=== PATIENT | male | born 1975 | race Caucasian/White ===

== ENCOUNTER 2016-12-17 06:34 | Observation (INO) ==
--- NOTE | 2016-12-17 06:47 | Emergency Department Note ---
Disposition Clinical Impression: Hematuria, History of chronic urinary tract infection Disposition: Admitted As Inpatient Condition: Fair Time of Disposition: 08:03 Male Urogenital HPI - General Chief complaint: ED Urogenital-Male Stated complaint: suprapubic cath not draining Source: patient Mode of arrival: EMS Limitations: physical limitation Nursing Notes Reviewed: Yes Vital Signs Reviewed: Yes - History of Present Illness HPI Narrative: 41-year-old male arrives by EMS from [facility] for evaluation of suprapubic catheter complications. [facility], the patient has had no drainage from his suprapubic catheter since this morning. The patient states that early this morning, nurses [facility] the [facility] went to change his suprapubic catheter as they do once a month. He states that the old catheter was removed and a new one was placed. He states that it was immediately noticed to be very uncomfortable. He states that he has a sensation of suprapubic fullness and that her catheter is "in the wrong place". He complains of bleeding and leakage of urine from his suprapubic stoma. He denies any fever, chills, nausea , or vomiting. He states that he was recently placed on IV antibiotics for treatment of a urinary tract infection. Review of records from a [facility] in [facility] reveals that he was being treated with amikacin for a urinary tract infection. He does state "I am pretty sure I have a urinary tract infection again". 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 Severity: severe Severity scale (1-10): 10 Quality: dull Improves with: none Worsens with: none - Related Data Home Medications Medication Instructions Recorded Confirmed HYDROmorphone [Dilaudid] 2 mg PO Q4HR PRN 03/23/15 12/17/16 Promethazine [Phenergan] 25 mg PO Q6HR PRN 03/23/15 12/17/16 Ascorbic Acid [Vitamin C] 500 mg PO DAILY 05/23/15 12/17/16 Bisacodyl [Dulcolax] 5 mg PO DAILY 05/23/15 12/17/16 Lubiprostone [Amitiza] 24 mcg PO Q12HR 05/23/15 12/17/16 Sennosides [Senna] 8.6 mg PO BID 05/23/15 12/17/16 Ferrous Gluconate 240 mg PO BID 02/26/16 12/17/16 Lactobacillus Acidophilus 1 tab PO BID 02/26/16 12/17/16 [Acidophilus] Omeprazole [PriLOSEC] 20 mg PO DAILY 02/26/16 12/17/16 Ipratropium/Albuterol Neb [Duoneb] 3 ml IH Q6HR PRN 05/10/16 12/17/16 Acetaminophen [Tylenol] 650 mg PO Q6HR PRN 05/11/16 12/17/16 Baclofen 60 mg PO BID 05/11/16 12/17/16 GuaiFENesin ER [Mucinex] 600 mg PO Q12HR PRN 05/11/16 12/17/16 diazePAM [Valium] 5 mg PO Q6H PRN 05/11/16 12/17/16 Docusate [Colace] 100 mg PO BID 05/12/16 12/17/16 Tizanidine HCl [Zanaflex] 12 mg PO BID 05/12/16 12/17/16 Allergies Allergy/AdvReac Type Severity Reaction Status Date / Time cephalexin [From Keflex] Allergy Hives Verified 12/17/16 06:46 ciprofloxacin [From Cipro] Allergy Hives Verified 12/17/16 06:46 cranberry Allergy See Verified 12/17/16 06:46 Comments ketorolac Allergy Hives Verified 12/17/16 06:46 morphine Allergy Hives Verified 12/17/16 06:46 nitrofurantoin Allergy Hives Verified 12/17/16 06:46 [From Macrobid] Oxycodone Allergy Hives Verified 12/17/16 06:46 Penicillins Allergy Hives Verified 12/17/16 06:46 prochlorperazine Allergy Hives Verified 12/17/16 06:46 [From Compazine] Sulfa (Sulfonamide Allergy Hives Verified 12/17/16 06:46 Antibiotics) trimethoprim Allergy See Verified 12/17/16 06:46 Comments All systems ED: reviewed and negative except as stated. Constitutional: Denies: fever, chills, weakness, weight change Eyes: Denies: eye pain, eye discharge, vision change ENT ED: Denies: ear pain, throat pain, dental pain, hearing loss, epistaxis, congestion, dysphagia Cardiovascular: Denies: chest pain, palpitations, dyspnea on exertion, edema, syncope Respiratory: Denies: cough, dyspnea, wheezes, hemoptysis, stridor Gastrointestinal: Denies: abdominal pain, nausea, vomiting, diarrhea, constipation, hematemesis, melena, hematochezia Genitourinary: Reports: as per HPI, other (Suprapubic catheter complications). Denies: urgency, dysuria, frequency, hematuria Musculoskeletal: Denies: back pain, neck pain, arthralgia, myalgia Integumentary: Denies: rash, abrasion, lesions Neurological: Denies: headache, weakness, numbness, paresthesias, confusion, abnormal gait, vertigo Psychiatric: Denies: anxiety, depression, suicidal thoughts, homicidal thoughts , auditory hallucinations, visual hallucinations Endocrine: Denies: fatigue Hematological/Lymphatic: Denies: easy bleeding, easy bruising Allergic/Immunologic: Denies: facial swelling, urticaria Past Medical History - Past Medical History Attestation: Yes The following information was validated with the patient. Source: patient, nursing notes reviewed Medical history: Reports: GERD, kidney stones, other Surgical history: Reports: orthopedic, other, tracheostomy, other Psychiatric history: Reports: anxiety, depression, prior suicide attempt - Social History Smoking Status: Former smoker Smokeless Tobacco Status: Yes (chew) Alcohol use: Reports: none Drug use: Reports: IVDU Physical Exam - General Limitations: physical limitation General appearance: alert, in no apparent distress - Head Head exam: normal inspection - Eye Eye exam: Present: normal appearance. Absent: nystagmus - ENT ENT exam: mucous membranes moist - Neck Neck exam: Present: normal inspection, full ROM, trachea midline - Chest Chest inspection: Present: normal inspection, symmetric chest wall rise - Respiratory Respiratory exam: Present: normal lung sounds bilaterally. Absent: respiratory distress, wheezes, stridor, accessory muscle use, prolonged expiratory phase - Cardiovascular Cardiovascular exam: Present: regular rate, normal rhythm, normal heart sounds - Abdominal Exam Abdominal Exam: Present: soft, tenderness, normal bowel sounds, other (Small amount of bright red blood as well as leakage of urine noted from the patient's suprapubic catheter insertion site.) Abdominal Tenderness: Present: suprapubic, severe - Neurological Exam Neurological exam: Present: alert, oriented X3, normal gait - Psychiatric Psychiatric exam: Present: normal affect, normal mood - Skin Skin exam: Present: warm, intact, normal color, diaphoresis Course Course Narrative: Upon questioning, the patient states that an 18-Belgian Souza is used. We will attempt removal of the current suprapubic catheter and attempt placement with an 18-Belgian catheter. Upon review of records from a visit at [place] emergency department in October, an 18-Belgian coude was used. 0710: An attempt to deflate the balloon from the suprapubic catheter in place was unsuccessful. I have consult with Dr. Villatoro, the ED attending. Dr. Villatoro recommends consultation with urology on-call. At this time, I am awaiting a return call from the urologist. 0740: Dr. Lion at bedside. Dr. Lion was able to remove the previous indwelling suprapubic catheter. Patient tolerated this well. Dr. Lion placed a 22-Belgian 3-way Souza due to the presence of large amounts of clots. He recommends continuous bladder irrigation and admission to the hospitalist service. He also recommends serial H&H draws d/t the severity of clots and hematuria. I have discussed this plan with my ED attending Dr. Villatoro. Dr. Villatoro is in agreement. 0812: I spoke with Dr. Suárez, who accepts the patient to admission to the hospitalist service. 0910: I was informed by the patient's nurse at the vascular access team was unsuccessful in obtaining either a peripheral midline or a PICC line. I have spoke with placed a consult with interventional radiology at this time for the possibility of a tunneled PICC placement. 1036: I have notified Grace with interventional radiology that the coagulation cascade has returned. At this time, we are awaiting interventional radiology for placement of vascular access prior to transferring the patient to a medical floor. The patient remains alert and oriented without signs of distress. - Consultations Consultation #1: I spoke with Dr. Lion, urology incident response analyst. Dr. Lion states he will see the patient here in the emergency department. Time: 07:24 Vital Signs Temperature 98.1 F 12/17/16 06:41 Pulse Rate 116 12/17/16 06:41 Respiratory Rate 20 12/17/16 06:41 Blood Pressure 181/132 12/17/16 06:41 O2 Sat by Pulse Oximetry 98 12/17/16 06:41 Temperature 98.1 F 12/17/16 06:41 Pulse Rate 116 12/17/16 09:13 Respiratory Rate 18 12/17/16 09:13 Blood Pressure 112/78 12/17/16 09:13 O2 Sat by Pulse Oximetry 95 12/17/16 09:13 Oxygen Delivery Oxygen Delivery Room Air Urogenital-Male - MDM Narrative Medical decision making narrative: I examined this patient and my medical decision-making was reviewed with the MANUFACTURING APPLICATIONS ENGINEER/PA/Advanced Practice Nurse/Resident Physician. I agree with the documented findings, disposition and treatment plan as described except to the extent set forth below. Patient was seen and evaluated by the nurse practitioner Bill Martin, I agree with his evaluation and management plan, supervised the care of the patient's stay. Patient has suprapubic catheter that could not be deflated and it gets changed monthly. We are unable to do it here either. Spoke with urology, Dr. Lion who evaluated the patient ED he is and bring him into the hospital and reassess. Patient did have bleeding from his penis and urology expected the catheter had traveled into the urethra. Patient's in agreement with this plan. - Medical Records Medical records reviewed: Yes I reviewed the patient's medical records. - Lab Data Lab results reviewed: Yes I reviewed the patient's lab results. Lab results narrative: Laboratory Last Values WBC 7.6 K/mcL (4.3-11.1) 12/17/16 07:15 RBC 5.18 M/mcL (4.19-5.50) 12/17/16 07:15 Hgb 15.3 g/dL (12.9-16.9) 12/17/16 07:15 Hct 47.1 % (37.5-50.1) 12/17/16 07:15 MCV 90.9 fL (83.0-100.0) 12/17/16 07:15 MCH 29.5 pg (28.0-33.3) 12/17/16 07:15 MCHC 32.5 g/dL (31.6-35.5) 12/17/16 07:15 RDW 13.2 % (11.5-14.5) 12/17/16 07:15 Plt Count 259 K/mcL (140-400) 12/17/16 07:15 MPV 8.4 fL (9.4-12.4) L 12/17/16 07:15 Immature Gran % 0.3 % (0-4) 12/17/16 07:15 Seg Neutrophils % 51.7 % 12/17/16 07:15 Lymphocytes % 29.3 % 12/17/16 07:15 Monocytes % 11.3 % 12/17/16 07:15 Eosinophils % 6.6 % 12/17/16 07:15 Basophils % 0.8 % 12/17/16 07:15 Neutrophils # 3.9 K/mcL (1.6-8.9) 12/17/16 07:15 Lymphocytes # 2.2 K/mcL (0.6-4.6) 12/17/16 07:15 Monocytes # 0.9 K/mcL (0.0-1.3) 12/17/16 07:15 Eosinophils # 0.5 K/mcL (0.0-0.6) 12/17/16 07:15 Basophils # 0.1 K/mcL (0.0-0.2) 12/17/16 07:15 PT 11.7 Seconds (9.4-12.1) 12/17/16 09:39 INR 1.1 12/17/16 09:39 APTT 38.7 Seconds (26.0-36.0) H 12/17/16 09:39 Sodium 140 mEq/L (136-145) 12/17/16 07:15 Potassium 3.8 mEq/L (3.5-4.5) 12/17/16 07:15 Chloride 103 mEq/L (98-109) 12/17/16 07:15 Carbon Dioxide 24 mEq/L (19-29) 12/17/16 07:15 BUN 14 mg/dL (8-26) 12/17/16 07:15 Creatinine 0.74 mg/dL (0.72-1.25) 12/17/16 07:15 Est GFR ( Amer) > 60 (> 60) 12/17/16 07:15 Est GFR (Non-Af Amer) > 60 (> 60) 12/17/16 07:15 BUN/Creatinine Ratio 19 (6-26) 12/17/16 07:15 Glucose 83 mg/dL (70-99) 12/17/16 07:15 Calculated Osmolality 290 (280-300) 12/17/16 07:15 Calcium 9.8 mg/dL (8.6-10.8) 12/17/16 07:15 Result diagrams: 12/17/16 07:15 12/17/16 07:15 Lab Results 12/17/16 12/17/16 Range/Units 07:15 07:15 WBC 7.6 (4.3-11.1) K/mcL RBC 5.18 (4.19-5.50) M/mcL Hgb 15.3 (12.9-16.9) g/dL Hct 47.1 (37.5-50.1) % MCV 90.9 (83.0-100.0) fL MCH 29.5 (28.0-33.3) pg MCHC 32.5 (31.6-35.5) g/dL RDW 13.2 (11.5-14.5) % Plt Count 259 (140-400) K/mcL MPV 8.4 L (9.4-12.4) fL Immature Gran % 0.3 (0-4) % Seg Neutrophils % 51.7 % Lymphocytes % 29.3 % Monocytes % 11.3 % Eosinophils % 6.6 % Basophils % 0.8 % Neutrophils # 3.9 (1.6-8.9) K/mcL Lymphocytes # 2.2 (0.6-4.6) K/mcL Monocytes # 0.9 (0.0-1.3) K/mcL Eosinophils # 0.5 (0.0-0.6) K/mcL Basophils # 0.1 (0.0-0.2) K/mcL Sodium 140 (136-145) mEq/L Potassium 3.8 (3.5-4.5) mEq/L Chloride 103 (98-109) mEq/L Carbon Dioxide 24 (19-29) mEq/L BUN 14 (8-26) mg/dL Creatinine 0.74 (0.72-1.25) mg/dL Est GFR ( Amer) > 60 (> 60) Est GFR (Non-Af Amer) > 60 (> 60) BUN/Creatinine Ratio 19 (6-26) Glucose 83 (70-99) mg/dL Calculated Osmolality 290 (280-300) Calcium 9.8 (8.6-10.8) mg/dL
[2016-12-17 07:23] LABS: Basophils # 0.1 K/mcL (0.0-0.2); Basophils % 0.8 %; Eosinophils # 0.5 K/mcL (0.0-0.6); Eosinophils % 6.6 %; Hematocrit 47.1 % (37.5-50.1); Hemoglobin 15.3 g/dL (12.9-16.9); Immature Granulocytes % 0.3 % (0-4); Lymphocytes # 2.2 K/mcL (0.6-4.6); Lymphocytes % 29.3 %; Mean Corpuscular HGB Conc 32.5 g/dL (31.6-35.5); Mean Corpuscular Hemoglobin 29.5 pg (28.0-33.3); Mean Corpuscular Volume 90.9 fL (83.0-100.0); Mean Platelet Volume 8.4 fL (9.4-12.4); Monocytes # 0.9 K/mcL (0.0-1.3); Monocytes % 11.3 %; Neutrophils # 3.9 K/mcL (1.6-8.9); Platelet Count 259 K/mcL (140-400); Red Blood Count 5.18 M/mcL (4.19-5.50); Red Cell Distribution Width 13.2 % (11.5-14.5); Segmented Neutrophils % 51.7 %
[2016-12-17 07:37] LABS: BUN/Creatinine Ratio 19 (6-26); Blood Urea Nitrogen 14 mg/dL (8-26); Calcium 9.8 mg/dL (8.6-10.8); Carbon Dioxide 24 mEq/L (19-29); Chloride 103 mEq/L (98-109); Glucose 83 mg/dL (70-99); Osmolality,Calculated 290 (280-300); Potassium 3.8 mEq/L (3.5-4.5); Sodium 140 mEq/L (136-145); eGFR For African Americans > 60 (> 60); eGFR For Non-African Americans > 60 (> 60)
[2016-12-17] MEDS ORDERED: diazePAM 5 MG TABLET PO PRN (09:12)
[2016-12-17] MEDS ORDERED: Acetaminophen 325 MG TABLET PO PRN (09:12)
[2016-12-17] MEDS ORDERED: Ipratropium/Albuterol Neb 3 ML IH PRN (09:12)
[2016-12-17] MEDS ORDERED: Ondansetron 4 MG/2 ML VIAL IVP PRN (09:14)
[2016-12-17] MEDS ORDERED: Naloxone 0.4 MG/ML INJ IVP PRN (09:14)
[2016-12-17] MEDS ORDERED: *HR* HYDROmorphone (PF) 1 MG/ML SYRINGE IM ONE (09:15)
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
[2016-12-17 09:50] LABS: INR 1.1; Prothrombin Time 11.7 Seconds (9.4-12.1)
[2016-12-17 09:52] LABS: Activated Partial Thrombo Time 38.7 Seconds (26.0-36.0)
--- NOTE | 2016-12-17 11:01 | Urology - Consult Note ---
Date of Encounter: 12/17/16 Time of Encounter: 10:59 - Assessment and Plan (1) Souza catheter problem Current Visit: Yes Status: Acute Assessment and plan: I suspect that the initial suprapubic catheter was inflated within the prostatic urethra and kinked. Dislodged the catheter from the prosthetic urethra and cut the valve to release the balloon. Unfortunately he had significant blood clots and bleeding within the bladder likely from prostatic urethral bleeding. I change the catheter to a 22 Chadian three-way and was able to irrigate the clots however it did not irrigate clear enough for safe discharge. I feel he requires observation in the hospital with continuous bladder irrigation. Qualifiers: Encounter type: subsequent encounter Qualified Code(s): T83.9XXD - Unspecified complication of genitourinary prosthetic device, implant and graft, subsequent encounter (2) Gross hematuria Current Visit: Yes Status: Acute Assessment and plan: Start CBI. Urology CN:HPI Reason for consult Urology: Gross Hematuria History of present illness: Patient well-known to the urology service for chronic suprapubic catheter. Present to the emergency room this morning with blood from his suprapubic catheter and the nursing staff and providers in the emergency room were unable to deflate the suprapubic catheter. Past Med Surg Social Fam HX - Past Medical History Medical history: GERD, kidney stones, other Psychiatric history: anxiety, depression, prior suicide attempt - Past Surgical History Surgical History: orthopedic, other, tracheostomy, other - Social History Smoking Status: Former smoker Smokeless Tobacco Status: Yes (chew) Alcohol use: none Drug use: IVDU - Family History Mother Living Status: Still Living Hx Family Respiratory Disorders: Yes Hx Family Cancer: Yes Hx Family Endocrine Disorder: Yes Medications and Allergies HYDROmorphone [Dilaudid] 2 mg PO Q4HR PRN 03/23/15 [History] Promethazine [Phenergan] 25 mg PO Q6HR PRN 03/23/15 [History] Ascorbic Acid [Vitamin C] 500 mg PO DAILY 05/23/15 [History] Bisacodyl [Dulcolax] 5 mg PO DAILY 05/23/15 [History] Lubiprostone [Amitiza] 24 mcg PO Q12HR 05/23/15 [History] Sennosides [Senna] 8.6 mg PO BID 05/23/15 [History] Ferrous Gluconate 240 mg PO BID 02/26/16 [History] Lactobacillus Acidophilus [Acidophilus] 1 tab PO BID 02/26/16 [History] Omeprazole [PriLOSEC] 20 mg PO DAILY 02/26/16 [History] Ipratropium/Albuterol Neb [Duoneb] 3 ml IH Q6HR PRN 05/10/16 [History] Acetaminophen [Tylenol] 650 mg PO Q6HR PRN 05/11/16 [History] Baclofen 60 mg PO BID 05/11/16 [History] GuaiFENesin ER [Mucinex] 600 mg PO Q12HR PRN 05/11/16 [History] diazePAM [Valium] 5 mg PO Q6H PRN 05/11/16 [History] Docusate [Colace] 100 mg PO BID 05/12/16 [History] Tizanidine HCl [Zanaflex] 12 mg PO BID 05/12/16 [History] Allergies cephalexin [From Keflex] Allergy (Verified 12/17/16 06:46) Hives ciprofloxacin [From Cipro] Allergy (Verified 12/17/16 06:46) Hives cranberry Allergy (Verified 12/17/16 06:46) See Comments unknown ketorolac Allergy (Verified 12/17/16 06:46) Hives morphine Allergy (Verified 12/17/16 06:46) Hives nitrofurantoin [From Macrobid] Allergy (Verified 12/17/16 06:46) Hives Oxycodone Allergy (Verified 12/17/16 06:46) Hives Penicillins Allergy (Verified 12/17/16 06:46) Hives prochlorperazine [From Compazine] Allergy (Verified 12/17/16 06:46) Hives Sulfa (Sulfonamide Antibiotics) Allergy (Verified 12/17/16 06:46) Hives trimethoprim Allergy (Verified 12/17/16 06:46) See Comments unknown Review of Systems - Constitutional no chills, no fever(s) - EENT Nose, mouth and throat: no dizziness - Cardiovascular no chest pain - Respiratory no cough - Gastrointestinal abdominal pain - Genitourinary hematuria - Musculoskeletal back pain - Integumentary no erythema - Neurological no confusion - Psychiatric no anxiety - Hematologic/Lymphatic easy bleeding - Allergic/Immunologic no throat swelling Exam Initial Vital Signs Temp Pulse Resp BP Pulse Ox 98.1 F 116 20 181/132 98 12/17/16 06:41 12/17/16 06:41 12/17/16 06:41 12/17/16 06:41 12/17/16 06:41 - General physical appearance Present: no distress, chronically ill - Eyes Present: PERRL - ENT Present: normal nares - Neck Present: no masses - Respiratory Present: normal respiratory effort - Abdomen Abdomen: Present: soft, tender, suprapubic tenderness - Integumentary Present: no rash - Neurologic Absent: disoriented, confused - Additional Findings Bilateral lower extremity amputee 18 Chadian catheter present at the suprapubic site. Unable to deflate the balloon. Blood from around the catheter was seen. Minimal urine output in the tubing. Urology Results - Labs 12/17/16 07:15 12/17/16 07:15 Abnormal lab results MPV 8.4 fL (9.4-12.4) L 12/17/16 07:15 APTT 38.7 Seconds (26.0-36.0) H 12/17/16 09:39 All other labs normal. Procedures:Urology - Bladder Irrigation/Clot Evacuation Consent obtained: verbal consent Irrigation: saline Patient tolerated procedure: well Continuous Bladder Irrigation: Yes Complications: excessive bleeding Additional comments: With pressure I was able to dislodge the Souza catheter from the prostatic urethra. At that point I was able to deflate the balloon and remove the suprapubic catheter. I suspect that when the suprapubic catheter was inserted at the residential that the tip migrated into the prostatic urethra unknowingly. Unfortunately the balloon inflated within the prostatic urethra resulted in significant hematuria. I was able to irrigate clots out the bleeding was to significant for safe discharge. A 22 Chadian three-way catheter was placed it did irrigate easily and CBI was started. Consult Discharge Plan - Plan Referrals: Mauricio Melendrez MD [Primary Care Provider] -
[2016-12-17] MEDS: *HR* HYDROmorphone 2 MG TABLET PO PRN (12:25)
[2016-12-17] MEDS: 0.9 % Sodium Chloride 1,000 ML IVC SCH (16:10)
[2016-12-17] MEDS: Meropenem 1,000 MG in 0.9 % Sodium Chloride Mini Bag 100 ML IVPB SCH (16:11)
[2016-12-17 16:41] LABS: Mean Corpuscular HGB Conc 32.4 g/dL (31.6-35.5); Mean Corpuscular Hemoglobin 29.6 pg (28.0-33.3); Mean Corpuscular Volume 91.4 fL (83.0-100.0); Mean Platelet Volume 8.6 fL (9.4-12.4); Platelet Count 270 K/mcL (140-400); Red Blood Count 4.05 M/mcL (4.19-5.50); Red Cell Distribution Width 13.3 % (11.5-14.5)
[2016-12-17] MEDS: (Lubiprostone [Amitiza] 24 MCG) PO SCH (18:18)
[2016-12-17] MEDS: Baclofen 10 MG TABLET PO SCH (21:40)
[2016-12-17] MEDS: tiZANidine 4 MG TABLET PO SCH (21:40)
[2016-12-18] MEDS: Meropenem 1,000 MG in 0.9 % Sodium Chloride Mini Bag 100 ML IVPB SCH ×2 (01:07→07:30)
[2016-12-18] MEDS: 0.9 % Sodium Chloride 1,000 ML IVC SCH (03:28)
[2016-12-18 04:36] LABS: Basophils # 0.1 K/mcL (0.0-0.2); Basophils % 0.6 %; Eosinophils # 0.4 K/mcL (0.0-0.6); Eosinophils % 4.3 %; Hematocrit 35.2 % (37.5-50.1); Hemoglobin 11.3 g/dL (12.9-16.9); Immature Granulocytes % 0.3 % (0-4); Lymphocytes % 21.8 %; Mean Corpuscular HGB Conc 32.1 g/dL (31.6-35.5); Mean Corpuscular Hemoglobin 29.4 pg (28.0-33.3); Mean Corpuscular Volume 91.7 fL (83.0-100.0); Mean Platelet Volume 8.6 fL (9.4-12.4); Monocytes # 0.9 K/mcL (0.0-1.3); Neutrophils # 5.6 K/mcL (1.6-8.9); Platelet Count 237 K/mcL (140-400); Red Blood Count 3.84 M/mcL (4.19-5.50); Red Cell Distribution Width 13.5 % (11.5-14.5)
[2016-12-18 05:14] LABS: BUN/Creatinine Ratio 26 (6-26); Blood Urea Nitrogen 17 mg/dL (8-26); Calcium 8.6 mg/dL (8.6-10.8); Carbon Dioxide 27 mEq/L (19-29); Chloride 102 mEq/L (98-109); Glucose 80 mg/dL (70-99); Osmolality,Calculated 285 (280-300); Sodium 137 mEq/L (136-145); eGFR For African Americans > 60 (> 60); eGFR For Non-African Americans > 60 (> 60)
[2016-12-18] MEDS: *HR* HYDROmorphone 2 MG TABLET PO PRN (05:29)
[2016-12-18] MEDS: (Lubiprostone [Amitiza] 24 MCG) PO SCH (06:48)
--- NOTE | 2016-12-18 07:12 | Urology Progress Note ---
Date of Encounter: 12/18/16 Time of Encounter: 07:10 - Assessment and Plan (1) Souza catheter problem Current Visit: Yes Status: Acute Qualifiers: Encounter type: subsequent encounter Qualified Code(s): T83.9XXD - Unspecified complication of genitourinary prosthetic device, implant and graft, subsequent encounter (2) Gross hematuria Current Visit: Yes Status: Resolved Assessment and plan: OK to plug third port on cath and stop CBI. OK with discharge per urology standpoint. no followup with urology needed. continue SPT cath changes at his facility. Progress Note Subjective: no new complaints Objective Initial Vital Signs Temp Pulse Resp BP Pulse Ox 98.1 F 116 20 181/132 98 12/17/16 06:41 12/17/16 06:41 12/17/16 06:41 12/17/16 06:41 12/17/16 06:41 - Additional Exam very light hematuria off CBI - Labs 12/18/16 03:41 12/18/16 03:41 Diabetes panel 12/18/16 Range/Units 03:41 Sodium 137 (136-145) mEq/L Potassium 4.0 (3.5-4.5) mEq/L Chloride 102 (98-109) mEq/L Carbon Dioxide 27 (19-29) mEq/L BUN 17 (8-26) mg/dL Creatinine 0.65 L (0.72-1.25) mg/dL Glucose 80 (70-99) mg/dL Calcium 8.6 (8.6-10.8) mg/dL Calcium panel 12/18/16 Range/Units 03:41 Calcium 8.6 (8.6-10.8) mg/dL Pituitary panel 12/18/16 Range/Units 03:41 Sodium 137 (136-145) mEq/L Potassium 4.0 (3.5-4.5) mEq/L Chloride 102 (98-109) mEq/L Carbon Dioxide 27 (19-29) mEq/L BUN 17 (8-26) mg/dL Creatinine 0.65 L (0.72-1.25) mg/dL Glucose 80 (70-99) mg/dL Calcium 8.6 (8.6-10.8) mg/dL Adrenal panel 12/18/16 Range/Units 03:41 Sodium 137 (136-145) mEq/L Potassium 4.0 (3.5-4.5) mEq/L Chloride 102 (98-109) mEq/L Carbon Dioxide 27 (19-29) mEq/L BUN 17 (8-26) mg/dL Creatinine 0.65 L (0.72-1.25) mg/dL Glucose 80 (70-99) mg/dL Calcium 8.6 (8.6-10.8) mg/dL Consult Discharge Plan - Plan Referrals: Mauricio Melendrez MD [Primary Care Provider] -
[2016-12-18] MEDS: Baclofen 10 MG TABLET PO SCH (07:31)
[2016-12-18] MEDS: tiZANidine 4 MG TABLET PO SCH (07:32)
[2016-12-18 08:53] LABS: Bilirubin,Urine Negative (Negative); Blood,Urine Large (Negative); Clarity,Urine Turbid (Clear); Color,Urine Yellow (Yellow); Glucose,Urine (UA) Normal (Normal); Ketones,Urine Trace mg/dL (Negative); Leukocyte Esterase,Urine Large (Negative); Nitrite,Urine Positive (Negative); Protein,Urine 100 mg/dL (Neg-Trace); Urobilinogen,Urine Normal (Normal)
[2016-12-18 08:56] LABS: Bacteria,Urine None Seen per hpf (None-Few); Hyaline Casts,Urine None Seen per lpf (None-Few); RBC,Urine TNTC per hpf (0-3); Squamous Epithelial Cell,Urine Moderate per lpf (None-Few); WBC,Urine TNTC per hpf (0-3)
[2016-12-18 11:05] VITALS: BP 94/58
--- NOTE | 2016-12-18 14:09 | Discharge Summary ---
Date of Encounter: 12/18/16 Time of Encounter: 13:00 - Discharge Diagnosis (1) Hematuria Priority: Primary Status: Acute (2) History of chronic urinary tract infection Priority: Primary Status: Acute (3) Neurogenic bladder Priority: Primary Status: Acute - Discharge Medications Prescriptions: HYDROmorphone [Dilaudid] 2 mg PO Q4HR PRN #6 tablet PRN Reason: severe pain 8-10 diazePAM [Valium] 5 mg PO Q6H PRN #6 tablet PRN Reason: MUSCLE SPASMS AND ANXIETY Home Medications: Promethazine [Phenergan] 25 mg PO Q6HR PRN 03/23/15 [History] Ascorbic Acid [Vitamin C] 500 mg PO DAILY 05/23/15 [History] Bisacodyl [Dulcolax] 5 mg PO DAILY 05/23/15 [History] Lubiprostone [Amitiza] 24 mcg PO Q12HR 05/23/15 [History] Sennosides [Senna] 8.6 mg PO BID 05/23/15 [History] Ferrous Gluconate 240 mg PO BID 02/26/16 [History] Lactobacillus Acidophilus [Acidophilus] 1 tab PO BID 02/26/16 [History] Omeprazole [PriLOSEC] 20 mg PO DAILY 02/26/16 [History] Ipratropium/Albuterol Neb [Duoneb] 3 ml IH Q6HR PRN 05/10/16 [History] Acetaminophen [Tylenol] 650 mg PO Q6HR PRN 05/11/16 [History] Baclofen 60 mg PO BID 05/11/16 [History] GuaiFENesin ER [Mucinex] 600 mg PO Q12HR PRN 05/11/16 [History] Docusate [Colace] 100 mg PO BID 05/12/16 [History] Tizanidine HCl [Zanaflex] 12 mg PO BID 05/12/16 [History] HYDROmorphone [Dilaudid] 2 mg PO Q4HR PRN #6 tablet 12/18/16 [Rx] diazePAM [Valium] 5 mg PO Q6H PRN #6 tablet 12/18/16 [Rx] Allergies/Adverse Reactions: Allergies cephalexin [From Keflex] Allergy (Verified 12/17/16 06:46) Hives ciprofloxacin [From Cipro] Allergy (Verified 12/17/16 06:46) Hives cranberry Allergy (Verified 12/17/16 06:46) See Comments unknown ketorolac Allergy (Verified 12/17/16 06:46) Hives morphine Allergy (Verified 12/17/16 06:46) Hives nitrofurantoin [From Macrobid] Allergy (Verified 12/17/16 06:46) Hives Oxycodone Allergy (Verified 12/17/16 06:46) Hives Penicillins Allergy (Verified 12/17/16 06:46) Hives prochlorperazine [From Compazine] Allergy (Verified 12/17/16 06:46) Hives Sulfa (Sulfonamide Antibiotics) Allergy (Verified 12/17/16 06:46) Hives trimethoprim Allergy (Verified 12/17/16 06:46) See Comments unknown Procedures/tests Complete & Pending: Procedures Performed prior 72 hours Category Date Time Status IR cvc insrt tunnel wo prt/hang gliding instructor [IR] Routine IR 12/17/16 Completed IR cvc repo tunnel wo prt/hang gliding instructor [IR] Routine IR 12/18/16 Ordered IR us guide needle place [IR] Routine IR 12/17/16 Completed Date of admission: 12/17/16 09:14 Primary care physician: Mauricio Melendrez MD Consults: 12/17/16 11:37 Consult to Thoracic Surgeon [CONS] Routine Reason for SW Consult: superintendent terminal patient from [facility] Discharging clinician: Jere Cortez Anticipated date of discharge: 12/18/16 - Patient Status Disposition: Transfer SNF Condition: Fair Functional capacity at discharge: bed bound Overall status at discharge: patient is back to baseline - Discharge Instructions Follow Up With: Mauricio Melendrez MD [Primary Care Provider] - - Diet and Activity Activity: as per physical therapy Diet: advance to your usual diet Interval History: Mr. Eid is a 41 year old male with a past medical history of quadriplegia, bacteremia and recurrent UTIs with ESBL and MRSA, neurogenic bladder, was brought to the emergency room from the nursing facility as they try to change the Souza catheter is to do every month this morning unsuccessfully. Dr. Lion from the urology service had to come to the ER and placed a 22-Cuban three-way catheter as the patient developed hemorrhage and multiple clots were taken out. Continues bladder irrigation was recommended. Patient is complaining of severe lower abdominal pain, he thinks he is having another urinary tract infection. Because of the catheter obstruction in now the irrigation no UA has been able to be obtained. The patient's heart rate was 128 , blood pressure was 181/132, she is complaining of excruciating lower abdominal pain 10 out of 10 in intensity. Hospital course: Mr. Eid is a 41 year old male admitted for hematuria and to exchange the suprapubic tube. Urology consult was called and his suprapubic tube has been changed. He was placed on irrigation, and his urine is clear right now. Urology cleared to discharge patient. I saw and examined the patient. He is awake alert, oriented 3. Vitals are stable. No fever, WBC get down to normal. Quadriplegia and bedbound. Patient denies pain or discomfort. We will discharge patient back to long-term. Patient has chronic UTI, frequently need IV antibiotic in long-term. will keep the tunnelled IV line to NH. - Time Spent with Patient Total time spent providing and/or coordinating discharge services: 40min Greater than 30 minutes - Constitutional Vitals: Temp Pulse Resp BP Pulse Ox 98.4 F 85 14 94/58 95 12/18/16 11:04 12/18/16 11:04 12/18/16 11:04 12/18/16 11:04 12/18/16 11:04 General appearance: Present: A&O X 3 - Head Head exam: Present: atraumatic, normocephalic - Eye Eye exam: Present: PERRL, conjuntiva pink, sclera anicteric Pupils: Present: PERRL - Neck Neck exam general surgery: Present: supple, trachea midline. Absent: lymphadenopathy - Respiratory Respiratory exam: Present: CTAB. Absent: accessory muscle use, rales, rhonchi, wheezes - Cardiovascular Cardiovascular exam: Present: RRR, +S1, +S2. Absent: diastolic murmur, gallop, rubs, systolic murmur - GI/Abdominal GI/Abdominal exam: Present: normal bowel sounds, soft, no peritoneal signs. Absent: distended, tenderness - Extremities Exam Extremities exam: Present: warm. Absent: calf tenderness, cyanotic, pedal edema Additional comments: Quadriplegia - Neurological Exam Neurological exam: Present: CN II-XII intact, oriented X3, no focal deficits. Absent: pronater drift, facial droop, speech deficit - Skin Skin exam: Present: dry, intact
--- NOTE | 2016-12-18 14:40 | Physician Discharge Referral ---
ExtendedCare Referral Info Transfer To: [facility] Provider in Charge after Transfer: Other - Diagnosis (1) Hematuria Status: Acute (2) History of chronic urinary tract infection Status: Acute (3) Neurogenic bladder Status: Acute - Transfer Medications Prescriptions: HYDROmorphone [Dilaudid] 2 mg PO Q4HR PRN #6 tablet PRN Reason: severe pain 8-10 diazePAM [Valium] 5 mg PO Q6H PRN #6 tablet PRN Reason: MUSCLE SPASMS AND ANXIETY Home Medications: Promethazine [Phenergan] 25 mg PO Q6HR PRN 03/23/15 [History] Ascorbic Acid [Vitamin C] 500 mg PO DAILY 05/23/15 [History] Bisacodyl [Dulcolax] 5 mg PO DAILY 05/23/15 [History] Lubiprostone [Amitiza] 24 mcg PO Q12HR 05/23/15 [History] Sennosides [Senna] 8.6 mg PO BID 05/23/15 [History] Ferrous Gluconate 240 mg PO BID 02/26/16 [History] Lactobacillus Acidophilus [Acidophilus] 1 tab PO BID 02/26/16 [History] Omeprazole [PriLOSEC] 20 mg PO DAILY 02/26/16 [History] Ipratropium/Albuterol Neb [Duoneb] 3 ml IH Q6HR PRN 05/10/16 [History] Acetaminophen [Tylenol] 650 mg PO Q6HR PRN 05/11/16 [History] Baclofen 60 mg PO BID 05/11/16 [History] GuaiFENesin ER [Mucinex] 600 mg PO Q12HR PRN 05/11/16 [History] Docusate [Colace] 100 mg PO BID 05/12/16 [History] Tizanidine HCl [Zanaflex] 12 mg PO BID 05/12/16 [History] HYDROmorphone [Dilaudid] 2 mg PO Q4HR PRN #6 tablet 12/18/16 [Rx] diazePAM [Valium] 5 mg PO Q6H PRN #6 tablet 12/18/16 [Rx] Allergies/Adverse Reactions: Allergies cephalexin [From Keflex] Allergy (Verified 12/17/16 06:46) Hives ciprofloxacin [From Cipro] Allergy (Verified 12/17/16 06:46) Hives cranberry Allergy (Verified 12/17/16 06:46) See Comments unknown ketorolac Allergy (Verified 12/17/16 06:46) Hives morphine Allergy (Verified 12/17/16 06:46) Hives nitrofurantoin [From Macrobid] Allergy (Verified 12/17/16 06:46) Hives Oxycodone Allergy (Verified 12/17/16 06:46) Hives Penicillins Allergy (Verified 12/17/16 06:46) Hives prochlorperazine [From Compazine] Allergy (Verified 12/17/16 06:46) Hives Sulfa (Sulfonamide Antibiotics) Allergy (Verified 12/17/16 06:46) Hives trimethoprim Allergy (Verified 12/17/16 06:46) See Comments unknown - Respiratory Orders Smoking Cessation: Smoking cessation has been advised. For more information, call the [place] Tobacco Quit Line at 3-007-GYGZ-NOW. - Advance Directives Code Status: Full Code - Rehabiliation Orders Rehab Orders: Evaluation for Physical Therapy, Evaluation for Occupational Therapy - Diet Orders Regular CERTIFICATION: I certify that the transfer of the above named patient to an Extended Care Facility is necessary for the continuing treatment of the diagnosis listed. The above information is true and accurate reflection of patient's current condition. Confidential - Redisclosure prohibited without a patient's written consent.
== END 2016-12-18 15:50 ==
LOC: EMEROO 06:34 → 3ANU 06:34
PROVIDERS: ADMIT Internal Medicine; ATTEND Internal Medicine

== ENCOUNTER 2017-01-26 04:53 | Inpatient (IN) ==
--- NOTE | 2017-01-26 06:08 | Emergency Department Note ---
Disposition Clinical Impression: Chronic UTI (urinary tract infection) Urinary tract infection Qualifiers: Urinary tract infection type: catheter-associated UTI Indwelling urinary catheter type: indwelling urethral catheter Encounter type: subsequent encounter Qualified Code(s): T83.511D - Infection and inflammatory reaction due to indwelling urethral catheter, subsequent encounter; N39.0 - Urinary tract infection, site not specified Disposition: Admitted As Inpatient Condition: Fair General Adult HPI - General Chief complaint: ED Urogenital-Male Stated complaint: cath issues Source: patient, EMS Limitations: no limitations Nursing Notes Reviewed: Yes Vital Signs Reviewed: Yes - History of Present Illness HPI Narrative: This is a 41-year-old male with a history of complicated suprapubic catheter and multiple previous urological surgeries presenting now with concern for gross hematuria. Apparently he was taking a shower and his suprapubic catheter was traumatically removed. The staff at the nursing facility attempted to replace the catheter resulting in gross hematuria and hemorrhage. When this has happened in the past the catheter has been placed into the ureter inadvertently. The patient has no abdominal pain but does have evidence of gross blood in the Souza catheter bag. His vital signs are stable on exam. . Pain Scale: 0 - Related Data Home Medications Medication Instructions Recorded Confirmed Promethazine [Phenergan] 25 mg PO Q6HR PRN 03/23/15 01/26/17 Ascorbic Acid [Vitamin C] 500 mg PO DAILY 05/23/15 01/26/17 Bisacodyl [Dulcolax] 5 mg PO DAILY 05/23/15 01/26/17 Lubiprostone [Amitiza] 24 mcg PO Q12HR 05/23/15 01/26/17 Sennosides [Senna] 8.6 mg PO BID 05/23/15 01/26/17 Ferrous Gluconate 240 mg PO BID 02/26/16 01/26/17 Lactobacillus Acidophilus 1 tab PO BID 02/26/16 01/26/17 [Acidophilus] Ipratropium/Albuterol Neb [Duoneb] 3 ml IH Q6HR PRN 05/10/16 01/26/17 Acetaminophen [Tylenol] 650 mg PO Q6HR PRN 05/11/16 01/26/17 Baclofen 60 mg PO BID 05/11/16 01/26/17 GuaiFENesin ER [Mucinex] 600 mg PO Q12HR PRN 05/11/16 01/26/17 Docusate [Colace] 100 mg PO BID 05/12/16 01/26/17 Tizanidine HCl [Zanaflex] 12 mg PO BID 05/12/16 01/26/17 diazePAM [Valium] 1 mg PO Q6HR PRN 01/26/17 01/26/17 Previous Rx's Medication Instructions Recorded HYDROmorphone [Dilaudid] 2 mg PO Q4HR PRN #6 tablet 12/18/16 Allergies Allergy/AdvReac Type Severity Reaction Status Date / Time cephalexin [From Keflex] Allergy Hives Verified 12/17/16 06:46 ciprofloxacin [From Cipro] Allergy Hives Verified 12/17/16 06:46 cranberry Allergy See Verified 12/17/16 06:46 Comments ketorolac Allergy Hives Verified 12/17/16 06:46 morphine Allergy Hives Verified 12/17/16 06:46 nitrofurantoin Allergy Hives Verified 12/17/16 06:46 [From Macrobid] Oxycodone Allergy Hives Verified 12/17/16 06:46 Penicillins Allergy Hives Verified 12/17/16 06:46 prochlorperazine Allergy Hives Verified 12/17/16 06:46 [From Compazine] Sulfa (Sulfonamide Allergy Hives Verified 12/17/16 06:46 Antibiotics) trimethoprim Allergy See Verified 12/17/16 06:46 Comments All systems ED: reviewed and negative except as stated. Past Medical History - Past Medical History Medical history: Reports: GERD, kidney stones, renal disease, other Surgical history: Reports: orthopedic, other, tracheostomy, other Psychiatric history: Reports: anxiety, depression, prior suicide attempt - Social History Smoking Status: Former smoker Smokeless Tobacco Status: Yes (chew) Alcohol use: Reports: none Drug use: Reports: IV Drug Use Physical Exam There is evidence of gross hematuria on examination there is an indwelling catheter in place with gross clots and hematuria - General Limitations: no limitations General appearance: alert, in no apparent distress - Head Head exam: atraumatic - Eye Eye exam: Present: normal appearance - ENT ENT exam: normal exam - Neck Neck exam: Present: normal inspection - Chest Chest inspection: Present: normal inspection - Respiratory Respiratory exam: Present: normal lung sounds bilaterally - Cardiovascular Cardiovascular exam: Present: regular rate, normal rhythm - Abdominal Exam Abdominal exam: Present: soft, Non-Tender - Extremities Exam Extremities exam: Present: normal inspection - Expanded Lower Extremity Exam Knee exam: Present: normal inspection Gait: observed and normal - Back Exam Back exam: Present: normal inspection, full ROM - Neurological Exam Neurological exam: Present: alert, oriented X3, CN II-XII intact - Psychiatric Psychiatric exam: Present: normal affect, normal mood - Skin Skin exam: Present: warm, dry Course Vital Signs Temperature 101.3 F H 01/26/17 05:20 Pulse Rate 112 01/26/17 05:20 Respiratory Rate 18 01/26/17 05:20 Blood Pressure 101/76 01/26/17 05:20 O2 Sat by Pulse Oximetry 93 01/26/17 05:20 Temperature 98.2 F 02/02/17 11:30 Pulse Rate 79 02/02/17 11:30 Respiratory Rate 18 02/02/17 11:30 Blood Pressure 104/72 02/02/17 11:30 O2 Sat by Pulse Oximetry 93 02/02/17 03:51 Oxygen Delivery Oxygen Delivery Room Air Medical Decision Making - [facility] Narrative Medical decision making narrative: Male patient who needs confirmation of suprapubic catheter. Given the findings of hematuria I would proceed with a CT scan to rule out traumatic insertion versus other acute causes of bladder hemorrhage. Additionally I would obtain CBC, type and screen. If the catheter is placed correctly into the bladder I would irrigate until clearance of hematuria. Urology will be consulted following confirmation of catheter placement. If the catheter is incorrectly placed urology will be consulted for correct placement. The patient was also found to have fever and tachycardia. He was started on sepsis protocol. He does have a history of known urinary tract infection. I am concerned given the tachycardia concurrently with elevated fever that this could represent early sepsis. Cultures will be obtained. He does have a penicillin allergy. I would initiate therapy with vancomycin which he is Harpreet on and add meropenem for dual coverage. 30 mL per kilogram fluid bolus will be initiated. - Medical Records Medical records reviewed: Yes I reviewed the patient's medical records. - Lab Data Lab results reviewed: Yes I reviewed the patient's lab results. Result diagrams: 02/02/17 03:35 02/02/17 03:35 Lab Results 01/26/17 01/26/17 01/26/17 Range/Units 06:45 06:45 06:45 WBC 15.0 H (4.3-11.1) K/mcL RBC 3.82 L (4.19-5.50) M/mcL Hgb 11.4 L (12.9-16.9) g/dL Hct 34.9 L (37.5-50.1) % MCV 91.4 (83.0-100.0) fL MCH 29.8 (28.0-33.3) pg MCHC 32.7 (31.6-35.5) g/dL RDW 13.0 (11.5-14.5) % Plt Count 217 (140-400) K/mcL MPV 8.8 L (9.4-12.4) fL Immature Gran % 0.5 (0-4) % Seg Neutrophils % 73.8 % Lymphocytes % 10.8 % Monocytes % 10.4 % Eosinophils % 4.1 % Basophils % 0.4 % Neutrophils # 11.1 H (1.6-8.9) K/mcL Lymphocytes # 1.6 (0.6-4.6) K/mcL Monocytes # 1.6 H (0.0-1.3) K/mcL Eosinophils # 0.6 (0.0-0.6) K/mcL Basophils # 0.1 (0.0-0.2) K/mcL Sodium 134 L (136-145) mEq/L Potassium 4.0 (3.5-4.5) mEq/L Chloride 98 (98-109) mEq/L Carbon Dioxide 27 (19-29) mEq/L BUN 10 (8-26) mg/dL Creatinine 0.58 L (0.72-1.25) mg/dL Est GFR ( Amer) > 60 (> 60) Est GFR (Non-Af Amer) > 60 (> 60) BUN/Creatinine Ratio 17 (6-26) Glucose 84 (70-99) mg/dL Calculated Osmolality 276 L (280-300) Lactic Acid (0.5-2.2) mmol/L Calcium 9.0 (8.6-10.8) mg/dL Urine Color (Yellow) Urine Clarity (Clear) Urine pH (5.0-8.0) pH Units Ur Specific [place] (1.010-1.025) Urine Protein (Neg-Trace) mg/dL Urine Glucose (UA) (Normal) mg/dL Urine Ketones (Negative) mg/dL Urine Blood (Negative) Urine Nitrite (Negative) Urine Bilirubin (Negative) Urine Urobilinogen (Normal) mg/dL Ur Leukocyte Esterase (Negative) Urine Microscopic RBC (0-3) per hpf Urine Microscopic WBC (0-3) per hpf Ur Squamous Epith Cells (None-Few) per lpf Urine Bacteria (None-Few) per hpf Hyaline Casts (None-Few) per lpf Ur Culture Indicated? (NO) Hep Bs Antigen (Nonreactive) Hepatitis C Ab Screen (Nonreactive) HCV RNA (PCR) IUs/ml IU/mL HCV RNA PCR log IUs/ml log IU HCV RNA (PCR) Interp (Not Detected) HCV RNA (PCR) EER HIV Ag/Ab Combo Qual (Nonreactive) Blood Type O POSITIVE Antibody Screen NEGATIVE 01/26/17 01/26/17 01/26/17 Range/Units 07:08 07:58 07:58 WBC (4.3-11.1) K/mcL RBC (4.19-5.50) M/mcL Hgb (12.9-16.9) g/dL Hct (37.5-50.1) % MCV (83.0-100.0) fL MCH (28.0-33.3) pg MCHC (31.6-35.5) g/dL RDW (11.5-14.5) % Plt Count (140-400) K/mcL MPV (9.4-12.4) fL Immature Gran % (0-4) % Seg Neutrophils % % Lymphocytes % % Monocytes % % Eosinophils % % Basophils % % Neutrophils # (1.6-8.9) K/mcL Lymphocytes # (0.6-4.6) K/mcL Monocytes # (0.0-1.3) K/mcL Eosinophils # (0.0-0.6) K/mcL Basophils # (0.0-0.2) K/mcL Sodium (136-145) mEq/L Potassium (3.5-4.5) mEq/L Chloride (98-109) mEq/L Carbon Dioxide (19-29) mEq/L BUN (8-26) mg/dL Creatinine (0.72-1.25) mg/dL Est GFR ( Amer) (> 60) Est GFR (Non-Af Amer) (> 60) BUN/Creatinine Ratio (6-26) Glucose (70-99) mg/dL Calculated Osmolality (280-300) Lactic Acid 0.8 (0.5-2.2) mmol/L Calcium (8.6-10.8) mg/dL Urine Color (Yellow) Urine Clarity (Clear) Urine pH (5.0-8.0) pH Units Ur Specific [place] (1.010-1.025) Urine Protein (Neg-Trace) mg/dL Urine Glucose (UA) (Normal) mg/dL Urine Ketones (Negative) mg/dL Urine Blood (Negative) Urine Nitrite (Negative) Urine Bilirubin (Negative) Urine Urobilinogen (Normal) mg/dL Ur Leukocyte Esterase (Negative) Urine Microscopic RBC (0-3) per hpf Urine Microscopic WBC (0-3) per hpf Ur Squamous Epith Cells (None-Few) per lpf Urine Bacteria (None-Few) per hpf Hyaline Casts (None-Few) per lpf Ur Culture Indicated? (NO) Hep Bs Antigen Nonreactive (Nonreactive) Hepatitis C Ab Screen Reactive H (Nonreactive) HCV RNA (PCR) IUs/ml 2,800,000 IU/mL HCV RNA PCR log IUs/ml 6.4 log IU HCV RNA (PCR) Interp DETECTED A (Not Detected) HCV RNA (PCR) EER SEE NOTE HIV Ag/Ab Combo Qual Nonreactive (Nonreactive) Blood Type Antibody Screen 01/26/17 Range/Units 08:15 WBC (4.3-11.1) K/mcL RBC (4.19-5.50) M/mcL Hgb (12.9-16.9) g/dL Hct (37.5-50.1) % MCV (83.0-100.0) fL MCH (28.0-33.3) pg MCHC (31.6-35.5) g/dL RDW (11.5-14.5) % Plt Count (140-400) K/mcL MPV (9.4-12.4) fL Immature Gran % (0-4) % Seg Neutrophils % % Lymphocytes % % Monocytes % % Eosinophils % % Basophils % % Neutrophils # (1.6-8.9) K/mcL Lymphocytes # (0.6-4.6) K/mcL Monocytes # (0.0-1.3) K/mcL Eosinophils # (0.0-0.6) K/mcL Basophils # (0.0-0.2) K/mcL Sodium (136-145) mEq/L Potassium (3.5-4.5) mEq/L Chloride (98-109) mEq/L Carbon Dioxide (19-29) mEq/L BUN (8-26) mg/dL Creatinine (0.72-1.25) mg/dL Est GFR ( Amer) (> 60) Est GFR (Non-Af Amer) (> 60) BUN/Creatinine Ratio (6-26) Glucose (70-99) mg/dL Calculated Osmolality (280-300) Lactic Acid (0.5-2.2) mmol/L Calcium (8.6-10.8) mg/dL Urine Color Red A (Yellow) Urine Clarity Turbid A (Clear) Urine pH 6.0 (5.0-8.0) pH Units Ur Specific [place] 1.013 (1.010-1.025) Urine Protein >=300 H (Neg-Trace) mg/dL Urine Glucose (UA) Normal (Normal) mg/dL Urine Ketones 40 H (Negative) mg/dL Urine Blood Large H (Negative) Urine Nitrite Positive A (Negative) Urine Bilirubin Large H (Negative) Urine Urobilinogen 2.0 H (Normal) mg/dL Ur Leukocyte Esterase Large H (Negative) Urine Microscopic RBC TNTC H (0-3) per hpf Urine Microscopic WBC 15-30 H (0-3) per hpf Ur Squamous Epith Cells Few (None-Few) per lpf Urine Bacteria Few (None-Few) per hpf Hyaline Casts None Seen (None-Few) per lpf Ur Culture Indicated? YES A (NO) Hep Bs Antigen (Nonreactive) Hepatitis C Ab Screen (Nonreactive) HCV RNA (PCR) IUs/ml IU/mL HCV RNA PCR log IUs/ml log IU HCV RNA (PCR) Interp (Not Detected) HCV RNA (PCR) EER HIV Ag/Ab Combo Qual (Nonreactive) Blood Type Antibody Screen
[2017-01-26] MEDS ORDERED: 0.9 % Sodium Chloride 1,000 ML IVC ONE (06:12)
[2017-01-26] MEDS ORDERED: Vancomycin 1,000 MG in D5% in Water 250 ML IVPB ONE (06:13)
[2017-01-26 07:05] LABS: Basophils # 0.1 K/mcL (0.0-0.2); Basophils % 0.4 %; Eosinophils # 0.6 K/mcL (0.0-0.6); Eosinophils % 4.1 %; Hematocrit 34.9 % (37.5-50.1); Hemoglobin 11.4 g/dL (12.9-16.9); Immature Granulocytes % 0.5 % (0-4); Lymphocytes # 1.6 K/mcL (0.6-4.6); Lymphocytes % 10.8 %; Mean Corpuscular HGB Conc 32.7 g/dL (31.6-35.5); Mean Corpuscular Hemoglobin 29.8 pg (28.0-33.3); Mean Corpuscular Volume 91.4 fL (83.0-100.0); Mean Platelet Volume 8.8 fL (9.4-12.4); Monocytes # 1.6 K/mcL (0.0-1.3); Monocytes % 10.4 %; Neutrophils # 11.1 K/mcL (1.6-8.9); Platelet Count 217 K/mcL (140-400); Red Blood Count 3.82 M/mcL (4.19-5.50); Segmented Neutrophils % 73.8 %
[2017-01-26 07:07] LABS: BUN/Creatinine Ratio 17 (6-26); Blood Urea Nitrogen 10 mg/dL (8-26); Carbon Dioxide 27 mEq/L (19-29); Chloride 98 mEq/L (98-109); Glucose 84 mg/dL (70-99); Osmolality,Calculated 276 (280-300); Sodium 134 mEq/L (136-145); eGFR For African Americans > 60 (> 60); eGFR For Non-African Americans > 60 (> 60)
--- NOTE | 2017-01-26 07:36 | Emergency Department Note ---
Disposition Clinical Impression: Chronic UTI (urinary tract infection) Urinary tract infection Qualifiers: Urinary tract infection type: catheter-associated UTI Indwelling urinary catheter type: indwelling urethral catheter Encounter type: subsequent encounter Qualified Code(s): T83.511D - Infection and inflammatory reaction due to indwelling urethral catheter, subsequent encounter Constipation Qualifiers: Constipation type: unspecified constipation type Qualified Code(s): K59.00 - Constipation, unspecified Pneumonia Qualifiers: Pneumonia type: due to unspecified organism Laterality: right Lung location: middle lobe of lung Qualified Code(s): J18.1 - Lobar pneumonia, unspecified organism Disposition: Admitted As Inpatient Condition: Fair General Adult HPI - General Chief complaint: ED Urogenital-Male Stated complaint: cath issues Source: patient, EMS Limitations: no limitations Nursing Notes Reviewed: Yes Vital Signs Reviewed: Yes - History of Present Illness Pain Scale: 0 - Related Data Home Medications Medication Instructions Recorded Confirmed Promethazine [Phenergan] 25 mg PO Q6HR PRN 03/23/15 01/26/17 Ascorbic Acid [Vitamin C] 500 mg PO DAILY 05/23/15 01/26/17 Bisacodyl [Dulcolax] 5 mg PO DAILY 05/23/15 01/26/17 Lubiprostone [Amitiza] 24 mcg PO Q12HR 05/23/15 01/26/17 Sennosides [Senna] 8.6 mg PO BID 05/23/15 01/26/17 Ferrous Gluconate 240 mg PO BID 02/26/16 01/26/17 Lactobacillus Acidophilus 1 tab PO BID 02/26/16 01/26/17 [Acidophilus] Omeprazole [PriLOSEC] 20 mg PO DAILY 02/26/16 01/26/17 Ipratropium/Albuterol Neb [Duoneb] 3 ml IH Q6HR PRN 05/10/16 01/26/17 Acetaminophen [Tylenol] 650 mg PO Q6HR PRN 05/11/16 01/26/17 Baclofen 60 mg PO BID 05/11/16 01/26/17 GuaiFENesin ER [Mucinex] 600 mg PO Q12HR PRN 05/11/16 01/26/17 Docusate [Colace] 100 mg PO BID 05/12/16 01/26/17 Tizanidine HCl [Zanaflex] 12 mg PO BID 05/12/16 01/26/17 Previous Rx's Medication Instructions Recorded HYDROmorphone [Dilaudid] 2 mg PO Q4HR PRN #6 tablet 12/18/16 diazePAM [Valium] 5 mg PO Q6H PRN #6 tablet 12/18/16 Allergies Allergy/AdvReac Type Severity Reaction Status Date / Time cephalexin [From Keflex] Allergy Hives Verified 12/17/16 06:46 ciprofloxacin [From Cipro] Allergy Hives Verified 12/17/16 06:46 cranberry Allergy See Verified 12/17/16 06:46 Comments ketorolac Allergy Hives Verified 12/17/16 06:46 morphine Allergy Hives Verified 12/17/16 06:46 nitrofurantoin Allergy Hives Verified 12/17/16 06:46 [From Macrobid] Oxycodone Allergy Hives Verified 12/17/16 06:46 Penicillins Allergy Hives Verified 12/17/16 06:46 prochlorperazine Allergy Hives Verified 12/17/16 06:46 [From Compazine] Sulfa (Sulfonamide Allergy Hives Verified 12/17/16 06:46 Antibiotics) trimethoprim Allergy See Verified 12/17/16 06:46 Comments Past Medical History - Past Medical History Medical history: Reports: GERD, kidney stones, renal disease, other Surgical history: Reports: orthopedic, other, tracheostomy, other Psychiatric history: Reports: anxiety, depression, prior suicide attempt - Social History Smoking Status: Former smoker Smokeless Tobacco Status: Yes (chew) Alcohol use: Reports: none Drug use: Reports: IVDU Physical Exam - General Limitations: no limitations General appearance: alert, in no apparent distress Course Vital Signs Temperature 101.3 F H 01/26/17 05:20 Pulse Rate 112 01/26/17 05:20 Respiratory Rate 18 01/26/17 05:20 Blood Pressure 101/76 01/26/17 05:20 O2 Sat by Pulse Oximetry 93 01/26/17 05:20 Temperature 101.3 F H 01/26/17 05:20 Pulse Rate 131 01/26/17 06:52 Respiratory Rate 18 01/26/17 06:52 Blood Pressure 191/132 01/26/17 06:52 O2 Sat by Pulse Oximetry 95 01/26/17 06:52 Oxygen Delivery Oxygen Delivery Room Air Medical Decision Making - [facility]DM Narrative Medical decision making narrative: Patient was a sign out this morning from the evening ER physician, Dr. Franks. He saw evaluated him consult urology. Urology has replaced his catheter. Waiting on his lab work. He has been [facility] the [facility] and sweats. He has a known UTI that they believe is MRSA and he is receiving vancomycin now. Waiting for his lab work. I may give him some for pain. And then will determine whether he needs admitted or can go back to nursing facility. He is in agreement with this plan. Abdomen/Pelvis CT 01/26/17 05:36 IMPRESSION: The urinary bladder is collapsed and demonstrates wall thickening, with suprapubic catheter in place. Nonobstructing left renal calculi. There is mild left hydronephrosis and hydroureter without evidence of ureterolithiasis. Rectal wall thickening. Large colonic stool burden. D/ / Mega Cardona MD / Mega Cardona MD Interpreting Provider: Mega Cardona MD Chest X-Ray 01/26/17 06:16 IMPRESSION: Patchy consolidation or atelectasis in the medial left lung base. D/ / Van Andino MD / Van Andino MD Interpreting Provider: Van Andino MD 0736 hrs. Does look like he might have a small pneumonia in the left lung base. We will go ahead and treat that. Weight 100 hours: Patient does have a new pneumonia with an elevated white count. He is on meropenem and vancomycin for his urine. We will talk with the hospitalist about admission and then if we want to do any changes to the coverage of his antibiotics. Patient's in agreement with plan. He asked for something for pain. We will go ahead and give him a dose of pain medications here continue his current antibiotics and then bring him into the hospital. 0842 hrs.: Spoke with the hospitalist and she has accepted the patient. We will try to get in touch with infectious disease to see if they can consult on the patient while he is here. Patient's in agreement with plan. Impression is chronic UTI, febrile illness, new onset pneumonia, [facility] acquired. 0915 hours: Patient was discussed with infectious disease. Consult was placed in the same in the hospital. He recommended a urine Legionella and strep antigen. Which have added on and place the consult. - Lab Data Result diagrams: 01/26/17 06:45 01/26/17 06:45 Lab Results 01/26/17 01/26/17 01/26/17 Range/Units 06:45 06:45 06:45 WBC 15.0 H (4.3-11.1) K/mcL RBC 3.82 L (4.19-5.50) M/mcL Hgb 11.4 L (12.9-16.9) g/dL Hct 34.9 L (37.5-50.1) % MCV 91.4 (83.0-100.0) fL MCH 29.8 (28.0-33.3) pg MCHC 32.7 (31.6-35.5) g/dL RDW 13.0 (11.5-14.5) % Plt Count 217 (140-400) K/mcL MPV 8.8 L (9.4-12.4) fL Immature Gran % 0.5 (0-4) % Seg Neutrophils % 73.8 % Lymphocytes % 10.8 % Monocytes % 10.4 % Eosinophils % 4.1 % Basophils % 0.4 % Neutrophils # 11.1 H (1.6-8.9) K/mcL Lymphocytes # 1.6 (0.6-4.6) K/mcL Monocytes # 1.6 H (0.0-1.3) K/mcL Eosinophils # 0.6 (0.0-0.6) K/mcL Basophils # 0.1 (0.0-0.2) K/mcL Sodium 134 L (136-145) mEq/L Potassium 4.0 (3.5-4.5) mEq/L Chloride 98 (98-109) mEq/L Carbon Dioxide 27 (19-29) mEq/L BUN 10 (8-26) mg/dL Creatinine 0.58 L (0.72-1.25) mg/dL Est GFR ( Amer) > 60 (> 60) Est GFR (Non-Af Amer) > 60 (> 60) BUN/Creatinine Ratio 17 (6-26) Glucose 84 (70-99) mg/dL Calculated Osmolality 276 L (280-300) Lactic Acid (0.5-2.2) mmol/L Calcium 9.0 (8.6-10.8) mg/dL Urine Color (Yellow) Urine Clarity (Clear) Urine pH (5.0-8.0) pH Units Ur Specific [place] (1.010-1.025) Urine Protein (Neg-Trace) mg/dL Urine Glucose (UA) (Normal) mg/dL Urine Ketones (Negative) mg/dL Urine Blood (Negative) Urine Nitrite (Negative) Urine Bilirubin (Negative) Urine Urobilinogen (Normal) mg/dL Ur Leukocyte Esterase (Negative) Urine Microscopic RBC (0-3) per hpf Urine Microscopic WBC (0-3) per hpf Ur Squamous Epith Cells (None-Few) per lpf Urine Bacteria (None-Few) per hpf Hyaline Casts (None-Few) per lpf Ur Culture Indicated? (NO) Blood Type O POSITIVE Antibody Screen NEGATIVE 01/26/17 01/26/17 Range/Units 07:08 08:15 WBC (4.3-11.1) K/mcL RBC (4.19-5.50) M/mcL Hgb (12.9-16.9) g/dL Hct (37.5-50.1) % MCV (83.0-100.0) fL MCH (28.0-33.3) pg MCHC (31.6-35.5) g/dL RDW (11.5-14.5) % Plt Count (140-400) K/mcL MPV (9.4-12.4) fL Immature Gran % (0-4) % Seg Neutrophils % % Lymphocytes % % Monocytes % % Eosinophils % % Basophils % % Neutrophils # (1.6-8.9) K/mcL Lymphocytes # (0.6-4.6) K/mcL Monocytes # (0.0-1.3) K/mcL Eosinophils # (0.0-0.6) K/mcL Basophils # (0.0-0.2) K/mcL Sodium (136-145) mEq/L Potassium (3.5-4.5) mEq/L Chloride (98-109) mEq/L Carbon Dioxide (19-29) mEq/L BUN (8-26) mg/dL Creatinine (0.72-1.25) mg/dL Est GFR ( Amer) (> 60) Est GFR (Non-Af Amer) (> 60) BUN/Creatinine Ratio (6-26) Glucose (70-99) mg/dL Calculated Osmolality (280-300) Lactic Acid 0.8 (0.5-2.2) mmol/L Calcium (8.6-10.8) mg/dL Urine Color Red A (Yellow) Urine Clarity Turbid A (Clear) Urine pH 6.0 (5.0-8.0) pH Units Ur Specific [place] 1.013 (1.010-1.025) Urine Protein >=300 H (Neg-Trace) mg/dL Urine Glucose (UA) Normal (Normal) mg/dL Urine Ketones 40 H (Negative) mg/dL Urine Blood Large H (Negative) Urine Nitrite Positive A (Negative) Urine Bilirubin Large H (Negative) Urine Urobilinogen 2.0 H (Normal) mg/dL Ur Leukocyte Esterase Large H (Negative) Urine Microscopic RBC TNTC H (0-3) per hpf Urine Microscopic WBC 15-30 H (0-3) per hpf Ur Squamous Epith Cells Few (None-Few) per lpf Urine Bacteria Few (None-Few) per hpf Hyaline Casts None Seen (None-Few) per lpf Ur Culture Indicated? YES A (NO) Blood Type Antibody Screen
--- NOTE | 2017-01-26 07:52 | Urology - Consult Note ---
Date of Encounter: 01/26/17 Time of Encounter: 07:49 - Assessment and Plan (1) Bladder hemorrhage Current Visit: No Status: Acute Assessment and plan: manual irrigation of bladder as needed. no cbi at this time. will continue to follow. Urology CN:HALEY Consult date: 01/26/17 Reason for consult Urology: Gross Hematuria Requesting physician: Edmar Farnks History of present illness: Francisco is a 41-year-old male well-known to the urology service for chronic indwelling superpubic tube. Please see past consult notes for details regarding patient's history. Patient states that his catheter was traumatically pulled out today. It was then replaced. Patient states that he has had some clots in believes that his catheter is clogged and that he is having symptoms of his autonomic dysreflexia. Past Med Surg Social Fam HX - Past Medical History Medical history: GERD, kidney stones, renal disease, other Psychiatric history: anxiety, depression, prior suicide attempt - Past Surgical History Surgical History: orthopedic, other, tracheostomy, other - Social History Smoking Status: Former smoker Smokeless Tobacco Status: Yes (chew) Alcohol use: none Drug use: IVDU - Family History Mother Living Status: Still Living Hx Family Respiratory Disorders: Yes Hx Family Cancer: Yes Hx Family Endocrine Disorder: Yes Medications and Allergies Promethazine [Phenergan] 25 mg PO Q6HR PRN 03/23/15 [History] Ascorbic Acid [Vitamin C] 500 mg PO DAILY 05/23/15 [History] Bisacodyl [Dulcolax] 5 mg PO DAILY 05/23/15 [History] Lubiprostone [Amitiza] 24 mcg PO Q12HR 05/23/15 [History] Sennosides [Senna] 8.6 mg PO BID 05/23/15 [History] Ferrous Gluconate 240 mg PO BID 02/26/16 [History] Lactobacillus Acidophilus [Acidophilus] 1 tab PO BID 02/26/16 [History] Omeprazole [PriLOSEC] 20 mg PO DAILY 02/26/16 [History] Ipratropium/Albuterol Neb [Duoneb] 3 ml IH Q6HR PRN 05/10/16 [History] Acetaminophen [Tylenol] 650 mg PO Q6HR PRN 05/11/16 [History] Baclofen 60 mg PO BID 05/11/16 [History] GuaiFENesin ER [Mucinex] 600 mg PO Q12HR PRN 05/11/16 [History] Docusate [Colace] 100 mg PO BID 05/12/16 [History] Tizanidine HCl [Zanaflex] 12 mg PO BID 05/12/16 [History] HYDROmorphone [Dilaudid] 2 mg PO Q4HR PRN #6 tablet 12/18/16 [Rx] diazePAM [Valium] 5 mg PO Q6H PRN #6 tablet 12/18/16 [Rx] Allergies cephalexin [From Keflex] Allergy (Verified 12/17/16 06:46) Hives ciprofloxacin [From Cipro] Allergy (Verified 12/17/16 06:46) Hives cranberry Allergy (Verified 12/17/16 06:46) See Comments unknown ketorolac Allergy (Verified 12/17/16 06:46) Hives morphine Allergy (Verified 12/17/16 06:46) Hives nitrofurantoin [From Macrobid] Allergy (Verified 12/17/16 06:46) Hives Oxycodone Allergy (Verified 12/17/16 06:46) Hives Penicillins Allergy (Verified 12/17/16 06:46) Hives prochlorperazine [From Compazine] Allergy (Verified 12/17/16 06:46) Hives Sulfa (Sulfonamide Antibiotics) Allergy (Verified 12/17/16 06:46) Hives trimethoprim Allergy (Verified 12/17/16 06:46) See Comments unknown Review of Systems ROS unobtainable: due to mental status Exam Initial Vital Signs Temp Pulse Resp BP Pulse Ox 101.3 F H 112 18 101/76 93 01/26/17 05:20 01/26/17 05:20 01/26/17 05:20 01/26/17 05:20 01/26/17 05:20 - General physical appearance Present: well developed - Respiratory Present: normal respiratory effort - Abdomen Abdomen: Present: soft (spt in place. catheter was manually irrigated with 3 small clots returned. ) Urology Results - Labs 01/26/17 06:45 01/26/17 06:45 Abnormal lab results WBC 15.0 K/mcL (4.3-11.1) H 01/26/17 06:45 RBC 3.82 M/mcL (4.19-5.50) L 01/26/17 06:45 Hgb 11.4 g/dL (12.9-16.9) L 01/26/17 06:45 Hct 34.9 % (37.5-50.1) L 01/26/17 06:45 MPV 8.8 fL (9.4-12.4) L 01/26/17 06:45 Neutrophils # 11.1 K/mcL (1.6-8.9) H 01/26/17 06:45 Monocytes # 1.6 K/mcL (0.0-1.3) H 01/26/17 06:45 Sodium 134 mEq/L (136-145) L 01/26/17 06:45 Creatinine 0.58 mg/dL (0.72-1.25) L 01/26/17 06:45 Calculated Osmolality 276 (280-300) L 01/26/17 06:45 Diabetes panel 01/26/17 Range/Units 06:45 Sodium 134 L (136-145) mEq/L Potassium 4.0 (3.5-4.5) mEq/L Chloride 98 (98-109) mEq/L Carbon Dioxide 27 (19-29) mEq/L BUN 10 (8-26) mg/dL Creatinine 0.58 L (0.72-1.25) mg/dL Glucose 84 (70-99) mg/dL Calcium 9.0 (8.6-10.8) mg/dL Calcium panel 01/26/17 Range/Units 06:45 Calcium 9.0 (8.6-10.8) mg/dL Pituitary panel 01/26/17 Range/Units 06:45 Sodium 134 L (136-145) mEq/L Potassium 4.0 (3.5-4.5) mEq/L Chloride 98 (98-109) mEq/L Carbon Dioxide 27 (19-29) mEq/L BUN 10 (8-26) mg/dL Creatinine 0.58 L (0.72-1.25) mg/dL Glucose 84 (70-99) mg/dL Calcium 9.0 (8.6-10.8) mg/dL Adrenal panel 01/26/17 Range/Units 06:45 Sodium 134 L (136-145) mEq/L Potassium 4.0 (3.5-4.5) mEq/L Chloride 98 (98-109) mEq/L Carbon Dioxide 27 (19-29) mEq/L BUN 10 (8-26) mg/dL Creatinine 0.58 L (0.72-1.25) mg/dL Glucose 84 (70-99) mg/dL Calcium 9.0 (8.6-10.8) mg/dL All other labs normal. - Imaging CT scan - abdomen: image reviewed CT scan - pelvis: image reviewed Consult Discharge Plan - Plan Referrals: NO,PCP [Primary Care Provider] -
[2017-01-26] MEDS ORDERED: *HR* HYDROmorphone (PF) 1 MG/ML SYRINGE IVP ONE (07:58)
[2017-01-26 08:27] LABS: Bilirubin,Urine Large (Negative); Blood,Urine Large (Negative); Clarity,Urine Turbid (Clear); Color,Urine Red (Yellow); Glucose,Urine (UA) Normal (Normal); Ketones,Urine 40 mg/dL (Negative); Leukocyte Esterase,Urine Large (Negative); Nitrite,Urine Positive (Negative); Protein,Urine >=300 mg/dL (Neg-Trace); Specific Gravity,Urine 1.013 (1.010-1.025)
[2017-01-26 08:30] LABS: RBC,Urine TNTC per hpf (0-3); WBC,Urine 15-30 per hpf (0-3)
[2017-01-26 08:44] LABS: Hyaline Casts,Urine None Seen per lpf (None-Few)
[2017-01-26 08:46] LABS: Bacteria,Urine Few per hpf (None-Few); Squamous Epithelial Cell,Urine Few per lpf (None-Few)
[2017-01-26 09:44] LABS: HIV-1&2 Antibody & p24 Ag Nonreactive (Nonreactive)
[2017-01-26 09:51] LABS: Hepatitis C Virus Antibody Reactive (Nonreactive)
[2017-01-26 09:57] LABS: Hepatitis B Surface Antigen Nonreactive (Nonreactive)
[2017-01-26] MEDS ORDERED: Naloxone 0.4 MG/ML INJ IVP PRN (10:52)
[2017-01-26] MEDS ORDERED: Acetaminophen 325 MG TABLET PO PRN (10:54)
[2017-01-26] MEDS ORDERED: 0.9 % Sodium Chloride 1,000 ML IVC SCH (11:00)
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
[2017-01-26] MEDS ORDERED: Levofloxacin 750 MG/150 ML 750 MG/150 ML BAG IVPB SCH (15:00)
[2017-01-26] MEDS: 0.9 % Sodium Chloride 1,000 ML IVC SCH ×2 (15:11→23:31)
[2017-01-26] MEDS: Ipratropium/Albuterol Neb 3 ML IH SCH ×4 (15:37→23:18)
[2017-01-26] MEDS: Meropenem 1,000 MG in 0.9 % Sodium Chloride Mini Bag 100 ML IVPB SCH ×2 (17:34→23:17)
[2017-01-26] MEDS: Vancomycin 500 MG in D5% in Water (Mini-Bag+) 100 ML IVPB SCH (17:34)
[2017-01-26] MEDS: Lubiprostone [Amitiza] 24 MCG PO SCH (17:37)
--- NOTE | 2017-01-26 17:45 | Infectious Disease Consult ---
Date of Encounter: 01/26/17 Time of Encounter: 17:44 Assessment and Plan (1) Sepsis Status: Acute Assessment and plan: Likely secondary to UTI but pneumonia cannot be ruled out. Patient started on empiric vancomycin and meropenem based on previous culture results. Aggressive hydration Patient would not let us look at his back to check for decubitus ulcers, I spoke with the nursing staff I told him he needs to be turned every 2 hours and he needs to be evaluated. Wound care has been consulted to evaluate the wounds. Qualifiers: Sepsis type: sepsis due to unspecified organism Qualified Code(s): A41.9 - Sepsis, unspecified organism (2) Pneumonia Status: Acute Assessment and plan: Questionable pneumonia on that middle lobe Urine legionella and pneumococcal antigens were negative Patient really asymptomatic at this time We'll continue broad-spectrum antibiotics and repeat imaging. Qualifiers: Pneumonia type: due to unspecified organism Laterality: right Lung location: middle lobe of lung Qualified Code(s): J18.1 - Lobar pneumonia, unspecified organism (3) UTI (urinary tract infection) due to urinary indwelling Souza catheter Status: Resolved Assessment and plan: Previous organism including ESBL Culture at this time still pending UA shows pyuria positive nitrites and leukocyte esterase Started empiric vancomycin and meropenem Await cultures to finalize Will tailor antibiotics based on that Monitor labs and for drug toxicity Qualifiers: Indwelling urinary catheter type: cystostomy catheter Encounter type: subsequent encounter Qualified Code(s): T83.510D - Infection and inflammatory reaction due to cystostomy catheter, subsequent encounter; N39.0 - Urinary tract infection, site not specified (4) History of MRSA infection Status: Acute Assessment and plan: Patient is in isolation. Started empiric vancomycin and meropenem. Goal vancomycin trough 10-15. Pharmacy to help with the dosing. (5) Neurogenic bladder Status: Acute Infectious Disease HPI - Data of Consult Patient: new to practice Consult date: 01/26/17 Requesting Physician: Cristian Velásquez DO Primary Care Provider: PCP NO - Consult Narrative Reason for consult: sepsis History of present illness: Mr. Eid is a 41 year old male Patient is a 41-year-old gentleman well-known to our service admitted on 2016 for sepsis, we are consulted for antibiotic recommendation. Patient with history of quadriplegia that is bedridden, history of right nephrectomy with traumatic erroneously pulled out suprapubic catheter with hematuria that was replaced. Apparently patient had a UTI confirmed 2 days ago started on vancomycin. He came into the emergency department for evaluation. Patient also has had multiple infections in the back including osteomyelitis, recurrent kidney infection due to suprapubic catheter, history of central line associated bloodstream infection, chronic UTI presented to the emergency department with altered mental status, hematuria. Since admission, his MAXIMUM TEMPERATURE was 101.3, tachycardia with heart rate in the 130s, presenting the Juanita 15,000 with no bands, abnormal UA with positive nitrites, leukocyte esterase and pyuria. Patient had a CT abdomen and pelvis which revealed urinary bladder is collapsed and demonstrates wall thickening with suprapubic catheter in place, nonobstructive left renal calculi there is a mild left hydronephrosis with rectal wall thickening and large colonic stool burden. A chest x-ray was done and was read as patchy consolidation or atelectasis in the medial left lung base. Urine legionella and pneumococcal antigen were ordered and came back negative. Patient was started empirically on vancomycin and meropenem and we were asked to evaluate the patient and make further recommendations. CC: Cristian Velásquez, DO Past Med Surg Social Fam HX - Past Medical History Medical history: GERD, kidney stones, renal disease, other Psychiatric history: anxiety, depression, prior suicide attempt - Past Surgical History Surgical History: orthopedic, other, tracheostomy, other - Social History Smoking Status: Former smoker Smokeless Tobacco Status: Yes (chew) Alcohol use: none Drug use: IV Drug Use - Family History Mother Living Status: Still Living Hx Family Respiratory Disorders: Yes Hx Family Cancer: Yes Hx Family Endocrine Disorder: Yes Infectious Disease-CN:Meds Promethazine [Phenergan] 25 mg PO Q6HR PRN 03/23/15 [History] Ascorbic Acid [Vitamin C] 500 mg PO DAILY 05/23/15 [History] Bisacodyl [Dulcolax] 5 mg PO DAILY 05/23/15 [History] Lubiprostone [Amitiza] 24 mcg PO Q12HR 05/23/15 [History] Sennosides [Senna] 8.6 mg PO BID 05/23/15 [History] Ferrous Gluconate 240 mg PO BID 02/26/16 [History] Lactobacillus Acidophilus [Acidophilus] 1 tab PO BID 02/26/16 [History] Ipratropium/Albuterol Neb [Duoneb] 3 ml IH Q6HR PRN 05/10/16 [History] Acetaminophen [Tylenol] 650 mg PO Q6HR PRN 05/11/16 [History] Baclofen 60 mg PO BID 05/11/16 [History] GuaiFENesin ER [Mucinex] 600 mg PO Q12HR PRN 05/11/16 [History] Docusate [Colace] 100 mg PO BID 05/12/16 [History] Tizanidine HCl [Zanaflex] 12 mg PO BID 05/12/16 [History] HYDROmorphone [Dilaudid] 2 mg PO Q4HR PRN #6 tablet 12/18/16 [Rx] diazePAM [Valium] 1 mg PO Q6HR PRN 01/26/17 [History] Allergies cephalexin [From Keflex] Allergy (Verified 12/17/16 06:46) Hives ciprofloxacin [From Cipro] Allergy (Verified 12/17/16 06:46) Hives cranberry Allergy (Verified 12/17/16 06:46) See Comments unknown ketorolac Allergy (Verified 12/17/16 06:46) Hives morphine Allergy (Verified 12/17/16 06:46) Hives nitrofurantoin [From Macrobid] Allergy (Verified 12/17/16 06:46) Hives Oxycodone Allergy (Verified 12/17/16 06:46) Hives Penicillins Allergy (Verified 12/17/16 06:46) Hives prochlorperazine [From Compazine] Allergy (Verified 12/17/16 06:46) Hives Sulfa (Sulfonamide Antibiotics) Allergy (Verified 12/17/16 06:46) Hives trimethoprim Allergy (Verified 12/17/16 06:46) See Comments unknown Review of systems: 10 point review of systems done, negative other for what mentioned in history of present illness. Exam - Constitutional Vitals: Temp Pulse Resp BP Pulse Ox 97.9 F 81 14 116/79 94 01/26/17 16:56 01/26/17 16:56 01/26/17 16:56 01/26/17 16:56 01/26/17 16:56 General appearance: febrile, no acute distress - Head Head exam: Present: normal inspection, normocephalic - Eye Eye exam: Present: EOMI, PERRL - ENT ENT exam: Present: mucous membranes dry - Neck Neck exam: Present: full ROM - Respiratory Additional comments: Air sounds audible both lung fang. Some diffuse rhonchi at the bases. Chest expanding symmetrically. - Cardiovascular Cardiovascular exam: Present: RRR, +S1, +S2 - GI/Abdominal GI/Abdominal exam: Present: hyperactive bowel sounds, soft. Absent: tenderness Additional comments: Suprapubic catheter intact - Extremities Exam Additional comments: Bilateral above-knee amputation. Deferred examination of the decubitus area - Neurological Exam Neurological exam: Present: alert, oriented X3 - Skin Skin exam: Absent: rash Infectious Disease CN: Results - Labs CBC & Chem 7: 01/26/17 06:45 01/26/17 06:45 Consult Discharge Plan - Plan Referrals: NO,PCP [Primary Care Provider] -
[2017-01-26] MEDS: *HR* Heparin 5,000 UNIT/ML VIAL SQ SCH (17:54)
[2017-01-26] MEDS ORDERED: Meropenem 1,000 MG in 0.9 % Sodium Chloride Mini Bag 100 ML IVPB SCH (18:00)
[2017-01-26] MEDS ORDERED: FERROUS GLUCONATE 240 MG PO SCH (21:00)
[2017-01-26] MEDS ORDERED: TIZANIDINE HCL PO SCH (21:00)
[2017-01-26] MEDS ORDERED: Sennosides 8.6 MG TABLET PO SCH (21:00)
[2017-01-26] MEDS ORDERED: Lactobacillus 1 EACH CAP.SPRINK PO SCH (21:00)
[2017-01-26] MEDS: *HR* HYDROmorphone 2 MG TABLET PO PRN (21:05)
[2017-01-26] MEDS: diazePAM 5 MG TABLET PO PRN (21:09)
[2017-01-26] MEDS: Baclofen 10 MG TABLET PO SCH (23:16)
[2017-01-26] MEDS: tiZANidine 4 MG TABLET PO SCH (23:16)
[2017-01-26] MEDS: Sennosides 8.6 MG TABLET PO SCH (23:17)
[2017-01-26] MEDS: Lactobacillus 1 EACH CAP.SPRINK PO SCH (23:17)
[2017-01-27] MEDS: FERROUS GLUCONATE 240 MG PO SCH ×2 (00:47→11:25)
[2017-01-27] MEDS: Ipratropium/Albuterol Neb 3 ML IH SCH ×6 (04:12→23:35)
[2017-01-27 04:56] LABS: Basophils # 0.1 K/mcL (0.0-0.2); Basophils % 0.7 %; Eosinophils # 0.6 K/mcL (0.0-0.6); Eosinophils % 8.2 %; Hematocrit 31.7 % (37.5-50.1); Hemoglobin 10.1 g/dL (12.9-16.9); Immature Granulocytes % 0.1 % (0-4); Lymphocytes % 24.5 %; Mean Corpuscular HGB Conc 31.9 g/dL (31.6-35.5); Mean Corpuscular Hemoglobin 29.8 pg (28.0-33.3); Mean Corpuscular Volume 93.5 fL (83.0-100.0); Mean Platelet Volume 8.9 fL (9.4-12.4); Monocytes # 0.7 K/mcL (0.0-1.3); Monocytes % 10.8 %; Neutrophils # 3.7 K/mcL (1.6-8.9); Platelet Count 211 K/mcL (140-400); Red Blood Count 3.39 M/mcL (4.19-5.50); Red Cell Distribution Width 13.2 % (11.5-14.5); Segmented Neutrophils % 55.7 %
[2017-01-27 04:59] LABS: Lymphocytes # 1.6 K/mcL (0.6-4.6)
[2017-01-27 05:09] LABS: BUN/Creatinine Ratio 24 (6-26); Blood Urea Nitrogen 14 mg/dL (8-26); Carbon Dioxide 30 mEq/L (19-29); Chloride 107 mEq/L (98-109); Glucose 87 mg/dL (70-99); Potassium 4.5 mEq/L (3.5-4.5); Sodium 140 mEq/L (136-145); eGFR For African Americans > 60 (> 60); eGFR For Non-African Americans > 60 (> 60)
[2017-01-27 05:10] LABS: Calcium 8.8 mg/dL (8.6-10.8); Osmolality,Calculated 290 (280-300)
[2017-01-27] MEDS: Vancomycin 500 MG in D5% in Water (Mini-Bag+) 100 ML IVPB SCH ×2 (06:27→19:47)
[2017-01-27] MEDS: Lubiprostone [Amitiza] 24 MCG PO SCH ×2 (06:32→17:26)
[2017-01-27] MEDS: *HR* Heparin 5,000 UNIT/ML VIAL SQ SCH ×2 (06:32→17:24)
[2017-01-27] MEDS: Meropenem 1,000 MG in 0.9 % Sodium Chloride Mini Bag 100 ML IVPB SCH ×2 (07:52→17:25)
[2017-01-27] MEDS: Baclofen 10 MG TABLET PO SCH ×2 (08:02→11:31)
[2017-01-27] MEDS ORDERED: Ascorbic Acid 500 MG TABLET PO SCH (09:00)
[2017-01-27] MEDS ORDERED: Vancomycin (wt based) 1,000 MG VIAL IVPB SCH (09:00)
--- NOTE | 2017-01-27 09:15 | Internal Med Progress Note ---
<New Newsome - Last Filed: 01/27/17 13:27> Date of Encounter: 01/27/17 Time of Encounter: 08:10 - Assessment and plan (1) Pneumonia Current Visit: Yes Status: Acute Assessment and plan: Questionable pneumonia. Repeat chest x-ray. Obtain sputum culture. Qualifiers: Pneumonia type: due to unspecified organism Laterality: left Lung location: upper lobe of lung Qualified Code(s): J18.1 - Lobar pneumonia, unspecified organism (2) Sepsis Current Visit: Yes Status: Acute Assessment and plan: Continue antibiotics; vancomycin and meropenem. Continue hydration. Qualifiers: Sepsis type: sepsis due to unspecified organism Qualified Code(s): A41.9 - Sepsis, unspecified organism (3) Urinary tract infection Current Visit: Yes Status: Acute Assessment and plan: Continue antibiotics. Qualifiers: Urinary tract infection type: catheter-associated UTI Indwelling urinary catheter type: indwelling urethral catheter Encounter type: subsequent encounter Qualified Code(s): T83.511D - Infection and inflammatory reaction due to indwelling urethral catheter, subsequent encounter; N39.0 - Urinary tract infection, site not specified (4) Bladder hemorrhage Current Visit: No Status: Acute (5) Decubitus ulcer Current Visit: No Status: Acute Assessment and plan: Patient needs to be turned every 2 hours. Patient refuses to have ulcers checked by nurse. Qualifiers: Pressure ulcer location: unspecified location Pressure ulcer stage: unspecified pressure ulcer stage Qualified Code(s): L89.90 - Pressure ulcer of unspecified site, unspecified stage (6) Chronic pain Current Visit: No Status: Chronic Assessment and plan: Patient states that he feels pain throughout his entire body. Requests pain medication. Qualifiers: Chronic pain type: other chronic pain Qualified Code(s): G89.29 - Other chronic pain - Subjective Interval history: Patient was seen and examined at bedside this morning. Patient states that he is experiencing pain throughout his entire body, and that the pain is resulting in a headache. Patient states that he does feel pain new to area where the catheter is inserted. He denies any feeling of fever, chills, nausea, vomiting. Catheter bag was empty at time of examination. - Constitutional Vitals: Temp Pulse Resp BP Pulse Ox 98.1 F 67 16 180/77 97 01/27/17 07:29 01/27/17 07:29 01/27/17 07:29 01/27/17 07:29 01/27/17 07:29 General appearance: Present: cachectic, cooperative, A&O X 3, answers questions appropriately - Respiratory Respiratory exam: Present: CTAB. Absent: accessory muscle use, rales, rhonchi, wheezes - Cardiovascular Cardiovascular exam: Present: RRR, +S1, +S2. Absent: diastolic murmur, gallop, rubs, systolic murmur Internal Medicine: Result - Labs CBC & Chem 7: 01/27/17 04:30 01/27/17 04:30 Labs: Short CBC 01/27/17 Range/Units 04:30 WBC 6.7 D (4.3-11.1) K/mcL Hgb 10.1 L (12.9-16.9) g/dL Hct 31.7 L (37.5-50.1) % Plt Count 211 (140-400) K/mcL Neutrophils # 3.7 (1.6-8.9) K/mcL BMP 01/27/17 04:30 Sodium 140 Potassium 4.5 Chloride 107 Carbon Dioxide 30 H BUN 14 Creatinine 0.58 L Glucose 87 Calcium 8.8 Consult Discharge Plan - Plan Referrals: NO,PCP [Primary Care Provider] - <Cristian Velásquez - Last Filed: 01/27/17 14:41> Date of Encounter: 01/27/17 - Assessment and plan (1) Sepsis Current Visit: Yes Status: Acute Qualifiers: Sepsis type: sepsis due to unspecified organism Qualified Code(s): A41.9 - Sepsis, unspecified organism (2) Pneumonia Current Visit: Yes Status: Acute Qualifiers: Pneumonia type: due to unspecified organism Laterality: left Lung location: upper lobe of lung Qualified Code(s): J18.1 - Lobar pneumonia, unspecified organism (3) Urinary tract infection Current Visit: Yes Status: Acute Qualifiers: Urinary tract infection type: catheter-associated UTI Indwelling urinary catheter type: indwelling urethral catheter Encounter type: subsequent encounter Qualified Code(s): T83.511D - Infection and inflammatory reaction due to indwelling urethral catheter, subsequent encounter; N39.0 - Urinary tract infection, site not specified (4) Chronic pain Current Visit: No Status: Chronic Qualifiers: Chronic pain type: other chronic pain Qualified Code(s): G89.29 - Other chronic pain (5) Encephalopathy acute Current Visit: No Status: Resolved (6) Constipation Current Visit: Yes Status: Acute Qualifiers: Constipation type: slow transit constipation Qualified Code(s): K59.01 - Slow transit constipation (7) Neurogenic bladder Current Visit: No Status: Acute (8) GERD (gastroesophageal reflux disease) Current Visit: No Status: Chronic Qualifiers: Esophagitis presence: esophagitis presence not specified Qualified Code(s) : K21.9 - Gastro-esophageal reflux disease without esophagitis - Constitutional Vitals: Temp Pulse Resp BP Pulse Ox 98.1 F 67 16 180/77 97 01/27/17 07:29 01/27/17 07:29 01/27/17 07:29 01/27/17 07:29 01/27/17 07:29 Internal Medicine: Result - Labs CBC & Chem 7: 01/27/17 04:30 01/27/17 04:30 Labs: Short CBC 01/27/17 Range/Units 04:30 WBC 6.7 D (4.3-11.1) K/mcL Hgb 10.1 L (12.9-16.9) g/dL Hct 31.7 L (37.5-50.1) % Plt Count 211 (140-400) K/mcL Neutrophils # 3.7 (1.6-8.9) K/mcL BMP 01/27/17 04:30 Sodium 140 Potassium 4.5 Chloride 107 Carbon Dioxide 30 H BUN 14 Creatinine 0.58 L Glucose 87 Calcium 8.8 - Attending Attestation I examined this patient and my medical decision-making was reviewed with the Resident Physician on 01/26/17. I agree with the documented findings, disposition and treatment plan as described except to the extent set forth below. Mr. Eid is currently admitted for sepsis related to probable UTI and pneumonia. He is moderate to high risk due to potential for worsening respiratory and infectious status. Mr. Eid is complaining of pain. He denies fever or other symptoms. Does not speak much or offer much history. Exam Alert. Comfortable Heart reg No wheeze I/P 1. Sepsis 2. Probable UTI versus PNa Further diagnoses and plan as above.
[2017-01-27] MEDS: Lactobacillus 1 EACH CAP.SPRINK PO SCH (11:30)
[2017-01-27] MEDS: *HR* HYDROmorphone 2 MG TABLET PO PRN (11:30)
[2017-01-27] MEDS: Sennosides 8.6 MG TABLET PO SCH (11:30)
[2017-01-27] MEDS: tiZANidine 4 MG TABLET PO SCH (11:30)
[2017-01-27] MEDS: Ascorbic Acid 500 MG TABLET PO SCH (11:30)
[2017-01-27] MEDS: diazePAM 5 MG TABLET PO PRN (11:43)
[2017-01-27] MEDS: 0.9 % Sodium Chloride 1,000 ML IVC SCH (17:25)
[2017-01-28] MEDS: Baclofen 10 MG TABLET PO SCH ×3 (00:44→23:06)
[2017-01-28] MEDS: Meropenem 1,000 MG in 0.9 % Sodium Chloride Mini Bag 100 ML IVPB SCH ×2 (00:45→07:50)
[2017-01-28] MEDS: Lactobacillus 1 EACH CAP.SPRINK PO SCH ×3 (00:45→23:05)
[2017-01-28] MEDS: Sennosides 8.6 MG TABLET PO SCH ×3 (00:45→23:05)
[2017-01-28] MEDS: tiZANidine 4 MG TABLET PO SCH ×3 (00:45→23:05)
[2017-01-28] MEDS: *HR* HYDROmorphone 2 MG TABLET PO PRN ×2 (00:59→12:22)
[2017-01-28] MEDS: diazePAM 5 MG TABLET PO PRN ×2 (00:59→12:23)
[2017-01-28] MEDS: FERROUS GLUCONATE 240 MG PO SCH (01:06)
[2017-01-28] MEDS: Ipratropium/Albuterol Neb 3 ML IH SCH ×6 (04:14→23:29)
[2017-01-28 05:07] LABS: Basophils # 0.1 K/mcL (0.0-0.2); Basophils % 0.8 %; Eosinophils # 0.7 K/mcL (0.0-0.6); Eosinophils % 10.3 %; Hematocrit 32.6 % (37.5-50.1); Hemoglobin 10.4 g/dL (12.9-16.9); Immature Granulocytes % 0.3 % (0-4); Lymphocytes # 2.2 K/mcL (0.6-4.6); Lymphocytes % 33.5 %; Mean Corpuscular HGB Conc 31.9 g/dL (31.6-35.5); Mean Corpuscular Hemoglobin 29.5 pg (28.0-33.3); Mean Corpuscular Volume 92.6 fL (83.0-100.0); Mean Platelet Volume 8.7 fL (9.4-12.4); Monocytes # 0.7 K/mcL (0.0-1.3); Monocytes % 10.6 %; Neutrophils # 2.9 K/mcL (1.6-8.9); Platelet Count 222 K/mcL (140-400); Red Blood Count 3.52 M/mcL (4.19-5.50); Red Cell Distribution Width 12.8 % (11.5-14.5); Segmented Neutrophils % 44.5 %
[2017-01-28 05:13] LABS: BUN/Creatinine Ratio 19 (6-26); Blood Urea Nitrogen 14 mg/dL (8-26); Calcium 8.8 mg/dL (8.6-10.8); Carbon Dioxide 32 mEq/L (19-29); Chloride 106 mEq/L (98-109); Glucose 84 mg/dL (70-99); Osmolality,Calculated 292 (280-300); Potassium 4.2 mEq/L (3.5-4.5); Sodium 141 mEq/L (136-145); eGFR For African Americans > 60 (> 60); eGFR For Non-African Americans > 60 (> 60)
[2017-01-28] MEDS: Lubiprostone [Amitiza] 24 MCG PO SCH (06:01)
[2017-01-28] MEDS: *HR* Heparin 5,000 UNIT/ML VIAL SQ SCH ×2 (06:01→17:34)
[2017-01-28] MEDS: Vancomycin 750 MG in D5% in Water 250 ML IVPB SCH ×2 (06:41→18:37)
[2017-01-28] MEDS: 0.9 % Sodium Chloride 1,000 ML IVC SCH (10:54)
[2017-01-28] MEDS: Ascorbic Acid 500 MG TABLET PO SCH (12:23)
--- NOTE | 2017-01-28 13:10 | Infectious Disease Progress No ---
Date of Encounter: 01/28/17 Time of Encounter: 13:08 - Assessment and Plan (1) Sepsis Current Visit: Yes Status: Acute The patient had three SIRS criteria on admission. Likely secondary to UTI vs. PNA vs. other. CT of the abdomen and pelvis shows bilateral ischial decubitus ulcers that tunnel to the bone, but osseous changes are similar in appearance to those notes on previous imaging from September 2015. The patient refuses to let nursing/provider staff assess his sacrum/coccyx for decubitus ulcers. Could be potential source of the patient's sepsis as well. Improved. The patient has been afebrile x 24 hours. Tachycardia has improved. WBC has normalized. Blood cultures drawn 01/26/17 are NGTD x 2 sets (peripheral stick). No blood cultures were drawn from the tunneled PICC line. Patient started on IV Meropenem and Vancomycin based on previous culture results. Additionally, the patient has allergies to several antibiotics that make antibiotic therapy challenging. Check ESR and CRP. Continue Vancomycin IV. Pharmacy to dose. Goal trough approximately 15. Discontinue Meropenem. Start Rocephin 2 grams IV daily. Duration of treatment depends on the clinical picture. Monitor renal function and for drug toxicity and dose-adjust antibiotics. Qualifiers: Sepsis type: sepsis due to unspecified organism Qualified Code(s): A41.9 - Sepsis, unspecified organism (2) Urinary tract infection Current Visit: Yes Status: Acute Causative organism unclear. Urinalysis indicative of pyuria, but urine culture is negative. Continue antibiotics as above, Qualifiers: Urinary tract infection type: catheter-associated UTI Indwelling urinary catheter type: indwelling urethral catheter Encounter type: subsequent encounter Qualified Code(s): T83.511D - Infection and inflammatory reaction due to indwelling urethral catheter, subsequent encounter; N39.0 - Urinary tract infection, site not specified (3) Pneumonia Current Visit: Yes Status: Acute CXR completed 01/26/17 showed patchy consolidation or atelectasis in the medial left lung base. Clinically, the patient does not have any symptoms. S. pneumo and Legionella UAT negative. Repeat CXR in the AM. Continue antibiotics as above for now. Qualifiers: Pneumonia type: due to unspecified organism Laterality: left Lung location: upper lobe of lung Qualified Code(s): J18.1 - Lobar pneumonia, unspecified organism (4) Neurogenic bladder Current Visit: No Status: Acute Secondary to quadriplegia. Has suprapubic catheter that was recently replaced after traumatic removal of previous. (5) History of MRSA infection Current Visit: Yes Status: Acute (6) Decubitus ulcer of ischium Current Visit: Yes Status: Acute CT of the abdomen and pelvis shows bilateral ischial decubitus ulcers with extension to the bone and osseous demineralization, essentially unchanged from previous imaging 09/2015. Patient refuses to let members of the care team turn him or evaluate his backside for ulcers. Check ESR and CRP. If elevated, we may need to consider further imaging to evaluate for OM. Continue antibiotics as above. Consult wound care for wound care recommendations. Qualifiers: Pressure ulcer stage: unspecified pressure ulcer stage Laterality: unspecified laterality Qualified Code(s): L89.309 - Pressure ulcer of unspecified buttock, unspecified stage - Subjective Interval history: Patient seen and examined. No acute events noted overnight. Patient states that overall he feels better than when he was initially admitted. Denies fevers or chills. Denies chest pain, shortness of breath, or cough. Denies nausea, vomiting, or diarrhea. States he doesn't want to discuss his "bowel situation" when I asked about constipation. States the bleeding around his suprapubic catheter has stopped, but he declines assessment of it by me today. Complains of chronic pain in his neck and back. Denies oral thrush or new skin lesions. States his appetite is good. Infect Dis PN-Objective Data - Labs CBC & Chem 7: 01/28/17 04:57 01/29/17 04:51 Labs: Laboratory Results - last 24 hr 01/27/17 01/28/17 01/28/17 18:00 04:57 04:57 WBC 6.4 RBC 3.52 L Hgb 10.4 L Hct 32.6 L MCV 92.6 MCH 29.5 MCHC 31.9 RDW 12.8 Plt Count 222 MPV 8.7 L Immature Gran % 0.3 Seg Neutrophils % 44.5 Lymphocytes % 33.5 Monocytes % 10.6 Eosinophils % 10.3 Basophils % 0.8 Neutrophils # 2.9 Lymphocytes # 2.2 Monocytes # 0.7 Eosinophils # 0.7 H Basophils # 0.1 Sodium 141 Potassium 4.2 Chloride 106 Carbon Dioxide 32 H BUN 14 Creatinine 0.72 Est GFR ( Amer) > 60 Est GFR (Non-Af Amer) > 60 BUN/Creatinine Ratio 19 Glucose 84 Calculated Osmolality 292 Calcium 8.8 Vancomycin Trough 8.7 L Cultures: Cultures 01/26/17 06:40 Blood Culture - Preliminary Peripheral Venipuncture No growth. 01/26/17 06:45 Blood Culture - Preliminary Peripheral Venipuncture No growth. 01/26/17 08:15 Urine Culture - Final Urine,Clean Catch No growth. 01/26/17 08:15 Legionella Antigen - Final Urine,Catheterized Streptococcus pneumoniae Antigen (M - Final Exam - Constitutional Vitals: Temp Pulse Resp BP Pulse Ox 98.9 F 100 16 90/49 94 01/28/17 11:43 01/28/17 11:43 01/28/17 11:43 01/28/17 11:43 01/28/17 11:43 General appearance: cooperative, no acute distress, thin - Head Head exam: Present: atraumatic, normal inspection, normocephalic - Eye Eye exam: Present: EOMI, normal appearance, PERRL Pupils: Present: normal accommodation - ENT ENT exam: Present: mucous membranes moist - Neck Neck exam: Present: normal inspection - Respiratory Respiratory exam: Present: CTAB. Absent: rales, respiratory distress, rhonchi, wheezes - Cardiovascular Cardiovascular exam: Present: +S1, +S2, tachycardia - GI/Abdominal GI/Abdominal exam: Present: normal bowel sounds, soft. Absent: distended, tenderness Additional comments: Suprapubic catheter noted to be draining clear yellow urine. Patient declines to allow me to assess the insertion site. - Extremities Exam Extremities exam: Absent: joint swelling Additional comments: Bilateral AKA stumps noted without erythema or open wounds. - Back Exam Additional comments: Patient refuses to allow me assess his back. - Neurological Exam Neurological exam: Present: alert, oriented X3. Absent: no focal deficits ( Paralysis noted to the bilateral upper and bilateral lower extremities.) - Psychiatric Psychiatric exam: Present: normal affect, normal mood - Skin Skin exam: Present: dry, intact, normal color, warm - Additional findings Additional findings: Tunneled PICC line noted to the left upper chest with transparent dressing C/D/ I. Consult Discharge Plan - Plan Referrals: Mauricio Melendrez MD [Partnered Physician] - (From [facility]) - Attending Attestation I examined this patient and my medical decision-making was reviewed with the [employer]/PA/Advanced Practice Nurse/Resident Physician. I agree with the documented findings, disposition and treatment plan as described except to the extent set forth below. I spoke with the patient at length regarding appropriate wound care an being turnedevery 2 hours. Nursing staff tell Patient is aware of the complicat I also recommended an air mattres and notified the resident and thehospitalist team
--- NOTE | 2017-01-28 14:20 | Internal Med Progress Note ---
<New [place]ome - Last Filed: 01/28/17 14:16> Date of Encounter: 01/28/17 Time of Encounter: 09:55 - Assessment and plan (1) Pneumonia Current Visit: Yes Status: Acute Assessment and plan: Continue antibiotics. Patient currently on vancomycin and Rocephin. Qualifiers: Pneumonia type: due to unspecified organism Laterality: left Lung location: upper lobe of lung Qualified Code(s): J18.1 - Lobar pneumonia, unspecified organism (2) Sepsis Current Visit: Yes Status: Acute Assessment and plan: Continue antibiotics. Monitor vitals and continue hydration. Qualifiers: Sepsis type: sepsis due to unspecified organism Qualified Code(s): A41.9 - Sepsis, unspecified organism (3) Urinary tract infection Current Visit: Yes Status: Acute Assessment and plan: Continue antibiotics. Qualifiers: Urinary tract infection type: catheter-associated UTI Indwelling urinary catheter type: indwelling urethral catheter Encounter type: subsequent encounter Qualified Code(s): T83.511D - Infection and inflammatory reaction due to indwelling urethral catheter, subsequent encounter; N39.0 - Urinary tract infection, site not specified (4) Bladder hemorrhage Current Visit: No Status: Resolved Assessment and plan: No hemorrhage noted. No blood appears to be present in catheter bag. (5) Decubitus ulcer Current Visit: No Status: Acute Assessment and plan: Patient needs to be turned every 2 hours. Patient refuses to have ulcers checked by nurse. Qualifiers: Pressure ulcer location: unspecified location Pressure ulcer stage: unspecified pressure ulcer stage Qualified Code(s): L89.90 - Pressure ulcer of unspecified site, unspecified stage (6) Chronic pain Current Visit: No Status: Chronic Assessment and plan: Continue current medication. Qualifiers: Chronic pain type: other chronic pain Qualified Code(s): G89.29 - Other chronic pain - Subjective Interval history: Patient was seen and examined at bedside this morning. Patient states that the pain that he was experiencing yesterday has subsided. His only complaint today is that he feels tired. He denies nausea vomiting, or pain around his catheter site. Catheter bag was inspected at bedside, and no blood appeared to be present. - Constitutional Vitals: Temp Pulse Resp BP Pulse Ox 98.9 F 100 16 90/49 94 01/28/17 11:43 01/28/17 11:43 01/28/17 11:43 01/28/17 11:43 01/28/17 11:43 General appearance: Present: cachectic, cooperative, A&O X 3, answers questions appropriately. Absent: mild distress - Respiratory Respiratory exam: Present: CTAB. Absent: accessory muscle use, rales, rhonchi, wheezes - Cardiovascular Cardiovascular exam: Present: RRR, +S1, +S2. Absent: diastolic murmur, gallop, rubs, systolic murmur Internal Medicine: Result - Labs CBC & Chem 7: 01/28/17 04:57 01/28/17 04:57 Labs: Short CBC 01/28/17 Range/Units 04:57 WBC 6.4 (4.3-11.1) K/mcL Hgb 10.4 L (12.9-16.9) g/dL Hct 32.6 L (37.5-50.1) % Plt Count 222 (140-400) K/mcL Neutrophils # 2.9 (1.6-8.9) K/mcL BMP 01/28/17 04:57 Sodium 141 Potassium 4.2 Chloride 106 Carbon Dioxide 32 H BUN 14 Creatinine 0.72 Glucose 84 Calcium 8.8 Consult Discharge Plan - Plan Referrals: Mauricio Melendrez MD [Partnered Physician] - (From [facility]) NO,PCP [Primary Care Provider] - <Cristian Velásquez - Last Filed: 01/28/17 18:25> Date of Encounter: 01/28/17 - Assessment and plan (1) Sepsis Current Visit: Yes Status: Acute Qualifiers: Sepsis type: sepsis due to unspecified organism Qualified Code(s): A41.9 - Sepsis, unspecified organism (2) Pneumonia Current Visit: Yes Status: Acute Qualifiers: Pneumonia type: due to unspecified organism Laterality: left Lung location: upper lobe of lung Qualified Code(s): J18.1 - Lobar pneumonia, unspecified organism (3) Urinary tract infection Current Visit: Yes Status: Acute Qualifiers: Urinary tract infection type: catheter-associated UTI Indwelling urinary catheter type: indwelling urethral catheter Encounter type: subsequent encounter Qualified Code(s): T83.511D - Infection and inflammatory reaction due to indwelling urethral catheter, subsequent encounter; N39.0 - Urinary tract infection, site not specified (4) Chronic pain Current Visit: No Status: Chronic Qualifiers: Chronic pain type: other chronic pain Qualified Code(s): G89.29 - Other chronic pain (5) Encephalopathy acute Current Visit: No Status: Resolved (6) Constipation Current Visit: Yes Status: Acute Qualifiers: Constipation type: slow transit constipation Qualified Code(s): K59.01 - Slow transit constipation (7) Neurogenic bladder Current Visit: No Status: Acute (8) GERD (gastroesophageal reflux disease) Current Visit: No Status: Chronic Qualifiers: Esophagitis presence: esophagitis presence not specified Qualified Code(s) : K21.9 - Gastro-esophageal reflux disease without esophagitis - Constitutional Vitals: Temp Pulse Resp BP Pulse Ox 98.4 F 87 18 87/49 93 01/28/17 15:12 01/28/17 15:12 01/28/17 15:12 01/28/17 15:12 01/28/17 15:12 Internal Medicine: Result - Labs CBC & Chem 7: 01/28/17 04:57 01/28/17 04:57 Labs: Short CBC 01/28/17 Range/Units 04:57 WBC 6.4 (4.3-11.1) K/mcL Hgb 10.4 L (12.9-16.9) g/dL Hct 32.6 L (37.5-50.1) % Plt Count 222 (140-400) K/mcL Neutrophils # 2.9 (1.6-8.9) K/mcL BMP 01/28/17 04:57 Sodium 141 Potassium 4.2 Chloride 106 Carbon Dioxide 32 H BUN 14 Creatinine 0.72 Glucose 84 Calcium 8.8 - Attending Attestation I examined this patient and my medical decision-making was reviewed with the Resident Physician on 01/28/17. I agree with the documented findings, disposition and treatment plan as described except to the extent set forth below. Mr. Eid is currently admitted for sepsis - most likely related to decubiti/ ? osteomyelitis. He is moderate to high risk due to potential for worsening infectious status. Mr. Eid is doing better. Pain is somewhat better controlled. No fever overnight. No GI symptoms. No cough Exam Alert. Comfortable Heart reg No wheeze I/P 1. Sepsis 2. Probable osteo Further diagnoses and plan as above
[2017-01-29] MEDS: diazePAM 5 MG TABLET PO PRN (00:55)
[2017-01-29] MEDS: *HR* HYDROmorphone 2 MG TABLET PO PRN (00:55)
[2017-01-29] MEDS: 0.9 % Sodium Chloride 1,000 ML IVC SCH ×2 (01:04→15:20)
[2017-01-29] MEDS: Ipratropium/Albuterol Neb 3 ML IH SCH ×6 (03:46→22:50)
[2017-01-29 05:23] LABS: BUN/Creatinine Ratio 30 (6-26); Blood Urea Nitrogen 18 mg/dL (8-26); Calcium 8.8 mg/dL (8.6-10.8); Carbon Dioxide 29 mEq/L (19-29); Chloride 107 mEq/L (98-109); Glucose 119 mg/dL (70-99); Osmolality,Calculated 295 (280-300); Sodium 141 mEq/L (136-145); eGFR For African Americans > 60 (> 60); eGFR For Non-African Americans > 60 (> 60)
[2017-01-29] MEDS: Vancomycin 750 MG in D5% in Water 250 ML IVPB SCH ×2 (05:38→17:19)
[2017-01-29] MEDS: *HR* Heparin 5,000 UNIT/ML VIAL SQ SCH ×2 (05:39→17:37)
[2017-01-29] MEDS: tiZANidine 4 MG TABLET PO SCH (11:39)
[2017-01-29] MEDS: Lactobacillus 1 EACH CAP.SPRINK PO SCH (11:40)
[2017-01-29] MEDS: Baclofen 10 MG TABLET PO SCH (11:40)
[2017-01-29] MEDS: Sennosides 8.6 MG TABLET PO SCH (11:40)
[2017-01-29] MEDS: Ascorbic Acid 500 MG TABLET PO SCH (11:40)
[2017-01-29 13:29] LABS: HCV Quant Interpretation DETECTED (Not Detected)
--- NOTE | 2017-01-29 13:51 | Infectious Disease Progress No ---
Date of Encounter: 01/29/17 Time of Encounter: 13:49 - Assessment and Plan (1) Sepsis Current Visit: Yes Status: Resolved The patient had three SIRS criteria on admission. Likely secondary to UTI vs. PNA vs. other. CT of the abdomen and pelvis shows bilateral ischial decubitus ulcers that tunnel to the bone, but osseous changes are similar in appearance to those notes on previous imaging from September 2015. The patient refuses to let nursing/provider staff assess his sacrum/coccyx for decubitus ulcers. Could be potential source of the patient's sepsis as well. Improved. The patient has been afebrile x 24 hours. Tachycardia has improved. WBC has normalized. Blood cultures drawn 01/26/17 are NGTD x 2 sets (peripheral stick). No blood cultures were drawn from the tunneled PICC line. Patient started on IV Meropenem and Vancomycin based on previous culture results. Additionally, the patient has allergies to several antibiotics that make antibiotic therapy challenging. ESR and CRP are elevated. Continue Vancomycin IV. Pharmacy to dose. Goal trough approximately 15. Continue Rocephin 2 grams IV daily. This is day #4 of IV antibiotics. Duration of treatment depends on the clinical picture. Monitor renal function and for drug toxicity and dose-adjust antibiotics. Qualifiers: Qualified Code(s): A41.9 - Sepsis, unspecified organism (2) Urinary tract infection Current Visit: Yes Status: Acute Causative organism unclear. Urinalysis indicative of pyuria, but urine culture is negative. Continue antibiotics as above, Qualifiers: Qualified Code(s): T83.511D - Infection and inflammatory reaction due to indwelling urethral catheter, subsequent encounter; N39.0 - Urinary tract infection, site not specified (3) Pneumonia Current Visit: Yes Status: Ruled-out CXR completed 01/26/17 showed patchy consolidation or atelectasis in the medial left lung base. Clinically, the patient does not have any symptoms. S. pneumo and Legionella UAT negative. Repeat CXR this AM negative. Qualifiers: Qualified Code(s): J18.1 - Lobar pneumonia, unspecified organism (4) Neurogenic bladder Current Visit: No Status: Chronic Secondary to quadriplegia. Has suprapubic catheter that was recently replaced after traumatic removal of previous. (5) History of MRSA infection Current Visit: Yes Status: Acute (6) Decubitus ulcer of ischium Current Visit: Yes Status: Acute CT of the abdomen and pelvis shows bilateral ischial decubitus ulcers with extension to the bone and osseous demineralization, essentially unchanged from previous imaging 09/2015. Patient refuses to let members of the care team turn him or evaluate his backside for ulcers. ESR and CRP are elevated. Continue antibiotics as above. Wound care team consulted and following. Qualifiers: Qualified Code(s): L89.309 - Pressure ulcer of unspecified buttock, unspecified stage - Subjective Interval history: Patient seen and examined. No acute events noted overnight. Patient sleeping upon my entrance into the room. Awakens easily, but does not fully participate in the exam because he states he is tired. States that overall he feels better than when he was initially admitted. Denies fevers or chills. Denies chest pain , shortness of breath, or cough. Denies nausea, vomiting, or diarrhea. Per nursing documentation, the patient had a large BM last night. States the bleeding around his suprapubic catheter has stopped, but he again declines assessment of it by me today. Complains of chronic pain in his neck and back. Denies oral thrush or new skin lesions. States his appetite is good. Infect Dis PN-Objective Data - Labs CBC & Chem 7: 01/28/17 04:57 01/30/17 05:06 Labs: Laboratory Results - last 24 hr 01/28/17 01/28/17 01/29/17 15:40 15:40 04:51 ESR 83 H Sodium 141 Potassium 4.0 Chloride 107 Carbon Dioxide 29 BUN 18 Creatinine 0.60 L Est GFR ( Amer) > 60 Est GFR (Non-Af Amer) > 60 BUN/Creatinine Ratio 30 H Glucose 119 H Calculated Osmolality 295 Calcium 8.8 C-Reactive Protein 34 H - Impressions Impressions Chest X-Ray 01/29/17 08:00 IMPRESSION: 1. No acute cardiopulmonary abnormality. 2. Left hemidiaphragm elevation and left lower lobe segmental atelectasis. 3. Stable mild cardiomegaly. D/ / Miguel Lee MD / Miguel Lee MD Interpreting Provider: Miguel Lee MD Exam - Constitutional Vitals: Temp Pulse Resp BP Pulse Ox 97.5 F L 82 14 93/57 92 01/29/17 11:20 01/29/17 11:20 01/29/17 11:20 01/29/17 11:20 01/29/17 11:20 General appearance: cooperative, no acute distress, thin - Head Head exam: Present: atraumatic, normal inspection, normocephalic - Eye Eye exam: Present: EOMI, normal appearance, PERRL Pupils: Present: normal accommodation - ENT ENT exam: Present: mucous membranes moist - Neck Neck exam: Present: normal inspection - Respiratory Respiratory exam: Present: CTAB. Absent: rales, respiratory distress, rhonchi, wheezes - Cardiovascular Cardiovascular exam: Present: RRR, +S1, +S2 - GI/Abdominal GI/Abdominal exam: Present: normal bowel sounds, soft. Absent: distended, tenderness Additional comments: Suprapubic catheter noted to be draining clear yellow urine. - Extremities Exam Additional comments: Bilateral lower extremity amputations noted. No joint swelling or tenderness noted to the BUE. - Back Exam Additional comments: Patient refuses to turn. States he had to turn earlier to get cleaned up and does not want to turn again. - Neurological Exam Neurological exam: Present: alert, oriented X3. Absent: no focal deficits ( Paralysis noted to the BUE.), speech deficit - Psychiatric Psychiatric exam: Present: normal affect, normal mood - Skin Skin exam: Present: dry, intact, normal color, warm - Additional findings Additional findings: Tunneled PICC line noted to the left upper chest with transparent dressing C/D/ I. Consult Discharge Plan - Plan Referrals: Mauricio Melendrez MD [Partnered Physician] - (From [facility]) - Attending Attestation I examined this patient and my medical decision-making was reviewed with the PIN WORKER/PA/Advanced Practice Nurse/Resident Physician. I agree with the documented findings, disposition and treatment plan as described except to the extent set forth below.
--- NOTE | 2017-01-29 15:01 | Internal Med Progress Note ---
<[place] - Last Filed: 01/29/17 14:57> Date of Encounter: 01/29/17 Time of Encounter: 09:50 - Assessment and plan (1) Sepsis Current Visit: Yes Status: Acute Assessment and plan: Patient had 3 SIRS criteria on admission. His sepsis was possibly secondary to his UTI. Initially, it was thought that the source of his sepsis was pneumonia. CT scan of abdomen and pelvis shows bilateral ischial decubitus ulcers. Patient refuses to let nursing staff assess his wounds, and also refuses them turning him every 2 hours. Patient is currently afebrile. White blood cell count has returned to normal. Continue vancomycin IV. Continue Rocephin 2 g IV daily. Monitor vitals and continue hydration. Qualifiers: Sepsis type: sepsis due to unspecified organism Qualified Code(s): A41.9 - Sepsis, unspecified organism (2) Urinary tract infection Current Visit: Yes Status: Acute Assessment and plan: Catheter associated UTI. Continue antibiotics. Positive organism unclear. Qualifiers: Urinary tract infection type: catheter-associated UTI Indwelling urinary catheter type: indwelling urethral catheter Encounter type: subsequent encounter Qualified Code(s): T83.511D - Infection and inflammatory reaction due to indwelling urethral catheter, subsequent encounter; N39.0 - Urinary tract infection, site not specified (3) Decubitus ulcer Current Visit: No Status: Acute Assessment and plan: Patient needs to be turned every 2 hours. Patient refuses to have ulcers checked by nurse. He has been placed on IV antibiotics. Qualifiers: Pressure ulcer location: unspecified location Pressure ulcer stage: unspecified pressure ulcer stage Qualified Code(s): L89.90 - Pressure ulcer of unspecified site, unspecified stage (4) Chronic pain Current Visit: No Status: Chronic Assessment and plan: Continue current medication. Qualifiers: Chronic pain type: other chronic pain Qualified Code(s): G89.29 - Other chronic pain - Subjective Interval history: Patient was seen and examined at bedside this morning. Patient states that he is feeling well for the most part, but does state that he does have some pain in his arms and his legs. Patient does not feel as drowsy as he did yesterday. Catheter back was examined at bedside, and no blood was seen. He denies fever , nausea, vomiting, and shortness of breath. - Constitutional Vitals: Temp Pulse Resp BP Pulse Ox 97.5 F L 82 14 93/57 92 01/29/17 11:20 01/29/17 11:20 01/29/17 11:20 01/29/17 11:20 01/29/17 11:20 General appearance: Present: cachectic, cooperative, A&O X 3, answers questions appropriately. Absent: mild distress - Respiratory Respiratory exam: Present: CTAB. Absent: accessory muscle use, rales, rhonchi, wheezes - Cardiovascular Cardiovascular exam: Present: RRR, +S1, +S2. Absent: diastolic murmur, gallop, rubs, systolic murmur Internal Medicine: Result - Labs CBC & Chem 7: 01/28/17 04:57 01/29/17 04:51 Labs: BMP 01/29/17 04:51 Sodium 141 Potassium 4.0 Chloride 107 Carbon Dioxide 29 BUN 18 Creatinine 0.60 L Glucose 119 H Calcium 8.8 - Impressions Impressions Chest X-Ray 01/29/17 08:00 IMPRESSION: 1. No acute cardiopulmonary abnormality. 2. Left hemidiaphragm elevation and left lower lobe segmental atelectasis. 3. Stable mild cardiomegaly. D/ / Miguel Lee MD / Miguel Lee MD Interpreting Provider: Miguel Lee MD Consult Discharge Plan - Plan Referrals: Mauricio Melendrez MD [Partnered Physician] - (From [facility]) <Cristian Velásquez - Last Filed: 01/29/17 17:53> Date of Encounter: 01/29/17 - Assessment and plan (1) Sepsis Current Visit: Yes Status: Resolved Qualifiers: Sepsis type: sepsis due to unspecified organism Qualified Code(s): A41.9 - Sepsis, unspecified organism (2) Pneumonia Current Visit: Yes Status: Ruled-out Qualifiers: Pneumonia type: due to unspecified organism Laterality: left Lung location: upper lobe of lung Qualified Code(s): J18.1 - Lobar pneumonia, unspecified organism (3) Urinary tract infection Current Visit: Yes Status: Acute Qualifiers: Urinary tract infection type: catheter-associated UTI Indwelling urinary catheter type: indwelling urethral catheter Encounter type: subsequent encounter Qualified Code(s): T83.511D - Infection and inflammatory reaction due to indwelling urethral catheter, subsequent encounter; N39.0 - Urinary tract infection, site not specified (4) Chronic pain Current Visit: No Status: Chronic Qualifiers: Chronic pain type: other chronic pain Qualified Code(s): G89.29 - Other chronic pain (5) Encephalopathy acute Current Visit: No Status: Resolved (6) Constipation Current Visit: Yes Status: Acute Qualifiers: Constipation type: slow transit constipation Qualified Code(s): K59.01 - Slow transit constipation (7) Neurogenic bladder Current Visit: No Status: Chronic (8) GERD (gastroesophageal reflux disease) Current Visit: No Status: Chronic Qualifiers: Esophagitis presence: esophagitis presence not specified Qualified Code(s) : K21.9 - Gastro-esophageal reflux disease without esophagitis - Constitutional Vitals: Temp Pulse Resp BP Pulse Ox 96.3 F L 80 17 99/64 91 01/29/17 16:31 01/29/17 16:31 01/29/17 16:31 01/29/17 16:31 01/29/17 16:31 Internal Medicine: Result - Labs CBC & Chem 7: 01/28/17 04:57 01/29/17 04:51 Labs: BMP 01/29/17 04:51 Sodium 141 Potassium 4.0 Chloride 107 Carbon Dioxide 29 BUN 18 Creatinine 0.60 L Glucose 119 H Calcium 8.8 - Impressions Impressions Chest X-Ray 01/29/17 08:00 IMPRESSION: 1. No acute cardiopulmonary abnormality. 2. Left hemidiaphragm elevation and left lower lobe segmental atelectasis. 3. Stable mild cardiomegaly. D/ / Miguel Lee MD / Miguel Lee MD Interpreting Provider: Miguel Lee MD - Attending Attestation I examined this patient and my medical decision-making was reviewed with the Resident Physician on 01/29/17. I agree with the documented findings, disposition and treatment plan as described except to the extent set forth below. Mr. Eid is currently admitted for sepsis and presumed infection of UTI versus osteo. He remains moderate to high risk due to potential for worsening infectious status. Mr Eid is comfortable at this time. No fever or chills. Pain is controlled currently. No other issues. Exam Alert. Comfortable Heart reg No wheeze I/P 1. Sepsis - resolved 2. ? UTI vs other Further diagnoses and plan as above.
[2017-01-30] MEDS: tiZANidine 4 MG TABLET PO SCH ×2 (00:36→11:36)
[2017-01-30] MEDS: *HR* HYDROmorphone 2 MG TABLET PO PRN (00:36)
[2017-01-30] MEDS: diazePAM 5 MG TABLET PO PRN (00:37)
[2017-01-30] MEDS: Sennosides 8.6 MG TABLET PO SCH ×2 (00:37→11:36)
[2017-01-30] MEDS: Baclofen 10 MG TABLET PO SCH ×2 (00:37→11:37)
[2017-01-30] MEDS: Lactobacillus 1 EACH CAP.SPRINK PO SCH ×2 (00:37→11:34)
[2017-01-30] MEDS: Ipratropium/Albuterol Neb 3 ML IH SCH ×5 (04:38→19:44)
[2017-01-30 05:34] LABS: BUN/Creatinine Ratio 35 (6-26); Blood Urea Nitrogen 19 mg/dL (8-26); Calcium 9.1 mg/dL (8.6-10.8); Carbon Dioxide 29 mEq/L (19-29); Chloride 104 mEq/L (98-109); Glucose 72 mg/dL (70-99); Osmolality,Calculated 289 (280-300); Potassium 4.5 mEq/L (3.5-4.5); Sodium 139 mEq/L (136-145); eGFR For African Americans > 60 (> 60); eGFR For Non-African Americans > 60 (> 60)
[2017-01-30] MEDS: 0.9 % Sodium Chloride 1,000 ML IVC SCH (06:43)
[2017-01-30] MEDS: *HR* Heparin 5,000 UNIT/ML VIAL SQ SCH ×2 (06:45→17:38)
--- NOTE | 2017-01-30 10:16 | Internal Med Progress Note ---
<[place] - Last Filed: 01/30/17 10:22> Date of Encounter: 01/30/17 Time of Encounter: 09:00 - Assessment and plan (1) Sepsis Current Visit: Yes Status: Resolved Assessment and plan: Patient had 3 SIRS criteria on admission. His sepsis was possibly secondary to his UTI. Initially, it was thought that the source of his sepsis was pneumonia. CT scan of abdomen and pelvis shows bilateral ischial decubitus ulcers. Patient refuses to let nursing staff assess his wounds, and also refuses them turning him every 2 hours. Patient is currently afebrile. White blood cell count has returned to normal. Continue vancomycin IV. Infectious disease has been consulted. Monitor vitals and continue hydration. Qualifiers: Sepsis type: sepsis due to unspecified organism Qualified Code(s): A41.9 - Sepsis, unspecified organism (2) Urinary tract infection Current Visit: Yes Status: Acute Assessment and plan: Catheter associated UTI. Continue antibiotics. Qualifiers: Urinary tract infection type: catheter-associated UTI Indwelling urinary catheter type: indwelling urethral catheter Encounter type: subsequent encounter Qualified Code(s): T83.511D - Infection and inflammatory reaction due to indwelling urethral catheter, subsequent encounter; N39.0 - Urinary tract infection, site not specified (3) Decubitus ulcer Current Visit: No Status: Acute Assessment and plan: Patient needs to be turned every 2 hours. Patient refuses to have ulcers checked by nurse. He has been placed on IV antibiotics. Qualifiers: Pressure ulcer location: unspecified location Pressure ulcer stage: unspecified pressure ulcer stage Qualified Code(s): L89.90 - Pressure ulcer of unspecified site, unspecified stage (4) Chronic pain Current Visit: No Status: Chronic Assessment and plan: Continue current medication. Qualifiers: Chronic pain type: other chronic pain Qualified Code(s): G89.29 - Other chronic pain - Subjective Interval history: Patient was seen and examined at bedside this morning. Patient states that he is feeling well today, but does have some pain in his arms and his legs. He states the pain is manageable. Catheter back was examined at bedside, and no blood was seen. He denies fever, nausea, vomiting, and shortness of breath. - Constitutional Vitals: Temp Pulse Resp BP Pulse Ox 98.5 F 82 17 103/68 97 01/30/17 07:43 01/30/17 07:43 01/30/17 07:43 01/30/17 07:43 01/30/17 07:43 General appearance: Present: cachectic, cooperative, A&O X 3, answers questions appropriately. Absent: mild distress - Respiratory Respiratory exam: Present: CTAB. Absent: accessory muscle use, rales, rhonchi, wheezes - Cardiovascular Cardiovascular exam: Present: RRR, +S1, +S2. Absent: diastolic murmur, gallop, rubs, systolic murmur Internal Medicine: Result - Labs CBC & Chem 7: 01/28/17 04:57 01/30/17 05:06 Labs: BMP 01/30/17 05:06 Sodium 139 Potassium 4.5 Chloride 104 Carbon Dioxide 29 BUN 19 Creatinine 0.55 L Glucose 72 Calcium 9.1 Consult Discharge Plan - Plan Referrals: Mauricio Melendrez MD [Partnered Physician] - (From [facility]) <Cristian Velásquez - Last Filed: 01/30/17 16:53> Date of Encounter: 01/30/17 - Assessment and plan (1) Sepsis Current Visit: Yes Status: Resolved Qualifiers: Sepsis type: sepsis due to unspecified organism Qualified Code(s): A41.9 - Sepsis, unspecified organism (2) Urinary tract infection Current Visit: Yes Status: Acute Qualifiers: Urinary tract infection type: catheter-associated UTI Indwelling urinary catheter type: indwelling urethral catheter Encounter type: subsequent encounter Qualified Code(s): T83.511D - Infection and inflammatory reaction due to indwelling urethral catheter, subsequent encounter; N39.0 - Urinary tract infection, site not specified (3) Chronic pain Current Visit: No Status: Chronic Qualifiers: Chronic pain type: other chronic pain Qualified Code(s): G89.29 - Other chronic pain (4) Constipation Current Visit: Yes Status: Acute Qualifiers: Constipation type: slow transit constipation Qualified Code(s): K59.01 - Slow transit constipation (5) Neurogenic bladder Current Visit: No Status: Chronic (6) GERD (gastroesophageal reflux disease) Current Visit: No Status: Chronic Qualifiers: Esophagitis presence: esophagitis presence not specified Qualified Code(s) : K21.9 - Gastro-esophageal reflux disease without esophagitis (7) Pressure sore of left ischium, 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 (8) Pressure ulcer of ischium, 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 Qualifiers: Laterality: unspecified laterality Qualified Code(s): L89.303 - Pressure ulcer of unspecified buttock, stage 3 (9) Right ischial pressure sore, 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 - Constitutional Vitals: Temp Pulse Resp BP Pulse Ox 97.6 F 60 16 102/69 97 01/30/17 12:36 01/30/17 12:36 01/30/17 12:36 01/30/17 12:36 01/30/17 12:36 Internal Medicine: Result - Labs CBC & Chem 7: 01/28/17 04:57 01/30/17 05:06 Labs: BMP 01/30/17 05:06 Sodium 139 Potassium 4.5 Chloride 104 Carbon Dioxide 29 BUN 19 Creatinine 0.55 L Glucose 72 Calcium 9.1 - Attending Attestation I examined this patient and my medical decision-making was reviewed with the Resident Physician on 01/30/17. I agree with the documented findings, disposition and treatment plan as described except to the extent set forth below. Mr. Eid is currently admitted for sepsis due to possible UTI or sacral osteo. He remains moderate to high risk due to potential for worsening infectious status. Mr. Eid is essentially unchanged. No new issues overnight. No fever or chills. On IV abx. Exam Alert. Comfortable Heart reg No wheeze I/P 1. Sepsis 2. Quadriplegia Further diagnoses and plan as above.
--- NOTE | 2017-01-30 11:01 | Infectious Disease Progress No ---
Date of Encounter: 01/30/17 Time of Encounter: 10:59 - Assessment and Plan (1) Sepsis Current Visit: Yes Status: Resolved The patient had three SIRS criteria on admission. Likely secondary to UTI vs. other. CT of the abdomen and pelvis shows bilateral ischial decubitus ulcers that tunnel to the bone, but osseous changes are similar in appearance to those notes on previous imaging from September 2015. The patient refuses to let nursing/provider staff assess his sacrum/coccyx for decubitus ulcers. Could be potential source of the patient's sepsis as well. Improved. The patient has been afebrile. Tachycardia has resolved. WBC has normalized. Blood cultures drawn 01/26/17 are NGTD x 2 sets (peripheral stick). No blood cultures were drawn from the tunneled PICC line. Patient started on IV Meropenem and Vancomycin based on previous culture results. Additionally, the patient has allergies to several antibiotics that make antibiotic therapy challenging. ESR and CRP are elevated. Continue Vancomycin IV. Pharmacy to dose. Goal trough approximately 15. Continue Rocephin 2 grams IV daily. This is day #5 of IV antibiotics. Duration of treatment depends on the clinical picture. Monitor renal function and for drug toxicity and dose-adjust antibiotics. Qualifiers: Qualified Code(s): A41.9 - Sepsis, unspecified organism (2) Urinary tract infection Current Visit: Yes Status: Acute Causative organism unclear. Urinalysis indicative of pyuria, but urine culture is negative. Continue antibiotics as above. Qualifiers: Qualified Code(s): T83.511D - Infection and inflammatory reaction due to indwelling urethral catheter, subsequent encounter; N39.0 - Urinary tract infection, site not specified (3) Pneumonia Current Visit: Yes Status: Ruled-out CXR completed 01/26/17 showed patchy consolidation or atelectasis in the medial left lung base. Clinically, the patient does not have any symptoms. S. pneumo and Legionella UAT negative. Repeat CXR negative. Qualifiers: Qualified Code(s): J18.1 - Lobar pneumonia, unspecified organism (4) Neurogenic bladder Current Visit: No Status: Chronic Secondary to quadriplegia. Has suprapubic catheter that was recently replaced after traumatic removal of previous. (5) History of MRSA infection Current Visit: Yes Status: Acute (6) Decubitus ulcer of ischium Current Visit: Yes Status: Acute CT of the abdomen and pelvis shows bilateral ischial decubitus ulcers with extension to the bone and osseous demineralization, essentially unchanged from previous imaging 09/2015. Patient refuses to let members of the care team turn him or evaluate his backside for ulcers. ESR and CRP are elevated. Continue antibiotics as above. Wound care team consulted and following. Qualifiers: Qualified Code(s): L89.309 - Pressure ulcer of unspecified buttock, unspecified stage - Subjective Interval history: Patient seen and examined. No acute events noted overnight. Patient sleeping upon my entrance into the room. Awakens easily, but again does not fully participate in the exam because he states he is tired. States that overall he feels better than when he was initially admitted. Denies fevers or chills. Denies chest pain, shortness of breath, or cough. Denies nausea, vomiting, or diarrhea. Per nursing documentation, the patient had a BM last night. Complains of chronic pain in his neck and back. Denies oral thrush or new skin lesions. States his appetite is good. Infect Dis PN-Objective Data - Labs CBC & Chem 7: 01/28/17 04:57 01/30/17 05:06 Labs: Laboratory Results - last 24 hr 01/30/17 01/30/17 05:06 05:06 Sodium 139 Potassium 4.5 Chloride 104 Carbon Dioxide 29 BUN 19 Creatinine 0.55 L Est GFR ( Amer) > 60 Est GFR (Non-Af Amer) > 60 BUN/Creatinine Ratio 35 H Glucose 72 Calculated Osmolality 289 Calcium 9.1 Vancomycin Trough 24.9 H* Exam - Constitutional Vitals: Temp Pulse Resp BP Pulse Ox 98.5 F 82 17 103/68 97 01/30/17 07:43 01/30/17 07:43 01/30/17 07:43 01/30/17 07:43 01/30/17 07:43 General appearance: cooperative, no acute distress, thin - Head Head exam: Present: atraumatic, normal inspection, normocephalic - Eye Eye exam: Present: EOMI, normal appearance, PERRL Pupils: Present: normal accommodation - ENT ENT exam: Present: mucous membranes moist - Neck Neck exam: Present: normal inspection - Respiratory Respiratory exam: Present: CTAB. Absent: rales, respiratory distress, rhonchi, wheezes - Cardiovascular Cardiovascular exam: Present: RRR, +S1, +S2 - GI/Abdominal GI/Abdominal exam: Present: normal bowel sounds, soft. Absent: distended, tenderness Additional comments: Suprapubic catheter noted to be draining clear yellow urine. 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 - Back Exam Additional comments: Patient declines exam. - Neurological Exam Neurological exam: Present: alert, oriented X3. Absent: no focal deficits ( Paralysis noted to the BUE and lower portion of the torso.) - Psychiatric Psychiatric exam: Present: normal affect, normal mood - Skin Skin exam: Present: dry, intact, normal color, warm - Additional findings Additional findings: Tunneled PICC line noted to the left upper chest with transparent dressing C/D/ I. Consult Discharge Plan - Plan Referrals: Mauricio Melendrez MD [Partnered Physician] - (From [facility]) - Attending Attestation I examined this patient and my medical decision-making was reviewed with the LOOPING INSPECTOR/PA/Advanced Practice Nurse/Resident Physician. I agree with the documented findings, disposition and treatment plan as described except to the extent set forth below.
[2017-01-30] MEDS: Ascorbic Acid 500 MG TABLET PO SCH (11:37)
[2017-01-30] MEDS ORDERED: Vancomycin 500 MG in D5% in Water (Mini-Bag+) 100 ML IVPB SCH (13:00)
[2017-01-30] MEDS: Vancomycin 500 MG in D5% in Water (Mini-Bag+) 100 ML IVPB SCH (16:06)
[2017-01-31] MEDS: Ipratropium/Albuterol Neb 3 ML IH SCH ×7 (00:13→23:48)
[2017-01-31] MEDS: Sennosides 8.6 MG TABLET PO SCH ×2 (00:47→12:51)
[2017-01-31] MEDS: Lactobacillus 1 EACH CAP.SPRINK PO SCH ×2 (00:48→12:50)
[2017-01-31] MEDS: diazePAM 5 MG TABLET PO PRN (00:49)
[2017-01-31] MEDS: *HR* HYDROmorphone 2 MG TABLET PO PRN (00:49)
[2017-01-31] MEDS: tiZANidine 4 MG TABLET PO SCH ×2 (00:49→12:50)
[2017-01-31] MEDS: Baclofen 10 MG TABLET PO SCH ×2 (01:06→12:52)
[2017-01-31] MEDS: Vancomycin 500 MG in D5% in Water (Mini-Bag+) 100 ML IVPB SCH ×2 (03:33→15:17)
[2017-01-31] MEDS: *HR* Heparin 5,000 UNIT/ML VIAL SQ SCH ×2 (06:07→19:34)
[2017-01-31 06:45] LABS: Basophils # 0.1 K/mcL (0.0-0.2); Basophils % 0.8 %; Eosinophils # 0.8 K/mcL (0.0-0.6); Eosinophils % 11.2 %; Hematocrit 33.1 % (37.5-50.1); Hemoglobin 10.8 g/dL (12.9-16.9); Immature Granulocytes % 0.4 % (0-4); Lymphocytes % 40.9 %; Mean Corpuscular HGB Conc 32.6 g/dL (31.6-35.5); Mean Corpuscular Hemoglobin 30.1 pg (28.0-33.3); Mean Corpuscular Volume 92.2 fL (83.0-100.0); Mean Platelet Volume 8.6 fL (9.4-12.4); Monocytes # 0.5 K/mcL (0.0-1.3); Monocytes % 6.7 %; Neutrophils # 2.9 K/mcL (1.6-8.9); Platelet Count 213 K/mcL (140-400); Red Blood Count 3.59 M/mcL (4.19-5.50); Red Cell Distribution Width 12.5 % (11.5-14.5)
[2017-01-31 06:58] LABS: BUN/Creatinine Ratio 27 (6-26); Blood Urea Nitrogen 16 mg/dL (8-26); Calcium 8.8 mg/dL (8.6-10.8); Carbon Dioxide 28 mEq/L (19-29); Chloride 102 mEq/L (98-109); Glucose 123 mg/dL (70-99); Osmolality,Calculated 287 (280-300); Sodium 137 mEq/L (136-145); eGFR For African Americans > 60 (> 60); eGFR For Non-African Americans > 60 (> 60)
[2017-01-31 06:59] LABS: Potassium 3.4 mEq/L (3.5-4.5)
[2017-01-31] MEDS: 0.9 % Sodium Chloride 1,000 ML IVC SCH ×3 (06:59→13:08)
--- NOTE | 2017-01-31 09:46 | Internal Med Progress Note ---
<[place] - Last Filed: 01/31/17 09:47> Date of Encounter: 01/31/17 Time of Encounter: 08:50 - Assessment and plan (1) Sepsis Current Visit: Yes Status: Resolved Assessment and plan: Patient had 3 SIRS criteria on admission. His sepsis was possibly secondary to his UTI. Initially, it was thought that the source of his sepsis was pneumonia. CT scan of abdomen and pelvis shows bilateral ischial decubitus ulcers. Patient refuses to let nursing staff assess his wounds, and also refuses them turning him every 2 hours. Patient is currently afebrile. White blood cell count has returned to normal. Continue vancomycin IV. Infectious disease has been consulted. Monitor vitals and continue hydration. Qualifiers: Sepsis type: sepsis due to unspecified organism Qualified Code(s): A41.9 - Sepsis, unspecified organism (2) Urinary tract infection Current Visit: Yes Status: Acute Assessment and plan: Catheter associated UTI. Continue antibiotics. Qualifiers: Urinary tract infection type: catheter-associated UTI Indwelling urinary catheter type: indwelling urethral catheter Encounter type: subsequent encounter Qualified Code(s): T83.511D - Infection and inflammatory reaction due to indwelling urethral catheter, subsequent encounter; N39.0 - Urinary tract infection, site not specified (3) Decubitus ulcer Current Visit: No Status: Acute Assessment and plan: Patient needs to be turned every 2 hours. Patient refuses to have ulcers checked by nurse. He has been placed on IV antibiotics. Qualifiers: Pressure ulcer location: unspecified location Pressure ulcer stage: unspecified pressure ulcer stage Qualified Code(s): L89.90 - Pressure ulcer of unspecified site, unspecified stage (4) Chronic pain Current Visit: No Status: Chronic Assessment and plan: Continue current medication. Qualifiers: Chronic pain type: other chronic pain Qualified Code(s): G89.29 - Other chronic pain - Subjective Interval history: Patient was seen and examined at bedside this morning. Patient states that he feels somewhat tired. He is feeling well today, but does have some pain in his arms and his legs. He states the pain is manageable. Catheter back was examined at bedside, and no blood was seen. He denies fever, nausea, vomiting, and shortness of breath. - Constitutional Vitals: Temp Pulse Resp BP Pulse Ox 98.0 F 76 16 90/53 93 01/31/17 07:11 01/31/17 07:11 01/31/17 07:11 01/31/17 07:11 01/31/17 07:11 General appearance: Present: cachectic, cooperative, A&O X 3, answers questions appropriately. Absent: mild distress - Respiratory Respiratory exam: Present: CTAB. Absent: accessory muscle use, rales, rhonchi, wheezes - Cardiovascular Cardiovascular exam: Present: RRR, +S1, +S2. Absent: diastolic murmur, gallop, rubs, systolic murmur Internal Medicine: Result - Labs CBC & Chem 7: 01/31/17 06:34 01/31/17 06:34 Labs: Short CBC 01/31/17 Range/Units 06:34 WBC 7.3 (4.3-11.1) K/mcL Hgb 10.8 L (12.9-16.9) g/dL Hct 33.1 L (37.5-50.1) % Plt Count 213 (140-400) K/mcL Neutrophils # 2.9 (1.6-8.9) K/mcL BMP 01/31/17 06:34 Sodium 137 Potassium 3.4 L D Chloride 102 Carbon Dioxide 28 BUN 16 Creatinine 0.59 L Glucose 123 H Calcium 8.8 Consult Discharge Plan - Plan Referrals: Mauricio Melendrez MD [Partnered Physician] - (From [facility]) <Cristian Velásquez - Last Filed: 01/31/17 14:56> Date of Encounter: 01/31/17 - Assessment and plan (1) Urinary tract infection Current Visit: Yes Status: Acute Qualifiers: Urinary tract infection type: catheter-associated UTI Indwelling urinary catheter type: indwelling urethral catheter Encounter type: subsequent encounter Qualified Code(s): T83.511D - Infection and inflammatory reaction due to indwelling urethral catheter, subsequent encounter; N39.0 - Urinary tract infection, site not specified (2) Osteomyelitis Current Visit: Yes Status: Suspected Qualifiers: Osteomyelitis type: other chronic Osteomyelitis location: multiple sites Qualified Code(s): M86.69 - Other chronic osteomyelitis, multiple sites (3) Chronic pain Current Visit: No Status: Chronic Qualifiers: Chronic pain type: other chronic pain Qualified Code(s): G89.29 - Other chronic pain (4) Constipation Current Visit: Yes Status: Resolved Qualifiers: Constipation type: slow transit constipation Qualified Code(s): K59.01 - Slow transit constipation (5) Neurogenic bladder Current Visit: No Status: Chronic (6) GERD (gastroesophageal reflux disease) Current Visit: No Status: Chronic Qualifiers: Esophagitis presence: esophagitis presence not specified Qualified Code(s) : K21.9 - Gastro-esophageal reflux disease without esophagitis (7) Pressure sore of left ischium, 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 (8) Pressure ulcer of ischium, 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 Qualifiers: Laterality: unspecified laterality Qualified Code(s): L89.303 - Pressure ulcer of unspecified buttock, stage 3 (9) Right ischial pressure sore, 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 - Constitutional Vitals: Temp Pulse Resp BP Pulse Ox 97.9 F 88 17 98/67 97 01/31/17 11:24 01/31/17 11:24 01/31/17 11:24 01/31/17 11:24 01/31/17 11:24 Internal Medicine: Result - Labs CBC & Chem 7: 01/31/17 06:34 01/31/17 06:34 Labs: Short CBC 01/31/17 Range/Units 06:34 WBC 7.3 (4.3-11.1) K/mcL Hgb 10.8 L (12.9-16.9) g/dL Hct 33.1 L (37.5-50.1) % Plt Count 213 (140-400) K/mcL Neutrophils # 2.9 (1.6-8.9) K/mcL BMP 01/31/17 06:34 Sodium 137 Potassium 3.4 L D Chloride 102 Carbon Dioxide 28 BUN 16 Creatinine 0.59 L Glucose 123 H Calcium 8.8 - Attending Attestation I examined this patient and my medical decision-making was reviewed with the Resident Physician on 01/31/17. I agree with the documented findings, disposition and treatment plan as described except to the extent set forth below. Mr. Eid is currently admitted for presumed CAUTI (present on admit) and most likely osteomyelitis. He is very noncompliant. He remains moderate to high risk due to potential for worsening infectious status. Mr. Eid has no complaints. No CP or SOB. Tolerating IV abx. Pain Ok at this time. Exam Alert. Comfortable Mucus membranes moist Heart reg No wheeze Abd soft I/P 1. Sepsis due to presumed osteomyelitis - currently on IV abx. Need final plan from ID regarding abx regimen. 2. Quadriplegia Further diagnosis and plan as above.
[2017-01-31] MEDS: Ascorbic Acid 500 MG TABLET PO SCH (12:51)
[2017-02-01] MEDS: tiZANidine 4 MG TABLET PO SCH ×2 (00:54→12:05)
[2017-02-01] MEDS: Lactobacillus 1 EACH CAP.SPRINK PO SCH ×2 (00:54→12:05)
[2017-02-01] MEDS: *HR* HYDROmorphone 2 MG TABLET PO PRN (00:54)
[2017-02-01] MEDS: Baclofen 10 MG TABLET PO SCH ×2 (00:54→12:05)
[2017-02-01] MEDS: Sennosides 8.6 MG TABLET PO SCH ×2 (00:54→12:05)
[2017-02-01] MEDS: diazePAM 5 MG TABLET PO PRN (00:55)
[2017-02-01] MEDS: Ipratropium/Albuterol Neb 3 ML IH SCH ×6 (03:19→23:30)
[2017-02-01] MEDS: Vancomycin 500 MG in D5% in Water (Mini-Bag+) 100 ML IVPB SCH ×2 (04:59→16:08)
[2017-02-01] MEDS: 0.9 % Sodium Chloride 1,000 ML IVC SCH ×2 (05:01→19:36)
[2017-02-01] MEDS: *HR* Heparin 5,000 UNIT/ML VIAL SQ SCH ×2 (05:03→16:08)
--- NOTE | 2017-02-01 11:02 | Internal Med Progress Note ---
<[place] - Last Filed: 02/01/17 12:01> Date of Encounter: 02/01/17 Time of Encounter: 09:45 - Assessment and plan (1) Decubitus ulcer Current Visit: No Status: Acute Qualifiers: Pressure ulcer location: unspecified location Pressure ulcer stage: unspecified pressure ulcer stage Qualified Code(s): L89.90 - Pressure ulcer of unspecified site, unspecified stage (2) Sepsis Current Visit: Yes Status: Resolved Assessment and plan: Patient had 3 SIRS criteria on admission. His sepsis was possibly secondary to his UTI. Initially, it was thought that the source of his sepsis was pneumonia. -CT scan of abdomen and pelvis shows bilateral ischial decubitus ulcers. Patient refuses to let nursing staff assess his wounds, and also refuses them turning -him every 2 hours. -Patient is currently afebrile. -White blood cell count has returned to normal. -Continue vancomycin IV. -Infectious disease has been consulted. -Blood cell count this morning was 7.3. -Monitor vitals and continue hydration. Qualifiers: Sepsis type: sepsis due to unspecified organism Qualified Code(s): A41.9 - Sepsis, unspecified organism (3) Urinary tract infection Current Visit: Yes Status: Acute Assessment and plan: Catheter associated UTI. Continue antibiotics. Qualifiers: Urinary tract infection type: catheter-associated UTI Indwelling urinary catheter type: indwelling urethral catheter Encounter type: subsequent encounter Qualified Code(s): T83.511D - Infection and inflammatory reaction due to indwelling urethral catheter, subsequent encounter; N39.0 - Urinary tract infection, site not specified (4) Chronic pain Current Visit: No Status: Chronic Assessment and plan: Continue current medication. Qualifiers: Chronic pain type: other chronic pain Qualified Code(s): G89.29 - Other chronic pain - Subjective Interval history: Patient was seen and examined at bedside this morning. He states that he is feeling well, and that he does not feel any pain in his arms or legs. He denies having any fatigue. Her back was examined, and no blood seen. He denies fever, nausea, vomiting, shortness of breath, chest pain. - Constitutional Vitals: Temp Pulse Resp BP Pulse Ox 97.9 F 81 16 102/68 91 02/01/17 09:08 02/01/17 09:08 02/01/17 09:08 02/01/17 09:08 02/01/17 09:08 General appearance: Present: cachectic, cooperative, A&O X 3, answers questions appropriately. Absent: mild distress - ENT ENT exam: Present: mucous membranes moist - Respiratory Respiratory exam: Present: CTAB. Absent: accessory muscle use, rales, rhonchi, wheezes - Cardiovascular Cardiovascular exam: Present: RRR, +S1, +S2. Absent: diastolic murmur, gallop, rubs, systolic murmur - GI/Abdominal GI/Abdominal exam: Present: normal bowel sounds, soft, no peritoneal signs. Absent: distended, tenderness Internal Medicine: Result - Labs CBC & Chem 7: 01/31/17 06:34 01/31/17 06:34 Consult Discharge Plan - Plan Referrals: Mauricio Melendrez MD [Partnered Physician] - (From [facility]) <Cristian Velásquez - Last Filed: 02/01/17 14:08> Date of Encounter: 02/01/17 - Assessment and plan (1) Urinary tract infection Current Visit: Yes Status: Acute Qualifiers: Urinary tract infection type: catheter-associated UTI Indwelling urinary catheter type: indwelling urethral catheter Encounter type: subsequent encounter Qualified Code(s): T83.511D - Infection and inflammatory reaction due to indwelling urethral catheter, subsequent encounter; N39.0 - Urinary tract infection, site not specified (2) Osteomyelitis Current Visit: Yes Status: Suspected Qualifiers: Osteomyelitis type: other chronic Osteomyelitis location: multiple sites Qualified Code(s): M86.69 - Other chronic osteomyelitis, multiple sites (3) Chronic pain Current Visit: No Status: Chronic Qualifiers: Chronic pain type: other chronic pain Qualified Code(s): G89.29 - Other chronic pain (4) Constipation Current Visit: Yes Status: Resolved Qualifiers: Constipation type: slow transit constipation Qualified Code(s): K59.01 - Slow transit constipation (5) Neurogenic bladder Current Visit: No Status: Chronic (6) GERD (gastroesophageal reflux disease) Current Visit: No Status: Chronic Qualifiers: Esophagitis presence: esophagitis presence not specified Qualified Code(s) : K21.9 - Gastro-esophageal reflux disease without esophagitis (7) Pressure sore of left ischium, 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 I agree with the documented findings, disposition and treatment plan as described except to the extent set forth below. Mr. Eid is currently admitted for sepsis related to presumed osteomyelitis versus CAUTI (present on admit). He remains moderate to high risk due to potential for worsening infectious status. Mr. Eid feels OK. He had a lot of back spasm last night. Says at the ECF they do a lot of debridement and wound care for him. Has been on IV abx. Feels better overall at this time. Exam Alert. Comfortable Mucus membranes dry Heart reg No wheeze Abd soft I/P 1. Sepsis - resolved 2. Possible CAUTI (present on admit) 3. Chronic osteo Hopefully can return to ECF tomorrow. Further diagnoses and plan as above.
[2017-02-01] MEDS: Ascorbic Acid 500 MG TABLET PO SCH (12:05)
[2017-02-02] MEDS: Sennosides 8.6 MG TABLET PO SCH (00:40)
[2017-02-02] MEDS: Lactobacillus 1 EACH CAP.SPRINK PO SCH ×2 (00:40→12:42)
[2017-02-02] MEDS: tiZANidine 4 MG TABLET PO SCH ×2 (00:40→12:42)
[2017-02-02] MEDS: Baclofen 10 MG TABLET PO SCH ×2 (00:40→12:43)
[2017-02-02] MEDS: diazePAM 5 MG TABLET PO PRN (00:41)
[2017-02-02] MEDS: *HR* HYDROmorphone 2 MG TABLET PO PRN (00:41)
[2017-02-02] MEDS: Vancomycin 500 MG in D5% in Water (Mini-Bag+) 100 ML IVPB SCH (03:27)
[2017-02-02] MEDS: Ipratropium/Albuterol Neb 3 ML IH SCH ×3 (03:59→11:12)
[2017-02-02] MEDS: *HR* Heparin 5,000 UNIT/ML VIAL SQ SCH (04:27)
[2017-02-02 04:36] LABS: Basophils # 0.1 K/mcL (0.0-0.2); Basophils % 1.2 %; Eosinophils # 0.8 K/mcL (0.0-0.6); Eosinophils % 10.9 %; Hematocrit 32.6 % (37.5-50.1); Hemoglobin 10.5 g/dL (12.9-16.9); Immature Granulocytes % 0.4 % (0-4); Lymphocytes # 2.5 K/mcL (0.6-4.6); Lymphocytes % 36.6 %; Mean Corpuscular HGB Conc 32.2 g/dL (31.6-35.5); Mean Corpuscular Volume 93.1 fL (83.0-100.0); Mean Platelet Volume 8.9 fL (9.4-12.4); Monocytes # 0.8 K/mcL (0.0-1.3); Monocytes % 12.1 %; Neutrophils # 2.7 K/mcL (1.6-8.9); Platelet Count 243 K/mcL (140-400); Red Cell Distribution Width 12.7 % (11.5-14.5); Segmented Neutrophils % 38.8 %
[2017-02-02 04:42] LABS: BUN/Creatinine Ratio 35 (6-26); Blood Urea Nitrogen 22 mg/dL (8-26); Calcium 9.1 mg/dL (8.6-10.8); Carbon Dioxide 28 mEq/L (19-29); Chloride 107 mEq/L (98-109); Glucose 75 mg/dL (70-99); Osmolality,Calculated 292 (280-300); Sodium 140 mEq/L (136-145); eGFR For African Americans > 60 (> 60); eGFR For Non-African Americans > 60 (> 60)
[2017-02-02 04:45] LABS: Potassium 4.5 mEq/L (3.5-4.5)
--- NOTE | 2017-02-02 09:02 | Internal Med Progress Note ---
<[place] - Last Filed: 02/02/17 09:04> Date of Encounter: 02/02/17 Time of Encounter: 08:50 - Assessment and plan (1) Decubitus ulcer Current Visit: No Status: Acute Assessment and plan: Patient needs to be turned every 2 hours. -Patient refuses to have ulcers checked by nurse. -He has been placed on IV antibiotics. Qualifiers: Pressure ulcer location: unspecified location Pressure ulcer stage: unspecified pressure ulcer stage Qualified Code(s): L89.90 - Pressure ulcer of unspecified site, unspecified stage (2) Sepsis Current Visit: Yes Status: Resolved Assessment and plan: Patient had 3 SIRS criteria on admission. His sepsis was possibly secondary to his UTI. Initially, it was thought that the source of his sepsis was pneumonia. -CT scan of abdomen and pelvis shows bilateral ischial decubitus ulcers. Patient refuses to let nursing staff assess his wounds, and also refuses them turning him every 2 hours. -Patient is currently afebrile. -White blood cell count has returned to normal. Was 6.9 this morning. -Continue vancomycin IV. -Infectious disease has been consulted. -Monitor vitals and continue hydration. Qualifiers: Sepsis type: sepsis due to unspecified organism Qualified Code(s): A41.9 - Sepsis, unspecified organism (3) Urinary tract infection Current Visit: Yes Status: Acute Assessment and plan: Catheter associated UTI. Continue antibiotics. Qualifiers: Urinary tract infection type: catheter-associated UTI Indwelling urinary catheter type: indwelling urethral catheter Encounter type: subsequent encounter Qualified Code(s): T83.511D - Infection and inflammatory reaction due to indwelling urethral catheter, subsequent encounter; N39.0 - Urinary tract infection, site not specified (4) Chronic pain Current Visit: No Status: Chronic Assessment and plan: Continue current medication. Qualifiers: Chronic pain type: other chronic pain Qualified Code(s): G89.29 - Other chronic pain - Subjective Interval history: Patient was seen and examined at bedside this morning. He states that he is feeling well, and that he does not feel any pain in his arms or legs. He denies having any fatigue. Patient's catheter bag was examined at bedside, and no blood was seen. He denies fever, nausea, vomiting, shortness of breath, chest pain. - Constitutional Vitals: Temp Pulse Resp BP Pulse Ox 98.5 F 84 16 93/62 93 02/02/17 03:51 02/02/17 03:51 02/02/17 03:51 02/02/17 03:51 02/02/17 03:51 General appearance: Present: cachectic, cooperative, A&O X 3, answers questions appropriately. Absent: mild distress - ENT ENT exam: Present: mucous membranes dry - Respiratory Respiratory exam: Present: CTAB. Absent: accessory muscle use, rales, rhonchi, wheezes - Cardiovascular Cardiovascular exam: Present: RRR, +S1, +S2. Absent: diastolic murmur, gallop, rubs, systolic murmur - Psychiatric Psychiatric exam: Present: normal mood Internal Medicine: Result - Labs CBC & Chem 7: 02/02/17 03:35 02/02/17 03:35 Labs: Short CBC 02/02/17 Range/Units 03:35 WBC 6.9 (4.3-11.1) K/mcL Hgb 10.5 L (12.9-16.9) g/dL Hct 32.6 L (37.5-50.1) % Plt Count 243 (140-400) K/mcL Neutrophils # 2.7 (1.6-8.9) K/mcL BMP 02/02/17 03:35 Sodium 140 Potassium 4.5 D Chloride 107 Carbon Dioxide 28 BUN 22 Creatinine 0.63 L Glucose 75 Calcium 9.1 Consult Discharge Plan - Plan Instructions: Urinary Tract Infection in Men (DC) Referrals: Mauricio Melendrez MD [Partnered Physician] - (From [facility]) <Cristian Velásquez - Last Filed: 02/02/17 15:36> Date of Encounter: 02/02/17 - Assessment and plan (1) Urinary tract infection Current Visit: Yes Status: Acute Qualifiers: Urinary tract infection type: catheter-associated UTI Indwelling urinary catheter type: indwelling urethral catheter Encounter type: subsequent encounter Qualified Code(s): T83.511D - Infection and inflammatory reaction due to indwelling urethral catheter, subsequent encounter; N39.0 - Urinary tract infection, site not specified (2) Osteomyelitis Current Visit: Yes Status: Suspected Qualifiers: Osteomyelitis type: other chronic Osteomyelitis location: multiple sites Qualified Code(s): M86.69 - Other chronic osteomyelitis, multiple sites (3) Chronic pain Current Visit: No Status: Chronic Qualifiers: Chronic pain type: other chronic pain Qualified Code(s): G89.29 - Other chronic pain (4) Constipation Current Visit: Yes Status: Resolved Qualifiers: Constipation type: slow transit constipation Qualified Code(s): K59.01 - Slow transit constipation (5) Neurogenic bladder Current Visit: No Status: Chronic (6) GERD (gastroesophageal reflux disease) Current Visit: No Status: Chronic Qualifiers: Esophagitis presence: esophagitis presence not specified Qualified Code(s) : K21.9 - Gastro-esophageal reflux disease without esophagitis (7) Pressure sore of left ischium, 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, 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 - Constitutional Vitals: Temp Pulse Resp BP Pulse Ox 98.2 F 79 18 104/72 93 02/02/17 11:30 02/02/17 11:30 02/02/17 11:30 02/02/17 11:30 02/02/17 03:51 Internal Medicine: Result - Labs CBC & Chem 7: 02/02/17 03:35 02/02/17 03:35 Labs: Short CBC 02/02/17 Range/Units 03:35 WBC 6.9 (4.3-11.1) K/mcL Hgb 10.5 L (12.9-16.9) g/dL Hct 32.6 L (37.5-50.1) % Plt Count 243 (140-400) K/mcL Neutrophils # 2.7 (1.6-8.9) K/mcL BMP 02/02/17 03:35 Sodium 140 Potassium 4.5 D Chloride 107 Carbon Dioxide 28 BUN 22 Creatinine 0.63 L Glucose 75 Calcium 9.1 - Attending Attestation Please see discharge summary of this same date.
--- NOTE | 2017-02-02 10:59 | Discharge Summary ---
<New Newsome - Last Filed: 02/02/17 10:52> Date of Encounter: 02/02/17 Time of Encounter: 08:50 - Discharge Diagnosis (1) Decubitus ulcer Priority: Primary Status: Acute Comments: Patient needs to be turned every 2 hours. -He has been placed on IV antibiotics. Qualifiers: Pressure ulcer location: unspecified location Pressure ulcer stage: unspecified pressure ulcer stage Qualified Code(s): L89.90 - Pressure ulcer of unspecified site, unspecified stage (2) Sepsis Priority: Secondary Status: Resolved Comments: Patient had 3 SIRS criteria on admission. His sepsis was possibly secondary to his UTI. Initially, it was thought that the source of his sepsis was pneumonia. -CT scan of abdomen and pelvis shows bilateral ischial decubitus ulcers. Patient refuses to let nursing staff assess his wounds, and also refuses them turning him every 2 hours. -Patient is currently afebrile. -White blood cell count has returned to normal. -Infectious disease has been consulted. -Monitor vitals and continue hydration. Qualifiers: Sepsis type: sepsis due to unspecified organism Qualified Code(s): A41.9 - Sepsis, unspecified organism (3) Urinary tract infection Priority: Secondary Status: Acute Comments: Catheter-associated UTI. Chronic. Qualifiers: Urinary tract infection type: catheter-associated UTI Indwelling urinary catheter type: indwelling urethral catheter Encounter type: subsequent encounter Qualified Code(s): T83.511D - Infection and inflammatory reaction due to indwelling urethral catheter, subsequent encounter; N39.0 - Urinary tract infection, site not specified (4) Chronic pain Priority: Secondary Status: Chronic Qualifiers: Chronic pain type: other chronic pain Qualified Code(s): G89.29 - Other chronic pain - Discharge Medications Home Medications: Promethazine [Phenergan] 25 mg PO Q6HR PRN 03/23/15 [History] Ascorbic Acid [Vitamin C] 500 mg PO DAILY 05/23/15 [History] Bisacodyl [Dulcolax] 5 mg PO DAILY 05/23/15 [History] Lubiprostone [Amitiza] 24 mcg PO Q12HR 05/23/15 [History] Sennosides [Senna] 8.6 mg PO BID 05/23/15 [History] Ferrous Gluconate 240 mg PO BID 02/26/16 [History] Lactobacillus Acidophilus [Acidophilus] 1 tab PO BID 02/26/16 [History] Ipratropium/Albuterol Neb [Duoneb] 3 ml IH Q6HR PRN 05/10/16 [History] Acetaminophen [Tylenol] 650 mg PO Q6HR PRN 05/11/16 [History] Baclofen 60 mg PO BID 05/11/16 [History] GuaiFENesin ER [Mucinex] 600 mg PO Q12HR PRN 05/11/16 [History] Docusate [Colace] 100 mg PO BID 05/12/16 [History] Tizanidine HCl [Zanaflex] 12 mg PO BID 05/12/16 [History] HYDROmorphone [Dilaudid] 2 mg PO Q4HR PRN #6 tablet 12/18/16 [Rx] diazePAM [Valium] 1 mg PO Q6HR PRN 01/26/17 [History] Allergies/Adverse Reactions: Allergies cephalexin [From Keflex] Allergy (Verified 12/17/16 06:46) Hives ciprofloxacin [From Cipro] Allergy (Verified 12/17/16 06:46) Hives cranberry Allergy (Verified 12/17/16 06:46) See Comments unknown ketorolac Allergy (Verified 12/17/16 06:46) Hives morphine Allergy (Verified 12/17/16 06:46) Hives nitrofurantoin [From Macrobid] Allergy (Verified 12/17/16 06:46) Hives Oxycodone Allergy (Verified 12/17/16 06:46) Hives Penicillins Allergy (Verified 12/17/16 06:46) Hives prochlorperazine [From Compazine] Allergy (Verified 12/17/16 06:46) Hives Sulfa (Sulfonamide Antibiotics) Allergy (Verified 12/17/16 06:46) Hives trimethoprim Allergy (Verified 12/17/16 06:46) See Comments unknown Date of admission: 01/26/17 11:14 Primary care physician: PCP NO Consults: 01/26/17 13:50 Consult to Wound Care [CONS] Routine Reason for Consult: needs wound orders. Call Completed: No 01/26/17 18:02 consult to line driver [Consult to Nutrition] [CONS] Routine Comment: Consulting Provider: NUTRITION Reason for Dietary Consult: PO Supplementation Discharging clinician: [place] Anticipated date of discharge: 02/02/17 - Patient Status Disposition: Transfer Intermediate Care Fac Condition: Fair Overall status at discharge: patient is progressing back to baseline - Discharge Instructions Instructions: Urinary Tract Infection in Men (DC) Follow Up With: Mauricio Melendrez MD [Partnered Physician] - (From [facility]) - Diet and Activity Activity: other Diet: advance to your usual diet Hospital course: Mr. Eid is a 41 year old male who presents to the emergency department complaining of gross hematuria. Patient was taking a shower at his facility, and his suprapubic catheter was traumatically removed. The nursing staff attempted to replace the catheter, but this resulted in gross hematuria and hemorrhage. Upon admission to the hospital, patient had signs and symptoms of sepsis. His temperature was 101.3 degrees Fahrenheit, his pulse was 112, his blood pressure was 101/76. WBC count was 15. This sepsis was possibly secondary to his UTI, which has been a chronic problem for him. Chest x-ray revealed consolidation in the right middle lobe, which was considered to be another potential source for sepsis. CT scan of abdomen and pelvis showed bilateral this issue decubitus ulcers. During stay in the hospital patient refused to let the nursing staff assess his wounds, and also refused to let them turn him every 2 hours. Infectious disease was consulted and patient was started on vancomycin and meropenem. Patient's condition in the hospital was stable. Patient initially complained of fatigue and pain in his arms, but these resolved in the days following his admission. Meropenem was switched to Rocephin. Cased was discussed with infectious disease, who did not recommend further treatment with antibiotics. PICC line was removed. Will discuss plan with patient. Patient will be returned to care facility where he came from. - Time Spent with Patient Total time spent providing and/or coordinating discharge services: Greater than 30 minutes - Constitutional Vitals: Temp Pulse Resp BP Pulse Ox 98.5 F 84 16 93/62 93 02/02/17 03:51 02/02/17 03:51 02/02/17 03:51 02/02/17 03:51 02/02/17 03:51 General appearance: Present: cachectic, cooperative, A&O X 3, answers questions appropriately. Absent: mild distress - ENT ENT exam: Present: mucous membranes dry - Respiratory Respiratory exam: Present: CTAB. Absent: accessory muscle use, rales, rhonchi, wheezes - Cardiovascular Cardiovascular exam: Present: RRR, +S1, +S2. Absent: diastolic murmur, gallop, rubs, systolic murmur <Cristian Velásquez - Last Filed: 02/02/17 15:34> Date of Encounter: 02/02/17 - Discharge Diagnosis (1) Urinary tract infection Priority: Primary Status: Acute Qualifiers: Urinary tract infection type: catheter-associated UTI Indwelling urinary catheter type: indwelling urethral catheter Encounter type: subsequent encounter Qualified Code(s): T83.511D - Infection and inflammatory reaction due to indwelling urethral catheter, subsequent encounter; N39.0 - Urinary tract infection, site not specified (2) Osteomyelitis Priority: Secondary Status: Suspected Qualifiers: Osteomyelitis type: other chronic Osteomyelitis location: multiple sites Qualified Code(s): M86.69 - Other chronic osteomyelitis, multiple sites (3) Chronic pain Status: Chronic Qualifiers: Chronic pain type: other chronic pain Qualified Code(s): G89.29 - Other chronic pain (4) Constipation Priority: Secondary Status: Resolved Qualifiers: Constipation type: slow transit constipation Qualified Code(s): K59.01 - Slow transit constipation (5) Neurogenic bladder Priority: Secondary Status: Chronic (6) GERD (gastroesophageal reflux disease) Priority: Secondary Status: Chronic Qualifiers: Esophagitis presence: esophagitis presence not specified Qualified Code(s) : K21.9 - Gastro-esophageal reflux disease without esophagitis (7) Pressure sore of left ischium, stage 4 Priority: Secondary Status: Chronic (8) Right ischial pressure sore, stage 3 Priority: Secondary Status: Chronic Date of admission: 01/26/17 11:14 Primary care physician: PCP NO Consults: 01/26/17 13:50 Consult to Wound Care [CONS] Routine Reason for Consult: needs wound orders. Call Completed: No 01/26/17 18:02 consult to line driver [Consult to Nutrition] [CONS] Routine Comment: Consulting Provider: NUTRITION Reason for Dietary Consult: PO Supplementation 02/02/17 12:22 Consult to Interventional Radiology [CONS] Routine Consulting Provider: Radiology Interventional Cols Reason for Consult: Remove tunnelled PICC. Thank you Call Completed: Yes Hospital course: Mr. Eid is a 41 year old male - Time Spent with Patient Total time spent providing and/or coordinating discharge services: 39min - Constitutional Vitals: Temp Pulse Resp BP Pulse Ox 98.2 F 79 18 104/72 93 02/02/17 11:30 02/02/17 11:30 02/02/17 11:30 02/02/17 11:30 02/02/17 03:51 - Head Head exam: Present: normocephalic - Eye Eye exam: Present: conjuntiva pink - Attending Attestation I examined this patient and my medical decision-making was reviewed with the Resident Physician on 02/02/17. I agree with the documented findings, disposition and treatment plan as described except to the extent set forth below. Mr. Eid is doing OK. He has completed a week of IV abx. No new issues. No fever or chills. Exam Alert. Comfortable Lungs clear Heart reg Abd soft Plan D/C to SNF today on no abx at this time. Resume wound care at facility.
[2017-02-02 11:31] VITALS: BP 104/72
--- NOTE | 2017-02-02 11:46 | Infectious Disease Progress No ---
Date of Encounter: 02/02/17 Time of Encounter: 11:44 - Assessment and Plan (1) Sepsis Current Visit: Yes Status: Resolved The patient had three SIRS criteria on admission. Likely secondary to UTI vs. other. CT of the abdomen and pelvis shows bilateral ischial decubitus ulcers that tunnel to the bone, but osseous changes are similar in appearance to those notes on previous imaging from September 2015. Improved. The patient has been afebrile. Tachycardia has resolved. WBC has normalized. Blood cultures drawn 01/26/17 are negative x 2 sets (peripheral stick). No blood cultures were drawn from the tunneled PICC line. Patient was started on IV Meropenem and Vancomycin based on previous culture results. Additionally, the patient has allergies to several antibiotics that make antibiotic therapy challenging. ESR and CRP are elevated, but this is likely secondary to the patient's chronic decubitus ulcers. This is day #8 of IV antibiotics. The source of the patient's sepsis remains unclear, but high index of suspicion that the patient's urine was the source. Would recommend discontinuing IV antibiotics at this point. He has received adequate treatment for CAUTI. Discussed with Dr. Velásquez with the primary team. Qualifiers: Sepsis type: sepsis due to unspecified organism Qualified Code(s): A41.9 - Sepsis, unspecified organism (2) Urinary tract infection Current Visit: Yes Status: Acute Causative organism unclear. Urinalysis indicative of pyuria, but urine culture is negative. He has received 8 days of IV antibiotics. Qualifiers: Urinary tract infection type: catheter-associated UTI Indwelling urinary catheter type: indwelling urethral catheter Encounter type: subsequent encounter Qualified Code(s): T83.511D - Infection and inflammatory reaction due to indwelling urethral catheter, subsequent encounter; N39.0 - Urinary tract infection, site not specified (3) Pneumonia Current Visit: Yes Status: Ruled-out CXR completed 01/26/17 showed patchy consolidation or atelectasis in the medial left lung base. Clinically, the patient does not have any symptoms. S. pneumo and Legionella UAT negative. Repeat CXR negative. Qualifiers: Pneumonia type: due to unspecified organism Laterality: left Lung location: upper lobe of lung Qualified Code(s): J18.1 - Lobar pneumonia, unspecified organism (4) Neurogenic bladder Current Visit: No Status: Chronic Secondary to quadriplegia. Has suprapubic catheter that was recently replaced after traumatic removal of previous. (5) History of MRSA infection Current Visit: Yes Status: Acute (6) Decubitus ulcer of ischium Current Visit: Yes Status: Acute CT of the abdomen and pelvis shows bilateral ischial decubitus ulcers with extension to the bone and osseous demineralization, essentially unchanged from previous imaging 09/2015. Patient refuses to let members of the care team turn him or evaluate his backside for ulcers. ESR and CRP are elevated. Continue antibiotics as above. Wound care team consulted and following. Qualifiers: Pressure ulcer stage: unspecified pressure ulcer stage Laterality: unspecified laterality Qualified Code(s): L89.309 - Pressure ulcer of unspecified buttock, unspecified stage - Subjective Interval history: Patient seen and examined. Weekend notes reviewed. No acute events noted overnight. Patient states that overall he feels well and wants to go back to the [facility] today. Denies fevers or chills. Denies chest pain, shortness of breath, or cough. Denies nausea, vomiting, or diarrhea. He reports a BM last night. Complains of chronic pain in his neck and back. Denies oral thrush or new skin lesions. States his appetite is good. States he does not think his wounds are infected as he has been receiving weekly wound care at the [facility] and they are getting smaller. He also states he was on IV Vancomycin for 4 days prior to admission, which could explain why he had a negative urine culture on arrival. Infect Dis PN-Objective Data - Labs CBC & Chem 7: 02/02/17 03:35 02/02/17 03:35 Labs: Laboratory Results - last 24 hr 02/02/17 02/02/17 03:35 03:35 WBC 6.9 RBC 3.50 L Hgb 10.5 L Hct 32.6 L MCV 93.1 MCH 30.0 MCHC 32.2 RDW 12.7 Plt Count 243 MPV 8.9 L Immature Gran % 0.4 Seg Neutrophils % 38.8 Lymphocytes % 36.6 Monocytes % 12.1 Eosinophils % 10.9 Basophils % 1.2 Neutrophils # 2.7 Lymphocytes # 2.5 Monocytes # 0.8 Eosinophils # 0.8 H Basophils # 0.1 Sodium 140 Potassium 4.5 D Chloride 107 Carbon Dioxide 28 BUN 22 Creatinine 0.63 L Est GFR ( Amer) > 60 Est GFR (Non-Af Amer) > 60 BUN/Creatinine Ratio 35 H Glucose 75 Calculated Osmolality 292 Calcium 9.1 Exam - Constitutional Vitals: Temp Pulse Resp BP Pulse Ox 98.2 F 79 18 104/72 93 02/02/17 11:30 02/02/17 11:30 02/02/17 11:30 02/02/17 11:30 02/02/17 03:51 General appearance: cooperative, no acute distress, thin - Head Head exam: Present: atraumatic, normal inspection, normocephalic - Eye Eye exam: Present: EOMI, normal appearance, PERRL Pupils: Present: normal accommodation - ENT ENT exam: Present: mucous membranes moist - Neck Neck exam: Present: normal inspection - Respiratory Respiratory exam: Present: CTAB. Absent: rales, respiratory distress, rhonchi, wheezes - Cardiovascular Cardiovascular exam: Present: RRR, +S1, +S2 - GI/Abdominal GI/Abdominal exam: Present: normal bowel sounds, soft. Absent: distended, tenderness Additional comments: Suprapubic catheter noted to be draining clear yellow urine. - Extremities Exam Extremities exam: Absent: joint swelling, tenderness Additional comments: BLE AKA stumps without redness, swelling, or open wounds. - Neurological Exam Neurological exam: Present: alert, oriented X3. Absent: no focal deficits ( Paralysis noted BUE.) - Psychiatric Psychiatric exam: Present: normal affect, normal mood - Skin Skin exam: Present: dry, intact, normal color, warm - Additional findings Additional findings: Tunneled PICC line noted to the left upper chest with transparent dressing C/D/ I. No erythema, tenderness, or drainage noted. Consult Discharge Plan - Plan Instructions: Urinary Tract Infection in Men (DC) Referrals: Mauricio Melendrez MD [Partnered Physician] - (From [facility]) - Attending Attestation I examined this patient and my medical decision-making was reviewed with the BOX TRUCK WASHER/PA/Advanced Practice Nurse/Resident Physician. I agree with the documented findings, disposition and treatment plan as described except to the extent set forth below.
[2017-02-02] MEDS: 0.9 % Sodium Chloride 1,000 ML IVC SCH (12:34)
[2017-02-02] MEDS: Ascorbic Acid 500 MG TABLET PO SCH (12:42)
--- NOTE | 2017-02-02 12:52 | Physician Discharge Referral ---
<[place] - Last Filed: 02/02/17 12:50> ExtendedCare Referral Info Transfer To: [facility] Provider in Charge after Transfer: PCP Institutional Level of Care: Intermediate - Diagnosis (1) Decubitus ulcer Priority: Primary Status: Acute (2) Sepsis Priority: Secondary Status: Resolved (3) Urinary tract infection Priority: Secondary Status: Acute (4) Chronic pain Priority: Secondary Status: Chronic - Transfer Medications Home Medications: Promethazine [Phenergan] 25 mg PO Q6HR PRN 03/23/15 [History] Ascorbic Acid [Vitamin C] 500 mg PO DAILY 05/23/15 [History] Bisacodyl [Dulcolax] 5 mg PO DAILY 05/23/15 [History] Lubiprostone [Amitiza] 24 mcg PO Q12HR 05/23/15 [History] Sennosides [Senna] 8.6 mg PO BID 05/23/15 [History] Ferrous Gluconate 240 mg PO BID 02/26/16 [History] Lactobacillus Acidophilus [Acidophilus] 1 tab PO BID 02/26/16 [History] Ipratropium/Albuterol Neb [Duoneb] 3 ml IH Q6HR PRN 05/10/16 [History] Acetaminophen [Tylenol] 650 mg PO Q6HR PRN 05/11/16 [History] Baclofen 60 mg PO BID 05/11/16 [History] GuaiFENesin ER [Mucinex] 600 mg PO Q12HR PRN 05/11/16 [History] Docusate [Colace] 100 mg PO BID 05/12/16 [History] Tizanidine HCl [Zanaflex] 12 mg PO BID 05/12/16 [History] HYDROmorphone [Dilaudid] 2 mg PO Q4HR PRN #6 tablet 12/18/16 [Rx] diazePAM [Valium] 1 mg PO Q6HR PRN 01/26/17 [History] Allergies/Adverse Reactions: Allergies cephalexin [From Keflex] Allergy (Verified 12/17/16 06:46) Hives ciprofloxacin [From Cipro] Allergy (Verified 12/17/16 06:46) Hives cranberry Allergy (Verified 12/17/16 06:46) See Comments unknown ketorolac Allergy (Verified 12/17/16 06:46) Hives morphine Allergy (Verified 12/17/16 06:46) Hives nitrofurantoin [From Macrobid] Allergy (Verified 12/17/16 06:46) Hives Oxycodone Allergy (Verified 12/17/16 06:46) Hives Penicillins Allergy (Verified 12/17/16 06:46) Hives prochlorperazine [From Compazine] Allergy (Verified 12/17/16 06:46) Hives Sulfa (Sulfonamide Antibiotics) Allergy (Verified 12/17/16 06:46) Hives trimethoprim Allergy (Verified 12/17/16 06:46) See Comments unknown - Respiratory Orders Smoking Cessation: Smoking cessation has been advised. For more information, call the [employer] Quit Line at 5-229-ZIGQ-NOW. - Treatments Skin tear care topically daily PRN per policy - Diet Orders Regular CERTIFICATION: I certify that the transfer of the above named patient to an Extended Care Facility is necessary for the continuing treatment of the diagnosis listed. The above information is true and accurate reflection of patient's current condition. Confidential - Redisclosure prohibited without a patient's written consent. <Cristian Velásquez - Last Filed: 02/02/17 15:19> - Diagnosis (1) Urinary tract infection Status: Acute (2) Osteomyelitis Priority: Secondary Status: Suspected (3) Chronic pain Status: Chronic (4) Constipation Priority: Secondary Status: Resolved (5) Neurogenic bladder Priority: Secondary Status: Chronic (6) GERD (gastroesophageal reflux disease) Priority: Secondary Status: Chronic (7) Pressure sore of left ischium, stage 4 Priority: Secondary Status: Chronic (8) Right ischial pressure sore, stage 3 Priority: Secondary Status: Chronic Expected Duration of Placement: terminal superintendent Prognosis: Fair Aware of Diagnosis: Patient Aware of Prognosis: Patient - Respiratory Orders Smoking Cessation: Smoking cessation has been advised. For more information, call the [employer] Quit Line at 6-108-FTFS-NOW. - Ancillary Orders May use pressure relief devices daily prn, May consult with Dentist, Logistics Associate, Pie Filler PRN - Advance Directives Code Status: Full Code - Mobility Orders Bedrest CERTIFICATION: I certify that the transfer of the above named patient to an Extended Care Facility is necessary for the continuing treatment of the diagnosis listed. The above information is true and accurate reflection of patient's current condition. Confidential - Redisclosure prohibited without a patient's written consent.
[2017-02-02] MEDS ORDERED: Aminoglycoside Consult 1 EACH MC ONE (15:46)
== END 2017-02-02 15:47 | DRG 466 ==
LOC: EMEROO 04:53 → 2ANU 04:53
PROVIDERS: ADMIT Internal Medicine; ATTEND Internal Medicine

== ENCOUNTER 2017-09-21 19:26 | Inpatient (IN) ==
[2017-09-21] MEDS ORDERED: 0.9 % Sodium Chloride 1,000 ML IVC ONE (19:48)
[2017-09-21 20:28] LABS: Basophils # 0.1 K/mcL (0.0-0.2); Basophils % 0.3 %; Eosinophils % 0.1 %; Hematocrit 38.3 % (37.5-50.1); Hemoglobin 12.3 g/dL (12.9-16.9); Immature Granulocytes % 0.4 % (0-4); Lymphocytes # 2.1 K/mcL (0.6-4.6); Lymphocytes % 11.1 %; Mean Corpuscular HGB Conc 32.1 g/dL (31.6-35.5); Mean Corpuscular Hemoglobin 27.9 pg (28.0-33.3); Mean Corpuscular Volume 86.8 fL (83.0-100.0); Monocytes # 2.5 K/mcL (0.0-1.3); Monocytes % 13.3 %; Neutrophils # 13.9 K/mcL (1.6-8.9); Platelet Count 190 K/mcL (140-400); Red Blood Count 4.41 M/mcL (4.19-5.50); Red Cell Distribution Width 15.3 % (11.5-14.5); Segmented Neutrophils % 74.8 %
[2017-09-21 20:34] LABS: INR 1.2; Prothrombin Time 13.2 Seconds (9.4-12.1)
[2017-09-21 20:48] LABS: BUN/Creatinine Ratio 30 (6-26); Blood Urea Nitrogen 29 mg/dL (6-20); Carbon Dioxide 28 mEq/L (23-29); Chloride 95 mEq/L (98-107); Glucose 85 mg/dL (70-105); Osmolality,Calculated 279 (280-300); Potassium 3.9 mEq/L (3.5-5.1); Sodium 132 mEq/L (136-145); eGFR For African Americans > 60 (> 60); eGFR For Non-African Americans > 60 (> 60)
--- NOTE | 2017-09-21 22:22 | Emergency Department Note ---
Disposition Clinical Impression: GI bleed Qualifiers: GI bleed type/associated pathology: unspecified gastrointestinal hemorrhage type Qualified Code(s): K92.2 - Gastrointestinal hemorrhage, unspecified Disposition: Admitted As Inpatient Condition: Good Time of Disposition: 22:31 General Adult HPI - General Chief complaint: ED General Medical Stated complaint: DISLODGED GTUBE Time Seen by Provider: 09/21/17 19:30 Source: patient, EMS Mode of arrival: EMS Limitations: physical limitation Nursing Notes Reviewed: Yes Vital Signs Reviewed: Yes - History of Present Illness HPI Narrative: 42-year-old male with multiple medical conditions including quadriplegia and suprapubic catheter presenting to the emergency department via EMS for rectal bleeding. Patient states today he had a very large bowel movement and directly after the bowel movement he had nabeel gross blood per rectum. Patient's suprapubic catheter also came out during the bowel movement. Patient states he does not remember ever having rectal bleeding before. He denies any chest pain , shortness or dizziness. Denies knowing of any other blood per rectum recently. Pain Scale: 4 - Related Data Home Medications Medication Instructions Recorded Confirmed Promethazine [Phenergan] 25 mg PO 0000 03/23/15 09/21/17 Ascorbic Acid [Vitamin C] 500 mg PO DAILY 05/23/15 09/21/17 Bisacodyl [Dulcolax] 5 mg PO DAILY 05/23/15 09/21/17 Lubiprostone [Amitiza] 24 mcg PO Q12HR 05/23/15 09/21/17 Sennosides [Senna] 17.2 mg PO BID 05/23/15 09/21/17 Acetaminophen [Tylenol] 650 mg PO Q6HR PRN 05/11/16 09/21/17 Baclofen 60 mg PO BID 05/11/16 09/21/17 GuaiFENesin ER [Mucinex] 600 mg PO DAILY 05/11/16 09/21/17 Docusate [Colace] 100 mg PO BID 05/12/16 09/21/17 Tizanidine HCl [Zanaflex] 12 mg PO BID 05/12/16 09/21/17 Mirtazapine 7.5 mg PO DAILY 07/04/17 09/21/17 0.9 % Sodium Chloride [Normal 10 ml IV DAILY 09/21/17 09/21/17 Saline Flush] Ferrous Gluconate 324 mg PO BID 09/21/17 09/21/17 HYDROmorphone [Dilaudid] 2 mg PO 0000 09/21/17 09/21/17 HYDROmorphone [Dilaudid] 2 mg PO Q4H PRN 09/21/17 09/21/17 Omeprazole [PriLOSEC] 20 mg PO DAILY 09/21/17 09/21/17 Promethazine [Phenergan] 25 mg PO Q6H PRN 09/21/17 09/21/17 Vitamin B Complex/Minerals [Sm 1 each PO DAILY 09/21/17 09/21/17 Stress Formula+Zinc Tablet] diazePAM [Valium] 5 mg PO 0000 09/21/17 09/21/17 Allergies Allergy/AdvReac Type Severity Reaction Status Date / Time Amoxicillin [From Amoxil] Allergy See Verified 09/21/17 22:01 Comments cephalexin [From Keflex] Allergy Hives Verified 07/04/17 06:12 ciprofloxacin [From Cipro] Allergy Hives Verified 07/04/17 06:12 cranberry Allergy See Verified 07/04/17 06:12 Comments ketorolac Allergy Hives Verified 07/04/17 06:12 morphine Allergy Hives Verified 07/04/17 06:12 nitrofurantoin Allergy Hives Verified 07/04/17 06:12 [From Macrobid] Oxycodone Allergy Hives Verified 07/04/17 06:12 Penicillins Allergy Hives Verified 07/04/17 06:12 prochlorperazine Allergy Hives Verified 07/04/17 06:12 [From Compazine] Sulfa (Sulfonamide Allergy Hives Verified 07/04/17 06:12 Antibiotics) trimethoprim Allergy See Verified 07/04/17 06:12 Comments All systems ED: reviewed and negative except as stated. Gastrointestinal: Reports: hematochezia Past Medical History - Past Medical History Attestation: Yes The following information was validated with the patient. Medical history: Reports: cardiomyopathy, coronary artery disease, GERD, hyperlipidemia, hypertension, kidney stones, myocardial infarction, peripheral artery disease, renal disease, other Surgical history: Reports: orthopedic, other, tracheostomy, other Psychiatric history: Reports: anxiety, depression, prior suicide attempt - Social History Smoking Status: Former smoker Smokeless Tobacco Status: Yes (chew) Alcohol use: Reports: occasionally Drug use: Reports: IV Drug Use Physical Exam - General Limitations: physical limitation General appearance: alert, in no apparent distress - Head Head exam: atraumatic, normocephalic, normal inspection - Chest Chest inspection: Present: symmetric chest wall rise. Absent: rash - Respiratory Respiratory exam: Present: normal lung sounds bilaterally. Absent: respiratory distress, wheezes - Cardiovascular Cardiovascular exam: Present: normal rhythm, tachycardia, normal heart sounds - Abdominal Exam Abdominal exam: Present: soft, Non-Tender. Absent: distention, guarding, rebound - Rectal Exam Rectal exam: Present: other (Nabeel blood per rectum) - Extremities Exam Extremities exam: Present: other (Bilateral [id number] amputations) - Neurological Exam Neurological exam: Present: alert, oriented X3 - Psychiatric Psychiatric exam: Present: normal affect, normal mood - Skin Skin exam: Present: warm, dry Course Course Narrative: 42-year-old male with multiple past medical conditions presenting to the emergency Department chief complaint of rectal bleeding. Patient has nabeel blood per rectum on exam. Suprapubic catheter also displaced. We will perform GI bleed workup including CBC, BMP, type and screen along with EKG. We will plan to admit the patient at this time once laboratory analysis has been completed. We will also provide him with a liter of fluids. We did multiple times at half a suprapubic catheter with no success. I spoke with urology on- call doctor Cindy who states he will see the patient in the morning to replace the suprapubic catheter. Laboratory analysis resulted. Patient hemoglobin stable at this time. We will admit the patient at this time for GI bleed. I spoke with the accepting hospitalist Dr. Leung who agrees to accept the patient at this time. He would like me to consult the endoscopy physician on-call. I spoke with Dr. Orourke endoscopy physician on-call at this time. She is aware of the patient at this time. Patient is alert and oriented 3 in the room. He is mildly tachycardic with heart rate in the low 100s but otherwise has been stable throughout his stay. We will plan to admit him at this time. He agrees with this plan. Vital Signs Temperature 98 F 09/21/17 19:31 Pulse Rate 102 09/21/17 19:31 Respiratory Rate 22 09/21/17 19:31 Blood Pressure 97/52 09/21/17 19:31 O2 Sat by Pulse Oximetry 93 09/21/17 19:31 Temperature 98 F 09/21/17 19:31 Pulse Rate 84 09/21/17 22:10 Respiratory Rate 16 09/21/17 22:38 Blood Pressure 114/58 09/21/17 22:38 O2 Sat by Pulse Oximetry 96 09/21/17 22:10 Oxygen Delivery Oxygen Delivery Room Air Medical Decision Making - Lab Data Result diagrams: 09/21/17 20:11 09/21/17 20:11 Lab Results 09/21/17 09/21/17 09/21/17 Range/Units 20:11 20:11 20:11 WBC 18.5 H (4.3-11.1) K/mcL RBC 4.41 (4.19-5.50) M/mcL Hgb 12.3 L (12.9-16.9) g/dL Hct 38.3 (37.5-50.1) % MCV 86.8 (83.0-100.0) fL MCH 27.9 L (28.0-33.3) pg MCHC 32.1 (31.6-35.5) g/dL RDW 15.3 H (11.5-14.5) % Plt Count 190 (140-400) K/mcL MPV 9.0 L (9.4-12.4) fL Immature Gran % 0.4 (0-4) % Seg Neutrophils % 74.8 % Lymphocytes % 11.1 % Monocytes % 13.3 % Eosinophils % 0.1 % Basophils % 0.3 % Neutrophils # 13.9 H (1.6-8.9) K/mcL Lymphocytes # 2.1 (0.6-4.6) K/mcL Monocytes # 2.5 H (0.0-1.3) K/mcL Eosinophils # 0.0 (0.0-0.6) K/mcL Basophils # 0.1 (0.0-0.2) K/mcL PT 13.2 H (9.4-12.1) Seconds INR 1.2 Sodium 132 L (136-145) mEq/L Potassium 3.9 (3.5-5.1) mEq/L Chloride 95 L (98-107) mEq/L Carbon Dioxide 28 (23-29) mEq/L BUN 29 H (6-20) mg/dL Creatinine 0.96 (0.70-1.30) mg/dL Est GFR ( Amer) > 60 (> 60) Est GFR (Non-Af Amer) > 60 (> 60) BUN/Creatinine Ratio 30 H (6-26) Glucose 85 (70-105) mg/dL Calculated Osmolality 279 L (280-300) Lactic Acid (0.5-2.2) mmol/L Calcium 9.0 (8.6-10.3) mg/dL Blood Type Antibody Screen 09/21/17 09/21/17 Range/Units 20:11 20:11 WBC (4.3-11.1) K/mcL RBC (4.19-5.50) M/mcL Hgb (12.9-16.9) g/dL Hct (37.5-50.1) % MCV (83.0-100.0) fL MCH (28.0-33.3) pg MCHC (31.6-35.5) g/dL RDW (11.5-14.5) % Plt Count (140-400) K/mcL MPV (9.4-12.4) fL Immature Gran % (0-4) % Seg Neutrophils % % Lymphocytes % % Monocytes % % Eosinophils % % Basophils % % Neutrophils # (1.6-8.9) K/mcL Lymphocytes # (0.6-4.6) K/mcL Monocytes # (0.0-1.3) K/mcL Eosinophils # (0.0-0.6) K/mcL Basophils # (0.0-0.2) K/mcL PT (9.4-12.1) Seconds INR Sodium (136-145) mEq/L Potassium (3.5-5.1) mEq/L Chloride (98-107) mEq/L Carbon Dioxide (23-29) mEq/L BUN (6-20) mg/dL Creatinine (0.70-1.30) mg/dL Est GFR ( Amer) (> 60) Est GFR (Non-Af Amer) (> 60) BUN/Creatinine Ratio (6-26) Glucose (70-105) mg/dL Calculated Osmolality (280-300) Lactic Acid 0.6 (0.5-2.2) mmol/L Calcium (8.6-10.3) mg/dL Blood Type O POSITIVE Antibody Screen NEGATIVE Attestation Statement - Attestation Attestation: I examined this patient and my medical decision-making was reviewed with the Resident Physician. I agree with the documented findings, disposition and treatment plan as described except to the extent set forth below. Patient well known to our department. Chief complaint of suprapubic catheter being dislodged. Unable to replace it in the ED. Dr. Pozo spoke with the attending urologist will see the patient tomorrow. Also a large amount of bright red blood per rectum. Hemodynamically stable, hemoglobin normal.
--- NOTE | 2017-09-22 04:13 | Internal Med History&Physical ---
Date of Encounter: 09/22/17 Time of Encounter: 04:12 Assessment and Plan (1) GI bleed Current visit: Yes Status: Acute His hgb is in stable range. Repeat CBC Not on Anti-Ptl agents or anticoagulation GI consulted NPO Hemodynamically stable Qualifiers: GI bleed type/associated pathology: unspecified gastrointestinal hemorrhage type Qualified Code(s): K92.2 - Gastrointestinal hemorrhage, unspecified (2) Acute blood loss anemia Current visit: Yes Status: Acute Serial labs but no need for transfusion at this time (3) Neurogenic bladder Current visit: No Status: Chronic Suprapubic catheter was dislodged. Urology consulted UA sent (4) Quadriplegia Current visit: Yes Status: Acute (5) Quadriplegia Current visit: Yes Status: Acute (6) Quadriplegia Current visit: Yes Status: Acute Frequent possition changes to prevent pressure sores PT/OT if adm for more than a day Antispasmotic medications Internal Medicine - H&P: HPI Chief complaint: BRBPR History of present illness: 42-year-old man with quadriplegia and a suprapubic catheter who presented in the ED c/o rectal bleeding. He had a very large bowel movement followed by BRBPR blood per rectum. His suprapubic catheter also became dislodged during the bowel movement. He denies any prior rectal bleeding. His Hgb was 11.6 and is 12.3 today. He's not on anticoagulation or anti-Ptl agents. He denies any other significant symptoms including chest pain, shortness or dizziness. Both GI and Urology were called by the ER attending. Past Med Surg Social Fam HX - Past Medical History Medical history: cardiomyopathy, coronary artery disease, GERD, hyperlipidemia, hypertension, kidney stones, myocardial infarction, peripheral artery disease, renal disease, other Psychiatric history: anxiety, depression, prior suicide attempt - Past Surgical History Surgical History: orthopedic, other, tracheostomy, other - Social History Smoking Status: Former smoker Smokeless Tobacco Status: Yes (chew) Alcohol use: occasionally Drug use: marijuana - Family History Mother Living Status: Still Living Hx Family Respiratory Disorders: Yes Hx Family Cancer: Yes Hx Family Endocrine Disorder: Yes Internal Medicine - H&P: Meds Promethazine [Phenergan] 25 mg PO 0000 03/23/15 [History] Ascorbic Acid [Vitamin C] 500 mg PO DAILY 05/23/15 [History] Bisacodyl [Dulcolax] 5 mg PO DAILY 05/23/15 [History] Lubiprostone [Amitiza] 24 mcg PO Q12HR 05/23/15 [History] Sennosides [Senna] 17.2 mg PO BID 05/23/15 [History] Acetaminophen [Tylenol] 650 mg PO Q6HR PRN 05/11/16 [History] Baclofen 60 mg PO BID 05/11/16 [History] GuaiFENesin ER [Mucinex] 600 mg PO DAILY 05/11/16 [History] Docusate [Colace] 100 mg PO BID 05/12/16 [History] Tizanidine HCl [Zanaflex] 12 mg PO BID 05/12/16 [History] Mirtazapine 7.5 mg PO DAILY 07/04/17 [History] 0.9 % Sodium Chloride [Normal Saline Flush] 10 ml IV DAILY 09/21/17 [History] Ferrous Gluconate 324 mg PO BID 09/21/17 [History] HYDROmorphone [Dilaudid] 2 mg PO 0000 09/21/17 [History] HYDROmorphone [Dilaudid] 2 mg PO Q4H PRN 09/21/17 [History] Omeprazole [PriLOSEC] 20 mg PO DAILY 09/21/17 [History] Promethazine [Phenergan] 25 mg PO Q6H PRN 09/21/17 [History] Vitamin B Complex/Minerals [Sm Stress Formula+Zinc Tablet] 1 each PO DAILY 09/21 [History] diazePAM [Valium] 5 mg PO 0000 09/21/17 [History] 3 Allergy/AdvReac Type Severity Reaction Status Date / Time Amoxicillin [From Amoxil] Allergy See Verified 09/21/17 22:01 Comments cephalexin [From Keflex] Allergy Hives Verified 07/04/17 06:12 ciprofloxacin [From Cipro] Allergy Hives Verified 07/04/17 06:12 cranberry Allergy See Verified 07/04/17 06:12 Comments ketorolac Allergy Hives Verified 07/04/17 06:12 morphine Allergy Hives Verified 07/04/17 06:12 nitrofurantoin Allergy Hives Verified 07/04/17 06:12 [From Macrobid] Oxycodone Allergy Hives Verified 07/04/17 06:12 Penicillins Allergy Hives Verified 07/04/17 06:12 prochlorperazine Allergy Hives Verified 07/04/17 06:12 [From Compazine] Sulfa (Sulfonamide Allergy Hives Verified 07/04/17 06:12 Antibiotics) trimethoprim Allergy See Verified 07/04/17 06:12 Comments ROS unobtainable: other All Systems PM: Pt sedated and unwilling to cooperate. - Constitutional Vitals: Temp Pulse Resp BP Pulse Ox 99.1 F 99 16 117/78 92 09/21/17 23:58 09/21/17 23:58 09/21/17 23:58 09/21/17 23:58 09/21/17 23:58 General appearance: Present: disheveled, no acute distress, underweight. Absent : answers questions appropriately - Neck Neck exam general surgery: Present: normal inspection. Absent: tenderness, nuchal rigidity - Respiratory Respiratory exam: Present: CTAB. Absent: rales, respiratory distress, rhonchi, stridor, wheezes - Cardiovascular Cardiovascular exam: Present: RRR, +S1, +S2 - Neurological Exam Neurological exam: Present: CN II-XII intact. Absent: facial droop Internal Med - H&P Results - Labs CBC & Chem 7: 09/21/17 20:11 09/21/17 20:11
[2017-09-22] MEDS ORDERED: *HR* HYDROmorphone 2 MG TABLET PO PRN (04:36)
[2017-09-22 06:09] LABS: Basophils # 0.1 K/mcL (0.0-0.2); Basophils % 0.4 %; Eosinophils # 0.1 K/mcL (0.0-0.6); Eosinophils % 0.4 %; Hemoglobin 11.9 g/dL (12.9-16.9); Immature Granulocytes % 0.2 % (0-4); Lymphocytes # 2.2 K/mcL (0.6-4.6); Lymphocytes % 13.1 %; Mean Corpuscular HGB Conc 32.2 g/dL (31.6-35.5); Mean Corpuscular Hemoglobin 28.1 pg (28.0-33.3); Mean Corpuscular Volume 87.3 fL (83.0-100.0); Mean Platelet Volume 8.9 fL (9.4-12.4); Monocytes # 2.4 K/mcL (0.0-1.3); Monocytes % 14.3 %; Neutrophils # 12.2 K/mcL (1.6-8.9); Platelet Count 194 K/mcL (140-400); Red Blood Count 4.24 M/mcL (4.19-5.50); Red Cell Distribution Width 15.6 % (11.5-14.5); Segmented Neutrophils % 71.6 %
[2017-09-22 06:12] LABS: INR 1.3; Prothrombin Time 13.9 Seconds (9.4-12.1)
[2017-09-22 06:15] LABS: Activated Partial Thrombo Time 33.8 Seconds (26.0-36.0)
[2017-09-22] MEDS: LUBIPROSTONE 24 MCG PO SCH ×2 (06:17→17:22)
[2017-09-22 06:22] LABS: BUN/Creatinine Ratio 33 (6-26); Blood Urea Nitrogen 22 mg/dL (6-20); Calcium 8.8 mg/dL (8.6-10.3); Carbon Dioxide 28 mEq/L (23-29); Chloride 103 mEq/L (98-107); Glucose 83 mg/dL (70-105); Osmolality,Calculated 288 (280-300); Sodium 138 mEq/L (136-145); eGFR For African Americans > 60 (> 60); eGFR For Non-African Americans > 60 (> 60)
[2017-09-22] MEDS: 0.9 % Sodium Chloride 1,000 ML IVC SCH ×3 (06:30→12:25)
--- NOTE | 2017-09-22 07:15 | Urology Procedure Note ---
Date of Encounter: 09/22/17 Time of Encounter: 07:14 Procedures:Urology - Catheter Insertion (Urinary) Prophylactic antibiotics given: Yes Bladder Scan/Ultrasound used before catheterization: No Estimated amount of urin (mLs): 10 Type of catheter inserted: 2 way Catheter [place] Size: 22 Topical anesthesia used: No Additional comments: Patient was preped and draped. multiple attempts of reinsertion of spt were attempted. I then placed a 22fr spt into the patients bladder. Patient voiced that it felt normal. 15cc placed into balloon. f/u in 1 month for spt change
[2017-09-22] MEDS: Sennosides 8.6 MG TABLET PO SCH ×2 (09:55→20:15)
[2017-09-22] MEDS: Acetaminophen 325 MG TABLET PO PRN (10:04)
[2017-09-22] MEDS: Ascorbic Acid 500 MG TABLET PO SCH (10:10)
[2017-09-22] MEDS: Multivit/Ca/Min/Fe/FA 1 TAB TABLET PO SCH (10:10)
[2017-09-22] MEDS ORDERED: AZTREONAM IVPB SCH (11:00)
[2017-09-22] MEDS ORDERED: WATER IVPB SCH ×2 (11:00→14:00)
[2017-09-22] MEDS ORDERED: D5 IVPB SCH ×2 (11:00→14:00)
[2017-09-22] MEDS: Mirtazapine 15 MG TABLET PO SCH (11:06)
[2017-09-22] MEDS ORDERED: 0.9 % Sodium Chloride 1,000 ML IVC ONE ×2 (11:37)
--- NOTE | 2017-09-22 11:46 | Event Note ---
Date of Encounter: 09/22/17 Time of Encounter: 11:26 42 y/o male with quadriplegia, neurogenic bladder with suprapubic catheter who presented to [facility] on 09/22/2017 after an episode of rectal bleeding. He was admitted for further workup and treatment. Seen and examined at bedside. He appears acutely ill; febrile, elevated WBC and with riggors. He is refusing CXR, says he does not feel like catheter is draining correctly. Approximately 150 mL dark urine in Souza bag. Bladder scan shows 50mL retained urine. 1. Sepsis: with fever, tachycardia, hypotension and elevated WBC. Lactic acid normal. Suspect source of infection as urine and possibly respiratory. Superpubic catheter stains per urology on 09/22. Received 1 L IV fluids and started Vanco, aztreonam (has multiple allergies). BP remains low after liter bolus. Give another liter IV fluids. Monitor vital signs closely; may need transfer to ICU for pressor support if BP does not improve. Peripheral and CVC blood cultures pending. He is refusing CXR 2. UTI: possible. Has neurogenic bladder with suprapubic catheter. Long history of UTIs. UA not done on admission. STAT UA ordered
[2017-09-22] MEDS: Aztreonam 1,000 MG in Water for inj. (sterile) 20 ML 10 ML IVP SCH ×2 (11:49→23:25)
[2017-09-22] MEDS ORDERED: Baclofen 10 MG TABLET PO SCH (12:00)
[2017-09-22] MEDS ORDERED: tiZANidine 4 MG TABLET PO SCH (12:00)
--- NOTE | 2017-09-22 12:07 | Gastroenterology Consult Note ---
<Jenniffer Conley M - Last Filed: 09/22/17 12:03> Date of Encounter: 09/22/17 Time of Encounter: 09:30 - Assessment and plan (1) Rectal bleeding Current Visit: Yes Status: Acute Assessment and plan: Pt reports one episode of rectal bleeding. He was advised he needs colonoscopy and he is refusing at this time. Would advise monitoring H&H, vital signs and bleeding. If persistant will need colonoscopy. - Time Spent With Patient Total time spent is greater than 50% in coordination of care (as documented) at patient's floor/unit and/or counseling patient: GI History of Present Illness - Data of Consult Patient: new to practice Consult date: 09/22/17 Requesting Physician: Yoselin Coulter MD - Consult Narrative Reason for consult: rectal bleeding History of present illness: Mr Eid is a 42-year-old man with a pmHX of cardiomyopathy, coronary artery disease, GERD, hyperlipidemia, hypertension, kidney stones, myocardial infarction, peripheral artery disease, renal disease, anxiety, depression, prior suicide attempt. He is a quadriplegic and has a suprapubic catheter. He presented to the ED with complaints of rectal bleeding. He states he had a very large bowel movement followed by BRBPR blood per rectum. His suprapubic catheter also became dislodged during the bowel movement. He denies any diarrhea and states he had one episode of bleeding. He denies any prior rectal bleeding. He denies any abdominal pain, nausea, vomiting, dysphagia or GERD. He denies any blood thinners, asa, NSAIDS. His Hgb was 11.6 and is 12.3 today. He denies chest pain, shortness or dizziness. Colonoscopy: denies EGD: denies NSAIDS/ASA: denies Anticoagulants: denies Past Med Surg Social Fam HX - Past Medical History Medical history: cardiomyopathy, coronary artery disease, GERD, hyperlipidemia, hypertension, kidney stones, myocardial infarction, peripheral artery disease, renal disease, other Psychiatric history: anxiety, depression, prior suicide attempt - Past Surgical History Surgical History: orthopedic, other, tracheostomy, other - Social History Smoking Status: Former smoker Smokeless Tobacco Status: Yes (chew) Alcohol use: occasionally Drug use: marijuana - Family History Mother Living Status: Still Living Hx Family Respiratory Disorders: Yes Hx Family Cancer: Yes Hx Family Endocrine Disorder: Yes Review of Systems: GI: as per [facility] GENERAL: reports low grade fever at home EYES: denies yellow discoloration ENT: denies pain with swallowing or difficulty swallowing CARDIO: denies chest pain, palpitations RESP: Shortness of breath with exertion : denies change in color of urine NEURO: see HPI HEME: Denies any bruising MS: denies joint pain, joint swelling or back pain. DERM: denies rash or itching PSYCH: history of anxiety and depression - Constitutional Vitals: Temp Pulse Resp BP Pulse Ox 99.6 F 103 16 70/46 93 09/22/17 11:27 09/22/17 11:27 09/22/17 11:27 09/22/17 11:27 09/22/17 11:27 Exam: CONSTITUTIONAL:~alert, no acute distress.~HEAD:~normocephalic.~EYES:~no jaundice.~NECK:~no obvious swelling, tracheostomy scar well healed.~HEART:~ regular rate and rhythm, no murmurs.~LUNGS:~bilateral poor air entry.~ABDOMEN:~ non distended, soft, non tender, no masses palpable, no organomegaly, scars well healed, suprapubic catheter with clear yellow urine noted in tubing.~ RECTAL EXAM:~Deferred.~EXTREMITIES:~bilateral above the knee amputations.~SKIN:~ no stigmata of chronic liver disease.~NEUROLOGIC:~no obvious focal defect.~~~~ Results - Labs CBC & Chem 7: 09/22/17 05:47 09/22/17 05:47 Labs: Last Result Calcium 8.8 mg/dL (8.6-10.3) 09/22/17 05:47 Entire Visit Hgb 11.9 g/dL (12.9-16.9) L 09/22/17 05:47 Hct 37.0 % (37.5-50.1) L 09/22/17 05:47 PT 13.9 Seconds (9.4-12.1) H 09/22/17 05:47 - ABG ABG results: PT/INR, D-dimer PT 13.9 Seconds (9.4-12.1) H 09/22/17 05:47 Consult Discharge Plan - Plan Referrals: Mauricio Melendrez MD [Primary Care Provider] - Prescriptions: Fluconazole 400 MG/200 ML [Diflucan Premix 400 MG/200 ML] 400 mg IVPB DAILY 13 Days #13 bag <Prince Barney - Last Filed: 10/04/17 14:19> Date of Encounter: 09/22/17 - Time Spent With Patient Total time spent is greater than 50% in coordination of care (as documented) at patient's floor/unit and/or counseling patient: GI History of Present Illness - Data of Consult Requesting Physician: Merrick Peng MD - Consult Narrative History of present illness: Mr. Eid is a 42 year old male - Constitutional Vitals: Temp Pulse Resp BP Pulse Ox 98.4 F 86 16 140/105 100 10/04/17 11:24 10/04/17 11:24 10/04/17 12:26 10/04/17 12:26 10/04/17 12:26 Results - Labs CBC & Chem 7: 10/02/17 12:20 10/02/17 12:20 Labs: Last Result Calcium 9.1 mg/dL (8.6-10.3) 10/02/17 12:20 Entire Visit Hgb 11.1 g/dL (12.9-16.9) L 10/02/17 12:20 Hct 34.7 % (37.5-50.1) L 10/02/17 12:20 PT 11.3 Seconds (9.4-12.1) 09/24/17 09:00 E. coli (PCR) Not Detected (Not Detect) 09/28/17 10:40 - ABG ABG results: ABG ABG pH 7.43 pH Units (7.32-7.45) 10/02/17 15:01 ABG pCO2 36 mmHg (35-45) 10/02/17 15:01 ABG pO2 84 mmHg (85-104) L 10/02/17 15:01 ABG O2 Saturation 97 % (95-98) 10/02/17 15:01 PT/INR, D-dimer PT 11.3 Seconds (9.4-12.1) 09/24/17 09:00 - Attending Attestation Mr. Eid is a pleasant 42-year-old male was admitted with 1 episode of rectal bleeding he so far refused any colonoscopy so unless he changes his mind we will have to hold off doing anything. Please let us know if he changes his mind his hemoglobin is 11.9 at this time. Thank you very much for this consultation I have personally performed a face to face evaluation on this patient. I have reviewed and agree with the care plan. History and Exam by me shows:
[2017-09-22 12:36] LABS: Bilirubin,Urine Negative (Negative); Blood,Urine Moderate (Negative); Clarity,Urine Turbid (Clear); Color,Urine Yellow (Yellow); Glucose,Urine (UA) Normal (Normal); Ketones,Urine Negative (Negative); Leukocyte Esterase,Urine Large (Negative); Nitrite,Urine Positive (Negative); PH,Urine 6.5 pH Units (5.0-8.0); Protein,Urine 30 mg/dL (Neg-Trace); Specific Gravity,Urine 1.008 (1.010-1.025); Urobilinogen,Urine Normal (Normal)
[2017-09-22] MEDS ORDERED: Naloxone 0.4 MG/ML INJ ONE (12:37)
[2017-09-22] MEDS ORDERED: Naloxone 0.4 MG/ML INJ IVP ONE (12:37)
[2017-09-22 12:39] LABS: Bacteria,Urine Moderate per hpf (None-Few); Hyaline Casts,Urine Few per lpf (None-Few); Squamous Epithelial Cell,Urine Moderate per lpf (None-Few); WBC,Urine TNTC per hpf (0-3)
--- NOTE | 2017-09-22 13:47 | Pulmonology Consult Note ---
<José Miguel Cruz - Last Filed: 09/22/17 13:31> Date of Encounter: 09/22/17 Time of Encounter: 13:00 Assessment and Plan (1) Sepsis Current Visit: No Status: Resolved From suspected urinary source. Also possible pulmonary (pneumonia) or cutaneous source (decub pressur ulcer). SIRS (+); (tachycardia, tachypneic, leukocytosos 18.5 max) Hypotensive. Fluid responsive. Plan: Empiric antibiotics; de-escilate pending cultures Vancomycin day 2 Aztreonam day 2 Amikacin day 1 Qualifiers: Sepsis type: sepsis due to unspecified organism Qualified Code(s): A41.9 - Sepsis, unspecified organism (2) GI bleed Current Visit: Yes Status: Acute Acute. Reported hematochezia x1. No hx anticoagulant or antiplatelet as home medications. Plan -Monitor Hgb -NPO -Consult GI Qualifiers: GI bleed type/associated pathology: unspecified gastrointestinal hemorrhage type Qualified Code(s): K92.2 - Gastrointestinal hemorrhage, unspecified (3) Urinary tract infection Current Visit: No Status: Acute Qualifiers: Urinary tract infection type: catheter-associated UTI Indwelling urinary catheter type: indwelling urethral catheter Encounter type: subsequent encounter Qualified Code(s): T83.511D - Infection and inflammatory reaction due to indwelling urethral catheter, subsequent encounter; N39.0 - Urinary tract infection, site not specified (4) Acute blood loss anemia Current Visit: Yes Status: Acute Secondary to GI bleed. Anemic; no indication for transfusion at this time. Plan -Serial labs -Transfuse if needed. 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 Eid, a 42yo male, presented to the ED 1d ago for bright red blood per rectum and dislodgement of suprapubic catheter. He was subsequently admitted to the medical floor. Urology replaced his suprapubic catheter. Overnight, he became unstable warranting telemetry. There were no telemetry beds available and patient was transitioned to the ED hold area, on tele, where I met him. Hospital day 1 Patient will be transferred to the ICU. Primary team is the hospitalist. Pulmonology consulted. Patient appears ill, febrile, riggors. He smells of urine. Though he initially and repeatedly refused any imaging, I was able to speak with him after which he was agreeable to CT scan. He is septic from suspected urinary source. Suspect urologic source. Patient was hypotensive; fluid responsive. He is already on vancomycin and aztreonam. Will add amikacin for broader coverage; this is based upon prior urine culture sensitivities and his multiple antibiotic allergies. His hemoglobin has fallen slightly overnight however remains above 11. Will continue to monitor. Patient reportedly has not had any hematochezia during his stay. Past Med Surg Social Fam HX - Past Medical History Medical history: cardiomyopathy, coronary artery disease, GERD, hyperlipidemia, hypertension, kidney stones, myocardial infarction, peripheral artery disease, renal disease, other Psychiatric history: anxiety, depression, prior suicide attempt - Past Surgical History Surgical History: orthopedic, other, tracheostomy, other - Social History Smoking Status: Former smoker Smokeless Tobacco Status: Yes (chew) Alcohol use: occasionally Drug use: marijuana - Family History Mother Living Status: Still Living Hx Family Respiratory Disorders: Yes Hx Family Cancer: Yes Hx Family Endocrine Disorder: Yes Medications and Allergies Promethazine [Phenergan] 25 mg PO 0000 03/23/15 [History] Ascorbic Acid [Vitamin C] 500 mg PO DAILY 05/23/15 [History] Bisacodyl [Dulcolax] 5 mg PO DAILY 05/23/15 [History] Lubiprostone [Amitiza] 24 mcg PO Q12HR 05/23/15 [History] Sennosides [Senna] 17.2 mg PO BID 05/23/15 [History] Acetaminophen [Tylenol] 650 mg PO Q6HR PRN 05/11/16 [History] Baclofen 60 mg PO BID 05/11/16 [History] GuaiFENesin ER [Mucinex] 600 mg PO DAILY 05/11/16 [History] Docusate [Colace] 100 mg PO BID 05/12/16 [History] Tizanidine HCl [Zanaflex] 12 mg PO BID 05/12/16 [History] Mirtazapine 7.5 mg PO DAILY 07/04/17 [History] 0.9 % Sodium Chloride [Normal Saline Flush] 10 ml IV DAILY 09/21/17 [History] Ferrous Gluconate 324 mg PO BID 09/21/17 [History] HYDROmorphone [Dilaudid] 2 mg PO 0000 09/21/17 [History] HYDROmorphone [Dilaudid] 2 mg PO Q4H PRN 09/21/17 [History] Omeprazole [PriLOSEC] 20 mg PO DAILY 09/21/17 [History] Promethazine [Phenergan] 25 mg PO Q6H PRN 09/21/17 [History] Vitamin B Complex/Minerals [Sm Stress Formula+Zinc Tablet] 1 each PO DAILY 09/21 [History] diazePAM [Valium] 5 mg PO 0000 09/21/17 [History] 3 Allergy/AdvReac Type Severity Reaction Status Date / Time Amoxicillin [From Amoxil] Allergy See Verified 09/21/17 22:01 Comments cephalexin [From Keflex] Allergy Hives Verified 07/04/17 06:12 ciprofloxacin [From Cipro] Allergy Hives Verified 07/04/17 06:12 cranberry Allergy See Verified 07/04/17 06:12 Comments ketorolac Allergy Hives Verified 07/04/17 06:12 morphine Allergy Hives Verified 07/04/17 06:12 nitrofurantoin Allergy Hives Verified 07/04/17 06:12 [From Macrobid] Oxycodone Allergy Hives Verified 07/04/17 06:12 Penicillins Allergy Hives Verified 07/04/17 06:12 prochlorperazine Allergy Hives Verified 07/04/17 06:12 [From Compazine] Sulfa (Sulfonamide Allergy Hives Verified 07/04/17 06:12 Antibiotics) trimethoprim Allergy See Verified 07/04/17 06:12 Comments All Systems: The remainder of the systems were reviewed and are negative - Constitutional Constitutional: chills, fatigue, fever(s), no weakness - EENT Nose, mouth and throat: no dizziness - Cardiovascular Cardiovascular: dyspnea, no chest pain, no palpitations - Respiratory Respiratory: cough, no hemoptysis - Gastrointestinal Gastrointestinal: hematochezia, no abdominal pain, no loose stools, no melena, no vomiting - Hematologic/Lymphatic Hematologic/Lymphatic: no easy bleeding, no easy bruising Physical Examination Vital Signs: Vital Signs, Last 4 Hours Temp Pulse Resp BP Pulse Ox 09/22/17 13:04 75 12 89/55 94 09/22/17 12:32 77 16 64/42 93 09/22/17 12:07 93 09/22/17 11:27 99.6 F 103 16 70/46 93 General appearance: agitated Eyes: nonicteric ENT: oropharynx moist Neck: supple Effort: other (poor respiratory effort) Auscultation: right: rales, bilateral: diminished breath sounds Cardiovascular: regular rate and rhythm Gastrointestinal: normoactive bowel sounds, soft, non-tender, non-distended Extremities: no cyanosis, no edema, no clubbing, other (Bilateral high above the knee amputation.) normal mental status, pupils equal and round mood appropriate Results - Laboratory Findings CBC and BMP: 09/22/17 05:47 09/22/17 05:47 PT/INR, D-dimer PT 13.9 Seconds (9.4-12.1) H 09/22/17 05:47 Abnormal lab findings: Abnormal lab results WBC 17.0 K/mcL (4.3-11.1) H 09/22/17 05:47 Hgb 11.9 g/dL (12.9-16.9) L 09/22/17 05:47 Hct 37.0 % (37.5-50.1) L 09/22/17 05:47 RDW 15.6 % (11.5-14.5) H 09/22/17 05:47 MPV 8.9 fL (9.4-12.4) L 09/22/17 05:47 Neutrophils # 12.2 K/mcL (1.6-8.9) H 09/22/17 05:47 Monocytes # 2.4 K/mcL (0.0-1.3) H 09/22/17 05:47 PT 13.9 Seconds (9.4-12.1) H 09/22/17 05:47 BUN 22 mg/dL (6-20) H 09/22/17 05:47 Creatinine 0.67 mg/dL (0.70-1.30) L 09/22/17 05:47 BUN/Creatinine Ratio 33 (6-26) H 09/22/17 05:47 Urine Clarity Turbid (Clear) A 09/22/17 12:21 Ur Specific [place] 1.008 (1.010-1.025) L 09/22/17 12:21 Urine Protein 30 mg/dL (Neg-Trace) H 09/22/17 12:21 Urine Blood Moderate (Negative) H 09/22/17 12:21 Urine Nitrite Positive (Negative) A 09/22/17 12:21 Ur Leukocyte Esterase Large (Negative) H 09/22/17 12:21 Urine Microscopic RBC 5-15 per hpf (0-3) H 09/22/17 12:21 Urine Microscopic WBC TNTC per hpf (0-3) H 09/22/17 12:21 Ur Squamous Epith Cells Moderate per lpf (None-Few) H 09/22/17 12:21 Urine Bacteria Moderate per hpf (None-Few) H 09/22/17 12:21 Ur Culture Indicated? YES (NO) A 09/22/17 12:21 - Clinical Findings Intake & Output: Intake & Output 09/21/17 09/22/17 09/22/17 23:59 07:59 15:59 Intake Total 1000 / 1000 1000 / 1000 100 / 100 Output Total 0 / 0 125 / 125 Balance 1000 / 1000 1000 / 1000 -25 / -25 Weight 52.16 kg Consult Discharge Plan - Plan Referrals: Mauricio Melendrez MD [Primary Care Provider] - <Jana Pryor - Last Filed: 09/22/17 17:40> Date of Encounter: 09/22/17 All Systems: The remainder of the systems were reviewed and are negative Physical Examination Vital Signs: Vital Signs, Last 4 Hours Pulse Resp BP Pulse Ox 09/22/17 16:52 91 16 135/90 90 09/22/17 15:50 74 12 87/60 95 09/22/17 15:00 71 12 61/48 94 09/22/17 14:00 71 12 68/56 94 Results - Laboratory Findings CBC and BMP: 09/22/17 05:47 09/22/17 05:47 PT/INR, D-dimer PT 13.9 Seconds (9.4-12.1) H 09/22/17 05:47 Abnormal lab findings: Abnormal lab results WBC 17.0 K/mcL (4.3-11.1) H 09/22/17 05:47 Hgb 11.9 g/dL (12.9-16.9) L 09/22/17 05:47 Hct 37.0 % (37.5-50.1) L 09/22/17 05:47 RDW 15.6 % (11.5-14.5) H 09/22/17 05:47 MPV 8.9 fL (9.4-12.4) L 09/22/17 05:47 Neutrophils # 12.2 K/mcL (1.6-8.9) H 09/22/17 05:47 Monocytes # 2.4 K/mcL (0.0-1.3) H 09/22/17 05:47 PT 13.9 Seconds (9.4-12.1) H 09/22/17 05:47 BUN 22 mg/dL (6-20) H 09/22/17 05:47 Creatinine 0.67 mg/dL (0.70-1.30) L 09/22/17 05:47 BUN/Creatinine Ratio 33 (6-26) H 09/22/17 05:47 Urine Clarity Turbid (Clear) A 09/22/17 12:21 Ur Specific [place] 1.008 (1.010-1.025) L 09/22/17 12:21 Urine Protein 30 mg/dL (Neg-Trace) H 09/22/17 12:21 Urine Blood Moderate (Negative) H 09/22/17 12:21 Urine Nitrite Positive (Negative) A 09/22/17 12:21 Ur Leukocyte Esterase Large (Negative) H 09/22/17 12:21 Urine Microscopic RBC 5-15 per hpf (0-3) H 09/22/17 12:21 Urine Microscopic WBC TNTC per hpf (0-3) H 09/22/17 12:21 Ur Squamous Epith Cells Moderate per lpf (None-Few) H 09/22/17 12:21 Urine Bacteria Moderate per hpf (None-Few) H 09/22/17 12:21 Ur Culture Indicated? YES (NO) A 09/22/17 12:21 - Clinical Findings Intake & Output: Intake & Output 09/22/17 09/22/17 09/22/17 07:59 15:59 23:59 Intake Total 1000 / 1000 100 / 100 9 / 9 Output Total 250 / 250 Balance 1000 / 1000 -150 / -150 - Attending Attestation I examined this patient and my medical decision-making was reviewed with the Resident Physician. I agree with the documented findings, disposition and treatment plan as described except to the extent set forth below. Patient seen and examined. Labs, radiology, chart personally reviewed. I was called by the nurse practitioner to evaluate patient in the emergency room because of his hypotension and mental status change. Agree with resident's history and physical, assessment, plan with following comments: LOOP TACKER: Patient follows commands, patient however is lethargic and is refusing any testing until eventually agreed to have the images. Pulmonary: Acceptable oxygenation and ventilation, however there is a risk of worsening deterioration especially with his pathology. Cardiovascular: He has autonomic dysregulation due to his underlying injury and with hypotension patient resuscitated with more fluid and pressors GI: Nutrition per dietary and GI prophylaxis per routine Heme: DVT prophylaxis per routine to monitor H&H ID: Continue antibiotics and plan to de-escalation. Patient has multiple sores of this could be infection and CTs hopefully will help and he has sepsis picture even though his lactic acid is not elevated and fluid resuscitation with crystalloid he had totally turned added the third liter to follow up on lactic level if needed. Patient to be reassessed in about 6 hours. Renal; urine out put and renal funtion reviewed Endorcine: blood glucose is monitored Lines: all lines checked and no evidence of infections Skin: skin care to prevent pressure ulcers per nursing routine care. She has multiple decubitus area please refer to the nursing note regarding staging, patient was admitted with those ulcers. I spent 40 min of Critical Care time with this patient. It involved decision making of high complexity to assess, manipulate, and support vital organ system failure and/or to prevent further life threatening deterioration of the patient' s condition. The time involved in the performance of separately reportable procedures was not counted toward critical care time.
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
[2017-09-22] MEDS ORDERED: AMIKACIN IVPB SCH (14:00)
[2017-09-22] MEDS: Norepinephrine 4 MG in D5% in Water 250 ML IVC SCH (15:09)
[2017-09-22] MEDS ORDERED: Piperacillin/Tazobactam 3.375 GM in 0.9 % Sodium Chloride Mini Bag 100 ML IVPB SCH (16:00)
[2017-09-23] MEDS ORDERED: diazePAM 5 MG TABLET PO SCH
[2017-09-23] MEDS ORDERED: *HR* HYDROmorphone 2 MG TABLET PO SCH
[2017-09-23] MEDS: tiZANidine 4 MG TABLET PO SCH ×2 (00:30→10:06)
[2017-09-23] MEDS: Baclofen 10 MG TABLET PO PRN (00:30)
[2017-09-23] MEDS: Acetaminophen 325 MG TABLET PO PRN (00:34)
[2017-09-23 00:44] LABS: Adenovirus Not Detected (Not Detect); Bordetella Pertussis Not Detected (Not Detect); Chlamydophila pneumoniae Not Detected (Not Detect); Coronavirus 229E Not Detected (Not Detect); Coronavirus HKU1 Not Detected (Not Detect); Coronavirus NL63 Not Detected (Not Detect); Coronavirus OC43 Not Detected (Not Detect); Human Metapneumovirus Not Detected (Not Detect); Human Rhinovirus/Enterovirus Not Detected (Not Detect); Influenza A Subtype 2009 H1 Not Detected (Not Detect); Influenza A Untypeable Not Detected (Not Detect); Influenza B Not Detected (Not Detect); Mycoplasma pneumoniae Not Detected (Not Detect); Parainfluenza Virus 1 Not Detected (Not Detect); Parainfluenza Virus 2 Not Detected (Not Detect); Parainfluenza Virus 3 Not Detected (Not Detect); Parainfluenza Virus 4 Not Detected (Not Detect); Respiratory Syncytial Virus Not Detected (Not Detect)
[2017-09-23 04:31] LABS: Hematocrit 30.1 % (37.5-50.1); Mean Corpuscular HGB Conc 30.9 g/dL (31.6-35.5); Mean Corpuscular Volume 90.7 fL (83.0-100.0); Mean Platelet Volume 9.1 fL (9.4-12.4); Platelet Count 156 K/mcL (140-400); Red Blood Count 3.32 M/mcL (4.19-5.50); Red Cell Distribution Width 15.7 % (11.5-14.5)
[2017-09-23 04:32] LABS: Hemoglobin 9.3 g/dL (12.9-16.9)
[2017-09-23 04:36] LABS: BUN/Creatinine Ratio 27 (6-26); Blood Urea Nitrogen 12 mg/dL (6-20); Calcium 7.1 mg/dL (8.6-10.3); Carbon Dioxide 23 mEq/L (23-29); Chloride 113 mEq/L (98-107); Glucose 79 mg/dL (70-105); Osmolality,Calculated 287 (280-300); Sodium 139 mEq/L (136-145); eGFR For African Americans > 60 (> 60); eGFR For Non-African Americans > 60 (> 60)
[2017-09-23] MEDS: LUBIPROSTONE 24 MCG PO SCH ×2 (05:09→18:42)
[2017-09-23] MEDS: 0.9 % Sodium Chloride 1,000 ML IVC SCH ×2 (05:33→20:46)
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
[2017-09-23] MEDS: Mirtazapine 15 MG TABLET PO SCH (10:03)
[2017-09-23] MEDS: Sennosides 8.6 MG TABLET PO SCH ×3 (10:04→20:46)
[2017-09-23] MEDS: Multivit/Ca/Min/Fe/FA 1 TAB TABLET PO SCH (10:04)
[2017-09-23] MEDS: Ascorbic Acid 500 MG TABLET PO SCH (10:05)
--- NOTE | 2017-09-23 10:09 | Event Note ---
Date of Encounter: 09/22/17 Time of Encounter: 16:00 This is a late entry for the patient. In the afternoon of September 22 I was asked to reevaluate the patient secondary to spontaneous removal of suprapubic tube. I arrived to the patient where the suprapubic tube was absent from the patient's suprapubic tube tract. I then prepped and draped the patient normal sterile fashion. Placed a 22-Turkish suprapubic tube with 25 mL placed in the balloon. Patient tolerated well with clear urine returned.
--- NOTE | 2017-09-23 10:11 | Urology Progress Note ---
Date of Encounter: 09/23/17 Time of Encounter: 10:09 - Assessment and Plan (1) Left ureteral stone Current Visit: Yes Status: Acute Assessment and plan: I spoke with the patient about his limited options regarding his left ureteral stone. 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 His only option would be in the left nephrostomy tube placed by interventional radiology. He states that he will take about this and talk it over with his family and let us know. I spoke with the patient that my biggest concern regarding his left ureteral stone is that he has a solitary kidney and if this stone becomes completely obstructive then he would end up on dialysis. This may be temporary or permanent. I will follow up with the patient tomorrow. If the patient decides to have a nephrostomy tube placed please just consult interventional radiology. Progress Note Narrative: Patient seen and evaluated in the ICU today. Patient feeling much improved. CT scan done last evening revealed that the patient has a left proximal ureteral stone. Minimal hydronephrosis proximal to this. Patient denies any flank pain or any different pain compared to his normal. He does have a solitary left kidney. Objective Initial Vital Signs Temp Pulse Resp BP Pulse Ox 98 F 102 22 97/52 93 09/21/17 19:31 09/21/17 19:31 09/21/17 19:31 09/21/17 19:31 09/21/17 19:31 - General physical appearance Present: well developed - Abdomen Present: soft (Suprapubic tube in good position at this time) - Labs 09/23/17 04:04 09/23/17 04:04 Diabetes panel 09/23/17 Range/Units 04:04 Sodium 139 (136-145) mEq/L Potassium 4.0 (3.5-5.1) mEq/L Chloride 113 H (98-107) mEq/L Carbon Dioxide 23 (23-29) mEq/L BUN 12 (6-20) mg/dL Creatinine 0.44 L (0.70-1.30) mg/dL Glucose 79 (70-105) mg/dL Calcium 7.1 L (8.6-10.3) mg/dL Calcium panel 09/23/17 Range/Units 04:04 Calcium 7.1 L (8.6-10.3) mg/dL Pituitary panel 09/23/17 Range/Units 04:04 Sodium 139 (136-145) mEq/L Potassium 4.0 (3.5-5.1) mEq/L Chloride 113 H (98-107) mEq/L Carbon Dioxide 23 (23-29) mEq/L BUN 12 (6-20) mg/dL Creatinine 0.44 L (0.70-1.30) mg/dL Glucose 79 (70-105) mg/dL Calcium 7.1 L (8.6-10.3) mg/dL Adrenal panel 09/23/17 Range/Units 04:04 Sodium 139 (136-145) mEq/L Potassium 4.0 (3.5-5.1) mEq/L Chloride 113 H (98-107) mEq/L Carbon Dioxide 23 (23-29) mEq/L BUN 12 (6-20) mg/dL Creatinine 0.44 L (0.70-1.30) mg/dL Glucose 79 (70-105) mg/dL Calcium 7.1 L (8.6-10.3) mg/dL Consult Discharge Plan - Plan Referrals: Mauricio Melendrez MD [Primary Care Provider] -
--- NOTE | 2017-09-23 13:37 | Infectious Disease Progress No ---
Date of Encounter: 09/23/17 Time of Encounter: 13:35 - Assessment and Plan (1) UTI (urinary tract infection) due to urinary indwelling Souza catheter Current Visit: No Status: Acute Causative organism unclear. Urinalysis positive for nitrites, moderate bacteria, and TNTC WBC; also a moderate amount of epithelial cells. The patient has a history of recurrent UTI/asymptomatic bacteriuria. His quadriplegia limits his ability to know if he has urinary symptoms. Previous urine cultures grew P. mirabilis ESBL and MRSA. Urology consulted. Status post SPT replacement. Continue Vancomycin IV. Pharmacy to dose. Goal trough ~15. Continue Aztreonam 2 grams IV Q8H. Await cultures. Duration of treatment depends on the clinical picture. Monitor renal function and for drug toxicity and dose-adjust antibiotics. Qualifiers: Indwelling urinary catheter type: cystostomy catheter Encounter type: subsequent encounter Qualified Code(s): T83.510D - Infection and inflammatory reaction due to cystostomy catheter, subsequent encounter; N39.0 - Urinary tract infection, site not specified (2) Hydronephrosis Current Visit: Yes Status: Acute CT abdomen and pelvis shows mild left hydronephrosis. Likely secondary to 55mm stone. Urology consulted and following. Appreciate recommendations. Awaiting the patient's decision on what he wants to do. Qualifiers: Hydronephrosis type: with ureteral calculous obstruction Qualified Code(s) : N13.2 - Hydronephrosis with renal and ureteral calculous obstruction (3) Urolithiasis Current Visit: No Status: Acute Qualifiers: Urinary calculus location: kidney Qualified Code(s): N20.0 - Calculus of kidney (4) Pancolitis Current Visit: Yes Status: Acute CT abdomen and pelvis showed nonspecific pancolitis. GI consulted. Recommended colonoscopy for the patient's GI bleed, but he refused. Please re-contact GI and make them aware of CT results. Continue antibiotics as above. Continue Flagyl 500mg PO TID. Await further recommendations from GI team. (5) Altered mental status Current Visit: No Status: Acute The patient is awakens only to loud verbal and painful stimuli. Medication-related vs. other. Appears resolved today. No meningeal signs. The patient is oriented x 3. Qualifiers: Altered mental status type: transient alteration of awareness Qualified Code(s): R40.4 - Transient alteration of awareness (6) GI bleed Current Visit: Yes Status: Acute Etiology unclear. Hemoglobin stable. GI consulted. Patient refuses colonoscopy. Management per the primary and GI teams. Qualifiers: GI bleed type/associated pathology: unspecified gastrointestinal hemorrhage type Qualified Code(s): K92.2 - Gastrointestinal hemorrhage, unspecified (7) Quadriplegia Current Visit: Yes Status: Chronic (8) Chronic pain Current Visit: No Status: Chronic Qualifiers: Chronic pain type: other chronic pain Qualified Code(s): G89.29 - Other chronic pain (9) Neurogenic bladder Current Visit: No Status: Chronic Chronic SPT. (10) Decubitus ulcer of right ischium, stage 2 Current Visit: Yes Status: Acute Stage II. No drainage, warmth, erythema, or fluctuance. Clinically does not appear infected. Recommend aggressive offloading and wound care. Patient non-compliant with turning per nursing. (11) Decubitus ulcer of left ischium, stage 2 Current Visit: Yes Status: Acute Stage II. No drainage, warmth, erythema, or fluctuance. Clinically does not appear infected. Recommend aggressive offloading and wound care. Patient non-compliant with turning per nursing. - Subjective Interval history: Patient seen and examined. No acute events noted overnight. Patient resting quietly in bed. Denies fevers, chills, or rigors. Complains of right eye burning. Denies chest pain, shortness of breath, or cough. Denies nausea, vomiting or diarrhea and states he wishes they would feed him real food. Denies abdominal pain or other complaints at this time. Refused CT chest yesterday. Infect Dis PN-Objective Data - Labs CBC & Chem 7: 09/23/17 04:04 09/23/17 04:04 Labs: Laboratory Results - last 24 hr 09/22/17 09/22/17 09/23/17 19:26 23:37 04:04 WBC 10.5 RBC 3.32 L Hgb 9.3 L D Hct 30.1 L MCV 90.7 MCH 28.0 MCHC 30.9 L RDW 15.7 H Plt Count 156 MPV 9.1 L Sodium Potassium Chloride Carbon Dioxide BUN Creatinine Est GFR ( Amer) Est GFR (Non-Af Amer) BUN/Creatinine Ratio Glucose POC Glucose 147 H Calculated Osmolality Calcium Chlamy pneumoniae PCR Not Detected Adenovirus (PCR) Not Detected B. pertussis DNA (PCR) Not Detected B.parapertussis DNA PCR Not Detected Coronavirus OC43 (PCR) Not Detected Coronavirus HKU1 (PCR) Not Detected Coronavirus 229E (PCR) Not Detected Coronavirus NL63 (PCR) Not Detected Human Metapneumovir PCR Not Detected Influenza A (H1) PCR Not Detected Influ A (H1N1/09) PCR Not Detected Influenza A (H3) PCR Not Detected Influenza A Untype (PCR) Not Detected Influenza Type B (PCR) Not Detected M.pneumoniae DNA (PCR) Not Detected Parainfluenza 1 (PCR) Not Detected Parainfluenza 2 (PCR) Not Detected Parainfluenza 3 (PCR) Not Detected Parainfluenza 4 (PCR) Not Detected RSV (PCR) Not Detected Entero/Rhino (PCR) Not Detected 09/23/17 04:04 WBC RBC Hgb Hct MCV MCH MCHC RDW Plt Count MPV Sodium 139 Potassium 4.0 Chloride 113 H Carbon Dioxide 23 BUN 12 Creatinine 0.44 L Est GFR ( Amer) > 60 Est GFR (Non-Af Amer) > 60 BUN/Creatinine Ratio 27 H Glucose 79 POC Glucose Calculated Osmolality 287 Calcium 7.1 L Chlamy pneumoniae PCR Adenovirus (PCR) B. pertussis DNA (PCR) B.parapertussis DNA PCR Coronavirus OC43 (PCR) Coronavirus HKU1 (PCR) Coronavirus 229E (PCR) Coronavirus NL63 (PCR) Human Metapneumovir PCR Influenza A (H1) PCR Influ A (H1N1/09) PCR Influenza A (H3) PCR Influenza A Untype (PCR) Influenza Type B (PCR) M.pneumoniae DNA (PCR) Parainfluenza 1 (PCR) Parainfluenza 2 (PCR) Parainfluenza 3 (PCR) Parainfluenza 4 (PCR) RSV (PCR) Entero/Rhino (PCR) Cultures: Serology 09/22/17 09/22/17 Range/Units 23:37 12:21 Urine Color Yellow (Yellow) Urine Clarity Turbid A (Clear) Urine pH 6.5 (5.0-8.0) pH Units Ur Specific [place] 1.008 L (1.010-1.025) Urine Protein 30 H (Neg-Trace) mg/dL Urine Glucose (UA) Normal (Normal) mg/dL Urine Ketones Negative (Negative) mg/dL Urine Blood Moderate H (Negative) Urine Nitrite Positive A (Negative) Urine Bilirubin Negative (Negative) Urine Urobilinogen Normal (Normal) mg/dL Ur Leukocyte Esterase Large H (Negative) Urine Microscopic RBC 5-15 H (0-3) per hpf Urine Microscopic WBC TNTC H (0-3) per hpf Ur Squamous Epith Cells Moderate H (None-Few) per lpf Urine Bacteria Moderate H (None-Few) per hpf Hyaline Casts Few (None-Few) per lpf Ur Culture Indicated? YES A (NO) Chlamy pneumoniae PCR Not Detected (Not Detect) Adenovirus (PCR) Not Detected (Not Detect) B. pertussis DNA (PCR) Not Detected (Not Detect) B.parapertussis DNA PCR Not Detected (Not Detect) Coronavirus OC43 (PCR) Not Detected (Not Detect) Coronavirus HKU1 (PCR) Not Detected (Not Detect) Coronavirus 229E (PCR) Not Detected (Not Detect) Coronavirus NL63 (PCR) Not Detected (Not Detect) Human Metapneumovir PCR Not Detected (Not Detect) Influenza A (H1) PCR Not Detected (Not Detect) Influ A (H1N1/09) PCR Not Detected (Not Detect) Influenza A (H3) PCR Not Detected (Not Detect) Influenza A Untype (PCR) Not Detected (Not Detect) Influenza Type B (PCR) Not Detected (Not Detect) M.pneumoniae DNA (PCR) Not Detected (Not Detect) Parainfluenza 1 (PCR) Not Detected (Not Detect) Parainfluenza 2 (PCR) Not Detected (Not Detect) Parainfluenza 3 (PCR) Not Detected (Not Detect) Parainfluenza 4 (PCR) Not Detected (Not Detect) RSV (PCR) Not Detected (Not Detect) Entero/Rhino (PCR) Not Detected (Not Detect) - Impressions Impressions Abdomen/Pelvis CT 09/22/17 17:00 IMPRESSION: Mild left hydronephrosis due to a 5 mm ureterolith in the mid proximal ureter. Postop changes as above. Multiple other nonobstructing nephroliths on the left. Surgically absent right kidney. Gallstones. Nonspecific pancolitis. Other incidental findings as above. D/ / Hai Oconnell MD / Hai Oconnell MD Interpreting Provider: Hai Oconnell MD Exam - Constitutional Vitals: Temp Pulse Resp BP Pulse Ox 98.2 F 71 22 87/58 95 09/23/17 08:00 09/23/17 11:00 09/23/17 11:00 09/23/17 11:00 09/23/17 11:00 General appearance: average body habitus, cooperative, no acute distress - Head Head exam: Present: atraumatic, normal inspection, normocephalic - Eye Eye exam: Present: EOMI, normal appearance, PERRL Pupils: Present: normal accommodation - ENT ENT exam: Present: mucous membranes moist - Neck Neck exam: Present: normal inspection - Respiratory Respiratory exam: Present: CTAB. Absent: rales, respiratory distress, rhonchi, wheezes - Cardiovascular Cardiovascular exam: Present: RRR, +S1, +S2 - GI/Abdominal GI/Abdominal exam: Present: normal bowel sounds, soft. Absent: distended, tenderness Additional comments: SPT draining clear yellow urine. - Extremities Exam Extremities exam: Absent: normal inspection Additional comments: BUE muscle atrophy with clubbing of the fingers. BLE AKA stumps noted. - Neurological Exam Neurological exam: Present: alert, oriented X3. Absent: no focal deficits ( Paralsysis noted to the BUE and BLE.) - Psychiatric Psychiatric exam: Present: normal affect, normal mood - Skin Skin exam: Present: dry, intact, normal color, warm Consult Discharge Plan - Plan Referrals: Mauricio Melendrez MD [Primary Care Provider] - - Attending Attestation I examined this patient and my medical decision-making was reviewed with the Resident Physician. I agree with the documented findings, disposition and treatment plan as described except to the extent set forth below.
[2017-09-23] MEDS: Aztreonam 2,000 MG in Water for inj. (sterile) 20 ML 20 ML IVP SCH (15:09)
[2017-09-23] MEDS: metroNIDAZOLE 500 MG TABLET PO SCH (15:11)
[2017-09-23 19:31] LABS: blaKPC Carbapenem-Resist Gene Not Detected (Not Detect)
[2017-09-23 19:32] LABS: Acinetobacter baumannii by PCR Not Detected (Not Detect); Candida albicans by PCR Not Detected (Not Detect); Candida glabrata by PCR Not Detected (Not Detect); Candida krusei by PCR Not Detected (Not Detect); Candida parapsilosis by PCR Not Detected (Not Detect); Candida tropicalis by PCR Not Detected (Not Detect); Enterococcus by PCR Not Detected (Not Detect); Escherichia coli by PCR Not Detected (Not Detect); Klebsiella oxytoca by PCR Not Detected (Not Detect); Klebsiella pneumoniae by PCR Not Detected (Not Detect); Pseudomonas aeruginosa by PCR Not Detected (Not Detect); Serratia marcescens by PCR Not Detected (Not Detect); Staphylococcus aureus by PCR Not Detected (Not Detect); Streptococcus agalactiae(B)PCR Not Detected (Not Detect); Streptococcus by PCR Not Detected (Not Detect); Streptococcus pneumoniae PCR Not Detected (Not Detect); Streptococcus pyogenes (A) PCR Not Detected (Not Detect); mecA Methicillin-Resist Gene ***DETECTED*** (Not Detect); vanA/B Vancomycin-Resist Genes Not Detected (Not Detect)
[2017-09-23] MEDS: Norepinephrine 4 MG in D5% in Water 250 ML IVC SCH (19:37)
[2017-09-24] MEDS: metroNIDAZOLE 500 MG TABLET PO SCH ×2 (00:13→12:14)
[2017-09-24] MEDS: Aztreonam 2,000 MG in Water for inj. (sterile) 20 ML 20 ML IVP SCH ×3 (00:13→14:22)
[2017-09-24] MEDS: tiZANidine 4 MG TABLET PO SCH ×2 (00:13→12:14)
[2017-09-24] MEDS: Baclofen 10 MG TABLET PO PRN ×2 (00:21→12:13)
[2017-09-24] MEDS: diazePAM 5 MG TABLET PO PRN (01:34)
[2017-09-24] MEDS: *HR* HYDROmorphone 2 MG TABLET PO PRN (01:34)
[2017-09-24] MEDS: LUBIPROSTONE 24 MCG PO SCH (06:17)
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
[2017-09-24 09:18] LABS: Basophils # 0.1 K/mcL (0.0-0.2); Basophils % 0.6 %; Eosinophils # 0.6 K/mcL (0.0-0.6); Eosinophils % 5.9 %; Hematocrit 34.7 % (37.5-50.1); Immature Granulocytes % 0.3 % (0-4); Lymphocytes # 2.7 K/mcL (0.6-4.6); Mean Corpuscular HGB Conc 31.4 g/dL (31.6-35.5); Mean Corpuscular Hemoglobin 27.9 pg (28.0-33.3); Monocytes # 0.9 K/mcL (0.0-1.3); Monocytes % 8.4 %; Neutrophils # 6.1 K/mcL (1.6-8.9); Platelet Count 197 K/mcL (140-400); Red Cell Distribution Width 15.9 % (11.5-14.5); Segmented Neutrophils % 58.8 %
[2017-09-24 09:28] LABS: INR 1.1; Prothrombin Time 11.3 Seconds (9.4-12.1)
[2017-09-24 09:31] LABS: BUN/Creatinine Ratio 24 (6-26); Blood Urea Nitrogen 11 mg/dL (6-20); Calcium 8.2 mg/dL (8.6-10.3); Carbon Dioxide 23 mEq/L (23-29); Chloride 108 mEq/L (98-107); Glucose 69 mg/dL (70-105); Osmolality,Calculated 280 (280-300); Potassium 4.2 mEq/L (3.5-5.1); Sodium 136 mEq/L (136-145); eGFR For African Americans > 60 (> 60); eGFR For Non-African Americans > 60 (> 60)
--- NOTE | 2017-09-24 09:42 | Urology Progress Note ---
Date of Encounter: 09/24/17 Time of Encounter: 09:41 - Assessment and Plan (1) Left ureteral stone Current Visit: Yes Status: Acute Assessment and plan: At this point the patient's stone is nonobstructive and unlikely be contributing to his sepsis picture. I discussed the case with interventional radiology and at this point we are going to hold off having a nephrostomy tube placed. We will continue to closely follow along with the patient. Progress Note Narrative: Patient seen this am. good uop. serum creatinine stable. no new pain. Objective Initial Vital Signs Temp Pulse Resp BP Pulse Ox 98 F 102 22 97/52 93 09/21/17 19:31 09/21/17 19:31 09/21/17 19:31 09/21/17 19:31 09/21/17 19:31 - General physical appearance Present: well developed - Abdomen Present: soft - Genitourinary Present: other (good clear urine in catheter) - Labs 09/23/17 04:04 09/24/17 09:00 Diabetes panel 09/24/17 Range/Units 09:00 Sodium 136 (136-145) mEq/L Potassium 4.2 (3.5-5.1) mEq/L Chloride 108 H (98-107) mEq/L Carbon Dioxide 23 (23-29) mEq/L BUN 11 (6-20) mg/dL Creatinine 0.45 L (0.70-1.30) mg/dL Glucose 69 L (70-105) mg/dL Calcium 8.2 L (8.6-10.3) mg/dL Calcium panel 09/24/17 Range/Units 09:00 Calcium 8.2 L (8.6-10.3) mg/dL Pituitary panel 09/24/17 Range/Units 09:00 Sodium 136 (136-145) mEq/L Potassium 4.2 (3.5-5.1) mEq/L Chloride 108 H (98-107) mEq/L Carbon Dioxide 23 (23-29) mEq/L BUN 11 (6-20) mg/dL Creatinine 0.45 L (0.70-1.30) mg/dL Glucose 69 L (70-105) mg/dL Calcium 8.2 L (8.6-10.3) mg/dL Adrenal panel 09/24/17 Range/Units 09:00 Sodium 136 (136-145) mEq/L Potassium 4.2 (3.5-5.1) mEq/L Chloride 108 H (98-107) mEq/L Carbon Dioxide 23 (23-29) mEq/L BUN 11 (6-20) mg/dL Creatinine 0.45 L (0.70-1.30) mg/dL Glucose 69 L (70-105) mg/dL Calcium 8.2 L (8.6-10.3) mg/dL Consult Discharge Plan - Plan Referrals: Mauricio Melendrez MD [Primary Care Provider] -
[2017-09-24 11:28] LABS: Acinetobacter baumannii by PCR Not Detected (Not Detect); Candida albicans by PCR Not Detected (Not Detect); Candida glabrata by PCR Not Detected (Not Detect); Candida krusei by PCR Not Detected (Not Detect); Candida parapsilosis by PCR Not Detected (Not Detect); Candida tropicalis by PCR Not Detected (Not Detect); Enterococcus by PCR Not Detected (Not Detect); Escherichia coli by PCR Not Detected (Not Detect); Klebsiella oxytoca by PCR Not Detected (Not Detect); Klebsiella pneumoniae by PCR Not Detected (Not Detect); Pseudomonas aeruginosa by PCR Not Detected (Not Detect); Serratia marcescens by PCR Not Detected (Not Detect); Staphylococcus aureus by PCR Not Detected (Not Detect); Streptococcus agalactiae(B)PCR Not Detected (Not Detect); Streptococcus by PCR Not Detected (Not Detect); Streptococcus pneumoniae PCR Not Detected (Not Detect); Streptococcus pyogenes (A) PCR Not Detected (Not Detect)
[2017-09-24] MEDS ORDERED: Ringers Solution, Lactated 1,000 ML ONE (12:01)
[2017-09-24] MEDS: Multivit/Ca/Min/Fe/FA 1 TAB TABLET PO SCH (12:13)
[2017-09-24] MEDS: Ascorbic Acid 500 MG TABLET PO SCH (12:14)
[2017-09-24] MEDS: Mirtazapine 15 MG TABLET PO SCH (12:14)
[2017-09-24] MEDS: Ringers Solution, Lactated 1,000 ML IVC SCH (12:15)
[2017-09-24] MEDS: Sennosides 8.6 MG TABLET PO SCH ×2 (12:16→19:09)
--- NOTE | 2017-09-24 13:01 | Consult Note ---
Date of Encounter: 09/24/17 Time of Encounter: 11:35 Assessment & Recommendation (1) Depression Current visit: Yes Status: Acute Assessment & Recommendation: Patient reports a history of depression and emotional issues as a child but denies issues with this recently. Sister confirms this. Qualifiers: Depression Type: unspecified Qualified Code(s): F32.9 - Major depressive disorder, single episode, unspecified (2) Encounter for evaluation of ability to make decisions regarding care Current visit: Yes Status: Acute Assessment & Recommendation: At this time patient is able to make his own medical decisions and has capacity to understand and evaluate choices regarding medical decisions. History of Present Illness Patient: new to practice Requesting Physician: Yoselin Coulter MD Reason for consult: Capacity assessment History of present illness: Mr. Eid is a 42 year old male with multiple medical issues including quadriplegia and who presented to the hospital with a GI bleed. Psychiatry was consult is because apparently he has been refusing medical treatment. It is unclear what treatment he may have refused. Patient reports he may refuse a chest x-ray and that he did have a discussion with the urologist about whether or not he needed a procedure done because of a kidney stone. Patient is able to explain his reason for coming to the hospital and seems to have a good grasp of his treatment and the reason for various medical interventions. Patient is seen with his sister, who is apparently not his biological sister but someone he grew up with. Patient states that he is not depressed. He denies suicidal or homicidal ideations. He denies history of psychosis or aga. He takes Remeron at bedtime but this is unclear if it is related to depression or sleep. Because there is no specific question regarding a specific procedure or medical treatment that patient is refusing we did not go into depth about whether or not he has the capacity to refuse this particular procedure or not. Sister feels that he is at his baseline and she does not think he has any problems making his own medical decisions. CC: Yoselin Coulter MD Past Med Surg Social Fam HX - Past Medical History Medical history: cardiomyopathy, coronary artery disease, GERD, hyperlipidemia, hypertension, kidney stones, myocardial infarction, peripheral artery disease, renal disease, other (Neurogenic bladder secondary to quadriplegia, chronic SPT) - Past Psychiatric History Psychiatric history: Reports: depression, previous psychiatric hospitalization. Denies: prior suicide attempt Past psychiatric history details: Patient was hospitalized as a child. Family psychiatric history: No Family History of Suicide: None - Past Surgical History Surgical History: orthopedic, other, tracheostomy, other (Chronic SPT) - Social History Smoking Status: Former smoker Smokeless Tobacco Status: Yes (chew) Alcohol use: occasionally Drug use: marijuana - Family History Mother Living Status: Still Living Hx Family Respiratory Disorders: Yes Hx Family Cancer: Yes Hx Family Endocrine Disorder: Yes Medications & Allergies Promethazine [Phenergan] 25 mg PO 0000 03/23/15 [History] Ascorbic Acid [Vitamin C] 500 mg PO DAILY 05/23/15 [History] Bisacodyl [Dulcolax] 5 mg PO DAILY 05/23/15 [History] Lubiprostone [Amitiza] 24 mcg PO Q12HR 05/23/15 [History] Sennosides [Senna] 17.2 mg PO BID 05/23/15 [History] Acetaminophen [Tylenol] 650 mg PO Q6HR PRN 05/11/16 [History] Baclofen 60 mg PO BID 05/11/16 [History] GuaiFENesin ER [Mucinex] 600 mg PO DAILY 05/11/16 [History] Docusate [Colace] 100 mg PO BID 05/12/16 [History] Tizanidine HCl [Zanaflex] 12 mg PO BID 05/12/16 [History] Mirtazapine 7.5 mg PO DAILY 07/04/17 [History] 0.9 % Sodium Chloride [Normal Saline Flush] 10 ml IV DAILY 09/21/17 [History] Ferrous Gluconate 324 mg PO BID 09/21/17 [History] HYDROmorphone [Dilaudid] 2 mg PO 0000 09/21/17 [History] HYDROmorphone [Dilaudid] 2 mg PO Q4H PRN 09/21/17 [History] Omeprazole [PriLOSEC] 20 mg PO DAILY 09/21/17 [History] Promethazine [Phenergan] 25 mg PO Q6H PRN 09/21/17 [History] Vitamin B Complex/Minerals [Sm Stress Formula+Zinc Tablet] 1 each PO DAILY 09/21 [History] diazePAM [Valium] 5 mg PO 0000 09/21/17 [History] 3 Allergy/AdvReac Type Severity Reaction Status Date / Time Amoxicillin [From Amoxil] Allergy See Verified 09/21/17 22:01 Comments cephalexin [From Keflex] Allergy Hives Verified 07/04/17 06:12 ciprofloxacin [From Cipro] Allergy Hives Verified 07/04/17 06:12 cranberry Allergy See Verified 07/04/17 06:12 Comments ketorolac Allergy Hives Verified 07/04/17 06:12 morphine Allergy Hives Verified 07/04/17 06:12 nitrofurantoin Allergy Hives Verified 07/04/17 06:12 [From Macrobid] Oxycodone Allergy Hives Verified 07/04/17 06:12 Penicillins Allergy Hives Verified 07/04/17 06:12 prochlorperazine Allergy Hives Verified 07/04/17 06:12 [From Compazine] Sulfa (Sulfonamide Allergy Hives Verified 07/04/17 06:12 Antibiotics) trimethoprim Allergy See Verified 07/04/17 06:12 Comments Review of Systems ROS limited: due to patient condition (Patient declines to complete) Gastrointestinal: Reports: hematochezia Psychiatric: Denies: depression, anxiety, abnormal sleep pattern, suicidal ideation, change in appetite, auditory hallucinations, visual hallucinations, anhedonia, difficulty concentrating, hopelessness, irritability, mood swings Mental Status Exam Level of alertness: Alert Patient appearance: Unkempt Additional observations: Patient is quadriplegic. Behavior: calm, cooperative Psychomotor activity: Normal Eye contact: Maintains Eye Contact Mood description: Euthymic/stable Affect description: congruent with mood, full range, euthymic Speech pattern: Normal rate, Normal rhythm, Normal tone Speech volume: Normal Thought process: Intact, Logical, Linear, Goal Oriented Thought content: Yes Intact Perceptual disturbances: No Reacting to internal stimuli, No Auditory hallucinations, No Visual hallucinations Attention span: Capable of Focused Attention Memory description: Grossly Intact Patient reliability: Reliable Historian Intelligence estimate: Average Judgment: Fair Insight: Partial Results - Vital Signs Vital signs: Temp Pulse Resp BP Pulse Ox 98.6 F 78 20 150/109 98 09/24/17 07:30 09/24/17 11:00 09/24/17 11:00 09/24/17 11:00 09/24/17 11:00 - Labs Labs: Laboratory Last Values WBC 10.5 K/mcL (4.3-11.1) 09/23/17 04:04 RBC 3.32 M/mcL (4.19-5.50) L 09/23/17 04:04 Hgb 9.3 g/dL (12.9-16.9) L D 09/23/17 04:04 Hct 30.1 % (37.5-50.1) L 09/23/17 04:04 MCV 90.7 fL (83.0-100.0) 09/23/17 04:04 MCH 28.0 pg (28.0-33.3) 09/23/17 04:04 MCHC 30.9 g/dL (31.6-35.5) L 09/23/17 04:04 RDW 15.7 % (11.5-14.5) H 09/23/17 04:04 Plt Count 156 K/mcL (140-400) 09/23/17 04:04 MPV 9.1 fL (9.4-12.4) L 09/23/17 04:04 Immature Gran % 0.2 % (0-4) 09/22/17 05:47 Seg Neutrophils % 71.6 % 09/22/17 05:47 Lymphocytes % 13.1 % 09/22/17 05:47 Monocytes % 14.3 % 09/22/17 05:47 Eosinophils % 0.4 % 09/22/17 05:47 Basophils % 0.4 % 09/22/17 05:47 Neutrophils # 12.2 K/mcL (1.6-8.9) H 09/22/17 05:47 Lymphocytes # 2.2 K/mcL (0.6-4.6) 09/22/17 05:47 Monocytes # 2.4 K/mcL (0.0-1.3) H 09/22/17 05:47 Eosinophils # 0.1 K/mcL (0.0-0.6) 09/22/17 05:47 Basophils # 0.1 K/mcL (0.0-0.2) 09/22/17 05:47 PT 11.3 Seconds (9.4-12.1) 09/24/17 09:00 INR 1.1 09/24/17 09:00 APTT 33.8 Seconds (26.0-36.0) 09/22/17 05:47 Sodium 136 mEq/L (136-145) 09/24/17 09:00 Potassium 4.2 mEq/L (3.5-5.1) 09/24/17 09:00 Chloride 108 mEq/L (98-107) H 09/24/17 09:00 Carbon Dioxide 23 mEq/L (23-29) 09/24/17 09:00 BUN 11 mg/dL (6-20) 09/24/17 09:00 Creatinine 0.45 mg/dL (0.70-1.30) L 09/24/17 09:00 Est GFR ( Amer) > 60 (> 60) 09/24/17 09:00 Est GFR (Non-Af Amer) > 60 (> 60) 09/24/17 09:00 BUN/Creatinine Ratio 24 (6-26) 09/24/17 09:00 Glucose 69 mg/dL (70-105) L 09/24/17 09:00 POC Glucose 147 (58-89) H 09/22/17 19:26 Calculated Osmolality 280 (280-300) 09/24/17 09:00 Lactic Acid 0.6 mmol/L (0.5-2.2) 09/21/17 20:11 Calcium 8.2 mg/dL (8.6-10.3) L 09/24/17 09:00 Urine Color Yellow (Yellow) 09/22/17 12:21 Urine Clarity Turbid (Clear) A 09/22/17 12:21 Urine pH 6.5 pH Units (5.0-8.0) 09/22/17 12:21 Ur Specific [place] 1.008 (1.010-1.025) L 09/22/17 12:21 Urine Protein 30 mg/dL (Neg-Trace) H 09/22/17 12:21 Urine Glucose (UA) Normal mg/dL (Normal) 09/22/17 12:21 Urine Ketones Negative mg/dL (Negative) 09/22/17 12:21 Urine Blood Moderate (Negative) H 09/22/17 12:21 Urine Nitrite Positive (Negative) A 09/22/17 12:21 Urine Bilirubin Negative (Negative) 09/22/17 12:21 Urine Urobilinogen Normal mg/dL (Normal) 09/22/17 12:21 Ur Leukocyte Esterase Large (Negative) H 09/22/17 12:21 Urine Microscopic RBC 5-15 per hpf (0-3) H 09/22/17 12:21 Urine Microscopic WBC TNTC per hpf (0-3) H 09/22/17 12:21 Ur Squamous Epith Cells Moderate per lpf (None-Few) H 09/22/17 12:21 Urine Bacteria Moderate per hpf (None-Few) H 09/22/17 12:21 Hyaline Casts Few per lpf (None-Few) 09/22/17 12:21 Ur Culture Indicated? YES (NO) A 09/22/17 12:21 Vancomycin Trough 14.9 mcg/mL (10-20) 09/24/17 00:25 A. baumannii (PCR) Not Detected (Not Detect) 09/22/17 23:40 Chlamy pneumoniae PCR Not Detected (Not Detect) 09/22/17 23:37 Adenovirus (PCR) Not Detected (Not Detect) 09/22/17 23:37 B. pertussis DNA (PCR) Not Detected (Not Detect) 09/22/17 23:37 B.parapertussis DNA PCR Not Detected (Not Detect) 09/22/17 23:37 Jacquie albicans (PCR) Not Detected (Not Detect) 09/22/17 23:40 C. glabrata (PCR) Not Detected (Not Detect) 09/22/17 23:40 C. krusei (PCR) Not Detected (Not Detect) 09/22/17 23:40 C. parapsilosis (PCR) Not Detected (Not Detect) 09/22/17 23:40 C. tropicalis (PCR) Not Detected (Not Detect) 09/22/17 23:40 Coronavirus OC43 (PCR) Not Detected (Not Detect) 09/22/17 23:37 Coronavirus HKU1 (PCR) Not Detected (Not Detect) 09/22/17 23:37 Coronavirus 229E (PCR) Not Detected (Not Detect) 09/22/17 23:37 Coronavirus NL63 (PCR) Not Detected (Not Detect) 09/22/17 23:37 Enterobacteriac sp PCR Not Detected (Not Detect) 09/22/17 23:40 E. cloacae complex PCR Not Detected (Not Detect) 09/22/17 23:40 Enterococcus sp PCR Not Detected (Not Detect) 09/22/17 23:40 E. coli (PCR) Not Detected (Not Detect) 09/22/17 23:40 H. influenzae (PCR) Not Detected (Not Detect) 09/22/17 23:40 Human Metapneumovir PCR Not Detected (Not Detect) 09/22/17 23:37 Influenza A (H1) PCR Not Detected (Not Detect) 09/22/17 23:37 Influ A (H1N1/09) PCR Not Detected (Not Detect) 09/22/17 23:37 Influenza A (H3) PCR Not Detected (Not Detect) 09/22/17 23:37 Influenza A Untype (PCR) Not Detected (Not Detect) 09/22/17 23:37 Influenza Type B (PCR) Not Detected (Not Detect) 09/22/17 23:37 Klebsiella oxytoca PCR Not Detected (Not Detect) 09/22/17 23:40 Klebsiella pneumoniae Not Detected (Not Detect) 09/22/17 23:40 List. monocytogenes PCR Not Detected (Not Detect) 09/22/17 23:40 M.pneumoniae DNA (PCR) Not Detected (Not Detect) 09/22/17 23:37 N. meningitidis (PCR) Not Detected (Not Detect) 09/22/17 23:40 Parainfluenza 1 (PCR) Not Detected (Not Detect) 09/22/17 23:37 Parainfluenza 2 (PCR) Not Detected (Not Detect) 09/22/17 23:37 Parainfluenza 3 (PCR) Not Detected (Not Detect) 09/22/17 23:37 Parainfluenza 4 (PCR) Not Detected (Not Detect) 09/22/17 23:37 Proteus species (PCR) Not Detected (Not Detect) 09/22/17 23:40 RSV (PCR) Not Detected (Not Detect) 09/22/17 23:37 Entero/Rhino (PCR) Not Detected (Not Detect) 09/22/17 23:37 Serratia marcescens PCR Not Detected (Not Detect) 09/22/17 23:40 Staphylococcus sp PCR Not Detected (Not Detect) 09/22/17 23:40 Staph aureus (PCR) Not Detected (Not Detect) 09/22/17 23:40 mecA-Methicil Res Gene N/A (Not Detect) 09/22/17 23:40 Streptococcus sp PCR Not Detected (Not Detect) 09/22/17 23:40 Group A Strep DNA Not Detected (Not Detect) 09/22/17 23:40 Group B Strep (PCR) Not Detected (Not Detect) 09/22/17 23:40 Strep pneumoniae (PCR) Not Detected (Not Detect) 09/22/17 23:40 P. aeruginosa (PCR) Not Detected (Not Detect) 09/22/17 23:40 Tan/B-Vanco Res Genes N/A (Not Detect) 09/22/17 23:40 KPC (blaKPC) Detect PCR N/A (Not Detect) 09/22/17 23:40 Blood Type O POSITIVE 09/21/17 20:11 Antibody Screen NEGATIVE 09/21/17 20:11 Consult Discharge Plan - Plan Referrals: Mauricio Melendrez MD [Primary Care Provider] - Capacity - Capacity Patient able to understand information to make decisions: Able Patient ability to demonstrate rational thinking: Able Patient able to appreciate consequences of decisions: Able Patient able to demonstrate reliability in decision-making: Reliable Capacity Determination: Patient demonstrates capacity
[2017-09-24 13:26] LABS: Hemoglobin 10.9 g/dL (12.9-16.9)
--- NOTE | 2017-09-24 13:52 | Infectious Disease Progress No ---
Date of Encounter: 09/24/17 Time of Encounter: 13:50 - Assessment and Plan (1) Sepsis Current Visit: No Status: Resolved The patient had two SIRS criteria. He developed hypotension yesterday and required a short course of vaospressors, but is currently off. Review of the patient's previous hospital stays reveals that the patient has borderline low blood pressure normally. Source unclear: urine vs. other. Blood cultures drawn 09/22/17 x 2 sets peripherally are NGTD. Blood cultures drawn 09/22/17 x 2 sets from the central line are positive 1/2 sets for Staph species with mecA gene --> likely CoNS. RIP negative. Lactic acid normal. Patient refused chest x-ray and CT chest. CT abdomen and pelvis showed mild left hydronephrosis with a 5mm stone to the mid proximal ureter and nonspecific pancolitis. Has a central line, but clinically does not appear infected. Has decubitus ulcers, but look good and clinically do no appear infected. Qualifiers: Sepsis type: sepsis due to unspecified organism Qualified Code(s): A41.9 - Sepsis, unspecified organism (2) Candidemia Current Visit: Yes Status: Acute Causative organism unclear. Blood culture from the the CVC is positive 1/2 sets for Yeast species, but the PCR did not pick anything up. True infection vs. contaminant. Recommend removal of the patient's CVC. The patient has refused this to nursing staff, but is at high risk for seeding of the line. Repeat blood cultures x 2 sets from the CVC and peripherally now. Start fluconazole 800mg IV x 1 dose now, then 400mg IV daily. Duration of treatment depends on the clinical picture, but likely 14 days from the first set of negative blood cultures. Opthalmology to evaluate. (3) Bacteremia Current Visit: Yes Status: Acute True bacteremia vs. contaminant. Peripheral blood cultures drawn 09/22/17 are NGTD x 2 sets. CVC blood cultures drawn 09/22/17 are positive 1/2 sets for mecA Staph species per PCR, but not MRSA. Given the clinical picture, not sure that this is a true infection, however the patient now has yeast in the blood as well, which could also be a contaminant. Recommend the line be removed. Repeat blood cultures x 2 sets from the central line and peripherally now. Continue Vancomycin IV. Pharmacy to dose. Goal trough~15. Monitor renal function and for drug toxicity and dose-adjust antibiotics. Duration of treatment depends on the clinical picture. If the patient agrees to have the line removed, can discontinue the Vancomycin after it is removed. (4) UTI (urinary tract infection) due to urinary indwelling Souza catheter Current Visit: No Status: Acute Causative organism E. coli ESBL. Asymptomatic bacteriuria vs. true UTI. Not sure that this is the source of the patient's sepsis since it is Aztreonam resistant and clinically he is improved. Urinalysis positive for nitrites, moderate bacteria, and TNTC WBC; also a moderate amount of epithelial cells. The patient has a history of recurrent UTI/asymptomatic bacteriuria. His quadriplegia limits his ability to know if he has urinary symptoms. Urology consulted. Status post SPT replacement. Discontinue Aztreonam. Start Ertapenem 1 gram IV daily. Duration of treatment depends on the clinical picture. Monitor renal function and dose-adjust antibiotics. Qualifiers: Indwelling urinary catheter type: cystostomy catheter Encounter type: subsequent encounter Qualified Code(s): T83.510D - Infection and inflammatory reaction due to cystostomy catheter, subsequent encounter; N39.0 - Urinary tract infection, site not specified (5) Hydronephrosis Current Visit: Yes Status: Acute CT abdomen and pelvis shows mild left hydronephrosis. Likely secondary to 55mm stone. Urology consulted and following. Since the patient is making adequate urine, PNT placement on hold. Qualifiers: Hydronephrosis type: with ureteral calculous obstruction Qualified Code(s) : N13.2 - Hydronephrosis with renal and ureteral calculous obstruction (6) Urolithiasis Current Visit: No Status: Acute Qualifiers: Urinary calculus location: kidney Qualified Code(s): N20.0 - Calculus of kidney (7) Pancolitis Current Visit: Yes Status: Acute CT abdomen and pelvis showed nonspecific pancolitis. GI consulted. Recommended colonoscopy for the patient's GI bleed, but he refused. Please re-contact GI and make them aware of CT results. Discontinue Aztreonam and Flagyl. Start Ertapenem as above. Await further recommendations from GI team. (8) Altered mental status Current Visit: No Status: Acute Medication-related vs. other. Appears resolved today. No meningeal signs. The patient is oriented x 3. Qualifiers: Altered mental status type: transient alteration of awareness Qualified Code(s): R40.4 - Transient alteration of awareness (9) GI bleed Current Visit: Yes Status: Acute Etiology unclear. Hemoglobin stable. GI consulted. Patient refuses colonoscopy. Management per the primary and GI teams. Qualifiers: GI bleed type/associated pathology: unspecified gastrointestinal hemorrhage type Qualified Code(s): K92.2 - Gastrointestinal hemorrhage, unspecified (10) Quadriplegia Current Visit: Yes Status: Chronic (11) Chronic pain Current Visit: No Status: Chronic Qualifiers: Chronic pain type: other chronic pain Qualified Code(s): G89.29 - Other chronic pain (12) Neurogenic bladder Current Visit: No Status: Chronic Chronic SPT. (13) Decubitus ulcer of right ischium, stage 2 Current Visit: Yes Status: Acute Stage II. No drainage, warmth, erythema, or fluctuance. Clinically does not appear infected. Recommend aggressive offloading and wound care. Patient non-compliant with turning per nursing. Consult wound care team. (14) Decubitus ulcer of left ischium, stage 2 Current Visit: Yes Status: Acute Stage II. No drainage, warmth, erythema, or fluctuance. Clinically does not appear infected. Recommend aggressive offloading and wound care. Patient non-compliant with turning per nursing. Consult wound care team. - Subjective Interval history: Patient seen and examined. No acute events noted overnight. Patient resting quietly in bed. Denies fevers, chills, or rigors. Denies chest pain, shortness of breath. Reports a sparse cough productive of clear phlegm. Denies nausea, vomiting or diarrhea. States his appetite was very good. Denies abdominal pain or other complaints at this time. Requesting wound care evaluation for his decubitus ulcers. Infect Dis PN-Objective Data - Labs CBC & Chem 7: 09/24/17 09:00 09/24/17 09:00 Labs: Laboratory Results - last 24 hr 09/22/17 09/22/17 09/24/17 15:28 23:40 00:25 WBC RBC Hgb Hct MCV MCH MCHC RDW Plt Count MPV Immature Gran % Seg Neutrophils % Lymphocytes % Monocytes % Eosinophils % Basophils % Neutrophils # Lymphocytes # Monocytes # Eosinophils # Basophils # PT INR Sodium Potassium Chloride Carbon Dioxide BUN Creatinine Est GFR ( Amer) Est GFR (Non-Af Amer) BUN/Creatinine Ratio Glucose Calculated Osmolality Calcium Vancomycin Trough 14.9 A. baumannii (PCR) Not Detected Not Detected Jacquie albicans (PCR) Not Detected Not Detected C. glabrata (PCR) Not Detected Not Detected C. krusei (PCR) Not Detected Not Detected C. parapsilosis (PCR) Not Detected Not Detected C. tropicalis (PCR) Not Detected Not Detected Enterobacteriac sp PCR Not Detected Not Detected E. cloacae complex PCR Not Detected Not Detected Enterococcus sp PCR Not Detected Not Detected E. coli (PCR) Not Detected Not Detected H. influenzae (PCR) Not Detected Not Detected Klebsiella oxytoca PCR Not Detected Not Detected Klebsiella pneumoniae Not Detected Not Detected List. monocytogenes PCR Not Detected Not Detected N. meningitidis (PCR) Not Detected Not Detected Proteus species (PCR) Not Detected Not Detected Serratia marcescens PCR Not Detected Not Detected Staphylococcus sp PCR DETECTED A Not Detected Staph aureus (PCR) Not Detected Not Detected mecA-Methicil Res Gene DETECTED A N/A Streptococcus sp PCR Not Detected Not Detected Group A Strep DNA Not Detected Not Detected Group B Strep (PCR) Not Detected Not Detected Strep pneumoniae (PCR) Not Detected Not Detected P. aeruginosa (PCR) Not Detected Not Detected Tan/B-Vanco Res Genes Not Detected N/A KPC (blaKPC) Detect PCR Not Detected N/A 09/24/17 09/24/17 09/24/17 09:00 09:00 09:00 WBC 10.3 RBC 3.90 L Hgb 10.9 L D Hct 34.7 L MCV 89.0 MCH 27.9 L MCHC 31.4 L RDW 15.9 H Plt Count 197 MPV 9.0 L Immature Gran % 0.3 Seg Neutrophils % 58.8 Lymphocytes % 26.0 Monocytes % 8.4 Eosinophils % 5.9 Basophils % 0.6 Neutrophils # 6.1 Lymphocytes # 2.7 Monocytes # 0.9 Eosinophils # 0.6 Basophils # 0.1 PT 11.3 INR 1.1 Sodium 136 Potassium 4.2 Chloride 108 H Carbon Dioxide 23 BUN 11 Creatinine 0.45 L Est GFR ( Amer) > 60 Est GFR (Non-Af Amer) > 60 BUN/Creatinine Ratio 24 Glucose 69 L Calculated Osmolality 280 Calcium 8.2 L Vancomycin Trough A. baumannii (PCR) Jacquie albicans (PCR) C. glabrata (PCR) C. krusei (PCR) C. parapsilosis (PCR) C. tropicalis (PCR) Enterobacteriac sp PCR E. cloacae complex PCR Enterococcus sp PCR E. coli (PCR) H. influenzae (PCR) Klebsiella oxytoca PCR Klebsiella pneumoniae List. monocytogenes PCR N. meningitidis (PCR) Proteus species (PCR) Serratia marcescens PCR Staphylococcus sp PCR Staph aureus (PCR) mecA-Methicil Res Gene Streptococcus sp PCR Group A Strep DNA Group B Strep (PCR) Strep pneumoniae (PCR) P. aeruginosa (PCR) Tan/B-Vanco Res Genes KPC (blaKPC) Detect PCR Cultures: Cultures 09/22/17 23:40 Blood Culture - Preliminary Central Venous Catheter Yeast Species 09/22/17 12:21 Urine Culture - Final Urine,Clean Catch Escherichia coli ESBL 09/22/17 10:26 Blood Culture - Preliminary Peripheral Venipuncture No growth. 09/22/17 10:26 Blood Culture - Preliminary Peripheral Venipuncture No growth. 09/22/17 15:28 Blood Culture - Preliminary Central Venous Catheter Gram Positive Cocci Serology 09/22/17 09/22/17 09/22/17 Range/Units 23:40 23:37 15:28 Urine Color (Yellow) Urine Clarity (Clear) Urine pH (5.0-8.0) pH Units Ur Specific Randolph (1.010-1.025) Urine Protein (Neg-Trace) mg/dL Urine Glucose (UA) (Normal) mg/dL Urine Ketones (Negative) mg/dL Urine Blood (Negative) Urine Nitrite (Negative) Urine Bilirubin (Negative) Urine Urobilinogen (Normal) mg/dL Ur Leukocyte Esterase (Negative) Urine Microscopic RBC (0-3) per hpf Urine Microscopic WBC (0-3) per hpf Ur Squamous Epith Cells (None-Few) per lpf Urine Bacteria (None-Few) per hpf Hyaline Casts (None-Few) per lpf Ur Culture Indicated? (NO) A. baumannii (PCR) Not Detected Not Detected (Not Detect) Chlamy pneumoniae PCR Not Detected (Not Detect) Adenovirus (PCR) Not Detected (Not Detect) B. pertussis DNA (PCR) Not Detected (Not Detect) B.parapertussis DNA PCR Not Detected (Not Detect) Jacquie albicans (PCR) Not Detected Not Detected (Not Detect) C. glabrata (PCR) Not Detected Not Detected (Not Detect) C. krusei (PCR) Not Detected Not Detected (Not Detect) C. parapsilosis (PCR) Not Detected Not Detected (Not Detect) C. tropicalis (PCR) Not Detected Not Detected (Not Detect) Coronavirus OC43 (PCR) Not Detected (Not Detect) Coronavirus HKU1 (PCR) Not Detected (Not Detect) Coronavirus 229E (PCR) Not Detected (Not Detect) Coronavirus NL63 (PCR) Not Detected (Not Detect) Enterobacteriac sp PCR Not Detected Not Detected (Not Detect) E. cloacae complex PCR Not Detected Not Detected (Not Detect) Enterococcus sp PCR Not Detected Not Detected (Not Detect) E. coli (PCR) Not Detected Not Detected (Not Detect) H. influenzae (PCR) Not Detected Not Detected (Not Detect) Human Metapneumovir PCR Not Detected (Not Detect) Influenza A (H1) PCR Not Detected (Not Detect) Influ A (H1N1/09) PCR Not Detected (Not Detect) Influenza A (H3) PCR Not Detected (Not Detect) Influenza A Untype (PCR) Not Detected (Not Detect) Influenza Type B (PCR) Not Detected (Not Detect) Klebsiella oxytoca PCR Not Detected Not Detected (Not Detect) Klebsiella pneumoniae Not Detected Not Detected (Not Detect) List. monocytogenes PCR Not Detected Not Detected (Not Detect) M.pneumoniae DNA (PCR) Not Detected (Not Detect) N. meningitidis (PCR) Not Detected Not Detected (Not Detect) Parainfluenza 1 (PCR) Not Detected (Not Detect) Parainfluenza 2 (PCR) Not Detected (Not Detect) Parainfluenza 3 (PCR) Not Detected (Not Detect) Parainfluenza 4 (PCR) Not Detected (Not Detect) Proteus species (PCR) Not Detected Not Detected (Not Detect) RSV (PCR) Not Detected (Not Detect) Entero/Rhino (PCR) Not Detected (Not Detect) Serratia marcescens PCR Not Detected Not Detected (Not Detect) Staphylococcus sp PCR Not Detected DETECTED A (Not Detect) Staph aureus (PCR) Not Detected Not Detected (Not Detect) mecA-Methicil Res Gene N/A DETECTED A (Not Detect) Streptococcus sp PCR Not Detected Not Detected (Not Detect) Group A Strep DNA Not Detected Not Detected (Not Detect) Group B Strep (PCR) Not Detected Not Detected (Not Detect) Strep pneumoniae (PCR) Not Detected Not Detected (Not Detect) P. aeruginosa (PCR) Not Detected Not Detected (Not Detect) Tan/B-Vanco Res Genes N/A Not Detected (Not Detect) KPC (blaKPC) Detect PCR N/A Not Detected (Not Detect) 09/22/17 Range/Units 12:21 Urine Color Yellow (Yellow) Urine Clarity Turbid A (Clear) Urine pH 6.5 (5.0-8.0) pH Units Ur Specific Randolph 1.008 L (1.010-1.025) Urine Protein 30 H (Neg-Trace) mg/dL Urine Glucose (UA) Normal (Normal) mg/dL Urine Ketones Negative (Negative) mg/dL Urine Blood Moderate H (Negative) Urine Nitrite Positive A (Negative) Urine Bilirubin Negative (Negative) Urine Urobilinogen Normal (Normal) mg/dL Ur Leukocyte Esterase Large H (Negative) Urine Microscopic RBC 5-15 H (0-3) per hpf Urine Microscopic WBC TNTC H (0-3) per hpf Ur Squamous Epith Cells Moderate H (None-Few) per lpf Urine Bacteria Moderate H (None-Few) per hpf Hyaline Casts Few (None-Few) per lpf Ur Culture Indicated? YES A (NO) A. baumannii (PCR) (Not Detect) Chlamy pneumoniae PCR (Not Detect) Adenovirus (PCR) (Not Detect) B. pertussis DNA (PCR) (Not Detect) B.parapertussis DNA PCR (Not Detect) Jacquie albicans (PCR) (Not Detect) C. glabrata (PCR) (Not Detect) C. krusei (PCR) (Not Detect) C. parapsilosis (PCR) (Not Detect) C. tropicalis (PCR) (Not Detect) Coronavirus OC43 (PCR) (Not Detect) Coronavirus HKU1 (PCR) (Not Detect) Coronavirus 229E (PCR) (Not Detect) Coronavirus NL63 (PCR) (Not Detect) Enterobacteriac sp PCR (Not Detect) E. cloacae complex PCR (Not Detect) Enterococcus sp PCR (Not Detect) E. coli (PCR) (Not Detect) H. influenzae (PCR) (Not Detect) Human Metapneumovir PCR (Not Detect) Influenza A (H1) PCR (Not Detect) Influ A (H1N1/09) PCR (Not Detect) Influenza A (H3) PCR (Not Detect) Influenza A Untype (PCR) (Not Detect) Influenza Type B (PCR) (Not Detect) Klebsiella oxytoca PCR (Not Detect) Klebsiella pneumoniae (Not Detect) List. monocytogenes PCR (Not Detect) M.pneumoniae DNA (PCR) (Not Detect) N. meningitidis (PCR) (Not Detect) Parainfluenza 1 (PCR) (Not Detect) Parainfluenza 2 (PCR) (Not Detect) Parainfluenza 3 (PCR) (Not Detect) Parainfluenza 4 (PCR) (Not Detect) Proteus species (PCR) (Not Detect) RSV (PCR) (Not Detect) Entero/Rhino (PCR) (Not Detect) Serratia marcescens PCR (Not Detect) Staphylococcus sp PCR (Not Detect) Staph aureus (PCR) (Not Detect) mecA-Methicil Res Gene (Not Detect) Streptococcus sp PCR (Not Detect) Group A Strep DNA (Not Detect) Group B Strep (PCR) (Not Detect) Strep pneumoniae (PCR) (Not Detect) P. aeruginosa (PCR) (Not Detect) Tan/B-Vanco Res Genes (Not Detect) KPC (blaKPC) Detect PCR (Not Detect) Exam - Constitutional Vitals: Temp Pulse Resp BP Pulse Ox 98.6 F 96 20 92/63 98 09/24/17 07:30 09/24/17 13:00 09/24/17 13:00 09/24/17 13:00 09/24/17 13:00 General appearance: average body habitus, cooperative, no acute distress - Head Head exam: Present: atraumatic, normal inspection, normocephalic - Eye Eye exam: Present: EOMI, normal appearance, PERRL Pupils: Present: normal accommodation - ENT ENT exam: Present: mucous membranes moist - Neck Neck exam: Present: normal inspection - Respiratory Respiratory exam: Present: CTAB. Absent: rales, respiratory distress, rhonchi, wheezes - Cardiovascular Cardiovascular exam: Present: RRR, +S1, +S2 - GI/Abdominal GI/Abdominal exam: Present: normal bowel sounds, soft. Absent: distended, tenderness Additional comments: SPT draining clear yellow urine. - Extremities Exam Extremities exam: Absent: joint swelling, pedal edema, tenderness Additional comments: Bilateral AKA stumps noted without erythema, warmth, or open lesions. BUE paralysis noted. - Neurological Exam Neurological exam: Present: alert, oriented X3. Absent: no focal deficits ( Paralysis noted to the BUE and BLE.) - Psychiatric Psychiatric exam: Present: normal affect, normal mood - Skin Skin exam: Present: dry, intact, normal color, warm Consult Discharge Plan - Plan Referrals: Mauricio Melendrez MD [Primary Care Provider] - - Attending Attestation I examined this patient and my medical decision-making was reviewed with the Resident Physician. I agree with the documented findings, disposition and treatment plan as described except to the extent set forth below.
[2017-09-24] MEDS ORDERED: Silver Sulfadiazine 50 GM TUBE TP SCH (15:30)
[2017-09-24] MEDS ORDERED: Ertapenem 1,000 MG in 0.9 % Sodium Chloride Mini Bag 100 ML IVPB SCH (16:00)
[2017-09-24] MEDS: Fluconazole 400 MG/200 ML 400 MG/200 ML BAG IVPB SCH ×2 (16:15→19:09)
[2017-09-24] MEDS: *HR* Heparin 5,000 UNIT/ML VIAL SQ SCH (18:13)
[2017-09-24] MEDS: Norepinephrine 4 MG in D5% in Water 250 ML IVC SCH (19:09)
[2017-09-25] MEDS: diazePAM 5 MG TABLET PO PRN (00:04)
[2017-09-25] MEDS: tiZANidine 4 MG TABLET PO SCH ×2 (00:04→12:32)
[2017-09-25] MEDS: *HR* HYDROmorphone 2 MG TABLET PO PRN (00:04)
[2017-09-25] MEDS: Baclofen 10 MG TABLET PO PRN ×2 (00:04→12:38)
[2017-09-25] MEDS: *HR* Heparin 5,000 UNIT/ML VIAL SQ SCH ×2 (05:06→16:55)
[2017-09-25] MEDS: Ringers Solution, Lactated 1,000 ML IVC SCH ×3 (05:08→20:59)
[2017-09-25 05:12] LABS: Basophils % 0.6 %; Eosinophils # 0.5 K/mcL (0.0-0.6); Eosinophils % 7.2 %; Hematocrit 29.9 % (37.5-50.1); Hemoglobin 9.5 g/dL (12.9-16.9); Immature Granulocytes % 0.1 % (0-4); Lymphocytes # 2.3 K/mcL (0.6-4.6); Lymphocytes % 34.7 %; Mean Corpuscular HGB Conc 31.8 g/dL (31.6-35.5); Mean Corpuscular Volume 88.2 fL (83.0-100.0); Mean Platelet Volume 9.1 fL (9.4-12.4); Monocytes # 0.6 K/mcL (0.0-1.3); Monocytes % 8.5 %; Neutrophils # 3.3 K/mcL (1.6-8.9); Platelet Count 191 K/mcL (140-400); Red Blood Count 3.39 M/mcL (4.19-5.50); Red Cell Distribution Width 15.9 % (11.5-14.5); Segmented Neutrophils % 48.9 %
[2017-09-25 05:36] LABS: BUN/Creatinine Ratio 16 (6-26); Blood Urea Nitrogen 6 mg/dL (6-20); Calcium 8.1 mg/dL (8.6-10.3); Carbon Dioxide 26 mEq/L (23-29); Chloride 108 mEq/L (98-107); Glucose 83 mg/dL (70-105); Osmolality,Calculated 285 (280-300); Potassium 3.7 mEq/L (3.5-5.1); Sodium 139 mEq/L (136-145); eGFR For African Americans > 60 (> 60); eGFR For Non-African Americans > 60 (> 60)
--- NOTE | 2017-09-25 08:23 | Urology Progress Note ---
Date of Encounter: 09/25/17 Time of Encounter: 08:22 - Assessment and Plan (1) Left ureteral stone Current Visit: Yes Status: Acute Assessment and plan: At this time the patient still continues to put out good urine as well as having stable serum creatinine. We will continue to follow along at this time. Progress Note Narrative: Francisco is a 42-year-old male. Patient did well overnight. No change in symptoms at this time. Patient still with good urine output overnight. Serum creatinine stable. Objective Initial Vital Signs Temp Pulse Resp BP Pulse Ox 98 F 102 22 97/52 93 09/21/17 19:31 09/21/17 19:31 09/21/17 19:31 09/21/17 19:31 09/21/17 19:31 - General physical appearance Present: well developed, well nourished - Respiratory Present: normal expansion, normal respiratory effort - Abdomen Present: soft - Genitourinary Present: other (clear urine. ) - Labs 09/25/17 05:00 09/25/17 05:00 Diabetes panel 09/25/17 Range/Units 05:00 Sodium 139 (136-145) mEq/L Potassium 3.7 (3.5-5.1) mEq/L Chloride 108 H (98-107) mEq/L Carbon Dioxide 26 (23-29) mEq/L BUN 6 (6-20) mg/dL Creatinine 0.37 L (0.70-1.30) mg/dL Glucose 83 (70-105) mg/dL Calcium 8.1 L (8.6-10.3) mg/dL Calcium panel 09/25/17 Range/Units 05:00 Calcium 8.1 L (8.6-10.3) mg/dL Pituitary panel 09/25/17 Range/Units 05:00 Sodium 139 (136-145) mEq/L Potassium 3.7 (3.5-5.1) mEq/L Chloride 108 H (98-107) mEq/L Carbon Dioxide 26 (23-29) mEq/L BUN 6 (6-20) mg/dL Creatinine 0.37 L (0.70-1.30) mg/dL Glucose 83 (70-105) mg/dL Calcium 8.1 L (8.6-10.3) mg/dL Adrenal panel 09/25/17 Range/Units 05:00 Sodium 139 (136-145) mEq/L Potassium 3.7 (3.5-5.1) mEq/L Chloride 108 H (98-107) mEq/L Carbon Dioxide 26 (23-29) mEq/L BUN 6 (6-20) mg/dL Creatinine 0.37 L (0.70-1.30) mg/dL Glucose 83 (70-105) mg/dL Calcium 8.1 L (8.6-10.3) mg/dL - VTE Reasons for not Prescribing Prophylaxis: Refused by parent Consult Discharge Plan - Plan Referrals: Mauricio Melendrez MD [Primary Care Provider] -
[2017-09-25] MEDS ORDERED: Fluconazole 400 MG/200 ML 400 MG/200 ML BAG IVPB SCH ×2 (09:00)
[2017-09-25] MEDS: Ertapenem 1,000 MG in 0.9 % Sodium Chloride Mini Bag 100 ML IVPB SCH (09:06)
--- NOTE | 2017-09-25 09:33 | Electrocardiograph Report ---
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
[2017-09-25] MEDS: Sennosides 8.6 MG TABLET PO SCH (12:03)
[2017-09-25] MEDS: Ascorbic Acid 500 MG TABLET PO SCH (12:31)
[2017-09-25] MEDS: Mirtazapine 15 MG TABLET PO SCH (12:32)
[2017-09-25] MEDS: Multivit/Ca/Min/Fe/FA 1 TAB TABLET PO SCH (12:32)
[2017-09-26] MEDS: Sennosides 8.6 MG TABLET PO SCH ×2 (01:00→13:08)
[2017-09-26] MEDS: tiZANidine 4 MG TABLET PO SCH ×2 (01:00→13:08)
[2017-09-26] MEDS: Baclofen 10 MG TABLET PO PRN (01:01)
[2017-09-26] MEDS: diazePAM 5 MG TABLET PO PRN (01:01)
[2017-09-26] MEDS: *HR* HYDROmorphone 2 MG TABLET PO PRN (01:11)
[2017-09-26 07:27] LABS: BUN/Creatinine Ratio 11 (6-26); Blood Urea Nitrogen 5 mg/dL (6-20); Calcium 8.8 mg/dL (8.6-10.3); Carbon Dioxide 24 mEq/L (23-29); Chloride 104 mEq/L (98-107); Glucose 72 mg/dL (70-105); Osmolality,Calculated 274 (280-300); Potassium 4.6 mEq/L (3.5-5.1); Sodium 134 mEq/L (136-145); eGFR For African Americans > 60 (> 60); eGFR For Non-African Americans > 60 (> 60)
[2017-09-26] MEDS: *HR* Heparin 5,000 UNIT/ML VIAL SQ SCH ×2 (07:46→18:00)
[2017-09-26 08:44] LABS: Hematocrit 31.8 % (37.5-50.1); Immature Platelets 2.4 % (1.1-6.1); Mean Corpuscular HGB Conc 31.8 g/dL (31.6-35.5); Mean Corpuscular Hemoglobin 28.1 pg (28.0-33.3); Mean Corpuscular Volume 88.6 fL (83.0-100.0); Mean Platelet Volume 9.2 fL (9.4-12.4); Red Blood Count 3.59 M/mcL (4.19-5.50); Red Cell Distribution Width 15.8 % (11.5-14.5)
[2017-09-26 08:45] LABS: Hemoglobin 10.1 g/dL (12.9-16.9)
[2017-09-26] MEDS ORDERED: Fluconazole 400 MG/200 ML 400 MG/200 ML BAG IVPB SCH (09:00)
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
[2017-09-26] MEDS: Silver Sulfadiazine 50 GM TUBE TP SCH ×2 (10:08→18:38)
[2017-09-26] MEDS: Ertapenem 1,000 MG in 0.9 % Sodium Chloride Mini Bag 100 ML IVPB SCH (10:21)
[2017-09-26] MEDS: Fluconazole 400 MG/200 ML 400 MG/200 ML BAG IVPB SCH (10:22)
[2017-09-26] MEDS: Mirtazapine 15 MG TABLET PO SCH (13:08)
[2017-09-26] MEDS: Ascorbic Acid 500 MG TABLET PO SCH (13:08)
[2017-09-26] MEDS: Multivit/Ca/Min/Fe/FA 1 TAB TABLET PO SCH (13:09)
[2017-09-27] MEDS: tiZANidine 4 MG TABLET PO SCH ×2 (01:41→12:03)
[2017-09-27] MEDS: Sennosides 8.6 MG TABLET PO SCH ×2 (01:41→12:02)
[2017-09-27] MEDS: Baclofen 10 MG TABLET PO PRN (02:41)
[2017-09-27] MEDS: diazePAM 5 MG TABLET PO PRN ×2 (03:22→12:03)
[2017-09-27] MEDS: *HR* HYDROmorphone 2 MG TABLET PO PRN ×2 (03:22→10:08)
[2017-09-27] MEDS: *HR* Heparin 5,000 UNIT/ML VIAL SQ SCH ×2 (09:19→17:58)
[2017-09-27] MEDS: Ertapenem 1,000 MG in 0.9 % Sodium Chloride Mini Bag 100 ML IVPB SCH (10:07)
[2017-09-27] MEDS: Fluconazole 400 MG/200 ML 400 MG/200 ML BAG IVPB SCH (10:08)
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
[2017-09-27] MEDS: Multivit/Ca/Min/Fe/FA 1 TAB TABLET PO SCH (12:02)
[2017-09-27] MEDS: Ascorbic Acid 500 MG TABLET PO SCH (12:02)
[2017-09-27] MEDS: Mirtazapine 15 MG TABLET PO SCH (12:02)
[2017-09-27] MEDS ORDERED: Vancomycin 500 MG in 0.9 % Sodium Chloride 250 ML IVPB SCH (13:00)
[2017-09-27] MEDS: Vancomycin 500 MG in 0.9 % Sodium Chloride 250 ML IVPB SCH (13:31)
[2017-09-28] MEDS: Baclofen 10 MG TABLET PO PRN (00:49)
[2017-09-28] MEDS: diazePAM 5 MG TABLET PO PRN (00:49)
[2017-09-28] MEDS: tiZANidine 4 MG TABLET PO SCH ×3 (00:49→22:09)
[2017-09-28] MEDS: Sennosides 8.6 MG TABLET PO SCH ×4 (00:49→22:09)
[2017-09-28] MEDS: *HR* HYDROmorphone 2 MG TABLET PO PRN (02:25)
[2017-09-28] MEDS: Vancomycin 500 MG in 0.9 % Sodium Chloride 250 ML IVPB SCH (03:05)
[2017-09-28] MEDS ORDERED: Aminoglycoside Consult 1 EACH MC ONE (08:14)
--- NOTE | 2017-09-28 11:10 | Infectious Disease Progress No ---
Date of Encounter: 09/28/17 Time of Encounter: 11:08 - Assessment and Plan (1) Candidemia Current Visit: Yes Status: Acute Causative organism unclear. Blood culture from the the CVC is positive 1/2 sets for C. parapsilosis, but the PCR did not pick anything up. Repeat culture 1/1 set drawn 09/24/17 from the CVC is positive for C. parapsilosis. Blood culture drawn peripherally 1/1 set on 09/24/17 is NGTD. Additional sets of cultures were cancelled by the lab staff so only 1 set from the line and from the peripheral stick were drawn. Will ask micro to run a PCR on the most recent positive culture specimen. Given that the patient has had two sets of cultures come back positive from the CVC, this is likely a true infection. Recommend removal of the patient's CVC. The patient has refused this to nursing staff, but is at high risk for seeding of the line. I discussed this with him again this morning. He is agreeable to have line removed, but refuses peripheral access and is agreeable to CVC removal only if he can have another one put in. I advised him that the best thing would be to removed the CVC, wait until we get repeat cultures that are negative, and then put a new central line back in, but he refuses this approach. Repeat blood cultures x 2 sets from the CVC and peripherally now. Discussed with nursing staff. Continue fluconazole 400mg IV daily. Duration of treatment depends on the clinical picture, but likely 14 days from the first set of negative blood cultures. Opthalmology to evaluate. Monitor renal and liver function studies and dose-adjust antibiotics. (2) Bacteremia Current Visit: Yes Status: Acute True bacteremia vs. contaminant. Peripheral blood cultures drawn 09/22/17 are negative x 2 sets. CVC blood cultures drawn 09/22/17 are positive 1/2 sets for S. epi. Repeat cultures negative for S. epi. Given the clinical picture, not sure that this is a true infection. Likely a contaminant. Recommend the line be removed as stated above. Discontinue Vancomycin. (3) UTI (urinary tract infection) due to urinary indwelling Souza catheter Current Visit: No Status: Acute Causative organism E. coli ESBL. Asymptomatic bacteriuria vs. true UTI. Not sure that this is the source of the patient's sepsis since it is Aztreonam resistant and clinically he is improved. Urinalysis positive for nitrites, moderate bacteria, and TNTC WBC; also a moderate amount of epithelial cells. The patient has a history of recurrent UTI/asymptomatic bacteriuria. His quadriplegia limits his ability to know if he has urinary symptoms. Urology consulted. Status post SPT replacement. The SPT is leaking. Recommend urology to re-evaluate. Continue Ertapenem 1 gram IV daily (day 5). Duration of treatment depends on the clinical picture. Monitor renal function and dose-adjust antibiotics. Qualifiers: Indwelling urinary catheter type: cystostomy catheter Encounter type: subsequent encounter Qualified Code(s): T83.510D - Infection and inflammatory reaction due to cystostomy catheter, subsequent encounter; N39.0 - Urinary tract infection, site not specified (4) Hydronephrosis Current Visit: Yes Status: Acute CT abdomen and pelvis shows mild left hydronephrosis. Likely secondary to 55mm stone. Urology consulted and following. Since the patient is making adequate urine, PNT placement on hold. Qualifiers: Hydronephrosis type: with ureteral calculous obstruction Qualified Code(s) : N13.2 - Hydronephrosis with renal and ureteral calculous obstruction (5) Urolithiasis Current Visit: No Status: Acute Qualifiers: Urinary calculus location: kidney Qualified Code(s): N20.0 - Calculus of kidney (6) Pancolitis Current Visit: Yes Status: Acute CT abdomen and pelvis showed nonspecific pancolitis. GI consulted. Recommended colonoscopy for the patient's GI bleed, but he refused. Please re-contact GI and make them aware of CT results. Continue Ertapenem as above (day 5). Await further recommendations from GI team. (7) GI bleed Current Visit: Yes Status: Acute Etiology unclear. Hemoglobin stable. GI consulted. Patient refuses colonoscopy. Management per the primary and GI teams. Qualifiers: GI bleed type/associated pathology: unspecified gastrointestinal hemorrhage type Qualified Code(s): K92.2 - Gastrointestinal hemorrhage, unspecified (8) Quadriplegia Current Visit: Yes Status: Chronic (9) Chronic pain Current Visit: No Status: Chronic Qualifiers: Chronic pain type: other chronic pain Qualified Code(s): G89.29 - Other chronic pain (10) Neurogenic bladder Current Visit: No Status: Chronic Chronic SPT. (11) Decubitus ulcer of right ischium, stage 2 Current Visit: Yes Status: Acute Stage II. No drainage, warmth, erythema, or fluctuance. Refuses exam today. Recommend aggressive offloading and wound care. Patient non-compliant with turning per nursing. Consult wound care team. (12) Decubitus ulcer of left ischium, stage 2 Current Visit: Yes Status: Acute Stage II. No drainage, warmth, erythema, or fluctuance. Refuses exam today. Recommend aggressive offloading and wound care. Patient non-compliant with turning per nursing. Consult wound care team. - Subjective Interval history: Patient seen and examined. Weekend notes reviewed. No acute events noted overnight. Patient resting quietly in bed playing on electronic device. Denies fevers, chills, or rigors. Denies chest pain, shortness of breath or cough. Denies nausea, vomiting or diarrhea. States his appetite is very good. Denies abdominal pain or other complaints at this time. States his SPT has been leaking. I discussed the need to remove his central line and he is agreeable if they can put another one in, but he refuses to have a PICC line put in and states they always go bad and do not last. Infect Dis PN-Objective Data - Labs CBC & Chem 7: 09/29/17 06:32 09/29/17 06:32 Labs: Laboratory Results - last 24 hr 09/27/17 11:24 Vancomycin Trough 21.7 H* Cultures: Cultures 09/25/17 00:18 Blood Culture - Final Central Venous Catheter Jacquie parapsilosis 09/24/17 16:51 Blood Culture - Preliminary Peripheral Venipuncture No growth. Exam - Constitutional Vitals: Temp Pulse Resp BP Pulse Ox 97.8 F 84 14 98/57 95 09/28/17 06:30 09/28/17 06:30 09/28/17 06:30 09/28/17 06:30 09/28/17 06:30 General appearance: average body habitus, cooperative, no acute distress - Head Head exam: Present: atraumatic, normal inspection, normocephalic - Eye Eye exam: Present: EOMI, normal appearance, PERRL Pupils: Present: normal accommodation - ENT ENT exam: Present: mucous membranes moist - Neck Neck exam: Present: normal inspection - Respiratory Respiratory exam: Present: CTAB. Absent: rales, respiratory distress, rhonchi, wheezes - Cardiovascular Cardiovascular exam: Present: RRR, +S1, +S2 - GI/Abdominal GI/Abdominal exam: Present: normal bowel sounds, soft. Absent: distended, tenderness Additional comments: SPT draining clear yellow urine. Towel overlying the patient's SPT soaked with urine and urine noted to be leaking out from around the SPT. - Extremities Exam Extremities exam: Absent: joint swelling, pedal edema, tenderness Additional comments: Bilateral AKA stumps noted without redness, warmth, erythema, or open sores. Bilateral upper extremities with muscle atrophy and bilateral hand contractures. - Back Exam Additional comments: Patient refuses to turn. - Neurological Exam Neurological exam: Present: alert, oriented X3. Absent: no focal deficits ( Paralysis noted to the BUE and BLE.) - Psychiatric Psychiatric exam: Present: normal affect, normal mood - Skin Skin exam: Present: dry, intact, normal color, warm - VTE Reasons for not Prescribing Prophylaxis: Refused by parent Consult Discharge Plan - Plan Referrals: Mauricio Melendrez MD [Primary Care Provider] - - Attending Attestation I examined this patient and my medical decision-making was reviewed with the Resident Physician. I agree with the documented findings, disposition and treatment plan as described except to the extent set forth below.
[2017-09-28] MEDS: Fluconazole 400 MG/200 ML 400 MG/200 ML BAG IVPB SCH (11:22)
[2017-09-28] MEDS: Ertapenem 1,000 MG in 0.9 % Sodium Chloride Mini Bag 100 ML IVPB SCH ×2 (11:23→23:55)
[2017-09-28] MEDS: Multivit/Ca/Min/Fe/FA 1 TAB TABLET PO SCH (11:24)
[2017-09-28] MEDS: Mirtazapine 15 MG TABLET PO SCH (11:24)
[2017-09-28] MEDS: Ascorbic Acid 500 MG TABLET PO SCH (11:25)
[2017-09-28] MEDS: Silver Sulfadiazine 50 GM TUBE TP SCH ×3 (11:26→23:54)
[2017-09-28] MEDS: *HR* Heparin 5,000 UNIT/ML VIAL SQ SCH ×2 (11:26→19:52)
[2017-09-28 11:29] LABS: Basophils # 0.1 K/mcL (0.0-0.2); Basophils % 0.6 %; Eosinophils # 0.5 K/mcL (0.0-0.6); Eosinophils % 3.7 %; Hemoglobin 11.2 g/dL (12.9-16.9); Immature Granulocytes % 0.5 % (0-4); Lymphocytes # 2.6 K/mcL (0.6-4.6); Lymphocytes % 19.4 %; Mean Corpuscular HGB Conc 31.1 g/dL (31.6-35.5); Mean Corpuscular Hemoglobin 27.7 pg (28.0-33.3); Mean Corpuscular Volume 89.1 fL (83.0-100.0); Mean Platelet Volume 8.8 fL (9.4-12.4); Monocytes # 1.2 K/mcL (0.0-1.3); Monocytes % 9.3 %; Neutrophils # 8.8 K/mcL (1.6-8.9); Nucleated Red Blood Cells 0.2 /100 WBC (0); Platelet Count 314 K/mcL (140-400); Red Blood Count 4.04 M/mcL (4.19-5.50); Red Cell Distribution Width 15.9 % (11.5-14.5); Segmented Neutrophils % 66.5 %
[2017-09-28 11:44] LABS: BUN/Creatinine Ratio 16 (6-26); Blood Urea Nitrogen 9 mg/dL (6-20); Calcium 8.9 mg/dL (8.6-10.3); Carbon Dioxide 31 mEq/L (23-29); Chloride 99 mEq/L (98-107); Glucose 94 mg/dL (70-105); Osmolality,Calculated 280 (280-300); Potassium 3.7 mEq/L (3.5-5.1); Sodium 136 mEq/L (136-145); eGFR For African Americans > 60 (> 60); eGFR For Non-African Americans > 60 (> 60)
[2017-09-28] MEDS ORDERED: Vancomycin 500 MG in 0.9 % Sodium Chloride Mini Bag 100 ML IVPB SCH (13:00)
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
[2017-09-29] MEDS: diazePAM 5 MG TABLET PO PRN (00:12)
[2017-09-29] MEDS: *HR* Heparin 5,000 UNIT/ML VIAL SQ SCH ×2 (04:27→19:15)
[2017-09-29 05:13] LABS: Acinetobacter baumannii by PCR Not Detected (Not Detect); Candida albicans by PCR Not Detected (Not Detect); Candida glabrata by PCR Not Detected (Not Detect); Candida krusei by PCR Not Detected (Not Detect); Candida parapsilosis by PCR Not Detected (Not Detect); Candida tropicalis by PCR Not Detected (Not Detect); Enterococcus by PCR Not Detected (Not Detect); Escherichia coli by PCR Not Detected (Not Detect); Klebsiella oxytoca by PCR Not Detected (Not Detect); Klebsiella pneumoniae by PCR Not Detected (Not Detect); Pseudomonas aeruginosa by PCR Not Detected (Not Detect); Serratia marcescens by PCR Not Detected (Not Detect); Staphylococcus aureus by PCR Not Detected (Not Detect); Streptococcus agalactiae(B)PCR Not Detected (Not Detect); Streptococcus by PCR Not Detected (Not Detect); Streptococcus pneumoniae PCR Not Detected (Not Detect); Streptococcus pyogenes (A) PCR Not Detected (Not Detect)
--- NOTE | 2017-09-29 06:40 | Urology Progress Note ---
Date of Encounter: 09/28/17 Time of Encounter: 16:30 - Assessment and Plan (1) Neurogenic bladder Current Visit: No Status: Chronic Assessment and plan: 42 year old man with an SP tube. 1. If available, an ostomy appliance applied around the SP tube and SP tube site on the skin may collect urine leaking around the tube. The SP tube would need to be placed in the ostomy appliance. It would be preferable to have a urostomy appliance with a drainage tube/bag attached to track his output. Progress Note Narrative: Doing well. RN has noted urine leaking around SP tube. Objective Initial Vital Signs Temp Pulse Resp BP Pulse Ox 98 F 102 22 97/52 93 09/21/17 19:31 09/21/17 19:31 09/21/17 19:31 09/21/17 19:31 09/21/17 19:31 - General physical appearance Present: no distress - Abdomen Present: soft (SP tube in place. Bladder is very close to skin and balloon is visible. Urine in Souza tubing is clear with some urine leaking around the SP tube.) - Labs 09/28/17 10:40 09/28/17 10:40 Diabetes panel 09/28/17 Range/Units 10:40 Sodium 136 (136-145) mEq/L Potassium 3.7 (3.5-5.1) mEq/L Chloride 99 (98-107) mEq/L Carbon Dioxide 31 H (23-29) mEq/L BUN 9 (6-20) mg/dL Creatinine 0.58 L (0.70-1.30) mg/dL Glucose 94 (70-105) mg/dL Calcium 8.9 (8.6-10.3) mg/dL Calcium panel 09/28/17 Range/Units 10:40 Calcium 8.9 (8.6-10.3) mg/dL Pituitary panel 09/28/17 Range/Units 10:40 Sodium 136 (136-145) mEq/L Potassium 3.7 (3.5-5.1) mEq/L Chloride 99 (98-107) mEq/L Carbon Dioxide 31 H (23-29) mEq/L BUN 9 (6-20) mg/dL Creatinine 0.58 L (0.70-1.30) mg/dL Glucose 94 (70-105) mg/dL Calcium 8.9 (8.6-10.3) mg/dL Adrenal panel 09/28/17 Range/Units 10:40 Sodium 136 (136-145) mEq/L Potassium 3.7 (3.5-5.1) mEq/L Chloride 99 (98-107) mEq/L Carbon Dioxide 31 H (23-29) mEq/L BUN 9 (6-20) mg/dL Creatinine 0.58 L (0.70-1.30) mg/dL Glucose 94 (70-105) mg/dL Calcium 8.9 (8.6-10.3) mg/dL - VTE Reasons for not Prescribing Prophylaxis: Refused by parent Consult Discharge Plan - Plan Referrals: Mauricio Melendrez MD [Primary Care Provider] -
[2017-09-29 06:55] LABS: Basophils # 0.1 K/mcL (0.0-0.2); Basophils % 0.9 %; Eosinophils # 0.5 K/mcL (0.0-0.6); Eosinophils % 4.6 %; Hematocrit 36.4 % (37.5-50.1); Hemoglobin 11.2 g/dL (12.9-16.9); Immature Granulocytes % 0.5 % (0-4); Lymphocytes # 2.3 K/mcL (0.6-4.6); Lymphocytes % 22.8 %; Mean Corpuscular HGB Conc 30.8 g/dL (31.6-35.5); Mean Corpuscular Hemoglobin 27.4 pg (28.0-33.3); Mean Platelet Volume 8.4 fL (9.4-12.4); Monocytes % 10.1 %; Neutrophils # 6.2 K/mcL (1.6-8.9); Nucleated Red Blood Cells 0.2 /100 WBC (0); Platelet Count 311 K/mcL (140-400); Red Blood Count 4.09 M/mcL (4.19-5.50); Red Cell Distribution Width 15.8 % (11.5-14.5); Segmented Neutrophils % 61.1 %
[2017-09-29 07:16] LABS: BUN/Creatinine Ratio 17 (6-26); Blood Urea Nitrogen 9 mg/dL (6-20); Calcium 8.5 mg/dL (8.6-10.3); Carbon Dioxide 26 mEq/L (23-29); Chloride 99 mEq/L (98-107); Glucose 69 mg/dL (70-105); Magnesium 1.9 mg/dL (1.6-2.6); Osmolality,Calculated 277 (280-300); Potassium 3.7 mEq/L (3.5-5.1); Sodium 135 mEq/L (136-145); eGFR For African Americans > 60 (> 60); eGFR For Non-African Americans > 60 (> 60)
[2017-09-29] MEDS ORDERED: Heparin 1,000 UNITS/500 mL 500 ML ONE (11:03)
--- NOTE | 2017-09-29 11:49 | Infectious Disease Progress No ---
Date of Encounter: 09/29/17 Time of Encounter: 11:43 - Assessment and Plan (1) Sepsis Current Visit: No Status: Resolved The patient had two SIRS criteria. He developed hypotension and required a short course of vaospressors. He had a low-grade fever yesterday morning. Source likely candidemia. Blood cultures drawn 09/22/17 x 2 sets peripherally are negative. Blood cultures drawn 09/22/17 x 2 sets from the central line are positive 1/2 sets for Staph epi and 1/2 for C. parapsilosis. Repeat peripheral blood culture drawn 09/24/17 is NGTD 1/1 sets. Repeat CVC blood cultures drawn 09/24/17 are positive 1/1 set for C. parapsilosis. Additional peripheral and CVC cultures drawn 09/28/17 are pending x 2 sets. RIP negative. Lactic acid normal. Qualifiers: Sepsis type: sepsis due to unspecified organism Qualified Code(s): A41.9 - Sepsis, unspecified organism (2) Candidemia Current Visit: Yes Status: Acute Causative organism unclear. Blood culture from the the CVC is positive 1/2 sets for C. parapsilosis, but the PCR did not pick anything up. Repeat culture 1/1 set drawn 09/24/17 from the CVC is positive for C. parapsilosis. Blood culture drawn peripherally 1/1 set on 09/24/17 is NGTD. Additional sets of cultures were cancelled by the lab staff so only 1 set from the line and from the peripheral stick were drawn. Additional peripheral and CVC cultures drawn 09/28/17 are pending x 2 sets. Given that the patient has had two sets of cultures come back positive from the CVC, this is likely a true infection. Recommend removal of the patient's CVC. Spoke with Dr. Pate this morning and he reports concern that if we remove the left upper chest CVC, they may have difficulty obtaining access on the right based on previous attempts. He recommends guidewire exchange. Status post guidewire exchange this morning. Continue fluconazole 400mg IV daily. Duration of treatment depends on the clinical picture, but likely 14 days from the first set of negative blood cultures. Opthalmology to evaluate. Will be done as an outpatient. Monitor renal and liver function studies and dose-adjust antibiotics. (3) Bacteremia Current Visit: Yes Status: Acute True bacteremia vs. contaminant. Peripheral blood cultures drawn 09/22/17 are negative x 2 sets. CVC blood cultures drawn 09/22/17 are positive 1/2 sets for S. epi. Repeat cultures negative for S. epi. Given the clinical picture, not sure that this is a true infection. Likely a contaminant. Recommend the line be removed as stated above. No further antibiotics at this time. (4) UTI (urinary tract infection) due to urinary indwelling Souza catheter Current Visit: No Status: Acute Causative organism E. coli ESBL. Asymptomatic bacteriuria vs. true UTI. Not sure that this is the source of the patient's sepsis since it is Aztreonam resistant and clinically he is improved. Urinalysis positive for nitrites, moderate bacteria, and TNTC WBC; also a moderate amount of epithelial cells. The patient has a history of recurrent UTI/asymptomatic bacteriuria. His quadriplegia limits his ability to know if he has urinary symptoms. Urology consulted. Status post SPT replacement. The SPT is leaking. Recommend urology to re-evaluate. Continue Ertapenem 1 gram IV daily (day 6). Duration of treatment depends on the clinical picture. Monitor renal function and dose-adjust antibiotics. Qualifiers: Indwelling urinary catheter type: cystostomy catheter Encounter type: subsequent encounter Qualified Code(s): T83.510D - Infection and inflammatory reaction due to cystostomy catheter, subsequent encounter; N39.0 - Urinary tract infection, site not specified (5) Hydronephrosis Current Visit: Yes Status: Acute CT abdomen and pelvis shows mild left hydronephrosis. Likely secondary to 55mm stone. Urology consulted and following. Since the patient is making adequate urine, PNT placement on hold. Qualifiers: Hydronephrosis type: with ureteral calculous obstruction Qualified Code(s) : N13.2 - Hydronephrosis with renal and ureteral calculous obstruction (6) Urolithiasis Current Visit: Yes Status: Acute Qualifiers: Urinary calculus location: kidney Qualified Code(s): N20.0 - Calculus of kidney (7) Pancolitis Current Visit: Yes Status: Acute CT abdomen and pelvis showed nonspecific pancolitis. GI consulted. Recommended colonoscopy for the patient's GI bleed, but he refused. Please re-contact GI and make them aware of CT results. Continue Ertapenem as above (day 6). Await further recommendations from GI team. (8) Altered mental status Current Visit: Yes Status: Resolved Medication-related vs. other. Appears resolved today. No meningeal signs. The patient is oriented x 3. Qualifiers: Altered mental status type: transient alteration of awareness Qualified Code(s): R40.4 - Transient alteration of awareness (9) GI bleed Current Visit: Yes Status: Acute Etiology unclear. Hemoglobin stable. Patient had dark stool last night. GI consulted. Awaiting additional recommendations given dark tarry stools. May need EGD. Patient refuses colonoscopy. Management per the primary and GI teams. Qualifiers: GI bleed type/associated pathology: unspecified gastrointestinal hemorrhage type Qualified Code(s): K92.2 - Gastrointestinal hemorrhage, unspecified (10) Quadriplegia Current Visit: Yes Status: Chronic (11) Chronic pain Current Visit: No Status: Chronic Qualifiers: Chronic pain type: other chronic pain Qualified Code(s): G89.29 - Other chronic pain (12) Neurogenic bladder Current Visit: No Status: Chronic Chronic SPT. (13) Decubitus ulcer of right ischium, stage 2 Current Visit: Yes Status: Acute Stage II. No drainage, warmth, erythema, or fluctuance. Refuses exam today. Recommend aggressive offloading and wound care. Patient non-compliant with turning per nursing. Consult wound care team. (14) Decubitus ulcer of left ischium, stage 2 Current Visit: Yes Status: Acute Stage II. No drainage, warmth, erythema, or fluctuance. Refuses exam today. Recommend aggressive offloading and wound care. Patient non-compliant with turning per nursing. Consult wound care team. - Subjective Interval history: Patient seen and examined. No acute events noted overnight. Status post over-the -guidewire exchange of left upper chest CVC. Patient resting quietly in bed playing on electronic device. Denies fevers, chills, or rigors. Denies chest pain, shortness of breath or cough. Denies nausea, vomiting or diarrhea. Had a BM last night. States his appetite is very good. Denies abdominal pain or other complaints at this time. His SPT has been leaking. Infect Dis PN-Objective Data - Labs CBC & Chem 7: 09/29/17 06:32 09/29/17 06:32 Labs: Laboratory Results - last 24 hr 09/25/17 09/28/17 09/29/17 00:18 10:40 06:32 WBC 10.1 RBC 4.09 L Hgb 11.2 L Hct 36.4 L MCV 89.0 MCH 27.4 L MCHC 30.8 L RDW 15.8 H Plt Count 311 MPV 8.4 L Immature Gran % 0.5 Seg Neutrophils % 61.1 Lymphocytes % 22.8 Monocytes % 10.1 Eosinophils % 4.6 Basophils % 0.9 Neutrophils # 6.2 Lymphocytes # 2.3 Monocytes # 1.0 Eosinophils # 0.5 Basophils # 0.1 Nucleated RBCs/100 WBC 0.2 H Sodium 136 Potassium 3.7 Chloride 99 Carbon Dioxide 31 H BUN 9 Creatinine 0.58 L Est GFR ( Amer) > 60 Est GFR (Non-Af Amer) > 60 BUN/Creatinine Ratio 16 Glucose 94 Calculated Osmolality 280 Calcium 8.9 Magnesium A. baumannii (PCR) Not Detected Jacquie albicans (PCR) Not Detected C. glabrata (PCR) Not Detected C. krusei (PCR) Not Detected C. parapsilosis (PCR) Not Detected C. tropicalis (PCR) Not Detected Enterobacteriac sp PCR Not Detected E. cloacae complex PCR Not Detected Enterococcus sp PCR Not Detected E. coli (PCR) Not Detected H. influenzae (PCR) Not Detected Klebsiella oxytoca PCR Not Detected Klebsiella pneumoniae Not Detected List. monocytogenes PCR Not Detected N. meningitidis (PCR) Not Detected Proteus species (PCR) Not Detected Serratia marcescens PCR Not Detected Staphylococcus sp PCR Not Detected Staph aureus (PCR) Not Detected mecA-Methicil Res Gene N/A Streptococcus sp PCR Not Detected Group A Strep DNA Not Detected Group B Strep (PCR) Not Detected Strep pneumoniae (PCR) Not Detected P. aeruginosa (PCR) Not Detected Tan/B-Vanco Res Genes N/A KPC (blaKPC) Detect PCR N/A 09/29/17 06:32 WBC RBC Hgb Hct MCV MCH MCHC RDW Plt Count MPV Immature Gran % Seg Neutrophils % Lymphocytes % Monocytes % Eosinophils % Basophils % Neutrophils # Lymphocytes # Monocytes # Eosinophils # Basophils # Nucleated RBCs/100 WBC Sodium 135 L Potassium 3.7 Chloride 99 Carbon Dioxide 26 BUN 9 Creatinine 0.54 L Est GFR ( Amer) > 60 Est GFR (Non-Af Amer) > 60 BUN/Creatinine Ratio 17 Glucose 69 L Calculated Osmolality 277 L Calcium 8.5 L Magnesium 1.9 A. baumannii (PCR) Jacquie albicans (PCR) C. glabrata (PCR) C. krusei (PCR) C. parapsilosis (PCR) C. tropicalis (PCR) Enterobacteriac sp PCR E. cloacae complex PCR Enterococcus sp PCR E. coli (PCR) H. influenzae (PCR) Klebsiella oxytoca PCR Klebsiella pneumoniae List. monocytogenes PCR N. meningitidis (PCR) Proteus species (PCR) Serratia marcescens PCR Staphylococcus sp PCR Staph aureus (PCR) mecA-Methicil Res Gene Streptococcus sp PCR Group A Strep DNA Group B Strep (PCR) Strep pneumoniae (PCR) P. aeruginosa (PCR) Tan/B-Vanco Res Genes KPC (blaKPC) Detect PCR Cultures: Cultures 09/25/17 00:18 Blood Culture - Preliminary Central Venous Catheter Jacquie parapsilosis 09/24/17 16:51 Blood Culture - Preliminary Peripheral Venipuncture No growth. Serology 09/25/17 Range/Units 00:18 A. baumannii (PCR) Not Detected (Not Detect) Jacquie albicans (PCR) Not Detected (Not Detect) C. glabrata (PCR) Not Detected (Not Detect) C. krusei (PCR) Not Detected (Not Detect) C. parapsilosis (PCR) Not Detected (Not Detect) C. tropicalis (PCR) Not Detected (Not Detect) Enterobacteriac sp PCR Not Detected (Not Detect) E. cloacae complex PCR Not Detected (Not Detect) Enterococcus sp PCR Not Detected (Not Detect) E. coli (PCR) Not Detected (Not Detect) H. influenzae (PCR) Not Detected (Not Detect) Klebsiella oxytoca PCR Not Detected (Not Detect) Klebsiella pneumoniae Not Detected (Not Detect) List. monocytogenes PCR Not Detected (Not Detect) N. meningitidis (PCR) Not Detected (Not Detect) Proteus species (PCR) Not Detected (Not Detect) Serratia marcescens PCR Not Detected (Not Detect) Staphylococcus sp PCR Not Detected (Not Detect) Staph aureus (PCR) Not Detected (Not Detect) mecA-Methicil Res Gene N/A (Not Detect) Streptococcus sp PCR Not Detected (Not Detect) Group A Strep DNA Not Detected (Not Detect) Group B Strep (PCR) Not Detected (Not Detect) Strep pneumoniae (PCR) Not Detected (Not Detect) P. aeruginosa (PCR) Not Detected (Not Detect) Tan/B-Vanco Res Genes N/A (Not Detect) KPC (blaKPC) Detect PCR N/A (Not Detect) Exam - Constitutional Vitals: Temp Pulse Resp BP Pulse Ox 98.3 F 114 20 116/78 94 09/29/17 08:47 09/29/17 08:47 09/29/17 08:47 09/29/17 08:47 09/29/17 08:47 General appearance: average body habitus, cooperative, no acute distress - Head Head exam: Present: atraumatic, normal inspection, normocephalic - Eye Eye exam: Present: EOMI, normal appearance, PERRL Pupils: Present: normal accommodation - ENT ENT exam: Present: mucous membranes moist - Neck Neck exam: Present: normal inspection - Respiratory Respiratory exam: Present: CTAB. Absent: rales, respiratory distress, rhonchi, wheezes - Cardiovascular Cardiovascular exam: Present: +S1, +S2, tachycardia. Absent: irregular rhythm - GI/Abdominal GI/Abdominal exam: Present: normal bowel sounds, soft. Absent: distended, tenderness Additional comments: SPT draining clear yellow urine. - Extremities Exam Extremities exam: Absent: joint swelling, pedal edema, tenderness Additional comments: Bilateral AKA stumps without redness, warmth, erythema, or open lesions. BUE muscle atrophy noted. - Neurological Exam Neurological exam: Present: alert, oriented X3. Absent: no focal deficits ( Paralysis noted to the BUE and BLE) - Psychiatric Psychiatric exam: Present: normal affect, normal mood - Skin Skin exam: Present: dry, intact, normal color, warm - Additional findings Additional findings: Tunneled CVC noted to the left upper chest. - VTE Reasons for not Prescribing Prophylaxis: Refused by parent Consult Discharge Plan - Plan Referrals: Mauricio Melendrez MD [Primary Care Provider] - - Attending Attestation I examined this patient and my medical decision-making was reviewed with the Resident Physician. I agree with the documented findings, disposition and treatment plan as described except to the extent set forth below.
--- NOTE | 2017-09-29 12:09 | Anesthesia Evaluation PreOp ---
Date of Encounter: 09/29/17 Time of Encounter: 12:07 - Past History Planned Operation: EGD Cardiac History: [place], HTN, Hyperlipidemia Pulmonary History: Former smoker CHAIR MENDER History: Other (quadriplegia) Other Medical History: Renal (kidney stones), Other (anxiety/depression, prior suicide attempt) Anesthesia History: No Prior Anesthetic Complications, Past Anesthesia Alcohol Use: occasionally Drug use: marijuana Medications and Allergies Promethazine [Phenergan] 25 mg PO 0000 03/23/15 [History] Ascorbic Acid [Vitamin C] 500 mg PO DAILY 05/23/15 [History] Bisacodyl [Dulcolax] 5 mg PO DAILY 05/23/15 [History] Lubiprostone [Amitiza] 24 mcg PO Q12HR 05/23/15 [History] Sennosides [Senna] 17.2 mg PO BID 05/23/15 [History] Acetaminophen [Tylenol] 650 mg PO Q6HR PRN 05/11/16 [History] Baclofen 60 mg PO BID 05/11/16 [History] GuaiFENesin ER [Mucinex] 600 mg PO DAILY 05/11/16 [History] Docusate [Colace] 100 mg PO BID 05/12/16 [History] Tizanidine HCl [Zanaflex] 12 mg PO BID 05/12/16 [History] Mirtazapine 7.5 mg PO DAILY 07/04/17 [History] 0.9 % Sodium Chloride [Normal Saline Flush] 10 ml IV DAILY 09/21/17 [History] Ferrous Gluconate 324 mg PO BID 09/21/17 [History] HYDROmorphone [Dilaudid] 2 mg PO 0000 09/21/17 [History] HYDROmorphone [Dilaudid] 2 mg PO Q4H PRN 09/21/17 [History] Omeprazole [PriLOSEC] 20 mg PO DAILY 09/21/17 [History] Promethazine [Phenergan] 25 mg PO Q6H PRN 09/21/17 [History] Vitamin B Complex/Minerals [Sm Stress Formula+Zinc Tablet] 1 each PO DAILY 09/21 [History] diazePAM [Valium] 5 mg PO 0000 09/21/17 [History] 3 Allergy/AdvReac Type Severity Reaction Status Date / Time Amoxicillin [From Amoxil] Allergy See Verified 09/21/17 22:01 Comments cephalexin [From Keflex] Allergy Hives Verified 07/04/17 06:12 ciprofloxacin [From Cipro] Allergy Hives Verified 07/04/17 06:12 cranberry Allergy See Verified 07/04/17 06:12 Comments ketorolac Allergy Hives Verified 07/04/17 06:12 morphine Allergy Hives Verified 07/04/17 06:12 nitrofurantoin Allergy Hives Verified 07/04/17 06:12 [From Macrobid] Oxycodone Allergy Hives Verified 07/04/17 06:12 Penicillins Allergy Hives Verified 07/04/17 06:12 prochlorperazine Allergy Hives Verified 07/04/17 06:12 [From Compazine] Sulfa (Sulfonamide Allergy Hives Verified 07/04/17 06:12 Antibiotics) trimethoprim Allergy See Verified 07/04/17 06:12 Comments - Meds/Allergy Pre-op Review Medications Reviewed: Yes Allergies Reviewed: Yes Beta Blockers on Current Med List: No Anesthesia Results - Labs 09/29/17 06:32 09/29/17 06:32 - Imaging EKG: report reviewed (09/21/2017 SINUS TACHYCARDIA POSSIBLE LEFT ATRIAL ENLARGEMENT) Additional studies: 10/05/2015 Echo Impressions: LVEF 65%. Grossly normal LV chamber size, wall thickness and function. Right ventricle was not well visualized. Grossly, it is normal in function. Unable to estimate RVSP due to lack of TR jet. Valves were not well visualized. This study is inadequate to evaluate for endocarditis. Consider KIRK if clinically indicated. Anesthesia Exam Vital Signs/O2 Sat/Glucose, Most Recent Temp Pulse Resp BP Pulse Ox 98.3 F 114 20 116/78 94 09/29/17 08:47 09/29/17 08:47 09/29/17 08:47 09/29/17 08:47 09/29/17 08:47 Blood Glucose* 147 Height: 3'6''/1.07 m Weight: 90 lbs/40.9 kg NPO (# of Hours): 8 Pain Scale: 0 Pain Scale Used: Numeric (1 - 10) - HEENT Pupil (Motor): EOMI Mallampati: II Teeth: Normal Oral Opening: Greater than 3 - CHAIR MENDER LOC: Oriented CHAIR MENDER Motor: Normal Face, Deficit RUE, Deficit LUE, Deficit RLE, Deficit LLE CHAIR MENDER Sensory: Normal: Face, Deficit: RUE, LUE, RLE, LLE - Cardiac Rhythm: Regular Murmur: None - Pulmonary Breath Sounds: bilateral Clear Respiratory Effort: Symmetrical Anesthesia Assess/Plan ASA Score: 3 Modified [place] Scale for Level of Consciousness: Cooperative, oriented, and tranquil Anesthetic Plan: MAC Monitoring Plan: Standard Monitors
[2017-09-29] MEDS: Mirtazapine 15 MG TABLET PO SCH (15:17)
[2017-09-29] MEDS: Sennosides 8.6 MG TABLET PO SCH ×2 (15:19→22:33)
[2017-09-29] MEDS: tiZANidine 4 MG TABLET PO SCH ×2 (15:19→22:33)
[2017-09-29] MEDS: Ascorbic Acid 500 MG TABLET PO SCH (15:19)
[2017-09-29] MEDS: Multivit/Ca/Min/Fe/FA 1 TAB TABLET PO SCH (15:19)
[2017-09-29 17:33] LABS: Acinetobacter baumannii by PCR Not Detected (Not Detect); Enterococcus by PCR Not Detected (Not Detect); Escherichia coli by PCR Not Detected (Not Detect); Klebsiella oxytoca by PCR Not Detected (Not Detect); Staphylococcus aureus by PCR Not Detected (Not Detect); Streptococcus agalactiae(B)PCR Not Detected (Not Detect); Streptococcus by PCR Not Detected (Not Detect); Streptococcus pneumoniae PCR Not Detected (Not Detect); Streptococcus pyogenes (A) PCR Not Detected (Not Detect); blaKPC Carbapenem-Resist Gene Not Detected (Not Detect); mecA Methicillin-Resist Gene Not Detected (Not Detect); vanA/B Vancomycin-Resist Genes Not Detected (Not Detect)
[2017-09-29 17:34] LABS: Candida albicans by PCR Not Detected (Not Detect); Candida glabrata by PCR Not Detected (Not Detect); Candida krusei by PCR Not Detected (Not Detect); Candida parapsilosis by PCR Not Detected (Not Detect); Candida tropicalis by PCR Not Detected (Not Detect); Klebsiella pneumoniae by PCR Not Detected (Not Detect); Pseudomonas aeruginosa by PCR Not Detected (Not Detect); Serratia marcescens by PCR Not Detected (Not Detect)
[2017-09-29] MEDS: Fluconazole 400 MG/200 ML 400 MG/200 ML BAG IVPB SCH ×2 (18:27→23:04)
--- NOTE | 2017-09-29 20:06 | Internal Med Progress Note ---
Date of Encounter: 09/29/17 Time of Encounter: 20:03 - Assessment and plan (1) Bacteremia Current Visit: Yes Status: Acute Assessment and plan: Infectious disease is following the patient's and recommends no further antibiotics at this time until we get the results of the last set of blood cultures. (2) Candidemia Current Visit: Yes Status: Acute Assessment and plan: from CVC infection, blood culture on 09/25 is still postive, on iV flulconazole, ID is following Ophaltomolgist Dr Metz wondering if this can be done as outpatient, Jeanne is ok to set up appointment with Dr Metz after discharge, phone # [phone] (3) Decubitus ulcer of left ischium, stage 2 Current Visit: Yes Status: Acute Assessment and plan: Patient is noncompliant with positioning by the patient's. Wound care team is managing the dressings and management of the wounds (4) Decubitus ulcer of right ischium, stage 2 Current Visit: Yes Status: Acute Assessment and plan: See above (5) GI bleed Current Visit: Yes Status: Acute Assessment and plan: Patient refused colonoscopy today has agreed to have it tomorrow so will be nothing by mouth after midnight. H&H is stable at 11.2 Qualifiers: GI bleed type/associated pathology: unspecified gastrointestinal hemorrhage type Qualified Code(s): K92.2 - Gastrointestinal hemorrhage, unspecified (6) Neurogenic bladder Current Visit: No Status: Chronic Assessment and plan: s/p SP catheter, changed on admission but continues to leak around the site urology aware (7) Pancolitis Current Visit: Yes Status: Acute Assessment and plan: CT of abdomen and pelvis reviewed and showed nonspecific pancolitis. GI was consulted and recommended colonoscopy but that patient refused. They spoke to him again and he agreed to the scope today but then refused. He has agreed to go tomorrow. We will wait further recommendations after the colonoscopy. (8) Quadriplegia Current Visit: Yes Status: Acute (9) Urolithiasis Current Visit: Yes Status: Acute Qualifiers: Urinary calculus location: kidney Qualified Code(s): N20.0 - Calculus of kidney (10) UTI (urinary tract infection) Current Visit: No Status: Suspected Assessment and plan: Escherichia coli ESBL organism identified. Asymptomatic bacteriuria versus true UTI. Urinalysis was positive for nitrates, moderate bacteria and too numerous to count WBCs. Also a moderate amount of epithelial cells. The patient is a history of recurrent UTI and asymptomatic bacteriuria. His quadriplegia limits his ability to know if he has urinary symptoms. Urology was consult dated Status post SPT placement but it is leaking. Urology reevaluated recommended a CAT scan system to be placed. Wound nurse attempted that today but was unsuccessful secondary to the relation of the tube to his penis to attach it. Qualifiers: Urinary tract infection type: acute cystitis Hematuria presence: without hematuria Qualified Code(s): N30.00 - Acute cystitis without hematuria (11) Altered mental status Current Visit: Yes Status: Resolved Assessment and plan: Was medication related versus other but appears to be resolved no meningeal signs. The patient is alert and oriented 3 and following commands. He is answering questions appropriately Qualifiers: Altered mental status type: transient alteration of awareness Qualified Code(s): R40.4 - Transient alteration of awareness (12) Sepsis Current Visit: No Status: Resolved Assessment and plan: The patient met two sirs criteria. He had hypotension requiring a short course of vasopressors. He had a low grade fever. Source is likely candidemia Blood cultures have been drawn multiple times. Central line cultures were positive. Repeat peripheral blood cultures drawn on 09/24/17 where no growth to date on one set out of 1. Repeat CBC blood cultures drawn 09/24/17 were +1 out of 1 RIP is negative Lactic acid was normal It was recommended the CBC be replaced. IR was unable to do that and exchanged the catheter over the other. Qualifiers: Sepsis type: sepsis due to unspecified organism Qualified Code(s): A41.9 - Sepsis, unspecified organism - Subjective Interval history: Patient is sitting up in the bed using his tongue to work his computer screen. He is thirsty. He denies any chest pain or shortness of breath at this time. He is tolerating his diet. Denies any fever or chills. - Constitutional Vitals: Temp Pulse Resp BP Pulse Ox 97.6 F 104 16 109/73 95 09/29/17 19:24 09/29/17 19:24 09/29/17 19:24 09/29/17 19:24 09/29/17 19:24 General appearance: Present: cooperative, disheveled, A&O X 3, pleasant, underweight. Absent: answers questions appropriately - Head Head exam: Present: atraumatic, normocephalic - Eye Eye exam: Present: PERRL, conjuntiva pink, sclera anicteric Pupils: Present: PERRL - Neck Neck exam general surgery: Present: supple, trachea midline. Absent: lymphadenopathy - Respiratory Respiratory exam: Present: CTAB. Absent: accessory muscle use, rales, rhonchi, wheezes - Cardiovascular Cardiovascular exam: Present: RRR, +S1, +S2. Absent: diastolic murmur, gallop, rubs, systolic murmur - GI/Abdominal GI/Abdominal exam: Present: normal bowel sounds, soft, no peritoneal signs. Absent: distended, guarding, tenderness Additional comments: Suprapubic catheter is leaking and known to urology - Extremities Exam Extremities exam: Present: warm, radial pulses palpable and symmetrical. Absent : calf tenderness, cyanotic, pedal edema Additional comments: Some edema of both upper extremities. Quadriplegia - Neurological Exam Neurological exam: Present: alert, oriented X3. Absent: motor sensory deficit, normal gait, reflexes normal, strengths equal and symetr throughout, pronater drift, facial droop, speech deficit - Skin Skin exam: Present: dry Additional comments: Decubitus on stage II on right ischium, stage II on the left Internal Medicine: Result - Labs CBC & Chem 7: 09/29/17 06:32 09/29/17 06:32 Labs: Short CBC 09/29/17 Range/Units 06:32 WBC 10.1 (4.3-11.1) K/mcL Hgb 11.2 L (12.9-16.9) g/dL Hct 36.4 L (37.5-50.1) % Plt Count 311 (140-400) K/mcL Neutrophils # 6.2 (1.6-8.9) K/mcL BMP 09/29/17 06:32 Sodium 135 L Potassium 3.7 Chloride 99 Carbon Dioxide 26 BUN 9 Creatinine 0.54 L Glucose 69 L Calcium 8.5 L - ABG Interpretation ABG results: PT/INR, D-dimer PT 11.3 Seconds (9.4-12.1) 09/24/17 09:00 - Impressions Impressions Catheter Change 03/06/18 00:00 IMPRESSION: Successful fluoroscopic guided exchange of a tunneled small bore central infusion catheter. D/ / Mauricio Pate MD / Mauricio Pate MD Interpreting Provider: Mauricio Pate MD - VTE Reasons for not Prescribing Prophylaxis: Refused by parent Consult Discharge Plan - Plan Referrals: Mauricio Melendrez MD [Primary Care Provider] -
[2017-09-29 21:11] LABS: Acinetobacter baumannii by PCR Not Detected (Not Detect); Candida albicans by PCR Not Detected (Not Detect); Candida glabrata by PCR Not Detected (Not Detect); Candida krusei by PCR Not Detected (Not Detect); Candida parapsilosis by PCR Not Detected (Not Detect); Candida tropicalis by PCR Not Detected (Not Detect); Enterococcus by PCR Not Detected (Not Detect); Escherichia coli by PCR Not Detected (Not Detect); Klebsiella oxytoca by PCR Not Detected (Not Detect); Klebsiella pneumoniae by PCR Not Detected (Not Detect); Pseudomonas aeruginosa by PCR Not Detected (Not Detect); Serratia marcescens by PCR Not Detected (Not Detect); Staphylococcus aureus by PCR Not Detected (Not Detect); Streptococcus agalactiae(B)PCR Not Detected (Not Detect); Streptococcus by PCR Not Detected (Not Detect); Streptococcus pneumoniae PCR Not Detected (Not Detect); Streptococcus pyogenes (A) PCR Not Detected (Not Detect); blaKPC Carbapenem-Resist Gene Not Detected (Not Detect); mecA Methicillin-Resist Gene Not Detected (Not Detect); vanA/B Vancomycin-Resist Genes Not Detected (Not Detect)
[2017-09-29] MEDS: Silver Sulfadiazine 50 GM TUBE TP SCH (22:32)
[2017-09-29] MEDS: Ringers Solution, Lactated 1,000 ML IVC SCH ×3 (23:03→23:05)
[2017-09-29] MEDS: Ertapenem 1,000 MG in 0.9 % Sodium Chloride Mini Bag 100 ML IVPB SCH (23:04)
[2017-09-30] MEDS: *HR* Heparin 5,000 UNIT/ML VIAL SQ SCH ×2 (05:12→17:59)
[2017-09-30] MEDS: Silver Sulfadiazine 50 GM TUBE TP SCH (12:32)
[2017-09-30] MEDS: Sennosides 8.6 MG TABLET PO SCH ×2 (12:38→21:42)
[2017-09-30] MEDS: Ringers Solution, Lactated 1,000 ML IVC SCH ×2 (12:39→23:43)
[2017-09-30] MEDS: tiZANidine 4 MG TABLET PO SCH ×2 (12:39→21:42)
[2017-09-30] MEDS: Mirtazapine 15 MG TABLET PO SCH (12:39)
[2017-09-30] MEDS: Multivit/Ca/Min/Fe/FA 1 TAB TABLET PO SCH (12:40)
[2017-09-30] MEDS: Ascorbic Acid 500 MG TABLET PO SCH (12:40)
[2017-09-30] MEDS: Fluconazole 400 MG/200 ML 400 MG/200 ML BAG IVPB SCH (12:43)
--- NOTE | 2017-09-30 14:02 | Infectious Disease Progress No ---
Date of Encounter: 09/30/17 Time of Encounter: 14:00 - Assessment and Plan (1) Sepsis Current Visit: No Status: Resolved The patient had two SIRS criteria. He developed hypotension and required a short course of vaospressors. He had a low-grade fever yesterday morning. Source likely candidemia. Blood cultures drawn 09/22/17 x 2 sets peripherally are negative. Blood cultures drawn 09/22/17 x 2 sets from the central line are positive 1/2 sets for Staph epi and 1/2 for C. parapsilosis. Repeat peripheral blood culture drawn 09/24/17 is NGTD 1/1 sets. Repeat CVC blood cultures drawn 09/24/17 are positive 1/1 set for C. parapsilosis. Additional peripheral blood cultures drawn 09/28/17 are NGTD 2/2 sets, but blood cultures drawn from the patient's CVC prior to its removal are positive 2/2 sets. Qualifiers: Sepsis type: sepsis due to unspecified organism Qualified Code(s): A41.9 - Sepsis, unspecified organism (2) Candidemia Current Visit: Yes Status: Acute Causative organism unclear. Blood culture from the the CVC is positive 1/2 sets for C. parapsilosis, but the PCR did not pick anything up. Repeat culture 1/1 set drawn 09/24/17 from the CVC is positive for C. parapsilosis. Blood culture drawn peripherally 1/1 set on 09/24/17 is NGTD. Additional sets of cultures were cancelled by the lab staff so only 1 set from the line and from the peripheral stick were drawn. Additional peripheral blood cultures drawn 09/28/17 are NGTD 2/2 sets, but blood cultures drawn from the patient's CVC prior to its removal are positive 2/2 sets. Given that the patient has had two sets of cultures come back positive from the CVC, this is likely a true infection. Status post guidewire exchange 09/29/17. Continue fluconazole 400mg IV daily. Duration of treatment depends on the clinical picture, but likely 14 days from the line exchange. Opthalmology to evaluate. Will be done as an outpatient. Monitor renal and liver function studies and dose-adjust antibiotics. (3) Bacteremia Current Visit: Yes Status: Acute True bacteremia vs. contaminant. Peripheral blood cultures drawn 09/22/17 are negative x 2 sets. CVC blood cultures drawn 09/22/17 are positive 1/2 sets for S. epi. Repeat cultures negative for S. epi. Given the clinical picture, not sure that this is a true infection. Likely a contaminant. Recommend the line be removed as stated above. No further antibiotics at this time. (4) UTI (urinary tract infection) due to urinary indwelling Souza catheter Current Visit: No Status: Resolved Causative organism E. coli ESBL. Asymptomatic bacteriuria vs. true UTI. Not sure that this is the source of the patient's sepsis since it is Aztreonam resistant and clinically he is improved. Urinalysis positive for nitrites, moderate bacteria, and TNTC WBC; also a moderate amount of epithelial cells. The patient has a history of recurrent UTI/asymptomatic bacteriuria. His quadriplegia limits his ability to know if he has urinary symptoms. Urology consulted. Status post SPT replacement. The SPT is leaking. Urology and ostomy nursing following. Completed 6 days of IV Ertapenem. Qualifiers: Indwelling urinary catheter type: cystostomy catheter Encounter type: subsequent encounter Qualified Code(s): T83.510D - Infection and inflammatory reaction due to cystostomy catheter, subsequent encounter; N39.0 - Urinary tract infection, site not specified (5) Hydronephrosis Current Visit: Yes Status: Acute CT abdomen and pelvis shows mild left hydronephrosis. Likely secondary to 5mm stone. Urology consulted and following. Since the patient is making adequate urine, PNT placement on hold. Qualifiers: Hydronephrosis type: with ureteral calculous obstruction Qualified Code(s) : N13.2 - Hydronephrosis with renal and ureteral calculous obstruction (6) Urolithiasis Current Visit: Yes Status: Acute Qualifiers: Urinary calculus location: kidney Qualified Code(s): N20.0 - Calculus of kidney (7) Pancolitis Current Visit: Yes Status: Acute CT abdomen and pelvis showed nonspecific pancolitis. GI consulted. Recommended colonoscopy for the patient's GI bleed, but he refused initially, but was agreeable to have it done today. Discussed with nursing. Recommend they check with GI and see if/when they want to perform testing. (8) Altered mental status Current Visit: Yes Status: Resolved Medication-related vs. other. Appears resolved today. No meningeal signs. The patient is oriented x 3. Qualifiers: Altered mental status type: transient alteration of awareness Qualified Code(s): R40.4 - Transient alteration of awareness (9) GI bleed Current Visit: Yes Status: Acute Etiology unclear. Hemoglobin stable. Patient had dark stool last night. GI consulted. Awaiting additional recommendations given dark tarry stools. May need EGD. Management per the primary and GI teams. Qualifiers: GI bleed type/associated pathology: unspecified gastrointestinal hemorrhage type Qualified Code(s): K92.2 - Gastrointestinal hemorrhage, unspecified (10) Quadriplegia Current Visit: Yes Status: Chronic (11) Chronic pain Current Visit: No Status: Chronic Qualifiers: Chronic pain type: other chronic pain Qualified Code(s): G89.29 - Other chronic pain (12) Neurogenic bladder Current Visit: No Status: Chronic Chronic SPT. (13) Decubitus ulcer of right ischium, stage 2 Current Visit: Yes Status: Acute Stage II. No drainage, warmth, erythema, or fluctuance. Refuses exam today. Recommend aggressive offloading and wound care. Patient non-compliant with turning per nursing. Consult wound care team. (14) Decubitus ulcer of left ischium, stage 2 Current Visit: Yes Status: Acute Stage II. No drainage, warmth, erythema, or fluctuance. Refuses exam today. Recommend aggressive offloading and wound care. Patient non-compliant with turning per nursing. Consult wound care team. - Subjective Interval history: Patient seen and examined. No acute events noted overnight. Status post over-the -guidewire exchange of left upper chest CVC 09/29/17. Patient resting quietly in bed playing on electronic device. Denies fevers, chills, or rigors. Denies chest pain, shortness of breath or cough. Denies nausea, vomiting or diarrhea. Currently NPO for possible testing later today. Denies abdominal pain or other complaints at this time. His SPT continues to leak. Infect Dis PN-Objective Data - Labs CBC & Chem 7: 09/29/17 06:32 09/29/17 06:32 Labs: Laboratory Results - last 24 hr 09/28/17 09/28/17 10:40 10:40 A. baumannii (PCR) Not Detected Not Detected Jacquie albicans (PCR) Not Detected Not Detected C. glabrata (PCR) Not Detected Not Detected C. krusei (PCR) Not Detected Not Detected C. parapsilosis (PCR) Not Detected Not Detected C. tropicalis (PCR) Not Detected Not Detected Enterobacteriac sp PCR Not Detected Not Detected E. cloacae complex PCR Not Detected Not Detected Enterococcus sp PCR Not Detected Not Detected E. coli (PCR) Not Detected Not Detected H. influenzae (PCR) Not Detected Not Detected Klebsiella oxytoca PCR Not Detected Not Detected Klebsiella pneumoniae Not Detected Not Detected List. monocytogenes PCR Not Detected Not Detected N. meningitidis (PCR) Not Detected Not Detected Proteus species (PCR) Not Detected Not Detected Serratia marcescens PCR Not Detected Not Detected Staphylococcus sp PCR Not Detected Not Detected Staph aureus (PCR) Not Detected Not Detected mecA-Methicil Res Gene Not Detected Not Detected Streptococcus sp PCR Not Detected Not Detected Group A Strep DNA Not Detected Not Detected Group B Strep (PCR) Not Detected Not Detected Strep pneumoniae (PCR) Not Detected Not Detected P. aeruginosa (PCR) Not Detected Not Detected Tan/B-Vanco Res Genes Not Detected Not Detected KPC (blaKPC) Detect PCR Not Detected Not Detected Cultures: Cultures 09/24/17 16:51 Blood Culture - Final Peripheral Venipuncture No growth. 09/28/17 10:27 Blood Culture - Preliminary Peripheral Venipuncture No growth. 09/28/17 10:27 Blood Culture - Preliminary Peripheral Venipuncture No growth. 09/28/17 10:40 Blood Culture - Preliminary Central Venous Catheter Yeast Species 09/28/17 10:40 Blood Culture - Preliminary Central Venous Catheter Yeast Species 09/25/17 00:18 Blood Culture - Preliminary Central Venous Catheter Jacquie parapsilosis Serology 09/28/17 09/28/17 09/25/17 Range/Units 10:40 10:40 00:18 A. baumannii (PCR) Not Detected Not Detected Not Detected (Not Detect) Jacquie albicans (PCR) Not Detected Not Detected Not Detected (Not Detect) C. glabrata (PCR) Not Detected Not Detected Not Detected (Not Detect) C. krusei (PCR) Not Detected Not Detected Not Detected (Not Detect) C. parapsilosis (PCR) Not Detected Not Detected Not Detected (Not Detect) C. tropicalis (PCR) Not Detected Not Detected Not Detected (Not Detect) Enterobacteriac sp PCR Not Detected Not Detected Not Detected (Not Detect) E. cloacae complex PCR Not Detected Not Detected Not Detected (Not Detect) Enterococcus sp PCR Not Detected Not Detected Not Detected (Not Detect) E. coli (PCR) Not Detected Not Detected Not Detected (Not Detect) H. influenzae (PCR) Not Detected Not Detected Not Detected (Not Detect) Klebsiella oxytoca PCR Not Detected Not Detected Not Detected (Not Detect) Klebsiella pneumoniae Not Detected Not Detected Not Detected (Not Detect) List. monocytogenes PCR Not Detected Not Detected Not Detected (Not Detect) N. meningitidis (PCR) Not Detected Not Detected Not Detected (Not Detect) Proteus species (PCR) Not Detected Not Detected Not Detected (Not Detect) Serratia marcescens PCR Not Detected Not Detected Not Detected (Not Detect) Staphylococcus sp PCR Not Detected Not Detected Not Detected (Not Detect) Staph aureus (PCR) Not Detected Not Detected Not Detected (Not Detect) mecA-Methicil Res Gene Not Detected Not Detected N/A (Not Detect) Streptococcus sp PCR Not Detected Not Detected Not Detected (Not Detect) Group A Strep DNA Not Detected Not Detected Not Detected (Not Detect) Group B Strep (PCR) Not Detected Not Detected Not Detected (Not Detect) Strep pneumoniae (PCR) Not Detected Not Detected Not Detected (Not Detect) P. aeruginosa (PCR) Not Detected Not Detected Not Detected (Not Detect) Tan/B-Vanco Res Genes Not Detected Not Detected N/A (Not Detect) KPC (blaKPC) Detect PCR Not Detected Not Detected N/A (Not Detect) Exam - Constitutional Vitals: Temp Pulse Resp BP Pulse Ox 98.4 F 120 20 172/78 98 09/30/17 12:25 09/30/17 12:25 09/30/17 12:25 09/30/17 12:25 09/30/17 12:25 General appearance: average body habitus, cooperative, no acute distress - Head Head exam: Present: atraumatic, normal inspection, normocephalic - Eye Eye exam: Present: EOMI, normal appearance, PERRL Pupils: Present: normal accommodation - ENT ENT exam: Present: mucous membranes moist - Neck Neck exam: Present: normal inspection - Respiratory Respiratory exam: Present: CTAB. Absent: rales, respiratory distress, rhonchi, wheezes - Cardiovascular Cardiovascular exam: Present: +S1, +S2, tachycardia. Absent: irregular rhythm - GI/Abdominal GI/Abdominal exam: Present: normal bowel sounds, soft. Absent: distended, tenderness Additional comments: SPT draining clear yellow urine with urine leaking out from around catheter. - Extremities Exam Extremities exam: Absent: joint swelling, pedal edema, tenderness Additional comments: Bilateral AKA stumps without redness, warmth, or open lesions. BUE muscle atrophy and contractures noted. - Neurological Exam Neurological exam: Present: alert, oriented X3. Absent: no focal deficits ( Paralysis noted to the BLE and BUE.) - Psychiatric Psychiatric exam: Present: normal affect, normal mood - Skin Skin exam: Present: dry, intact, normal color, warm - VTE Reasons for not Prescribing Prophylaxis: Refused by parent Consult Discharge Plan - Plan Referrals: Mauricio Melendrez MD [Primary Care Provider] - Prescriptions: Fluconazole 400 MG/200 ML [Diflucan Premix 400 MG/200 ML] 400 mg IVPB DAILY 13 Days #13 bag - Attending Attestation I examined this patient and my medical decision-making was reviewed with the Resident Physician. I agree with the documented findings, disposition and treatment plan as described except to the extent set forth below.
--- NOTE | 2017-09-30 17:59 | Internal Med Progress Note ---
Date of Encounter: 09/30/17 Time of Encounter: 17:59 - Assessment and plan (1) Bacteremia Current Visit: Yes Status: Acute Assessment and plan: Infectious disease is following the patient and recommends no further antibiotics at this time until we get the results of the last set of blood cultures. (2) Candidemia Current Visit: Yes Status: Acute Assessment and plan: from CVC infection, blood culture on 09/25 still postive, on iV flulconazole, ID is following Ophaltomol[facility]ist Dr Metz wondering if this can be done as outpatient, Jeanne is ok to set up appointment with Dr Metz after discharge, phone # [phone] (3) Decubitus ulcer of left ischium, stage 2 Current Visit: Yes Status: Acute Assessment and plan: Patient is noncompliant with positioning Wound care team is managing the dressings and management of the wounds (4) Decubitus ulcer of right ischium, stage 2 Current Visit: Yes Status: Acute Assessment and plan: See above plan (5) GI bleed Current Visit: Yes Status: Acute Assessment and plan: Patient went for scope today and was cancelled by anesthesia secondary to low blood pressure. He has a chronically low blood pressure. Qualifiers: GI bleed type/associated pathology: unspecified gastrointestinal hemorrhage type Qualified Code(s): K92.2 - Gastrointestinal hemorrhage, unspecified (6) Neurogenic bladder Current Visit: No Status: Chronic Assessment and plan: s/p SP catheter, changed on admission but continues to leak around the site and urology aware (7) Pancolitis Current Visit: Yes Status: Acute Assessment and plan: CT of abdomen and pelvis reviewed and showed nonspecific pancolitis. GI was consulted and recommended colonoscopy but that patient refused. They spoke to him again and he agreed to the scope but then refused. He agreed to go today and it was canceled secondary to low blood pressurel pressure (8) Quadriplegia Current Visit: Yes Status: Acute (9) Urolithiasis Current Visit: Yes Status: Acute Qualifiers: Urinary calculus location: kidney Qualified Code(s): N20.0 - Calculus of kidney (10) UTI (urinary tract infection) Current Visit: No Status: Suspected Assessment and plan: Escherichia coli ESBL organism identified. Asymptomatic bacteriuria versus true UTI. Urinalysis was positive for nitrates, moderate bacteria and too numerous to count WBCs. Also a moderate amount of epithelial cells. The patient is a history of recurrent UTI and asymptomatic bacteriuria. His quadriplegia limits his ability to know if he has urinary symptoms. Urology was consult dated Status post SPT placement but it is leaking. Urology reevaluated recommended a CAT scan system to be placed. Wound nurse attempted that today but was unsuccessful secondary to the relation of the tube to his penis to attach it. Qualifiers: Urinary tract infection type: acute cystitis Hematuria presence: without hematuria Qualified Code(s): N30.00 - Acute cystitis without hematuria (11) Altered mental status Current Visit: Yes Status: Resolved Qualifiers: Altered mental status type: transient alteration of awareness Qualified Code(s): R40.4 - Transient alteration of awareness - Subjective Interval history: Patient is sitting up in the bed using his tongue to work his computer screen. He is thirsty and his lips are dry. He denies any chest pain or shortness of breath at this time. He is tolerating his diet. Denies any fever or chills. He is worried about his tube site and the draining. - Constitutional Vitals: Temp Pulse Resp BP Pulse Ox 99.3 F 83 20 92/56 99 09/30/17 15:41 09/30/17 15:41 09/30/17 15:41 09/30/17 15:41 09/30/17 15:41 General appearance: Present: cooperative, disheveled, A&O X 3, pleasant, underweight. Absent: answers questions appropriately - Head Head exam: Present: atraumatic, normocephalic Additional comments: Dry lips and mucous membranes - Eye Eye exam: Present: PERRL, conjuntiva pink, sclera anicteric Pupils: Present: PERRL - Neck Neck exam general surgery: Present: supple, trachea midline. Absent: lymphadenopathy - Respiratory Respiratory exam: Present: decreased breath sounds, CTAB. Absent: accessory muscle use, rales, rhonchi, wheezes - Cardiovascular Cardiovascular exam: Present: RRR, +S1, +S2. Absent: diastolic murmur, gallop, rubs, systolic murmur - GI/Abdominal GI/Abdominal exam: Present: normal bowel sounds, soft, no peritoneal signs. Absent: distended, tenderness Additional comments: Suprapubic catheter in place but leaking around the site - Extremities Exam Extremities exam: Present: warm, radial pulses palpable and symmetrical. Absent : calf tenderness, cyanotic, pedal edema - Neurological Exam Neurological exam: Present: CN II-XII intact, oriented X3, no focal deficits. 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 Internal Medicine: Result - Labs CBC & Chem 7: 09/29/17 06:32 09/29/17 06:32 - ABG Interpretation ABG results: PT/INR, D-dimer PT 11.3 Seconds (9.4-12.1) 09/24/17 09:00 - VTE Reasons for not Prescribing Prophylaxis: Refused by parent Consult Discharge Plan - Plan Referrals: Mauricio Melendrez MD [Primary Care Provider] - Prescriptions: Fluconazole 400 MG/200 ML [Diflucan Premix 400 MG/200 ML] 400 mg IVPB DAILY 13 Days #13 bag
[2017-10-01] MEDS: *HR* Heparin 5,000 UNIT/ML VIAL SQ SCH ×2 (06:03→15:46)
[2017-10-01] MEDS: Ascorbic Acid 500 MG TABLET PO SCH (08:35)
[2017-10-01] MEDS: Sennosides 8.6 MG TABLET PO SCH ×2 (08:35→21:55)
[2017-10-01] MEDS: Fluconazole 400 MG/200 ML 400 MG/200 ML BAG IVPB SCH (08:35)
[2017-10-01] MEDS: Mirtazapine 15 MG TABLET PO SCH (08:35)
[2017-10-01] MEDS: tiZANidine 4 MG TABLET PO SCH ×2 (08:35→21:53)
[2017-10-01] MEDS: Multivit/Ca/Min/Fe/FA 1 TAB TABLET PO SCH (08:35)
[2017-10-01] MEDS: Silver Sulfadiazine 50 GM TUBE TP SCH (08:35)
[2017-10-01] MEDS: *HR* HYDROmorphone 2 MG TABLET PO PRN ×2 (15:39→21:56)
[2017-10-01] MEDS: Ringers Solution, Lactated 1,000 ML IVC SCH (15:42)
--- NOTE | 2017-10-01 16:12 | Infectious Disease Progress No ---
Date of Encounter: 10/01/17 Time of Encounter: 16:10 - Assessment and Plan (1) Sepsis Current Visit: No Status: Resolved The patient had two SIRS criteria. He developed hypotension and required a short course of vaospressors. He had a low-grade fever yesterday morning. Source likely candidemia. Blood cultures drawn 09/22/17 x 2 sets peripherally are negative. Blood cultures drawn 09/22/17 x 2 sets from the central line are positive 1/2 sets for Staph epi and 1/2 for C. parapsilosis. Repeat peripheral blood culture drawn 09/24/17 is NGTD 1/1 sets. Repeat CVC blood cultures drawn 09/24/17 are positive 1/1 set for C. parapsilosis. Additional peripheral blood cultures drawn 09/28/17 are NGTD 2/2 sets, but blood cultures drawn from the patient's CVC prior to its removal are positive 2/2 sets. Qualifiers: Qualified Code(s): A41.9 - Sepsis, unspecified organism (2) Candidemia Current Visit: Yes Status: Acute Causative organism unclear. Blood culture from the the CVC is positive 1/2 sets for C. parapsilosis, but the PCR did not pick anything up. Repeat culture 1/1 set drawn 09/24/17 from the CVC is positive for C. parapsilosis. Blood culture drawn peripherally 1/1 set on 09/24/17 is NGTD. Additional sets of cultures were cancelled by the lab staff so only 1 set from the line and from the peripheral stick were drawn. Additional peripheral blood cultures drawn 09/28/17 are NGTD 2/2 sets, but blood cultures drawn from the patient's CVC prior to its removal are positive 2/2 sets. Given that the patient has had two sets of cultures come back positive from the CVC, this is likely a true infection. Status post guidewire exchange 09/29/17. Continue fluconazole 400mg IV daily. Duration of treatment depends on the clinical picture, but likely 14 days from the line exchange. Treat through 10/12/17, then discontinue. Opthalmology to evaluate. Will be done as an outpatient. Monitor renal and liver function studies and dose-adjust antibiotics. No further recommendations from the ID team. Will sign off. Please re-consult if needed. (3) Bacteremia Current Visit: Yes Status: Acute True bacteremia vs. contaminant. Peripheral blood cultures drawn 09/22/17 are negative x 2 sets. CVC blood cultures drawn 09/22/17 are positive 1/2 sets for S. epi. Repeat cultures negative for S. epi. Given the clinical picture, not sure that this is a true infection. Likely a contaminant. Status post CVC exchange 09/29/17. No further antibiotics at this time. (4) UTI (urinary tract infection) due to urinary indwelling Souza catheter Current Visit: No Status: Resolved Causative organism E. coli ESBL. Asymptomatic bacteriuria vs. true UTI. Not sure that this is the source of the patient's sepsis since it is Aztreonam resistant and clinically he is improved. Urinalysis positive for nitrites, moderate bacteria, and TNTC WBC; also a moderate amount of epithelial cells. The patient has a history of recurrent UTI/asymptomatic bacteriuria. His quadriplegia limits his ability to know if he has urinary symptoms. Urology consulted. Status post SPT replacement. The SPT is leaking. Urology and ostomy nursing following. Completed 6 days of IV Ertapenem. Qualifiers: Qualified Code(s): T83.510D - Infection and inflammatory reaction due to cystostomy catheter, subsequent encounter; N39.0 - Urinary tract infection, site not specified (5) Hydronephrosis Current Visit: Yes Status: Acute CT abdomen and pelvis shows mild left hydronephrosis. Likely secondary to 5mm stone. Urology consulted and following. Since the patient is making adequate urine, PNT placement on hold. Qualifiers: Qualified Code(s): N13.2 - Hydronephrosis with renal and ureteral calculous obstruction (6) Urolithiasis Current Visit: Yes Status: Acute Qualifiers: Qualified Code(s): N20.0 - Calculus of kidney (7) Pancolitis Current Visit: Yes Status: Acute CT abdomen and pelvis showed nonspecific pancolitis. GI consulted. Recommended colonoscopy for the patient's GI bleed, but he refused. Discussed with nursing. Recommend they check with GI and see if/when they want to perform testing. (8) Altered mental status Current Visit: Yes Status: Resolved Medication-related vs. other. Appears resolved today. No meningeal signs. The patient is oriented x 3. Qualifiers: Qualified Code(s): R40.4 - Transient alteration of awareness (9) GI bleed Current Visit: Yes Status: Acute Etiology unclear. Hemoglobin stable. GI consulted. Management per the primary and GI teams. Qualifiers: Qualified Code(s): K92.2 - Gastrointestinal hemorrhage, unspecified (10) Quadriplegia Current Visit: Yes Status: Chronic (11) Chronic pain Current Visit: No Status: Chronic Qualifiers: Qualified Code(s): G89.29 - Other chronic pain (12) Neurogenic bladder Current Visit: No Status: Chronic Chronic SPT. (13) Decubitus ulcer of right ischium, stage 2 Current Visit: Yes Status: Acute Stage II. No drainage, warmth, erythema, or fluctuance. Refuses exam today. Recommend aggressive offloading and wound care. Patient non-compliant with turning per nursing. Consult wound care team. (14) Decubitus ulcer of left ischium, stage 2 Current Visit: Yes Status: Acute Stage II. No drainage, warmth, erythema, or fluctuance. Refuses exam today. Recommend aggressive offloading and wound care. Patient non-compliant with turning per nursing. Consult wound care team. - Subjective Interval history: Patient seen and examined. No acute events noted overnight. Status post over-the -guidewire exchange of left upper chest CVC 09/29/17. Patient resting quietly in bed playing on electronic device. Denies fevers, chills, or rigors. Denies chest pain, shortness of breath or cough. Denies nausea, vomiting or diarrhea. Denies abdominal pain or other complaints at this time. His SPT continues to leak. Infect Dis PN-Objective Data - Labs CBC & Chem 7: 09/29/17 06:32 09/29/17 06:32 Cultures: Cultures 09/28/17 10:40 Blood Culture - Preliminary Central Venous Catheter Jacquie parapsilosis 09/28/17 10:40 Blood Culture - Preliminary Central Venous Catheter Jacquie parapsilosis 09/25/17 00:18 Blood Culture - Final Central Venous Catheter Jacquie parapsilosis 09/24/17 16:51 Blood Culture - Final Peripheral Venipuncture No growth. 09/28/17 10:27 Blood Culture - Preliminary Peripheral Venipuncture No growth. 09/28/17 10:27 Blood Culture - Preliminary Peripheral Venipuncture No growth. Serology 09/28/17 09/28/17 09/25/17 Range/Units 10:40 10:40 00:18 A. baumannii (PCR) Not Detected Not Detected Not Detected (Not Detect) Jacquie albicans (PCR) Not Detected Not Detected Not Detected (Not Detect) C. glabrata (PCR) Not Detected Not Detected Not Detected (Not Detect) C. krusei (PCR) Not Detected Not Detected Not Detected (Not Detect) C. parapsilosis (PCR) Not Detected Not Detected Not Detected (Not Detect) C. tropicalis (PCR) Not Detected Not Detected Not Detected (Not Detect) Enterobacteriac sp PCR Not Detected Not Detected Not Detected (Not Detect) E. cloacae complex PCR Not Detected Not Detected Not Detected (Not Detect) Enterococcus sp PCR Not Detected Not Detected Not Detected (Not Detect) E. coli (PCR) Not Detected Not Detected Not Detected (Not Detect) H. influenzae (PCR) Not Detected Not Detected Not Detected (Not Detect) Klebsiella oxytoca PCR Not Detected Not Detected Not Detected (Not Detect) Klebsiella pneumoniae Not Detected Not Detected Not Detected (Not Detect) List. monocytogenes PCR Not Detected Not Detected Not Detected (Not Detect) N. meningitidis (PCR) Not Detected Not Detected Not Detected (Not Detect) Proteus species (PCR) Not Detected Not Detected Not Detected (Not Detect) Serratia marcescens PCR Not Detected Not Detected Not Detected (Not Detect) Staphylococcus sp PCR Not Detected Not Detected Not Detected (Not Detect) Staph aureus (PCR) Not Detected Not Detected Not Detected (Not Detect) mecA-Methicil Res Gene Not Detected Not Detected N/A (Not Detect) Streptococcus sp PCR Not Detected Not Detected Not Detected (Not Detect) Group A Strep DNA Not Detected Not Detected Not Detected (Not Detect) Group B Strep (PCR) Not Detected Not Detected Not Detected (Not Detect) Strep pneumoniae (PCR) Not Detected Not Detected Not Detected (Not Detect) P. aeruginosa (PCR) Not Detected Not Detected Not Detected (Not Detect) Tan/B-Vanco Res Genes Not Detected Not Detected N/A (Not Detect) KPC (blaKPC) Detect PCR Not Detected Not Detected N/A (Not Detect) Exam - Constitutional Vitals: Temp Pulse Resp BP Pulse Ox 99.1 F 80 15 169/100 95 10/01/17 15:36 10/01/17 15:36 10/01/17 15:36 10/01/17 15:36 10/01/17 15:36 General appearance: average body habitus, cooperative, no acute distress - Head Head exam: Present: atraumatic, normal inspection, normocephalic - Eye Eye exam: Present: EOMI, normal appearance, PERRL Pupils: Present: normal accommodation - ENT ENT exam: Present: mucous membranes moist - Neck Neck exam: Present: normal inspection - Respiratory Respiratory exam: Present: CTAB. Absent: rales, respiratory distress, rhonchi, wheezes - Cardiovascular Cardiovascular exam: Present: RRR, +S1, +S2 - GI/Abdominal GI/Abdominal exam: Present: normal bowel sounds, soft. Absent: distended, tenderness Additional comments: SPT draining clear yellow urine. Urine noted to be leaking out from around SPT. - Extremities Exam Extremities exam: Absent: joint swelling, pedal edema, tenderness Additional comments: Bilateral AKA stumps without redness, warmth, open lesions, or edema. Bilateral UE muscle atrophy and hand contractures noted. - Neurological Exam Neurological exam: Present: alert. Absent: oriented X3 (Oriented x 2 only.), no focal deficits (Paralysis noted to the BUE and BLE extremities.) - Psychiatric Psychiatric exam: Present: normal affect, normal mood - Skin Skin exam: Present: dry, intact, normal color, warm - Additional findings Additional findings: Left upper chest tunneled central line without redness, warmth, or drainage. Transparent dressing C/D/I. - VTE Reasons for not Prescribing Prophylaxis: Refused by parent Consult Discharge Plan - Plan Referrals: Mauricio Melendrez MD [Primary Care Provider] - Prescriptions: Fluconazole 400 MG/200 ML [Diflucan Premix 400 MG/200 ML] 400 mg IVPB DAILY 13 Days #13 bag - Attending Attestation I examined this patient and my medical decision-making was reviewed with the Resident Physician. I agree with the documented findings, disposition and treatment plan as described except to the extent set forth below.
--- NOTE | 2017-10-01 16:55 | Internal Med Progress Note ---
Date of Encounter: 10/01/17 Time of Encounter: 16:52 - Assessment and plan (1) Bacteremia Current Visit: Yes Status: Acute Assessment and plan: Infectious disease is following the patient and recommends no further antibiotics last peripheral blood cultures drawn 09/28/17 are not no growth to date to O2 sats (2) Candidemia Current Visit: Yes Status: Acute Assessment and plan: from CVC infection, blood culture on 09/25 still postive, on iV flulconazole, recommends to continue flucanazole 400 mg IV daily for 14 days from a line exchange which will mean treating through 10/12/17 then stop. Monitor renal and liver function studies and dose adjust antibiotics. Ophaltomolgist Dr Metz wondering if this can be done as outpatient, Jeanne is ok to set up appointment with Dr Metz after discharge, phone # [phone] (3) Decubitus ulcer of left ischium, stage 2 Current Visit: Yes Status: Acute Assessment and plan: Patient is noncompliant with positioning and Wound care team is managing the dressings and management of the wounds (4) Decubitus ulcer of right ischium, stage 2 Current Visit: Yes Status: Acute Assessment and plan: See above (5) GI bleed Current Visit: Yes Status: Acute Assessment and plan: Patient EGD cancelled by anesthesia secondary to low blood pressure. He has a chronically low blood pressure. Hemoglobin is stable Qualifiers: GI bleed type/associated pathology: unspecified gastrointestinal hemorrhage type Qualified Code(s): K92.2 - Gastrointestinal hemorrhage, unspecified (6) Neurogenic bladder Current Visit: No Status: Chronic Assessment and plan: s/p SP catheter, changed on admission but continues to leak around the site and urology aware Applied colostomy collection device around the tube and it is now draining through that. (7) Pancolitis Current Visit: Yes Status: Acute Assessment and plan: CT of abdomen and pelvis reviewed and showed nonspecific pancolitis. GI was consulted and recommended colonoscopy but that patient refused. They spoke to him again and he agreed to the scope but then refused. He agreed to go and it was canceled secondary to low blood pressurel pressure (8) Quadriplegia Current Visit: Yes Status: Acute (9) Urolithiasis Current Visit: Yes Status: Acute Qualifiers: Urinary calculus location: kidney Qualified Code(s): N20.0 - Calculus of kidney (10) UTI (urinary tract infection) Current Visit: No Status: Suspected Assessment and plan: Escherichia coli ESBL organism identified. Asymptomatic bacteriuria versus true UTI. Urinalysis was positive for nitrates, moderate bacteria and too numerous to count WBCs. Also a moderate amount of epithelial cells. The patient is a history of recurrent UTI and asymptomatic bacteriuria. His quadriplegia limits his ability to know if he has urinary symptoms. Urology was consulted Status post SPT placement but it is leaking. Qualifiers: Urinary tract infection type: acute cystitis Hematuria presence: without hematuria Qualified Code(s): N30.00 - Acute cystitis without hematuria (11) Altered mental status Current Visit: Yes Status: Resolved Assessment and plan: Was medication related versus other cause but appears to be resolved no meningeal signs. The patient is alert and oriented 3 and following commands. He is answering questions appropriately Qualifiers: Altered mental status type: transient alteration of awareness Qualified Code(s): R40.4 - Transient alteration of awareness (12) Sepsis Current Visit: No Status: Resolved Assessment and plan: The patient met two sirs criteria. He had hypotension requiring a short course of vasopressors. He had a low grade fever. Source was likely candidemia Blood cultures have been drawn multiple times. Central line cultures were positive. Repeat peripheral blood cultures drawn on 09/24/17 where no growth to date on one set out of 1. Repeat CBC blood cultures drawn 09/24/17 were +1 out of 1 RIP is negative Lactic acid was normal It was recommended the CVCbe replaced. IR was unable to do that and exchanged the catheter over the other. Sepsis has resolved and ID has signed off. Qualifiers: Sepsis type: sepsis due to unspecified organism Qualified Code(s): A41.9 - Sepsis, unspecified organism - Subjective Interval history: Patient is sitting up in the bed using his tongue to work his computer screen. He denies any chest pain or shortness of breath at this time. He is tolerating his diet. Denies any fever or chills. He is worried about his tube site and the draining. - Constitutional Vitals: Temp Pulse Resp BP Pulse Ox 99.1 F 80 15 169/100 95 10/01/17 15:36 10/01/17 15:36 10/01/17 15:36 10/01/17 15:36 10/01/17 15:36 General appearance: Present: cooperative, disheveled, A&O X 3, pleasant, underweight. Absent: answers questions appropriately - Head Head exam: Present: atraumatic, normocephalic - Eye Eye exam: Present: PERRL, conjuntiva pink, sclera anicteric Pupils: Present: PERRL - Neck Neck exam general surgery: Present: supple, trachea midline. Absent: lymphadenopathy - Respiratory Respiratory exam: Present: CTAB. Absent: accessory muscle use, rales, rhonchi, wheezes - Cardiovascular Cardiovascular exam: Present: RRR, +S1, +S2. Absent: diastolic murmur, gallop, rubs, systolic murmur - GI/Abdominal GI/Abdominal exam: Present: normal bowel sounds, soft, no peritoneal signs. Absent: distended, tenderness - Extremities Exam Extremities exam: Present: warm, radial pulses palpable and symmetrical. Absent : calf tenderness, cyanotic, pedal edema Additional comments: arm slight edema - Neurological Exam Neurological exam: Present: alert, oriented X3. Absent: pronater drift, facial droop, speech deficit - Skin Skin exam: Present: dry, intact, normal color, warm Internal Medicine: Result - Labs CBC & Chem 7: 09/29/17 06:32 09/29/17 06:32 - ABG Interpretation ABG results: PT/INR, D-dimer PT 11.3 Seconds (9.4-12.1) 09/24/17 09:00 - VTE Reasons for not Prescribing Prophylaxis: Refused by parent Consult Discharge Plan - Plan Referrals: Mauricio Melendrez MD [Primary Care Provider] - Prescriptions: Fluconazole 400 MG/200 ML [Diflucan Premix 400 MG/200 ML] 400 mg IVPB DAILY 13 Days #13 bag
[2017-10-02] MEDS: Acetaminophen 325 MG TABLET PO PRN ×3 (04:34→14:39)
[2017-10-02] MEDS: Ringers Solution, Lactated 1,000 ML IVC SCH (04:46)
[2017-10-02] MEDS: *HR* Heparin 5,000 UNIT/ML VIAL SQ SCH ×2 (04:48→18:35)
[2017-10-02] MEDS ORDERED: Ringers Solution, Lactated 500 ML IVC ONE (05:07)
[2017-10-02] MEDS: Fluconazole 400 MG/200 ML 400 MG/200 ML BAG IVPB SCH (09:39)
[2017-10-02] MEDS: Multivit/Ca/Min/Fe/FA 1 TAB TABLET PO SCH (09:39)
[2017-10-02] MEDS: Sennosides 8.6 MG TABLET PO SCH (09:39)
[2017-10-02] MEDS: tiZANidine 4 MG TABLET PO SCH (09:40)
[2017-10-02] MEDS: Mirtazapine 15 MG TABLET PO SCH (09:40)
[2017-10-02] MEDS: Ascorbic Acid 500 MG TABLET PO SCH (09:40)
[2017-10-02] MEDS: Silver Sulfadiazine 50 GM TUBE TP SCH (09:40)
--- NOTE | 2017-10-02 12:25 | Infectious Disease Progress No ---
Date of Encounter: 10/02/17 Time of Encounter: 12:18 - Assessment and Plan (1) Sepsis Current Visit: No Status: Resolved The patient had two SIRS criteria. He developed hypotension and required a short course of vaospressors. He had a low-grade fever overnight. Original source likely candidemia, but concern for additional etiology given new onset fevers and AMS. Blood cultures drawn 09/22/17 x 2 sets peripherally are negative. Blood cultures drawn 09/22/17 x 2 sets from the central line are positive 1/2 sets for Staph epi and 1/2 for C. parapsilosis. Repeat peripheral blood culture drawn 09/24/17 is NGTD 1/1 sets. Repeat CVC blood cultures drawn 09/24/17 are positive 1/1 set for C. parapsilosis. Additional peripheral blood cultures drawn 09/28/17 are NGTD 2/2 sets, but blood cultures drawn from the patient's CVC prior to its removal are positive 2/2 sets. Unclear if the patient's code status is full vs. DNRCC/DNI. Apparently he had a DNRCC/DNI order at the [facility] prior to admission, but the patient rescinded the order when he came to the ER per the nurse's notes. I advised the hospitalist team to contact his NOK for clarification. Repeat blood cultures x 2 sets peripherally now and from the CVC. Check lactic acid, CBC, BMP. Get CXR. Get urinalysis and culture. Will discuss with nursing to make sure an adequate, uncontaminated specimen is collected from the patient's SPT. Start Ertapenem 1 gram IV daily. Start Vancomycin IV. Pharmacy to dose. Goal trough ~15. Duration of treatment depends on the clinical picture. Monitor renal function and for drug toxicity and dose-adjust antibiotics. Qualifiers: Sepsis type: sepsis due to unspecified organism Qualified Code(s): A41.9 - Sepsis, unspecified organism (2) Altered mental status Current Visit: Yes Status: Resolved New-onset overnight with low-grade fevers and tachycardia. Etiology unclear: sepsis vs. other. No meningeal signs. The patient is intermittently oriented x 3, but has intermittent garbled speech with eyes rolling into the back of his head. Recommend CT scan of the head. Consider neurology consult if not improved. Qualifiers: Altered mental status type: transient alteration of awareness Qualified Code(s): R40.4 - Transient alteration of awareness (3) Candidemia Current Visit: Yes Status: Acute Causative organism unclear. Blood culture from the the CVC is positive 1/2 sets for C. parapsilosis, but the PCR did not pick anything up. Repeat culture 1/ set drawn 09/24/17 from the CVC is positive for C. parapsilosis. Blood culture drawn peripherally 1/ set on 09/24/17 is NGTD. Additional sets of cultures were cancelled by the lab staff so only 1 set from the line and from the peripheral stick were drawn. Additional peripheral blood cultures drawn 09/28/17 are NGTD 2/2 sets, but blood cultures drawn from the patient's CVC prior to its removal are positive 2/2 sets. Given that the patient has had two sets of cultures come back positive from the CVC, this is likely a true infection. Status post guidewire exchange 09/29/17. Repeat blood cultures as above. Continue fluconazole 400mg IV daily. Duration of treatment depends on the clinical picture, but likely 14 days from the line exchange. Opthalmology to evaluate. Will be done as an outpatient. Monitor renal and liver function studies and dose-adjust antibiotics. (4) Bacteremia Current Visit: Yes Status: Acute True bacteremia vs. contaminant. Peripheral blood cultures drawn 09/22/17 are negative x 2 sets. CVC blood cultures drawn 09/22/17 are positive 1/2 sets for S. epi. Repeat cultures negative for S. epi. Given the clinical picture, not sure that this is a true infection. Likely a contaminant. Status post CVC exchange 09/29/17. No further antibiotics at this time. (5) UTI (urinary tract infection) due to urinary indwelling Souza catheter Current Visit: No Status: Resolved Causative organism E. coli ESBL. Asymptomatic bacteriuria vs. true UTI. Not sure that this is the source of the patient's sepsis since it is Aztreonam resistant and clinically he is improved. Urinalysis positive for nitrites, moderate bacteria, and TNTC WBC; also a moderate amount of epithelial cells. The patient has a history of recurrent UTI/asymptomatic bacteriuria. His quadriplegia limits his ability to know if he has urinary symptoms. Urology consulted. Status post SPT replacement. The SPT is leaking. Urology and ostomy nursing following. Completed 6 days of IV Ertapenem. Repeat urinalysis given new-onset AMS. Antibiotic recommendations as above. Qualifiers: Indwelling urinary catheter type: cystostomy catheter Encounter type: subsequent encounter Qualified Code(s): T83.510D - Infection and inflammatory reaction due to cystostomy catheter, subsequent encounter; N39.0 - Urinary tract infection, site not specified (6) Hydronephrosis Current Visit: Yes Status: Acute CT abdomen and pelvis shows mild left hydronephrosis. Likely secondary to 5mm stone. Urology consulted and following. Since the patient is making adequate urine, PNT placement on hold. Qualifiers: Hydronephrosis type: with ureteral calculous obstruction Qualified Code(s) : N13.2 - Hydronephrosis with renal and ureteral calculous obstruction (7) Urolithiasis Current Visit: Yes Status: Acute Qualifiers: Urinary calculus location: kidney Qualified Code(s): N20.0 - Calculus of kidney (8) Pancolitis Current Visit: Yes Status: Acute CT abdomen and pelvis showed nonspecific pancolitis. Treated with 6 days of IV Ertapenem. Abdominal exam benign. No bowel moement documented since 09/28/17. Repeat abdominal x-ray. (9) GI bleed Current Visit: Yes Status: Acute Etiology unclear. Hemoglobin stable. GI consulted. Management per the primary and GI teams. Qualifiers: GI bleed type/associated pathology: unspecified gastrointestinal hemorrhage type Qualified Code(s): K92.2 - Gastrointestinal hemorrhage, unspecified (10) Quadriplegia Current Visit: Yes Status: Chronic (11) Chronic pain Current Visit: No Status: Chronic Qualifiers: Chronic pain type: other chronic pain Qualified Code(s): G89.29 - Other chronic pain (12) Neurogenic bladder Current Visit: No Status: Chronic Chronic SPT. (13) Decubitus ulcer of right ischium, stage 2 Current Visit: Yes Status: Acute Stage II. No drainage, warmth, erythema, or fluctuance. Refuses exam today. Recommend aggressive offloading and wound care. Patient non-compliant with turning per nursing. Consult wound care team. (14) Decubitus ulcer of left ischium, stage 2 Current Visit: Yes Status: Acute Stage II. No drainage, warmth, erythema, or fluctuance. Refuses exam today. Recommend aggressive offloading and wound care. Patient non-compliant with turning per nursing. Consult wound care team. - Subjective Interval history: Asked to re-evaluate patient due to low-grade fevers overnight and tachycardia. Patient seen and examined. Had low-grade fever with Tmax 100.0 and now with persistent tachycardia. Status post [id number] exchange of left upper chest CVC 09/29/17. Patient appears confused, difficult to get any information from as I cannot understand what he says. His eyes roll back in his head. He complains that he is hot. He appears tachypneic, but denies chest pain, shortness of breath or cough. Denies nausea, vomiting or diarrhea. Denies abdominal pain or other complaints at this time. His SPT is no longer leaking and is draining clear yellow urine. Per nursing, the patient has had little to no PO intake for a couple of days now. Infect Dis PN-Objective Data - Labs CBC & Chem 7: 09/29/17 06:32 09/29/17 06:32 Cultures: Cultures 09/28/17 10:40 Blood Culture - Final Central Venous Catheter Jacquie parapsilosis 09/28/17 10:40 Blood Culture - Final Central Venous Catheter Jacquie parapsilosis 09/25/17 00:18 Blood Culture - Final Central Venous Catheter Jacquie parapsilosis 09/24/17 16:51 Blood Culture - Final Peripheral Venipuncture No growth. 09/28/17 10:27 Blood Culture - Preliminary Peripheral Venipuncture No growth. 09/28/17 10:27 Blood Culture - Preliminary Peripheral Venipuncture No growth. Serology 09/28/17 09/28/17 09/25/17 Range/Units 10:40 10:40 00:18 A. baumannii (PCR) Not Detected Not Detected Not Detected (Not Detect) Jacquie albicans (PCR) Not Detected Not Detected Not Detected (Not Detect) C. glabrata (PCR) Not Detected Not Detected Not Detected (Not Detect) C. krusei (PCR) Not Detected Not Detected Not Detected (Not Detect) C. parapsilosis (PCR) Not Detected Not Detected Not Detected (Not Detect) C. tropicalis (PCR) Not Detected Not Detected Not Detected (Not Detect) Enterobacteriac sp PCR Not Detected Not Detected Not Detected (Not Detect) E. cloacae complex PCR Not Detected Not Detected Not Detected (Not Detect) Enterococcus sp PCR Not Detected Not Detected Not Detected (Not Detect) E. coli (PCR) Not Detected Not Detected Not Detected (Not Detect) H. influenzae (PCR) Not Detected Not Detected Not Detected (Not Detect) Klebsiella oxytoca PCR Not Detected Not Detected Not Detected (Not Detect) Klebsiella pneumoniae Not Detected Not Detected Not Detected (Not Detect) List. monocytogenes PCR Not Detected Not Detected Not Detected (Not Detect) N. meningitidis (PCR) Not Detected Not Detected Not Detected (Not Detect) Proteus species (PCR) Not Detected Not Detected Not Detected (Not Detect) Serratia marcescens PCR Not Detected Not Detected Not Detected (Not Detect) Staphylococcus sp PCR Not Detected Not Detected Not Detected (Not Detect) Staph aureus (PCR) Not Detected Not Detected Not Detected (Not Detect) mecA-Methicil Res Gene Not Detected Not Detected N/A (Not Detect) Streptococcus sp PCR Not Detected Not Detected Not Detected (Not Detect) Group A Strep DNA Not Detected Not Detected Not Detected (Not Detect) Group B Strep (PCR) Not Detected Not Detected Not Detected (Not Detect) Strep pneumoniae (PCR) Not Detected Not Detected Not Detected (Not Detect) P. aeruginosa (PCR) Not Detected Not Detected Not Detected (Not Detect) Tan/B-Vanco Res Genes Not Detected Not Detected N/A (Not Detect) KPC (blaKPC) Detect PCR Not Detected Not Detected N/A (Not Detect) Exam - Constitutional Vitals: Temp Pulse Resp BP Pulse Ox 98.8 F 82 15 154/75 96 10/02/17 06:58 10/02/17 06:58 10/02/17 06:58 10/02/17 06:58 10/02/17 06:58 General appearance: average body habitus, cooperative, mild distress, no febrile - Head Head exam: Present: atraumatic, normal inspection, normocephalic - Eye Eye exam: Present: EOMI, normal appearance, PERRL Pupils: Present: normal accommodation - ENT ENT exam: Present: mucous membranes dry Additional comments: Lips dry and cracking. - Neck Neck exam: Present: normal inspection - Respiratory Respiratory exam: Present: CTAB, tachypnea. Absent: rales, respiratory distress , rhonchi, wheezes - Cardiovascular Cardiovascular exam: Present: +S1, +S2, tachycardia. Absent: irregular rhythm - GI/Abdominal GI/Abdominal exam: Present: normal bowel sounds, soft. Absent: distended, tenderness Additional comments: SPT draining clear yellow urine. - Extremities Exam Extremities exam: Absent: joint swelling, normal inspection (Bilateral AKA stumps without redness, warmth, erythema, or open lesions. BUE muscle atrophy with contractures of the hands.), pedal edema, tenderness - Back Exam Additional comments: Refuses to turn for examination of his wounds. - Neurological Exam Neurological exam: Present: altered (Awake, alert, but difficult to understand and does not answer questions appropriately. Eyes rolling into the back of the head intermittently throughout exam, but patient continues talking. ), oriented X3, speech deficit (Garbled speech.). Absent: no focal deficits (Paralysis noted to the BUE and BLE. ) - Skin Skin exam: Present: dry, intact, normal color, warm - Additional findings Additional findings: Tunneled CVC noted to the left upper chest with transparent dressing C/D/I. No redness, warmth, erythema, or tenderness. - VTE Reasons for not Prescribing Prophylaxis: Refused by parent Consult Discharge Plan - Plan Referrals: Mauricio Melendrez MD [Primary Care Provider] - Prescriptions: Fluconazole 400 MG/200 ML [Diflucan Premix 400 MG/200 ML] 400 mg IVPB DAILY 13 Days #13 bag
[2017-10-02] MEDS ORDERED: Vancomycin 500 MG in 0.9 % Sodium Chloride 250 ML IVPB SCH (13:00)
--- NOTE | 2017-10-02 13:19 | Internal Med Progress Note ---
Date of Encounter: 10/02/17 Time of Encounter: 13:17 - Assessment and plan (1) Bacteremia Current Visit: Yes Status: Acute Assessment and plan: Infectious disease is following the patient and recommends no further antibiotics last peripheral blood cultures drawn 09/28/17 are not no growth to date to O2 sats Reconsult ID with tachycardia and low-grade fever overnight Orders have been written for blood cultures. We will obtain repeat blood work. We will transfer to a higher level of care per infectious disease's suggestion as they know the patient very well. (2) Candidemia Current Visit: Yes Status: Acute Assessment and plan: from CVC infection, blood culture on 09/25 still postive, on iV flulconazole, recommends to continue flucanazole 400 mg IV daily for 14 days from a line exchange which will mean treating through 10/12/17 then stop. Monitor renal and liver function studies and dose adjust antibiotics. Ophaltomolgist Dr Metz wondering if this can be done as outpatient, Jeanne is ok to set up appointment with Dr Metz after discharge, phone # [phone] (3) Decubitus ulcer of left ischium, stage 2 Current Visit: Yes Status: Acute Assessment and plan: Patient is noncompliant with positioning and wound care team is managing the dressings and management of the wounds (4) Decubitus ulcer of right ischium, stage 2 Current Visit: Yes Status: Acute Assessment and plan: See as above (5) GI bleed Current Visit: Yes Status: Resolved Assessment and plan: Patient EGD cancelled by anesthesia secondary to low blood pressure. He has a chronically low blood pressure. Hemoglobin is stable, no further bleeding Qualifiers: GI bleed type/associated pathology: unspecified gastrointestinal hemorrhage type Qualified Code(s): K92.2 - Gastrointestinal hemorrhage, unspecified (6) Neurogenic bladder Current Visit: No Status: Chronic Assessment and plan: s/p SP catheter, changed on admission but continues to leak around the site and urology aware Applied colostomy collection device around the tube and it is now draining clear yellow urine into the collection bag (7) Pancolitis Current Visit: Yes Status: Acute Assessment and plan: CT of abdomen and pelvis reviewed and showed nonspecific pancolitis. GI was consulted and recommended colonoscopy but that patient refused. They spoke to him again and he agreed to the scope but then refused. He agreed to go and it was canceled secondary to low blood pressurel pressure, denied abdominal pain (8) Quadriplegia Current Visit: Yes Status: Acute (9) Urolithiasis Current Visit: Yes Status: Acute Qualifiers: Urinary calculus location: kidney Qualified Code(s): N20.0 - Calculus of kidney (10) UTI (urinary tract infection) Current Visit: No Status: Suspected Assessment and plan: Escherichia coli ESBL organism identified. Asymptomatic bacteriuria versus true UTI. Urinalysis was positive for nitrates, moderate bacteria and too numerous to count WBCs. Also a moderate amount of epithelial cells. The patient is a history of recurrent UTI and asymptomatic bacteriuria. His quadriplegia limits his ability to know if he has urinary symptoms. Urology was consulted Status post SPT placement but it is leaking so appliance applied over site to collect urine. Qualifiers: Urinary tract infection type: acute cystitis Hematuria presence: without hematuria Qualified Code(s): N30.00 - Acute cystitis without hematuria (11) Altered mental status Current Visit: Yes Status: Resolved Assessment and plan: Onset of altered mental status. Overnight he had a low-grade fever and he has developed tachycardia. Etiology unclear sepsis versus other cause. No meningeal signs. The patient is adamantly oriented 3 but has intermittent garbled speech with eyes rolling to the back of his head. He will if aroused talk to the staff and then will just closes eyes and ignore them with and then roll his eyes up into his head. Obtain CT of the head as per infectious disease recommendation. Reconsult nor O if condition is not improved. Qualifiers: Altered mental status type: transient alteration of awareness Qualified Code(s): R40.4 - Transient alteration of awareness - Subjective Interval history: Patient is sitting up in the bed , he is not eating per nursing report. He is not really responding appropriately. The nurse can get him to talk to her but then he just chooses to [place] when they are talking to him. He is tachycardic. He is diaphoretic. Face is flushed. - Constitutional Vitals: Temp Pulse Resp BP Pulse Ox 98.8 F 82 15 154/75 96 10/02/17 06:58 10/02/17 06:58 10/02/17 06:58 10/02/17 06:58 10/02/17 06:58 General appearance: Present: disheveled, mild distress, A&O X 3, underweight, answers questions appropriately. Absent: cooperative - Head Head exam: Present: atraumatic, normocephalic - Eye Eye exam: Present: PERRL, conjuntiva pink, sclera anicteric Pupils: Present: PERRL - Neck Neck exam general surgery: Present: supple, trachea midline. Absent: lymphadenopathy - Respiratory Respiratory exam: Present: decreased breath sounds, CTAB. Absent: accessory muscle use, rales, rhonchi, wheezes - Cardiovascular Cardiovascular exam: Present: RRR, +S1, +S2, tachycardia. Absent: diastolic murmur, gallop, rubs, systolic murmur - GI/Abdominal GI/Abdominal exam: Present: normal bowel sounds, soft, no peritoneal signs. Absent: distended, tenderness Additional comments: 2. Pubic catheter is draining into a collection colostomy bag. Draining clear yellow urine - Extremities Exam Extremities exam: Present: warm, radial pulses palpable and symmetrical. Absent : calf tenderness, cyanotic, pedal edema Additional comments: AKA bilaterally - Neurological Exam Neurological exam: Present: oriented X3. Absent: pronater drift, facial droop, speech deficit - Skin Skin exam: Present: diaphoretic, warm Additional comments: Face is flushed Internal Medicine: Result - Labs CBC & Chem 7: 09/29/17 06:32 09/29/17 06:32 - ABG Interpretation ABG results: PT/INR, D-dimer PT 11.3 Seconds (9.4-12.1) 09/24/17 09:00 - VTE Reasons for not Prescribing Prophylaxis: Refused by parent Consult Discharge Plan - Plan Referrals: Mauricio Melendrez MD [Primary Care Provider] - Prescriptions: Fluconazole 400 MG/200 ML [Diflucan Premix 400 MG/200 ML] 400 mg IVPB DAILY 13 Days #13 bag
[2017-10-02 13:25] LABS: Hematocrit 34.7 % (37.5-50.1); Hemoglobin 11.1 g/dL (12.9-16.9); Mean Corpuscular Volume 87.6 fL (83.0-100.0); Mean Platelet Volume 8.1 fL (9.4-12.4); Platelet Count 457 K/mcL (140-400); Red Blood Count 3.96 M/mcL (4.19-5.50)
[2017-10-02 13:44] LABS: BUN/Creatinine Ratio 7 (6-26); Blood Urea Nitrogen 5 mg/dL (6-20); Calcium 9.1 mg/dL (8.6-10.3); Carbon Dioxide 23 mEq/L (23-29); Chloride 96 mEq/L (98-107); Glucose 78 mg/dL (70-105); Osmolality,Calculated 278 (280-300); Potassium 4.1 mEq/L (3.5-5.1); Sodium 136 mEq/L (136-145); eGFR For African Americans > 60 (> 60); eGFR For Non-African Americans > 60 (> 60)
[2017-10-02] MEDS ORDERED: Vancomycin 500 MG in 0.9 % Sodium Chloride Mini Bag 100 ML IVPB SCH (14:00)
[2017-10-02] MEDS: Ertapenem 1,000 MG in 0.9 % Sodium Chloride Mini Bag 100 ML IVPB SCH (14:40)
[2017-10-02] MEDS ORDERED: Acetaminophen 650 MG RECTAL SUPP RC PRN (14:57)
[2017-10-02 15:06] LABS: ABG Base Excess 0 mEq/L (-2 to 3); ABG HCO3 24 mEq/L (21-27); ABG Oxygen Saturation 97 % (95-98); ABG PCO2 36 mmHg (35-45); ABG PH 7.43 pH Units (7.32-7.45); ABG PO2 84 mmHg (85-104); ABG TCO2 25 mEq/L (20-26)
--- NOTE | 2017-10-02 15:31 | Palliative - Consult Note ---
Date of Encounter: 10/02/17 Time of Encounter: 15:30 - Assessment and Plan (1) Altered mental status Current Visit: Yes Status: Resolved Assessment and plan: Acute change in mental status today. ABG's appear fairly normal. Qualifiers: Altered mental status type: transient alteration of awareness Qualified Code(s): R40.4 - Transient alteration of awareness (2) Bacteremia Current Visit: Yes Status: Acute (3) Acute respiratory failure with hypercapnia Current Visit: No Status: Resolved (4) Sepsis Current Visit: No Status: Resolved Qualifiers: Sepsis type: sepsis due to unspecified organism Qualified Code(s): A41.9 - Sepsis, unspecified organism (5) Goals of care, counseling/discussion Current Visit: Yes Status: Acute Assessment and plan: As previously noted, pt had rescinded his DNRCC while he was in ER. This is documented on nursing note 09/21/17 at 1954. Currently no family is at bedside. Primary nurse Vera, states that a stepfather was reached and states he would try and bring patient's mother to hospital, but she herself is ill. There is documentation of a "sister" in a previous note , apparently she was present during his psych eval, but there is no contact information for her. Will continue to follow, however, since patient's last known wish was to rescind his code status, this will remain full code until other discussions can occur. I told nursing staff to notify me if family comes in. Palliative-CN HPI - Data of Consult Consult date: 10/02/17 Requesting Physician: Merrick Peng MD Primary Care Provider: Mauricio Melendrez MD - Consult Narrative History of present illness: Mr. Eid is a 42 year old quadriplegic male who was admitted with sepsis approximately 8 days ago. He is resident of [facility], and has frequent admission r/t sepsis. He was transferred to ICU during this admission , did stabilize and was transferred to the floor. Most recent blood cultures demonstrated Jacquie and he is on Fluconazole. Infectious disease has been following closely. This am, he spiked fever again at 103, and had altered mental status. He was transferred to . Upon chart review, pt had completed a DNRCC form in 2016, however, it was documented upon ER visit ( Nurses note on 09/21/17 at 1954) that physician Dr. Martin said patient rescinded his DNR and wanted to be a full code. Today, family has not been able to be reached to rediscuss goals of care. Patient had a psych consult on September 24 and was found to be able to make his own medical decisions. Upon my visit, he is altered and has mumbled unintelligible speech. He does not acknowledge me during assessment or in trying to speak with him. Appears to be agitated when disturbed. No family is present. CC: Merrick Peng MD Past Med Surg Social Fam HX - Past Medical History Medical history: cardiomyopathy, coronary artery disease, GERD, hyperlipidemia, hypertension, kidney stones, myocardial infarction, peripheral artery disease, renal disease, other (Neurogenic bladder secondary to quadriplegia, chronic SPT) Psychiatric history: depression, previous psychiatric hospitalization - Past Surgical History Surgical History: orthopedic, other, tracheostomy, other (Chronic SPT) - Social History Smoking Status: Former smoker Smokeless Tobacco Status: Yes (chew) Alcohol use: occasionally Drug use: marijuana - Family History Mother Living Status: Still Living Hx Family Respiratory Disorders: Yes Hx Family Cancer: Yes Hx Family Endocrine Disorder: Yes Medications and Allergies Promethazine [Phenergan] 25 mg PO 0000 03/23/15 [History] Ascorbic Acid [Vitamin C] 500 mg PO DAILY 05/23/15 [History] Bisacodyl [Dulcolax] 5 mg PO DAILY 05/23/15 [History] Lubiprostone [Amitiza] 24 mcg PO Q12HR 05/23/15 [History] Sennosides [Senna] 17.2 mg PO BID 05/23/15 [History] Acetaminophen [Tylenol] 650 mg PO Q6HR PRN 05/11/16 [History] Baclofen 60 mg PO BID 05/11/16 [History] GuaiFENesin ER [Mucinex] 600 mg PO DAILY 05/11/16 [History] Docusate [Colace] 100 mg PO BID 05/12/16 [History] Tizanidine HCl [Zanaflex] 12 mg PO BID 05/12/16 [History] Mirtazapine 7.5 mg PO DAILY 07/04/17 [History] 0.9 % Sodium Chloride [Normal Saline Flush] 10 ml IV DAILY 09/21/17 [History] Ferrous Gluconate 324 mg PO BID 09/21/17 [History] HYDROmorphone [Dilaudid] 2 mg PO 0000 09/21/17 [History] HYDROmorphone [Dilaudid] 2 mg PO Q4H PRN 09/21/17 [History] Omeprazole [PriLOSEC] 20 mg PO DAILY 09/21/17 [History] Promethazine [Phenergan] 25 mg PO Q6H PRN 09/21/17 [History] Vitamin B Complex/Minerals [Sm Stress Formula+Zinc Tablet] 1 each PO DAILY 09/21 [History] diazePAM [Valium] 5 mg PO 0000 09/21/17 [History] Fluconazole 400 MG/200 ML [Diflucan Premix 400 MG/200 ML] 400 mg IVPB DAILY 13 Days #13 bag 09/30/17 [Rx] 3 Allergy/AdvReac Type Severity Reaction Status Date / Time Amoxicillin [From Amoxil] Allergy See Verified 09/21/17 22:01 Comments cephalexin [From Keflex] Allergy Hives Verified 07/04/17 06:12 ciprofloxacin [From Cipro] Allergy Hives Verified 07/04/17 06:12 cranberry Allergy See Verified 07/04/17 06:12 Comments ketorolac Allergy Hives Verified 07/04/17 06:12 morphine Allergy Hives Verified 07/04/17 06:12 nitrofurantoin Allergy Hives Verified 07/04/17 06:12 [From Macrobid] Oxycodone Allergy Hives Verified 07/04/17 06:12 Penicillins Allergy Hives Verified 07/04/17 06:12 prochlorperazine Allergy Hives Verified 07/04/17 06:12 [From Compazine] Sulfa (Sulfonamide Allergy Hives Verified 07/04/17 06:12 Antibiotics) trimethoprim Allergy See Verified 07/04/17 06:12 Comments ROS unobtainable: due to mental status Palliative Care-Exam - Constitutional Vitals: Temp Pulse Resp BP Pulse Ox 100.8 F H 120 22 161/107 95 10/02/17 14:36 10/02/17 14:36 10/02/17 14:36 10/02/17 14:36 10/02/17 14:36 General appearance: Present: febrile, mild distress - Respiratory Respiratory exam: Present: decreased breath sounds, CTAB - Cardiovascular Cardiovascular exam: Present: +S1, +S2, tachycardia - GI/Abdominal Exam GI/Abdominal exam: Present: normal bowel sounds, soft - Additional comments: Urostomy with straw colored urine in appliance - Extremities Exam Additional comments: Bilateral AKA - Neurological Exam Neurological exam: Present: altered Additional comments: Altered - does not follow commands, answer questions. Mumbled unintelligible speech - Skin Skin exam: Present: dry, warm Internal Medicine - CN: Reslt - Labs CBC & Chem 7: 10/02/17 12:20 10/02/17 12:20 Labs: Short CBC 10/02/17 Range/Units 12:20 WBC 8.7 (4.3-11.1) K/mcL Hgb 11.1 L (12.9-16.9) g/dL Hct 34.7 L (37.5-50.1) % Plt Count 457 H (140-400) K/mcL BMP 10/02/17 12:20 Sodium 136 Potassium 4.1 Chloride 96 L Carbon Dioxide 23 BUN 5 L Creatinine 0.67 L Glucose 78 Calcium 9.1 - ABG Interpretation ABG results: ABG ABG pH 7.43 pH Units (7.32-7.45) 10/02/17 15:01 ABG pCO2 36 mmHg (35-45) 10/02/17 15:01 ABG pO2 84 mmHg (85-104) L 10/02/17 15:01 ABG O2 Saturation 97 % (95-98) 10/02/17 15:01 PT/INR, D-dimer PT 11.3 Seconds (9.4-12.1) 09/24/17 09:00 - Impressions Impressions Abdomen X-Ray 10/02/17 12:52 IMPRESSION: New patchy medial right basilar airspace opacity may reflect pneumonia in the correct clinical setting. Nonobstructed bowel-gas pattern. Moderate stool throughout the colon. D/ / 10/02/2017 13:50:19 Markell Hung MD / nazia Interpreting Provider: Markell Hung MD Chest X-Ray 10/02/17 12:52 IMPRESSION: New patchy medial right basilar airspace opacity may reflect pneumonia in the correct clinical setting. Nonobstructed bowel-gas pattern. Moderate stool throughout the colon. D/ / 10/02/2017 13:50:19 Markell Hung MD / [email or web address] Interpreting Provider: Markell Hung MD Head CT 10/02/17 12:53 IMPRESSION: No evidence of acute intracranial abnormality. D/ / 10/02/2017 14:08:40 Romulo Gonzalez MD / bcarter Interpreting Provider: Romulo Gonzalez MD Consult Discharge Plan - Plan Referrals: Mauricio Melendrez MD [Primary Care Provider] - Prescriptions: Fluconazole 400 MG/200 ML [Diflucan Premix 400 MG/200 ML] 400 mg IVPB DAILY 13 Days #13 bag Palliative Quality Palliative Quality: Screen for Code Status: NA (Pt altered, no family able to be reached at this time), Screen for Goals of Care: NA, Screen for Pain: NA, If Pain Regimen Started, Initiate Bowel Regimen: NA, Screen for Nausea/Vomitting: NA
[2017-10-02] MEDS ORDERED: Bisacodyl 10 MG RECTAL SUPPOSITORY RC PRN (15:36)
[2017-10-03] MEDS: tiZANidine 4 MG TABLET PO SCH ×3 (03:04→19:48)
[2017-10-03] MEDS: Sennosides 8.6 MG TABLET PO SCH ×3 (03:04→19:47)
[2017-10-03] MEDS: Vancomycin 500 MG in 0.9 % Sodium Chloride Mini Bag 100 ML IVPB SCH ×2 (03:20→13:04)
[2017-10-03] MEDS: *HR* Heparin 5,000 UNIT/ML VIAL SQ SCH ×2 (05:50→17:41)
--- NOTE | 2017-10-03 08:02 | Internal Med Progress Note ---
Date of Encounter: 10/03/17 Time of Encounter: 07:59 - Assessment and plan (1) Candidemia Current Visit: Yes Status: Acute Assessment and plan: Appreciated both ID and palliative input, he really does not benefit from any aggressive care whatsoever. If the family visits, need to talk DNR comfort care measures. Until that time, continue IV fluconazole for liquid maybe another week or so. (2) History of MRSA infection Current Visit: No Status: Resolved (3) Quadriplegia Current Visit: Yes Status: Chronic (4) Decubitus ulcer of right ischium, stage 2 Current Visit: Yes Status: Chronic (5) Altered mental status Current Visit: Yes Status: Acute Assessment and plan: Most likely from candidemia. Qualifiers: Altered mental status type: transient alteration of awareness Qualified Code(s): R40.4 - Transient alteration of awareness - Subjective Interval history: Remain somewhat delirious, comfortable. Speaking her a prescription for people who were not in the room. His blood pressures improved. - Constitutional Vitals: Temp Pulse Resp BP Pulse Ox 98.7 F 88 15 125/106 94 10/03/17 06:57 10/03/17 06:57 10/03/17 06:57 10/03/17 06:57 10/03/17 06:57 General appearance: Present: disheveled, underweight. Absent: cooperative - Eye Eye exam: Present: EOMI Pupils: Present: PERRL Additional comments: roaming eye motions. No nystagmus. - Neck Additional comments: No JVD. - Respiratory Additional comments: For the most part clear, poor effort. No tachypnea. - Cardiovascular Cardiovascular exam: Present: RRR, +S1, +S2 - Skin Additional comments: Large amount of packing that is dry, appreciated around the pelvic area with the suprapubic catheter area. Dry dressings also noted on both thighs stumps. Internal Medicine: Result - Labs CBC & Chem 7: 10/02/17 12:20 10/02/17 12:20 Labs: Short CBC 10/02/17 Range/Units 12:20 WBC 8.7 (4.3-11.1) K/mcL Hgb 11.1 L (12.9-16.9) g/dL Hct 34.7 L (37.5-50.1) % Plt Count 457 H (140-400) K/mcL BMP 10/02/17 12:20 Sodium 136 Potassium 4.1 Chloride 96 L Carbon Dioxide 23 BUN 5 L Creatinine 0.67 L Glucose 78 Calcium 9.1 - ABG Interpretation ABG results: ABG ABG pH 7.43 pH Units (7.32-7.45) 10/02/17 15:01 ABG pCO2 36 mmHg (35-45) 10/02/17 15:01 ABG pO2 84 mmHg (85-104) L 10/02/17 15:01 ABG O2 Saturation 97 % (95-98) 10/02/17 15:01 PT/INR, D-dimer PT 11.3 Seconds (9.4-12.1) 09/24/17 09:00 - Impressions Impressions Abdomen X-Ray 10/02/17 12:52 IMPRESSION: New patchy medial right basilar airspace opacity may reflect pneumonia in the correct clinical setting. Nonobstructed bowel-gas pattern. Moderate stool throughout the colon. D/ : / 10/02/2017 13:50:19 Markell Hung MD / nazia Interpreting Provider: Markell Hung MD Chest X-Ray 10/02/17 12:52 IMPRESSION: New patchy medial right basilar airspace opacity may reflect pneumonia in the correct clinical setting. Nonobstructed bowel-gas pattern. Moderate stool throughout the colon. D/ : / 10/02/2017 13:50:19 Markell Hung MD / nazia Interpreting Provider: Markell Hung MD Head CT 10/02/17 12:53 IMPRESSION: No evidence of acute intracranial abnormality. D/ : / 10/02/2017 14:08:40 Romulo Gonzalez MD / [email or web address] Interpreting Provider: Romulo Gonzalez MD - VTE Reasons for not Prescribing Prophylaxis: Refused by parent Consult Discharge Plan - Plan Referrals: Mauricio Melendrez MD [Primary Care Provider] - Prescriptions: Fluconazole 400 MG/200 ML [Diflucan Premix 400 MG/200 ML] 400 mg IVPB DAILY 13 Days #13 bag
[2017-10-03] MEDS: Fluconazole 400 MG/200 ML 400 MG/200 ML BAG IVPB SCH (09:20)
[2017-10-03] MEDS: Ertapenem 1,000 MG in 0.9 % Sodium Chloride Mini Bag 100 ML IVPB SCH (09:20)
[2017-10-03] MEDS: Mirtazapine 15 MG TABLET PO SCH (10:08)
[2017-10-03] MEDS: Multivit/Ca/Min/Fe/FA 1 TAB TABLET PO SCH (10:09)
--- NOTE | 2017-10-03 10:10 | Event Note ---
Date of Encounter: 10/03/17 Time of Encounter: 10:00 Patient more alert than yesterday, but still quite altered. Most speech unintelligible. Afebrile this am. I have attempted to reach family with the following numbers. These were found in record here, and I also contacted [facility] for additional numbers. For mother, Magalys Eid [phone] - Not valid working number [phone] - voicemail picked up for Krishan Helton - mailbox full [phone] - Not valid working number [phone] - Not valid working number Son Kyrie Mancia - [phone] - did leave voicemail with my contact information. Primary nurse Cynthia states she will be contacting Dr. Brunson if family arrives. Discussed she could notify me as well. Will continue to follow but have been unable thus far to get in touch with family.
--- NOTE | 2017-10-03 12:33 | Electrocardiograph Report ---
[address] [address] Test Date: 2017-10-02 Pat Name: Francisco Eid Department: 113 Room: 2N02 Gender: M [employer] In[employer]: : 1975 Requested By: Danielito Noel Order Number: [id number] Reading MD: Chase Aggarwal Measurements Intervals [place] Rate: 127 P: 75 DC: 151 QRS: 77 QRSD: 109 T: 47 QT: 320 QTc: 395 Interpretive Statements SINUS TACHYCARDIA ABNORMAL RHYTHM ECG Electronically Signed On 10-03-2017 12:31:57 EST by Chase Aggarwal
[2017-10-03] MEDS: *HR* HYDROmorphone 2 MG TABLET PO PRN (20:12)
[2017-10-04] MEDS: Vancomycin 500 MG in 0.9 % Sodium Chloride Mini Bag 100 ML IVPB SCH ×3 (03:30→16:09)
[2017-10-04] MEDS: Silver Sulfadiazine 50 GM TUBE TP SCH ×3 (03:38→09:49)
[2017-10-04 05:15] LABS: Bilirubin,Urine Negative (Negative); Blood,Urine Large (Negative); Clarity,Urine Cloudy (Clear); Color,Urine Yellow (Yellow); Glucose,Urine (UA) Normal (Normal); Ketones,Urine 40 mg/dL (Negative); Leukocyte Esterase,Urine Moderate (Negative); Nitrite,Urine Negative (Negative); PH,Urine 6.5 pH Units (5.0-8.0); Protein,Urine 100 mg/dL (Neg-Trace); Specific Gravity,Urine 1.021 (1.010-1.025); Urobilinogen,Urine Normal (Normal)
[2017-10-04 05:27] LABS: RBC,Urine 15-30 per hpf (0-3); WBC,Urine 15-30 per hpf (0-3)
[2017-10-04 05:28] LABS: Bacteria,Urine Moderate per hpf (None-Few); Renal Epithelial Cells,Urine Few per hpf (None-Few); Squamous Epithelial Cell,Urine Moderate per lpf (None-Few)
[2017-10-04] MEDS: *HR* Heparin 5,000 UNIT/ML VIAL SQ SCH ×2 (05:47→18:16)
--- NOTE | 2017-10-04 08:06 | Internal Med Progress Note ---
Date of Encounter: 10/04/17 Time of Encounter: 08:04 - Assessment and plan (1) Candidemia Current Visit: Yes Status: Acute Assessment and plan: Plan is continual for course of antifungals for 7 more days. Continue attempts to reach family (2) Quadriplegia Current Visit: Yes Status: Chronic (3) Decubitus ulcer of right ischium, stage 2 Current Visit: Yes Status: Chronic (4) Altered mental status Current Visit: Yes Status: Acute Assessment and plan: Due to Jacquie sepsis Qualifiers: Altered mental status type: transient alteration of awareness Qualified Code(s): R40.4 - Transient alteration of awareness - Subjective Interval history: Remain somewhat delirious, comfortable. Speaking for people who were not in the room. His blood pressures improved. May be a bit better than yesterday but not by much. Still quite delirious. Appreciate palliative attempt to contact family. We are seeking DNR Comfort Care status. - Constitutional Vitals: Temp Pulse Resp BP Pulse Ox 98.5 F 100 18 138/97 100 10/04/17 07:29 10/04/17 07:29 10/04/17 07:29 10/04/17 07:29 10/04/17 07:29 General appearance: Present: disheveled, underweight. Absent: cooperative - Neck Neck exam general surgery: Present: trachea midline - Respiratory Respiratory exam: Present: CTAB. Absent: tachypnea Additional comments: Poor effort. - Cardiovascular Cardiovascular exam: Present: RRR. Absent: JVD, tachycardia - GI/Abdominal GI/Abdominal exam: Present: normal bowel sounds, soft, no peritoneal signs - Neurological Exam Neurological exam: Present: altered, no focal deficits Internal Medicine: Result - Labs CBC & Chem 7: 10/02/17 12:20 10/02/17 12:20 Labs: Urine 10/04/17 Range/Units 04:45 Urine Color Yellow (Yellow) Urine Clarity Cloudy A (Clear) Urine pH 6.5 (5.0-8.0) pH Units Ur Specific [place] 1.021 (1.010-1.025) Urine Protein 100 H (Neg-Trace) mg/dL Urine Glucose (UA) Normal (Normal) mg/dL Urine Clinitest (Negative) - ABG Interpretation ABG results: ABG ABG pH 7.43 pH Units (7.32-7.45) 10/02/17 15:01 ABG pCO2 36 mmHg (35-45) 10/02/17 15:01 ABG pO2 84 mmHg (85-104) L 10/02/17 15:01 ABG O2 Saturation 97 % (95-98) 10/02/17 15:01 PT/INR, D-dimer PT 11.3 Seconds (9.4-12.1) 09/24/17 09:00 - VTE Reasons for not Prescribing Prophylaxis: Refused by parent Consult Discharge Plan - Plan Referrals: Mauricio Melendrez MD [Primary Care Provider] - Prescriptions: Fluconazole 400 MG/200 ML [Diflucan Premix 400 MG/200 ML] 400 mg IVPB DAILY 13 Days #13 bag
[2017-10-04] MEDS: Fluconazole 400 MG/200 ML 400 MG/200 ML BAG IVPB SCH (09:28)
[2017-10-04] MEDS: Ertapenem 1,000 MG in 0.9 % Sodium Chloride Mini Bag 100 ML IVPB SCH (09:29)
[2017-10-04] MEDS: Sennosides 8.6 MG TABLET PO SCH ×2 (09:45→21:22)
[2017-10-04] MEDS: Mirtazapine 15 MG TABLET PO SCH (09:45)
[2017-10-04] MEDS: Multivit/Ca/Min/Fe/FA 1 TAB TABLET PO SCH (09:46)
[2017-10-04] MEDS: tiZANidine 4 MG TABLET PO SCH ×2 (09:46→21:22)
[2017-10-04] MEDS: diazePAM 5 MG TABLET PO PRN (21:22)
[2017-10-04] MEDS: *HR* HYDROmorphone 2 MG TABLET PO PRN (21:23)
[2017-10-05] MEDS: Vancomycin 500 MG in 0.9 % Sodium Chloride Mini Bag 100 ML IVPB SCH ×2 (03:50→17:08)
[2017-10-05] MEDS: *HR* Heparin 5,000 UNIT/ML VIAL SQ SCH ×2 (05:35→17:08)
--- NOTE | 2017-10-05 08:04 | Palliative Progress Note ---
Date of Encounter: 10/05/17 Time of Encounter: 07:20 - Assessment and plan (1) Altered mental status Current Visit: Yes Status: Acute Assessment and plan: Undoubtedly secondary to infection. Is unable to make decisions for himself. Kaylee per hospitalist team Qualifiers: Altered mental status type: transient alteration of awareness Qualified Code(s): R40.4 - Transient alteration of awareness (2) Bacteremia Current Visit: Yes Status: Acute Assessment and plan: Micah to Jacquie. Plan as per hospitalist team (3) Candidemia Current Visit: Yes Status: Acute Assessment and plan: Patient is on therapy currently, (4) Goals of care, counseling/discussion Current Visit: Yes Status: Acute Assessment and plan: Patient is currently full code, this is per a discussion he had in the emergency department with a emergency physician. She has since been seen by psych and deemed able to make decisions, and is now unable to make decisions so his last previously known intent is full code. We will attempt to reach family have failed, to us try to establish contact with family this further, however at this time he remains full code by previous intent. - Time Spent With Patient Total time spent is greater than 50% in coordination of care (as documented) at patient's floor/unit and/or counseling patient: - Subjective Interval history: Patient is still quite altered this morning. He is awake but does not really truly respond to my voice meaningful way. Carrying on conversations with other people in the room who I do not detect. Will not answer my questions. - Constitutional Vitals: Abnormal lab results RBC 3.96 M/mcL (4.19-5.50) L 10/02/17 12:20 Hgb 11.1 g/dL (12.9-16.9) L 10/02/17 12:20 Hct 34.7 % (37.5-50.1) L 10/02/17 12:20 RDW 16.0 % (11.5-14.5) H 10/02/17 12:20 Plt Count 457 K/mcL (140-400) H 10/02/17 12:20 MPV 8.1 fL (9.4-12.4) L 10/02/17 12:20 Nucleated RBCs/100 WBC 0.2 /100 WBC (0) H 09/29/17 06:32 ABG pO2 84 mmHg (85-104) L 10/02/17 15:01 Chloride 96 mEq/L (98-107) L 10/02/17 12:20 BUN 5 mg/dL (6-20) L 10/02/17 12:20 Creatinine 0.67 mg/dL (0.70-1.30) L 10/02/17 12:20 POC Glucose 147 (58-89) H 09/22/17 19:26 Calculated Osmolality 278 (280-300) L 10/02/17 12:20 Urine Clarity Cloudy (Clear) A 10/04/17 04:45 Urine Protein 100 mg/dL (Neg-Trace) H 10/04/17 04:45 Urine Ketones 40 mg/dL (Negative) H 10/04/17 04:45 Urine Blood Large (Negative) H 10/04/17 04:45 Ur Leukocyte Esterase Moderate (Negative) H 10/04/17 04:45 Urine Microscopic RBC 15-30 per hpf (0-3) H 10/04/17 04:45 Urine Microscopic WBC 15-30 per hpf (0-3) H 10/04/17 04:45 Ur Squamous Epith Cells Moderate per lpf (None-Few) H 10/04/17 04:45 Urine Bacteria Moderate per hpf (None-Few) H 10/04/17 04:45 Ur Culture Indicated? YES (NO) A 10/04/17 04:45 General appearance: Present: no acute distress - Head Head exam: Present: atraumatic, normal inspection - Eye Eye exam: Present: normal appearance - Respiratory Respiratory exam: Present: decreased breath sounds, tachypnea - Cardiovascular Cardiovascular exam: Present: RRR, tachycardia - GI/Abdominal GI/Abdominal exam: Present: normal bowel sounds, soft. Absent: tenderness - Extremities Exam Extremities exam: Absent: normal inspection (I lateral AKA) - Neurological Exam Neurological exam: Present: altered - Psychiatric Psychiatric exam: Present: agitated (Not really agitated, but the patient is clearly delirious.) - Skin Skin exam: Present: dry, warm Palliative Quality Palliative Quality: Screen for Code Status: NA (Pt altered, no family able to be reached at this time), Screen for Goals of Care: NA, Screen for Pain: NA, If Pain Regimen Started, Initiate Bowel Regimen: NA, Screen for Nausea/Vomitting: NA - Labs CBC & Chem 7: 10/02/17 12:20 10/02/17 12:20 - Impressions Impressions Head CT 10/02/17 12:53 IMPRESSION: No evidence of acute intracranial abnormality. D/ / 10/02/2017 14:08:40 Romulo Gonzalez MD / bcarter Interpreting Provider: Romulo Gonzalez MD - ABG Interpretation ABG results: ABG ABG pH 7.43 pH Units (7.32-7.45) 10/02/17 15:01 ABG pCO2 36 mmHg (35-45) 10/02/17 15:01 ABG pO2 84 mmHg (85-104) L 10/02/17 15:01 ABG O2 Saturation 97 % (95-98) 10/02/17 15:01 PT/INR, D-dimer PT 11.3 Seconds (9.4-12.1) 09/24/17 09:00 Consult Discharge Plan - Plan Referrals: Mauricio Melendrez MD [Primary Care Provider] - Prescriptions: Fluconazole 400 MG/200 ML [Diflucan Premix 400 MG/200 ML] 400 mg IVPB DAILY 13 Days #13 bag
[2017-10-05] MEDS: Ertapenem 1,000 MG in 0.9 % Sodium Chloride Mini Bag 100 ML IVPB SCH (08:12)
[2017-10-05] MEDS: Fluconazole 400 MG/200 ML 400 MG/200 ML BAG IVPB SCH (08:13)
[2017-10-05] MEDS: Acetaminophen 325 MG TABLET PO PRN (08:13)
[2017-10-05] MEDS: Sennosides 8.6 MG TABLET PO SCH ×2 (08:16→21:27)
[2017-10-05] MEDS: tiZANidine 4 MG TABLET PO SCH ×2 (08:16→21:27)
[2017-10-05] MEDS: Multivit/Ca/Min/Fe/FA 1 TAB TABLET PO SCH (08:16)
[2017-10-05] MEDS: Mirtazapine 15 MG TABLET PO SCH (08:19)
[2017-10-05 10:18] LABS: Basophils # 0.1 K/mcL (0.0-0.2); Basophils % 0.7 %; Eosinophils # 0.2 K/mcL (0.0-0.6); Eosinophils % 3.5 %; Hematocrit 32.2 % (37.5-50.1); Hemoglobin 10.1 g/dL (12.9-16.9); Immature Granulocytes % 0.6 % (0-4); Lymphocytes # 1.4 K/mcL (0.6-4.6); Lymphocytes % 20.7 %; Mean Corpuscular HGB Conc 31.4 g/dL (31.6-35.5); Mean Corpuscular Hemoglobin 27.7 pg (28.0-33.3); Mean Corpuscular Volume 88.2 fL (83.0-100.0); Mean Platelet Volume 8.7 fL (9.4-12.4); Monocytes # 0.6 K/mcL (0.0-1.3); Monocytes % 8.1 %; Neutrophils # 4.6 K/mcL (1.6-8.9); Platelet Count 369 K/mcL (140-400); Red Blood Count 3.65 M/mcL (4.19-5.50); Red Cell Distribution Width 15.9 % (11.5-14.5); Segmented Neutrophils % 66.4 %
[2017-10-05 10:35] LABS: BUN/Creatinine Ratio 12 (6-26); Blood Urea Nitrogen 7 mg/dL (6-20); Calcium 8.8 mg/dL (8.6-10.3); Carbon Dioxide 25 mEq/L (23-29); Chloride 98 mEq/L (98-107); Glucose 103 mg/dL (70-105); Osmolality,Calculated 278 (280-300); Potassium 3.3 mEq/L (3.5-5.1); Sodium 135 mEq/L (136-145); eGFR For African Americans > 60 (> 60); eGFR For Non-African Americans > 60 (> 60)
--- NOTE | 2017-10-05 11:13 | Infectious Disease Progress No ---
Date of Encounter: 10/05/17 Time of Encounter: 11:11 - Assessment and Plan (1) Sepsis Current Visit: Yes Status: Acute The patient had two SIRS criteria. He developed hypotension and required a short course of vaospressors, but his sepsis resolved. He then developed sepsis- like picture again on 10/02/17 with fevers, tachycardia, hypotension, and AMS. Original source likely candidemia, but concern for additional etiology given new onset fevers and AMS --> PNA vs. other. Blood cultures drawn 09/22/17 x 2 sets peripherally are negative. Blood cultures drawn 09/22/17 x 2 sets from the central line are positive 1/2 sets for Staph epi and 1/2 for C. parapsilosis. Repeat peripheral blood culture drawn 09/24/17 is negative 1/1 sets. Repeat CVC blood cultures drawn 09/24/17 are positive 1/1 set for C. parapsilosis. Additional peripheral blood cultures drawn 09/28/17 are negative 2/2 sets, but blood cultures drawn from the patient's CVC prior to its removal are positive 2/ 2 sets. Blood cultures ordered 10/02/17 2 sets from a peripheral stick and 2 sets from the CVC were ordered, but only one set from each were drawn due to the lab staff cancelling the orders without checking with the ID team prior to doing so. Code status remains unclear. Repeat blood cultures x 2 sets peripherally now and from the CVC with the new fevers this morning. Check CBC, BMP. Continue Ertapenem 1 gram IV daily. Continue Vancomycin IV. Pharmacy to dose. Goal trough ~15. Duration of treatment depends on the clinical picture. Monitor renal function and for drug toxicity and dose-adjust antibiotics. Not sure if the CVC remains the source of the patient's sepsis, but may need to consider removing it all together and placing a peripheral IV. Qualifiers: Sepsis type: Brittny Qualified Code(s): B37.7 - Candidal sepsis (2) Altered mental status Current Visit: Yes Status: Acute New-onset 10/02/17 with low-grade fevers and tachycardia. Etiology unclear: sepsis vs. other. No meningeal signs. The patient is minimally responsive to verbal and painful stimuli. CT head negative. Recommend CT scan of the head. Consider neurology consult. Qualifiers: Altered mental status type: transient alteration of awareness Qualified Code(s): R40.4 - Transient alteration of awareness (3) Candidemia Current Visit: Yes Status: Acute Causative organism unclear. Blood culture from the the CVC is positive 1/2 sets for C. parapsilosis, but the PCR did not pick anything up. Repeat culture 1/1 set drawn 09/24/17 from the CVC is positive for C. parapsilosis. Blood culture drawn peripherally 1/1 set on 09/24/17 is NGTD. Additional sets of cultures were cancelled by the lab staff so only 1 set from the line and from the peripheral stick were drawn. Additional peripheral blood cultures drawn 09/28/17 are negative 2/2 sets, but blood cultures drawn from the patient's CVC prior to its removal are positive 2/ 2 sets. Repeat peripheral blood culture drawn 10/02/17 x 1 set is NGTD and x 1 set from the new CVC is NGTD. Given that the patient has had two sets of cultures come back positive from the CVC, this is likely a true infection. Status post guidewire exchange 09/29/17. Repeat blood cultures as above now. I called and spoke with the lab and advised them not to cancel any blood cultures as the orders are not duplicates. Continue fluconazole 400mg IV daily (day 7 since CVC exchange). Duration of treatment depends on the clinical picture, but likely 14 days from the line exchange. Opthalmology to evaluate. Will be done as an outpatient. Monitor renal and liver function studies and dose-adjust antibiotics. (4) Bacteremia Current Visit: Yes Status: Acute True bacteremia vs. contaminant. Peripheral blood cultures drawn 09/22/17 are negative x 2 sets. CVC blood cultures drawn 09/22/17 are positive 1/2 sets for S. epi. Repeat cultures negative for S. epi. Given the clinical picture, not sure that this is a true infection. Likely a contaminant. Status post CVC exchange 09/29/17. No further antibiotics at this time. (5) UTI (urinary tract infection) due to urinary indwelling Souza catheter Current Visit: No Status: Resolved Causative organism E. coli ESBL. Asymptomatic bacteriuria vs. true UTI. Not sure that this is the source of the patient's sepsis since it is Aztreonam resistant and clinically he is improved. Urinalysis positive for nitrites, moderate bacteria, and TNTC WBC; also a moderate amount of epithelial cells. The patient has a history of recurrent UTI/asymptomatic bacteriuria. His quadriplegia limits his ability to know if he has urinary symptoms. Urology consulted. Status post SPT replacement with persistent leaking. SPT removed by the primary team and urostomy bag placed. Repeat urinalysis shows large amount of blood, moderate L.E. 15-30 WBC, and moderate bacteria. It also shows moderate epithelial cells. Urine culture is pending. Continue antibiotics as above. Qualifiers: Indwelling urinary catheter type: cystostomy catheter Encounter type: subsequent encounter Qualified Code(s): T83.510D - Infection and inflammatory reaction due to cystostomy catheter, subsequent encounter; N39.0 - Urinary tract infection, site not specified (6) Hydronephrosis Current Visit: Yes Status: Acute CT abdomen and pelvis shows mild left hydronephrosis. Likely secondary to 5mm stone. Urology consulted and following. Since the patient is making adequate urine, PNT placement on hold. Qualifiers: Hydronephrosis type: with ureteral calculous obstruction Qualified Code(s) : N13.2 - Hydronephrosis with renal and ureteral calculous obstruction (7) Urolithiasis Current Visit: Yes Status: Acute Qualifiers: Urinary calculus location: kidney Qualified Code(s): N20.0 - Calculus of kidney (8) Pancolitis Current Visit: Yes Status: Resolved CT abdomen and pelvis showed nonspecific pancolitis. Treated with 6 days of IV Ertapenem. Abdominal exam benign. No bowel movement documented since 09/28/17. Repeat abdominal x-ray shows moderate amount of stool but is otherwise negative. (9) GI bleed Current Visit: Yes Status: Resolved Etiology unclear. Hemoglobin stable. GI consulted. Management per the primary and GI teams. Qualifiers: GI bleed type/associated pathology: unspecified gastrointestinal hemorrhage type Qualified Code(s): K92.2 - Gastrointestinal hemorrhage, unspecified (10) Quadriplegia Current Visit: Yes Status: Chronic (11) Chronic pain Current Visit: No Status: Chronic Qualifiers: Chronic pain type: other chronic pain Qualified Code(s): G89.29 - Other chronic pain (12) Neurogenic bladder Current Visit: No Status: Chronic Chronic SPT removed due to leaking. (13) Decubitus ulcer of right ischium, stage 2 Current Visit: Yes Status: Chronic Stage II. No drainage, warmth, erythema, or fluctuance. Recommend aggressive offloading and wound care. Patient non-compliant with turning per nursing. Consult wound care team. (14) Decubitus ulcer of left ischium, stage 2 Current Visit: Yes Status: Acute Stage II. No drainage, warmth, erythema, or fluctuance. Recommend aggressive offloading and wound care. Patient non-compliant with turning per nursing. Consult wound care team. - Subjective Interval history: Patient seen and examined. Weekend notes reviewed. No acute events noted overnight. Status post [id number] exchange of left upper chest CVC . Patient continues to have altered mental status and is unable to provide me with any information. He opens his eyes to loud verbal and painful stimuli, but has difficulty maintaining wakefulness. He had a fever this morning of 101.9. Palliative care has been consulted and is following. Infect Dis PN-Objective Data - Labs CBC & Chem 7: 10/05/17 09:00 10/05/17 09:00 Labs: Laboratory Results - last 24 hr 10/05/17 10/05/17 09:00 09:00 WBC 6.9 RBC 3.65 L Hgb 10.1 L Hct 32.2 L MCV 88.2 MCH 27.7 L MCHC 31.4 L RDW 15.9 H Plt Count 369 MPV 8.7 L Immature Gran % 0.6 Seg Neutrophils % 66.4 Lymphocytes % 20.7 Monocytes % 8.1 Eosinophils % 3.5 Basophils % 0.7 Neutrophils # 4.6 Lymphocytes # 1.4 Monocytes # 0.6 Eosinophils # 0.2 Basophils # 0.1 Sodium 135 L Potassium 3.3 L Chloride 98 Carbon Dioxide 25 BUN 7 Creatinine 0.58 L Est GFR ( Amer) > 60 Est GFR (Non-Af Amer) > 60 BUN/Creatinine Ratio 12 Glucose 103 Calculated Osmolality 278 L Calcium 8.8 Cultures: Cultures 09/28/17 10:27 Blood Culture - Final Peripheral Venipuncture No growth. 09/28/17 10:27 Blood Culture - Final Peripheral Venipuncture No growth. 10/02/17 13:58 Blood Culture - Preliminary Central Venous Catheter No growth. 10/02/17 13:54 Blood Culture - Preliminary Peripheral Venipuncture No growth. 09/28/17 10:40 Blood Culture - Final Central Venous Catheter Brittny parapsilosis 09/28/17 10:40 Blood Culture - Final Central Venous Catheter Brittny parapsilosis 09/25/17 00:18 Blood Culture - Final Central Venous Catheter Brittny parapsilosis 09/24/17 16:51 Blood Culture - Final Peripheral Venipuncture No growth. Serology 10/04/17 09/28/17 09/28/17 Range/Units 04:45 10:40 10:40 Urine Color Yellow (Yellow) Urine Clarity Cloudy A (Clear) Urine pH 6.5 (5.0-8.0) pH Units Ur Specific Archie 1.021 (1.010-1.025) Urine Protein 100 H (Neg-Trace) mg/dL Urine Glucose (UA) Normal (Normal) mg/dL Urine Clinitest (Negative) Urine Ketones 40 H (Negative) mg/dL Urine Blood Large H (Negative) Urine Nitrite Negative (Negative) Urine Bilirubin Negative (Negative) Urine Urobilinogen Normal (Normal) mg/dL Ur Leukocyte Esterase Moderate H (Negative) Urine Microscopic RBC 15-30 H (0-3) per hpf Urine Microscopic WBC 15-30 H (0-3) per hpf Ur Squamous Epith Cells Moderate H (None-Few) per lpf Ur Renal Epithelial Cell Few (None-Few) per hpf Urine Bacteria Moderate H (None-Few) per hpf Ur Culture Indicated? YES A (NO) A. baumannii (PCR) Not Detected Not Detected (Not Detect) Brittny albicans (PCR) Not Detected Not Detected (Not Detect) C. glabrata (PCR) Not Detected Not Detected (Not Detect) C. krusei (PCR) Not Detected Not Detected (Not Detect) C. parapsilosis (PCR) Not Detected Not Detected (Not Detect) C. tropicalis (PCR) Not Detected Not Detected (Not Detect) Enterobacteriac sp PCR Not Detected Not Detected (Not Detect) E. cloacae complex PCR Not Detected Not Detected (Not Detect) Enterococcus sp PCR Not Detected Not Detected (Not Detect) E. coli (PCR) Not Detected Not Detected (Not Detect) H. influenzae (PCR) Not Detected Not Detected (Not Detect) Klebsiella oxytoca PCR Not Detected Not Detected (Not Detect) Klebsiella pneumoniae Not Detected Not Detected (Not Detect) List. monocytogenes PCR Not Detected Not Detected (Not Detect) N. meningitidis (PCR) Not Detected Not Detected (Not Detect) Proteus species (PCR) Not Detected Not Detected (Not Detect) Serratia marcescens PCR Not Detected Not Detected (Not Detect) Staphylococcus sp PCR Not Detected Not Detected (Not Detect) Staph aureus (PCR) Not Detected Not Detected (Not Detect) mecA-Methicil Res Gene Not Detected Not Detected (Not Detect) Streptococcus sp PCR Not Detected Not Detected (Not Detect) Group A Strep DNA Not Detected Not Detected (Not Detect) Group B Strep (PCR) Not Detected Not Detected (Not Detect) Strep pneumoniae (PCR) Not Detected Not Detected (Not Detect) P. aeruginosa (PCR) Not Detected Not Detected (Not Detect) Tan/B-Vanco Res Genes Not Detected Not Detected (Not Detect) KPC (blaKPC) Detect PCR Not Detected Not Detected (Not Detect) 09/25/17 Range/Units 00:18 Urine Color (Yellow) Urine Clarity (Clear) Urine pH (5.0-8.0) pH Units Ur Specific Archie (1.010-1.025) Urine Protein (Neg-Trace) mg/dL Urine Glucose (UA) (Normal) mg/dL Urine Clinitest (Negative) Urine Ketones (Negative) mg/dL Urine Blood (Negative) Urine Nitrite (Negative) Urine Bilirubin (Negative) Urine Urobilinogen (Normal) mg/dL Ur Leukocyte Esterase (Negative) Urine Microscopic RBC (0-3) per hpf Urine Microscopic WBC (0-3) per hpf Ur Squamous Epith Cells (None-Few) per lpf Ur Renal Epithelial Cell (None-Few) per hpf Urine Bacteria (None-Few) per hpf Ur Culture Indicated? (NO) A. baumannii (PCR) Not Detected (Not Detect) Brittny albicans (PCR) Not Detected (Not Detect) C. glabrata (PCR) Not Detected (Not Detect) C. krusei (PCR) Not Detected (Not Detect) C. parapsilosis (PCR) Not Detected (Not Detect) C. tropicalis (PCR) Not Detected (Not Detect) Enterobacteriac sp PCR Not Detected (Not Detect) E. cloacae complex PCR Not Detected (Not Detect) Enterococcus sp PCR Not Detected (Not Detect) E. coli (PCR) Not Detected (Not Detect) H. influenzae (PCR) Not Detected (Not Detect) Klebsiella oxytoca PCR Not Detected (Not Detect) Klebsiella pneumoniae Not Detected (Not Detect) List. monocytogenes PCR Not Detected (Not Detect) N. meningitidis (PCR) Not Detected (Not Detect) Proteus species (PCR) Not Detected (Not Detect) Serratia marcescens PCR Not Detected (Not Detect) Staphylococcus sp PCR Not Detected (Not Detect) Staph aureus (PCR) Not Detected (Not Detect) mecA-Methicil Res Gene N/A (Not Detect) Streptococcus sp PCR Not Detected (Not Detect) Group A Strep DNA Not Detected (Not Detect) Group B Strep (PCR) Not Detected (Not Detect) Strep pneumoniae (PCR) Not Detected (Not Detect) P. aeruginosa (PCR) Not Detected (Not Detect) Tan/B-Vanco Res Genes N/A (Not Detect) KPC (blaKPC) Detect PCR N/A (Not Detect) - Impressions Impressions Head CT 10/02/17 12:53 IMPRESSION: No evidence of acute intracranial abnormality. D/ / 10/02/2017 14:08:40 Romulo Gonzalez MD / jewel Interpreting Provider: Romulo Gonzalez MD Exam - Constitutional Vitals: Temp Pulse Resp BP Pulse Ox 99.2 F 85 18 99/72 96 10/05/17 10:59 10/05/17 10:59 10/05/17 10:59 10/05/17 10:59 10/05/17 10:59 General appearance: average body habitus, cooperative, no acute distress - Head Head exam: Present: atraumatic, normal inspection, normocephalic - Eye Eye exam: Present: normal appearance, PERRL Pupils: Present: normal accommodation - ENT ENT exam: Present: mucous membranes dry Additional comments: Lips dry and cracked. - Neck Neck exam: Present: normal inspection - Respiratory Respiratory exam: Present: CTAB. Absent: rales, respiratory distress, rhonchi, wheezes - Cardiovascular Cardiovascular exam: Present: RRR, +S1, +S2 - GI/Abdominal GI/Abdominal exam: Present: normal bowel sounds, soft. Absent: distended, tenderness Additional comments: Suprapubic ostomy draining clear yellow urine. - Extremities Exam Extremities exam: Absent: joint swelling, pedal edema, tenderness Additional comments: Bilateral AKA stumps without redness, warmth, open lesions. - Neurological Exam Neurological exam: Present: altered (Minimally responsive to painful and verbal stimuli.). Absent: alert, oriented X3, no focal deficits (Paralysis noted to the BLE and BUE.) - Skin Skin exam: Present: dry, intact, normal color, warm - VTE Reasons for not Prescribing Prophylaxis: Refused by parent Consult Discharge Plan - Plan Referrals: Mauricio Melendrez MD [Primary Care Provider] - Prescriptions: Fluconazole 400 MG/200 ML [Diflucan Premix 400 MG/200 ML] 400 mg IVPB DAILY 13 Days #13 bag - Attending Attestation I examined this patient and my medical decision-making was reviewed with the Resident Physician. I agree with the documented findings, disposition and treatment plan as described except to the extent set forth below. check RIP consider LP will check brittny fluconazole ALEXANDRA check LFT's check procalcitonin level
--- NOTE | 2017-10-05 11:49 | Internal Med Progress Note ---
<Antonio Pruitt - Last Filed: 10/05/17 12:32> Date of Encounter: 10/05/17 Time of Encounter: 11:44 - Assessment and plan (1) Sepsis Current Visit: Yes Status: Acute Assessment and plan: this morning he is febrile, tachycardic, tachypenic leukocytosis resolved source: ESBL UTI, candedemia, repeat blood cultures sent this morning. Qualifiers: Sepsis type: Brittny Qualified Code(s): B37.7 - Candidal sepsis (2) Encephalopathy in sepsis Current Visit: Yes Status: Acute Assessment and plan: baseline he is alert and oriented x 3. currently does not respond to commands, mumbles, does not open eyes (3) Candidemia Current Visit: Yes Status: Acute Assessment and plan: CVC -blood cultures 09/22/17 1/2 + for candidia -09/28/2017 2/2 + for brittny -10/02/2017 2/2 prelim negative continue fluconazole. kidney function stable. appreciate ID recommendations. (4) Bacteremia Current Visit: Yes Status: Acute Assessment and plan: 09/22/17 cvc clutlures 1/2 + for staph epi likely contaminant: repeat blood culture negative for staph epi (5) UTI (urinary tract infection) Current Visit: Yes Status: Resolved Assessment and plan: 2nd to E.Coli ESBL s/p SPT which has been removed and now has urostomy bag which is outputting yellow clear urine on ertapenam. repeat urine culture pending. Qualifiers: Urinary tract infection type: catheter-associated UTI Indwelling urinary catheter type: indwelling urethral catheter Encounter type: initial encounter Qualified Code(s): T83.511A - Infection and inflammatory reaction due to indwelling urethral catheter, initial encounter; N39.0 - Urinary tract infection , site not specified; N39.0 - Urinary tract infection, site not specified (6) Decubitus ulcer of left ischium, stage 2 Current Visit: Yes Status: Acute Assessment and plan: stable continue wound care (7) Decubitus ulcer of right ischium, stage 2 Current Visit: Yes Status: Chronic Assessment and plan: stable continue wound care. (8) Quadriplegia Current Visit: Yes Status: Chronic (9) Goals of care, counseling/discussion Current Visit: Yes Status: Acute Assessment and plan: Currently full code. not able to make his own decisions currently family unable to be reached. - Subjective Interval history: Patient continues to not respond to verbal commands. Patient is altered and continues to mumble. Patient was febrile, tachycardic and tachypneic this morning. No one has been able to reach his family. - Constitutional Vitals: Temp Pulse Resp BP Pulse Ox 99.2 F 85 18 99/72 96 10/05/17 10:59 10/05/17 10:59 10/05/17 10:59 10/05/17 10:59 10/05/17 10:59 General appearance: Present: disheveled, underweight. Absent: cooperative - Other Additional findings: Gen.: Not alert, not oriented. Diaphoretic Heart: Regular rate and rhythm with no murmur Lungs: Clear to auscultation bilaterally Abdomen: Soft nontender, nondistended positive bowel sounds, large abdominal scar from her surgery. Urostomy bag outputting clear yellow urine. Skin: warm and dry, multiple tattoos on chest, stage II decubitus ulcers b/l ischium Extremities: Bilateral [id number] amputations. Neuro: Not alert, not oriented. Unable to examine due to mental status. Vascular: Pedal and radial pulses 2 out of 4 Internal Medicine: Result - Labs CBC & Chem 7: 10/05/17 09:00 10/05/17 09:00 Labs: Short CBC 10/05/17 Range/Units 09:00 WBC 6.9 (4.3-11.1) K/mcL Hgb 10.1 L (12.9-16.9) g/dL Hct 32.2 L (37.5-50.1) % Plt Count 369 (140-400) K/mcL Neutrophils # 4.6 (1.6-8.9) K/mcL BMP 10/05/17 09:00 Sodium 135 L Potassium 3.3 L Chloride 98 Carbon Dioxide 25 BUN 7 Creatinine 0.58 L Glucose 103 Calcium 8.8 - ABG Interpretation ABG results: ABG ABG pH 7.43 pH Units (7.32-7.45) 10/02/17 15:01 ABG pCO2 36 mmHg (35-45) 10/02/17 15:01 ABG pO2 84 mmHg (85-104) L 10/02/17 15:01 ABG O2 Saturation 97 % (95-98) 10/02/17 15:01 PT/INR, D-dimer PT 11.3 Seconds (9.4-12.1) 09/24/17 09:00 - Impressions Impressions Head CT 10/02/17 12:53 IMPRESSION: No evidence of acute intracranial abnormality. D/ / 10/02/2017 14:08:40 Romulo Gonzalez MD / bcarter Interpreting Provider: Romulo Gonzalez MD - VTE Reasons for not Prescribing Prophylaxis: Refused by parent Consult Discharge Plan - Plan Referrals: Mauricio Melendrez MD [Primary Care Provider] - Prescriptions: Fluconazole 400 MG/200 ML [Diflucan Premix 400 MG/200 ML] 400 mg IVPB DAILY 13 Days #13 bag <Mickey Crawley H - Last Filed: 10/05/17 13:26> Date of Encounter: 10/05/17 - Constitutional Vitals: Temp Pulse Resp BP Pulse Ox 99.2 F 85 18 99/72 96 10/05/17 10:59 10/05/17 10:59 10/05/17 10:59 10/05/17 10:59 10/05/17 10:59 Internal Medicine: Result - Labs CBC & Chem 7: 10/05/17 09:00 10/05/17 09:00 Labs: Short CBC 10/05/17 Range/Units 09:00 WBC 6.9 (4.3-11.1) K/mcL Hgb 10.1 L (12.9-16.9) g/dL Hct 32.2 L (37.5-50.1) % Plt Count 369 (140-400) K/mcL Neutrophils # 4.6 (1.6-8.9) K/mcL BMP 10/05/17 09:00 Sodium 135 L Potassium 3.3 L Chloride 98 Carbon Dioxide 25 BUN 7 Creatinine 0.58 L Glucose 103 Calcium 8.8 - ABG Interpretation ABG results: ABG ABG pH 7.43 pH Units (7.32-7.45) 10/02/17 15:01 ABG pCO2 36 mmHg (35-45) 03/09/18 15:01 ABG pO2 84 mmHg (85-104) L 10/02/17 15:01 ABG O2 Saturation 97 % (95-98) 10/02/17 15:01 PT/INR, D-dimer PT 11.3 Seconds (9.4-12.1) 09/24/17 09:00 - Impressions Impressions Head CT 10/02/17 12:53 IMPRESSION: No evidence of acute intracranial abnormality. D/ / 10/02/2017 14:08:40 Romulo Gonzalez MD / jewel Interpreting Provider: Romulo Gonzalez MD - Attending Attestation acute metabolic encephalopathy 2ry to sepsis from UTI, Brittny bacteremia, consider other sources currently on Vancomycin ( Staph epidermidis + culture), ertapenem for ESBL E coli, fluconazole consider covering for Pseudomonas and VRE ID recommendations appreciated May switch to Meropenem , Daptomycin await Urine culture, repeat blood cultures Order CT of the chest and abdomen I examined this patient and my medical decision-making was reviewed with the Resident Physician. I agree with the documented findings, disposition and treatment plan as described except to the extent set forth below.
[2017-10-05] MEDS: 0.9 % Sodium Chloride 1,000 ML IVC SCH (14:05)
[2017-10-05] MEDS: Silver Sulfadiazine 50 GM TUBE TP SCH (14:18)
[2017-10-05 14:58] LABS: Alanine Aminotransferase 18 Units/L (7-52); Albumin 3.5 g/dL (3.5-5.7); Alkaline Phosphatase 50 Units/L (34-104); Aspartate Amino Transferase 19 Units/L (13-39); Bilirubin,Direct 0.1 mg/dL (0.0-0.2); Bilirubin,Indirect 0.1 mg/dL (0.0-1.2); Bilirubin,Total 0.2 mg/dL (0.3-1.0); Globulin 3.6 g/dL (2.4-3.5); Total Protein 7.1 g/dL (6.4-8.9)
--- NOTE | 2017-10-05 16:10 | Electrocardiograph Report ---
[place] [id number] Test Date: 2017-10-02 Pat Name: Francisco Eid Department: 113 Room: 2N02 Gender: M Roll Capper: : [id number] Requested By: Mayra Chaudhary Order Number: [id number] Reading MD: Robe Goff MD Measurements Intervals [place] Rate: 118 P: -18 [place]: 126 QRS: 41 QRSD: 99 T: 46 QT: 299 QTc: 369 Interpretive Statements SINUS TACHYCARDIA Poor R wave progression Electronically Signed On 10-05-2017 16:09:05 EDT by Robe Goff MD
[2017-10-05] MEDS: Meropenem 1,000 MG in 0.9 % Sodium Chloride Mini Bag 100 ML IVPB SCH (17:09)
[2017-10-05 18:38] LABS: Adenovirus Not Detected (Not Detect); Bordetella Pertussis Not Detected (Not Detect); Chlamydophila pneumoniae Not Detected (Not Detect); Coronavirus 229E Not Detected (Not Detect); Coronavirus HKU1 Not Detected (Not Detect); Coronavirus NL63 Not Detected (Not Detect); Coronavirus OC43 Not Detected (Not Detect); Human Metapneumovirus Not Detected (Not Detect); Human Rhinovirus/Enterovirus Not Detected (Not Detect); Influenza A Subtype 2009 H1 Not Detected (Not Detect); Influenza A Untypeable Not Detected (Not Detect); Influenza B Not Detected (Not Detect); Mycoplasma pneumoniae Not Detected (Not Detect); Parainfluenza Virus 1 Not Detected (Not Detect); Parainfluenza Virus 2 Not Detected (Not Detect); Parainfluenza Virus 3 Not Detected (Not Detect); Parainfluenza Virus 4 Not Detected (Not Detect); Respiratory Syncytial Virus Not Detected (Not Detect)
[2017-10-06] MEDS: Meropenem 1,000 MG in 0.9 % Sodium Chloride Mini Bag 100 ML IVPB SCH ×3 (00:01→15:45)
[2017-10-06] MEDS: *HR* Heparin 5,000 UNIT/ML VIAL SQ SCH ×2 (06:09→21:59)
[2017-10-06] MEDS: Vancomycin 500 MG in 0.9 % Sodium Chloride Mini Bag 100 ML IVPB SCH ×2 (06:09→15:46)
[2017-10-06] MEDS: Fluconazole 400 MG/200 ML 400 MG/200 ML BAG IVPB SCH (08:26)
[2017-10-06] MEDS: 0.9 % Sodium Chloride 1,000 ML IVC SCH (08:27)
[2017-10-06] MEDS: Sennosides 8.6 MG TABLET PO SCH ×2 (08:28→21:58)
[2017-10-06] MEDS: tiZANidine 4 MG TABLET PO SCH ×2 (08:28→21:58)
[2017-10-06] MEDS: Mirtazapine 15 MG TABLET PO SCH (08:29)
[2017-10-06] MEDS: Multivit/Ca/Min/Fe/FA 1 TAB TABLET PO SCH (08:29)
--- NOTE | 2017-10-06 11:25 | Infectious Disease Progress No ---
Date of Encounter: 10/06/17 Time of Encounter: 11:23 - Assessment and Plan (1) Sepsis Current Visit: Yes Status: Acute The patient had two SIRS criteria. He developed hypotension and required a short course of vaospressors, but his sepsis resolved. He then developed sepsis- like picture again on 10/02/17 with fevers, tachycardia, hypotension, and AMS. Original source likely candidemia, but concern for additional etiology given new onset fevers and AMS --> PNA vs. other. Blood cultures drawn 09/22/17 x 2 sets peripherally are negative. Blood cultures drawn 09/22/17 x 2 sets from the central line are positive 1/2 sets for Staph epi and 1/2 for C. parapsilosis. Repeat peripheral blood culture drawn 09/24/17 is negative 1/1 sets. Repeat CVC blood cultures drawn 09/24/17 are positive 1/1 set for C. parapsilosis. Additional peripheral blood cultures drawn 09/28/17 are negative 2/2 sets, but blood cultures drawn from the patient's CVC prior to its removal are positive 2/ 2 sets. Blood cultures ordered 10/02/17 2 sets from a peripheral stick and 2 sets from the CVC were ordered, but only one set from each were drawn due to the lab staff cancelling the orders without checking with the ID team prior to doing so. Additional peripheral and CVC blood cultures drawn 10/05/17 are pending. Code status remains unclear. Check CBC, BMP. CT chest, abdomen and pelvis shows findings consistent with possible aspiration pneumonitis. RIP negative. LFTs and ammonia level normal. ESR and CRP are elevated. Continue Meropenem 1 gram IV Q8H. Continue Vancomycin IV. Pharmacy to dose. Goal trough ~15. Vanc trough 14. Duration of treatment depends on the clinical picture. Monitor renal function and for drug toxicity and dose-adjust antibiotics. Not sure if the CVC remains the source of the patient's sepsis, but may need to consider removing it all together and placing a peripheral IV. Qualifiers: Sepsis type: Jacquie Qualified Code(s): B37.7 - Candidal sepsis (2) Altered mental status Current Visit: Yes Status: Acute New-onset 10/02/17 with low-grade fevers and tachycardia. Etiology unclear: sepsis vs. other. No meningeal signs. Improved today, but not back to baseline. CT head negative. Consider LP. Consider neurology consult. Qualifiers: Altered mental status type: transient alteration of awareness Qualified Code(s): R40.4 - Transient alteration of awareness (3) Aspiration pneumonitis Current Visit: Yes Status: Acute CT of the chest shows eccentric filling defect in the posterior right aspect of the trachea, presumed related to insipissated mucous and streaky densities in the lung bases including more confluent opacity in the posterior right lower lobe which, given the findings in the trachea, are concerning for aspiration pneumonitis. The patient has been made NPO pending speech study, but I am not sure that he will be able to participate. Continue antibiotics as above. (4) Candidemia Current Visit: Yes Status: Acute Causative organism unclear. Blood culture from the the CVC is positive 1/2 sets for C. parapsilosis, but the PCR did not pick anything up. Repeat culture 1/1 set drawn 09/24/17 from the CVC is positive for C. parapsilosis. Blood culture drawn peripherally 1/1 set on 09/24/17 is NGTD. Additional sets of cultures were cancelled by the lab staff so only 1 set from the line and from the peripheral stick were drawn. Additional peripheral blood cultures drawn 09/28/17 are negative 2/2 sets, but blood cultures drawn from the patient's CVC prior to its removal are positive 2/ 2 sets. Repeat peripheral blood culture drawn 10/02/17 x 1 set is NGTD and x 1 set from the new CVC is NGTD. Given that the patient has had two sets of cultures come back positive from the CVC, this is likely a true infection. Status post guidewire exchange 09/29/17. Repeat blood cultures drawn 10/05/17 are pending. Continue fluconazole 400mg IV daily (day 8 since CVC exchange). Duration of treatment depends on the clinical picture, but likely 14 days from the line exchange. Opthalmology to evaluate. Will be done as an outpatient. Monitor renal and liver function studies and dose-adjust antibiotics. (5) Bacteremia Current Visit: Yes Status: Resolved True bacteremia vs. contaminant. Peripheral blood cultures drawn 09/22/17 are negative x 2 sets. CVC blood cultures drawn 09/22/17 are positive 1/2 sets for S. epi. Repeat cultures negative for S. epi. Given the clinical picture, not sure that this is a true infection. Likely a contaminant. Status post CVC exchange 09/29/17. No further antibiotics at this time. (6) Hydronephrosis Current Visit: Yes Status: Acute CT abdomen and pelvis shows mild left hydronephrosis. Likely secondary to 5mm stone. Urology consulted and following. Since the patient is making adequate urine, PNT placement on hold. Qualifiers: Hydronephrosis type: with ureteral calculous obstruction Qualified Code(s) : N13.2 - Hydronephrosis with renal and ureteral calculous obstruction (7) Urolithiasis Current Visit: Yes Status: Acute Qualifiers: Urinary calculus location: kidney Qualified Code(s): N20.0 - Calculus of kidney (8) Pancolitis Current Visit: Yes Status: Resolved CT abdomen and pelvis showed nonspecific pancolitis. Treated with 6 days of IV Ertapenem. Abdominal exam benign. No bowel movement documented since 09/28/17. Repeat abdominal x-ray shows moderate amount of stool but is otherwise negative. (9) GI bleed Current Visit: Yes Status: Resolved Etiology unclear. Hemoglobin stable. GI consulted. Management per the primary and GI teams. Qualifiers: GI bleed type/associated pathology: unspecified gastrointestinal hemorrhage type Qualified Code(s): K92.2 - Gastrointestinal hemorrhage, unspecified (10) Quadriplegia Current Visit: Yes Status: Chronic (11) Chronic pain Current Visit: No Status: Chronic Qualifiers: Chronic pain type: other chronic pain Qualified Code(s): G89.29 - Other chronic pain (12) Neurogenic bladder Current Visit: No Status: Chronic Chronic SPT removed due to leaking. (13) Decubitus ulcer of right ischium, stage 2 Current Visit: Yes Status: Chronic Stage II. No drainage, warmth, erythema, or fluctuance. Recommend aggressive offloading and wound care. Patient non-compliant with turning per nursing. Consult wound care team. (14) Decubitus ulcer of left ischium, stage 2 Current Visit: Yes Status: Acute Stage II. No drainage, warmth, erythema, or fluctuance. Recommend aggressive offloading and wound care. Patient non-compliant with turning per nursing. Consult wound care team. - Subjective Interval history: Patient seen and examined. No acute events noted overnight. Status post over- the-guidewire exchange of left upper chest CVC 09/29/17. Patient continues to have altered mental status and is unable to provide me with any information, but he is more alert this morning. His speech remains mumbled/garbled, but he does curse at me and states "I already told you all that once today" when I ask him ROS questions. Infect Dis PN-Objective Data - Labs CBC & Chem 7: 10/05/17 09:00 10/05/17 09:00 Labs: Laboratory Results - last 24 hr 10/05/17 10/05/17 10/05/17 09:00 14:13 14:13 ESR 59 H Sodium 135 L Potassium 3.3 L Chloride 98 Carbon Dioxide 25 BUN 7 Creatinine 0.58 L Est GFR ( Amer) > 60 Est GFR (Non-Af Amer) > 60 BUN/Creatinine Ratio 12 Glucose 103 Calculated Osmolality 278 L Calcium 8.8 Total Bilirubin 0.2 L Direct Bilirubin 0.1 Indirect Bilirubin 0.1 AST 19 ALT 18 Alkaline Phosphatase 50 Ammonia 30 C-Reactive Protein Serum Total Protein 7.1 Albumin 3.5 Globulin 3.6 H Albumin/Globulin Ratio 1.0 L Chlamy pneumoniae PCR Adenovirus (PCR) B. pertussis DNA (PCR) B.parapertussis DNA PCR Coronavirus OC43 (PCR) Coronavirus HKU1 (PCR) Coronavirus 229E (PCR) Coronavirus NL63 (PCR) Human Metapneumovir PCR Influenza A (H1) PCR Influ A (H1N1/09) PCR Influenza A (H3) PCR Influenza A Untype (PCR) Influenza Type B (PCR) M.pneumoniae DNA (PCR) Parainfluenza 1 (PCR) Parainfluenza 2 (PCR) Parainfluenza 3 (PCR) Parainfluenza 4 (PCR) RSV (PCR) Entero/Rhino (PCR) 10/05/17 10/05/17 14:13 17:29 ESR Sodium Potassium Chloride Carbon Dioxide BUN Creatinine Est GFR ( Amer) Est GFR (Non-Af Amer) BUN/Creatinine Ratio Glucose Calculated Osmolality Calcium Total Bilirubin Direct Bilirubin Indirect Bilirubin AST ALT Alkaline Phosphatase Ammonia C-Reactive Protein 22 H Serum Total Protein Albumin Globulin Albumin/Globulin Ratio Chlamy pneumoniae PCR Not Detected Adenovirus (PCR) Not Detected B. pertussis DNA (PCR) Not Detected B.parapertussis DNA PCR Not Detected Coronavirus OC43 (PCR) Not Detected Coronavirus HKU1 (PCR) Not Detected Coronavirus 229E (PCR) Not Detected Coronavirus NL63 (PCR) Not Detected Human Metapneumovir PCR Not Detected Influenza A (H1) PCR Not Detected Influ A (H1N1/09) PCR Not Detected Influenza A (H3) PCR Not Detected Influenza A Untype (PCR) Not Detected Influenza Type B (PCR) Not Detected M.pneumoniae DNA (PCR) Not Detected Parainfluenza 1 (PCR) Not Detected Parainfluenza 2 (PCR) Not Detected Parainfluenza 3 (PCR) Not Detected Parainfluenza 4 (PCR) Not Detected RSV (PCR) Not Detected Entero/Rhino (PCR) Not Detected Cultures: Cultures 10/04/17 04:45 Urine Culture - Preliminary Urine,Clean Catch No growth. 09/28/17 10:27 Blood Culture - Final Peripheral Venipuncture No growth. 09/28/17 10:27 Blood Culture - Final Peripheral Venipuncture No growth. 10/02/17 13:58 Blood Culture - Preliminary Central Venous Catheter No growth. 10/02/17 13:54 Blood Culture - Preliminary Peripheral Venipuncture No growth. 09/28/17 10:40 Blood Culture - Final Central Venous Catheter Jacquie parapsilosis 09/28/17 10:40 Blood Culture - Final Central Venous Catheter Jacquie parapsilosis 09/25/17 00:18 Blood Culture - Final Central Venous Catheter Jacquie parapsilosis 09/24/17 16:51 Blood Culture - Final Peripheral Venipuncture No growth. Serology 10/05/17 10/04/17 09/28/17 Range/Units 17:29 04:45 10:40 Urine Color Yellow (Yellow) Urine Clarity Cloudy A (Clear) Urine pH 6.5 (5.0-8.0) pH Units Ur Specific [place] 1.021 (1.010-1.025) Urine Protein 100 H (Neg-Trace) mg/dL Urine Glucose (UA) Normal (Normal) mg/dL Urine Clinitest (Negative) Urine Ketones 40 H (Negative) mg/dL Urine Blood Large H (Negative) Urine Nitrite Negative (Negative) Urine Bilirubin Negative (Negative) Urine Urobilinogen Normal (Normal) mg/dL Ur Leukocyte Esterase Moderate H (Negative) Urine Microscopic RBC 15-30 H (0-3) per hpf Urine Microscopic WBC 15-30 H (0-3) per hpf Ur Squamous Epith Cells Moderate H (None-Few) per lpf Ur Renal Epithelial Cell Few (None-Few) per hpf Urine Bacteria Moderate H (None-Few) per hpf Ur Culture Indicated? YES A (NO) A. baumannii (PCR) Not Detected (Not Detect) Chlamy pneumoniae PCR Not Detected (Not Detect) Adenovirus (PCR) Not Detected (Not Detect) B. pertussis DNA (PCR) Not Detected (Not Detect) B.parapertussis DNA PCR Not Detected (Not Detect) Jacquie albicans (PCR) Not Detected (Not Detect) C. glabrata (PCR) Not Detected (Not Detect) C. krusei (PCR) Not Detected (Not Detect) C. parapsilosis (PCR) Not Detected (Not Detect) C. tropicalis (PCR) Not Detected (Not Detect) Coronavirus OC43 (PCR) Not Detected (Not Detect) Coronavirus HKU1 (PCR) Not Detected (Not Detect) Coronavirus 229E (PCR) Not Detected (Not Detect) Coronavirus NL63 (PCR) Not Detected (Not Detect) Enterobacteriac sp PCR Not Detected (Not Detect) E. cloacae complex PCR Not Detected (Not Detect) Enterococcus sp PCR Not Detected (Not Detect) E. coli (PCR) Not Detected (Not Detect) H. influenzae (PCR) Not Detected (Not Detect) Human Metapneumovir PCR Not Detected (Not Detect) Influenza A (H1) PCR Not Detected (Not Detect) Influ A (H1N1/09) PCR Not Detected (Not Detect) Influenza A (H3) PCR Not Detected (Not Detect) Influenza A Untype (PCR) Not Detected (Not Detect) Influenza Type B (PCR) Not Detected (Not Detect) Klebsiella oxytoca PCR Not Detected (Not Detect) Klebsiella pneumoniae Not Detected (Not Detect) List. monocytogenes PCR Not Detected (Not Detect) M.pneumoniae DNA (PCR) Not Detected (Not Detect) N. meningitidis (PCR) Not Detected (Not Detect) Parainfluenza 1 (PCR) Not Detected (Not Detect) Parainfluenza 2 (PCR) Not Detected (Not Detect) Parainfluenza 3 (PCR) Not Detected (Not Detect) Parainfluenza 4 (PCR) Not Detected (Not Detect) Proteus species (PCR) Not Detected (Not Detect) RSV (PCR) Not Detected (Not Detect) Entero/Rhino (PCR) Not Detected (Not Detect) Serratia marcescens PCR Not Detected (Not Detect) Staphylococcus sp PCR Not Detected (Not Detect) Staph aureus (PCR) Not Detected (Not Detect) mecA-Methicil Res Gene Not Detected (Not Detect) Streptococcus sp PCR Not Detected (Not Detect) Group A Strep DNA Not Detected (Not Detect) Group B Strep (PCR) Not Detected (Not Detect) Strep pneumoniae (PCR) Not Detected (Not Detect) P. aeruginosa (PCR) Not Detected (Not Detect) Tan/B-Vanco Res Genes Not Detected (Not Detect) KPC (blaKPC) Detect PCR Not Detected (Not Detect) 09/28/17 09/25/17 Range/Units 10:40 00:18 Urine Color (Yellow) Urine Clarity (Clear) Urine pH (5.0-8.0) pH Units Ur Specific [place] (1.010-1.025) Urine Protein (Neg-Trace) mg/dL Urine Glucose (UA) (Normal) mg/dL Urine Clinitest (Negative) Urine Ketones (Negative) mg/dL Urine Blood (Negative) Urine Nitrite (Negative) Urine Bilirubin (Negative) Urine Urobilinogen (Normal) mg/dL Ur Leukocyte Esterase (Negative) Urine Microscopic RBC (0-3) per hpf Urine Microscopic WBC (0-3) per hpf Ur Squamous Epith Cells (None-Few) per lpf Ur Renal Epithelial Cell (None-Few) per hpf Urine Bacteria (None-Few) per hpf Ur Culture Indicated? (NO) A. baumannii (PCR) Not Detected Not Detected (Not Detect) Chlamy pneumoniae PCR (Not Detect) Adenovirus (PCR) (Not Detect) B. pertussis DNA (PCR) (Not Detect) B.parapertussis DNA PCR (Not Detect) Jacquie albicans (PCR) Not Detected Not Detected (Not Detect) C. glabrata (PCR) Not Detected Not Detected (Not Detect) C. krusei (PCR) Not Detected Not Detected (Not Detect) C. parapsilosis (PCR) Not Detected Not Detected (Not Detect) C. tropicalis (PCR) Not Detected Not Detected (Not Detect) Coronavirus OC43 (PCR) (Not Detect) Coronavirus HKU1 (PCR) (Not Detect) Coronavirus 229E (PCR) (Not Detect) Coronavirus NL63 (PCR) (Not Detect) Enterobacteriac sp PCR Not Detected Not Detected (Not Detect) E. cloacae complex PCR Not Detected Not Detected (Not Detect) Enterococcus sp PCR Not Detected Not Detected (Not Detect) E. coli (PCR) Not Detected Not Detected (Not Detect) H. influenzae (PCR) Not Detected Not Detected (Not Detect) Human Metapneumovir PCR (Not Detect) Influenza A (H1) PCR (Not Detect) Influ A (H1N1/09) PCR (Not Detect) Influenza A (H3) PCR (Not Detect) Influenza A Untype (PCR) (Not Detect) Influenza Type B (PCR) (Not Detect) Klebsiella oxytoca PCR Not Detected Not Detected (Not Detect) Klebsiella pneumoniae Not Detected Not Detected (Not Detect) List. monocytogenes PCR Not Detected Not Detected (Not Detect) M.pneumoniae DNA (PCR) (Not Detect) N. meningitidis (PCR) Not Detected Not Detected (Not Detect) Parainfluenza 1 (PCR) (Not Detect) Parainfluenza 2 (PCR) (Not Detect) Parainfluenza 3 (PCR) (Not Detect) Parainfluenza 4 (PCR) (Not Detect) Proteus species (PCR) Not Detected Not Detected (Not Detect) RSV (PCR) (Not Detect) Entero/Rhino (PCR) (Not Detect) Serratia marcescens PCR Not Detected Not Detected (Not Detect) Staphylococcus sp PCR Not Detected Not Detected (Not Detect) Staph aureus (PCR) Not Detected Not Detected (Not Detect) mecA-Methicil Res Gene Not Detected N/A (Not Detect) Streptococcus sp PCR Not Detected Not Detected (Not Detect) Group A Strep DNA Not Detected Not Detected (Not Detect) Group B Strep (PCR) Not Detected Not Detected (Not Detect) Strep pneumoniae (PCR) Not Detected Not Detected (Not Detect) P. aeruginosa (PCR) Not Detected Not Detected (Not Detect) Tan/B-Vanco Res Genes Not Detected N/A (Not Detect) KPC (blaKPC) Detect PCR Not Detected N/A (Not Detect) - Impressions Impressions Abdomen/Pelvis CT 10/05/17 13:50 IMPRESSION: 1. There are streaky densities in the lung bases including more confluent opacity in the posterior right lower lobe which, given the findings within the trachea are concerning for aspiration pneumonitis. 2. Marked improvement in the colonic wall thickening without significant residual identified. 3. Punctate calculus in the distal left ureter. There is minimal fullness of the left renal collecting system. There are additional nonobstructing left renal calculi. 4. Cholelithiasis. D/ / Darius Bañuelos / Darius Bañuelos Interpreting Provider: Darius Bañuelos Chest CT 10/05/17 13:50 IMPRESSION: 1. There are streaky densities in the lung bases including more confluent opacity in the posterior right lower lobe which, given the findings within the trachea are concerning for aspiration pneumonitis. 2. Marked improvement in the colonic wall thickening without significant residual identified. 3. Punctate calculus in the distal left ureter. There is minimal fullness of the left renal collecting system. There are additional nonobstructing left renal calculi. 4. Cholelithiasis. D/ / Darius Bañuelos / Darius Bañuelos Interpreting Provider: Darius Bañuelos Exam - Constitutional Vitals: Temp Pulse Resp BP Pulse Ox 98.8 F 105 18 137/102 98 10/06/17 11:01 10/06/17 11:01 10/06/17 11:01 10/06/17 11:01 10/06/17 11:01 General appearance: average body habitus, no acute distress, no febrile - Head Head exam: Present: atraumatic, normal inspection, normocephalic - Eye Eye exam: Present: EOMI, normal appearance, PERRL Pupils: Present: normal accommodation - ENT ENT exam: Present: mucous membranes dry - Neck Neck exam: Present: normal inspection - Respiratory Respiratory exam: Present: CTAB. Absent: rales, respiratory distress, rhonchi, wheezes - Cardiovascular Cardiovascular exam: Present: RRR, +S1, +S2 - GI/Abdominal GI/Abdominal exam: Present: normal bowel sounds, soft. Absent: distended, tenderness Additional comments: Suprapubic ostomy noted to be draining clear yellow urine. - Extremities Exam Extremities exam: Absent: joint swelling, pedal edema, tenderness Additional comments: BLE AKA stumps without redness, warmth, erythema, or open lesions. BUE muscle atrophy with contractures noted. - Neurological Exam Neurological exam: Present: alert, altered, speech deficit (Mumbled/garbled at times). Absent: oriented X3, no focal deficits (Paralysis noted to the BUE and BLE.) - Psychiatric Psychiatric exam: Present: agitated - Skin Skin exam: Present: dry, intact, normal color, warm - Additional findings Additional findings: Tunneled CVC noted to the left upper chest with transparent dressing C/D/I without redness, warmth, or tenderness. - VTE Reasons for not Prescribing Prophylaxis: Refused by parent Consult Discharge Plan - Plan Referrals: Mauricio Melendrez MD [Primary Care Provider] - (PATIENT IS FROM [facility] NO PCP APPOINTMENT NEEDED) Evelina Maddox MD [Partnered Physician] - 11/05/17 3:10 pm () Prescriptions: Fluconazole 400 MG/200 ML [Diflucan Premix 400 MG/200 ML] 400 mg IVPB DAILY 13 Days #13 bag - Attending Attestation I examined this patient and my medical decision-making was reviewed with the Resident Physician. I agree with the documented findings, disposition and treatment plan as described except to the extent set forth below.
[2017-10-06] MEDS: *HR* HYDROmorphone 2 MG TABLET PO PRN ×3 (11:27→21:57)
--- NOTE | 2017-10-06 13:01 | Internal Med Progress Note ---
<Antonio Pruitt - Last Filed: 10/06/17 12:59> Date of Encounter: 10/06/17 Time of Encounter: 12:59 - Assessment and plan (1) Sepsis Current Visit: Yes Status: Acute Assessment and plan: afebirle overnight, still tachycardic and tacypenic leukocytosis resolved source: ESBL UTI, candedemia, however with new onset fever yesterday another source likely CT chest 10/05/2017 shows possible aspiration pna on RLL CT abdomen 10/05/2017 shows improved colonic wall thickening. RIP negative On vanc and meropenam appreciate ID recommendations Qualifiers: Sepsis type: Brittny Qualified Code(s): B37.7 - Candidal sepsis (2) Encephalopathy in sepsis Current Visit: Yes Status: Acute Assessment and plan: improved CT head negative now alert and oriented to self and place not time or situation neurology consult placed for lumbar puncture. (3) Candidemia Current Visit: Yes Status: Acute Assessment and plan: CVC -blood cultures 09/22/17 1/2 + for candidia -09/28/2017 2/2 + for brittny -10/02/2017 2/2 prelim negative continue fluconazole. kidney function stable. appreciate ID recommendations. (4) UTI (urinary tract infection) Current Visit: Yes Status: Resolved Assessment and plan: 2nd to E.Coli ESBL s/p SPT which has been removed and now has urostomy bag which is outputting yellow clear urine on ertapenam. repeat urine culture negative Qualifiers: Urinary tract infection type: catheter-associated UTI Indwelling urinary catheter type: indwelling urethral catheter Encounter type: initial encounter Qualified Code(s): T83.511A - Infection and inflammatory reaction due to indwelling urethral catheter, initial encounter; N39.0 - Urinary tract infection , site not specified; N39.0 - Urinary tract infection, site not specified (5) Aspiration pneumonitis Current Visit: Yes Status: Acute Assessment and plan: as noted above on CT chest. speech consult ordered and report no deficit on regular diet. (6) Bacteremia Current Visit: Yes Status: Resolved Assessment and plan: 09/22/17 cvc clutlures 1/2 + for staph epi likely contaminant: repeat blood culture negative for staph epi (7) Decubitus ulcer of left ischium, stage 2 Current Visit: Yes Status: Acute Assessment and plan: stable continue wound care (8) Decubitus ulcer of right ischium, stage 2 Current Visit: Yes Status: Chronic Assessment and plan: stable continue wound care (9) Quadriplegia Current Visit: Yes Status: Chronic (10) Goals of care, counseling/discussion Current Visit: Yes Status: Acute Assessment and plan: Currently full code. not able to make his own decisions currently family unable to be reached. will continue working on reaching family. - Subjective Interval history: Patient alert to self and place. While having conversation with him, his speech drifts into different topics. He reports pain in his belly, pelvis, arms and request pain medication. - Constitutional Vitals: Temp Pulse Resp BP Pulse Ox 98.8 F 105 18 137/102 98 10/06/17 11:01 10/06/17 11:01 10/06/17 11:01 10/06/17 11:01 10/06/17 11:01 - Other Additional findings: Gen.: alert to self and place not to situation. Heart: Regular rate and rhythm with no murmur Lungs: Clear to auscultation bilaterally Abdomen: Soft nontender, nondistended positive bowel sounds, large abdominal scar from her surgery. Urostomy bag outputting clear yellow urine. Skin: warm and dry, multiple tattoos on chest, stage II decubitus ulcers b/l ischium Extremities: Bilateral [id number] amputations. Neuro: alert to self and place not to situation. Vascular: Pedal and radial pulses 2 out of 4 Internal Medicine: Result - Labs CBC & Chem 7: 10/05/17 09:00 10/05/17 09:00 Labs: BMP 10/05/17 09:00 Sodium 135 L Potassium 3.3 L Chloride 98 Carbon Dioxide 25 BUN 7 Creatinine 0.58 L Glucose 103 Calcium 8.8 Liver Function 10/05/17 Range/Units 09:00 Total Bilirubin 0.2 L (0.3-1.0) mg/dL Direct Bilirubin 0.1 (0.0-0.2) mg/dL AST 19 (13-39) Units/L ALT 18 (7-52) Units/L Alkaline Phosphatase 50 (34-104) Units/L Albumin 3.5 (3.5-5.7) g/dL - ABG Interpretation ABG results: ABG ABG pH 7.43 pH Units (7.32-7.45) 10/02/17 15:01 ABG pCO2 36 mmHg (35-45) 10/02/17 15:01 ABG pO2 84 mmHg (85-104) L 10/02/17 15:01 ABG O2 Saturation 97 % (95-98) 10/02/17 15:01 PT/INR, D-dimer PT 11.3 Seconds (9.4-12.1) 09/24/17 09:00 - Impressions Impressions Abdomen/Pelvis CT 10/05/17 13:50 IMPRESSION: 1. There are streaky densities in the lung bases including more confluent opacity in the posterior right lower lobe which, given the findings within the trachea are concerning for aspiration pneumonitis. 2. Marked improvement in the colonic wall thickening without significant residual identified. 3. Punctate calculus in the distal left ureter. There is minimal fullness of the left renal collecting system. There are additional nonobstructing left renal calculi. 4. Cholelithiasis. D/ / Darius Bañuelos / Darius Bañuelos Interpreting Provider: Darius Bañuelos Chest CT 10/05/17 13:50 IMPRESSION: 1. There are streaky densities in the lung bases including more confluent opacity in the posterior right lower lobe which, given the findings within the trachea are concerning for aspiration pneumonitis. 2. Marked improvement in the colonic wall thickening without significant residual identified. 3. Punctate calculus in the distal left ureter. There is minimal fullness of the left renal collecting system. There are additional nonobstructing left renal calculi. 4. Cholelithiasis. D/ / Darius Bañuelos / Darius Bañuelos Interpreting Provider: Darius Bañuelos - VTE Reasons for not Prescribing Prophylaxis: Refused by parent Consult Discharge Plan - Plan Referrals: Mauricio Melendrez MD [Primary Care Provider] - (PATIENT IS FROM [facility] NO PCP APPOINTMENT NEEDED) Evelina Maddox MD [Partnered Physician] - 11/05/17 3:10 pm () Prescriptions: Fluconazole 400 MG/200 ML [Diflucan Premix 400 MG/200 ML] 400 mg IVPB DAILY 13 Days #13 bag <Mickey Crawley H - Last Filed: 10/06/17 16:21> Date of Encounter: 10/06/17 - Assessment and plan (1) Sepsis Current Visit: Yes Status: Acute Qualifiers: Sepsis type: Brittny Qualified Code(s): B37.7 - Candidal sepsis (2) Altered mental status Current Visit: Yes Status: Acute Qualifiers: Altered mental status type: transient alteration of awareness Qualified Code(s): R40.4 - Transient alteration of awareness (3) Aspiration pneumonitis Current Visit: Yes Status: Acute (4) Candidemia Current Visit: Yes Status: Acute (5) Bacteremia Current Visit: Yes Status: Resolved (6) UTI (urinary tract infection) due to urinary indwelling Souza catheter Current Visit: No Status: Resolved Qualifiers: Indwelling urinary catheter type: cystostomy catheter Encounter type: subsequent encounter Qualified Code(s): T83.510D - Infection and inflammatory reaction due to cystostomy catheter, subsequent encounter; N39.0 - Urinary tract infection, site not specified (7) Hydronephrosis Current Visit: Yes Status: Acute Qualifiers: Hydronephrosis type: with ureteral calculous obstruction Qualified Code(s) : N13.2 - Hydronephrosis with renal and ureteral calculous obstruction (8) Urolithiasis Current Visit: Yes Status: Acute Qualifiers: Urinary calculus location: kidney Qualified Code(s): N20.0 - Calculus of kidney (9) Pancolitis Current Visit: Yes Status: Resolved (10) GI bleed Current Visit: Yes Status: Resolved Qualifiers: GI bleed type/associated pathology: unspecified gastrointestinal hemorrhage type Qualified Code(s): K92.2 - Gastrointestinal hemorrhage, unspecified (11) Quadriplegia Current Visit: Yes Status: Chronic (12) Chronic pain Current Visit: No Status: Chronic Qualifiers: Chronic pain type: other chronic pain Qualified Code(s): G89.29 - Other chronic pain (13) Neurogenic bladder Current Visit: No Status: Chronic (14) Decubitus ulcer of right ischium, stage 2 Current Visit: Yes Status: Chronic (15) Decubitus ulcer of left ischium, stage 2 Current Visit: Yes Status: Acute - Constitutional Vitals: Temp Pulse Resp BP Pulse Ox 98.8 F 105 18 137/102 98 10/06/17 11:01 10/06/17 11:01 10/06/17 11:01 10/06/17 11:01 10/06/17 11:01 Internal Medicine: Result - Labs CBC & Chem 7: 10/05/17 09:00 10/05/17 09:00 - ABG Interpretation ABG results: ABG ABG pH 7.43 pH Units (7.32-7.45) 10/02/17 15:01 ABG pCO2 36 mmHg (35-45) 10/02/17 15:01 ABG pO2 84 mmHg (85-104) L 10/02/17 15:01 ABG O2 Saturation 97 % (95-98) 10/02/17 15:01 PT/INR, D-dimer PT 11.3 Seconds (9.4-12.1) 09/24/17 09:00 - Attending Attestation acute metabolic encephalopathy 2ry to sepsis from aspiration pneumonitis , UTI, Brittny bacteremia currently on Vancomycin ( Staph epidermidis + culture), meropenem for ESBL E coli, fluconazole ID recommendations appreciated LP today, IR and anesthesiology would not do LP await Urine culture, repeat blood cultures I examined this patient and my medical decision-making was reviewed with the Resident Physician. I agree with the documented findings, disposition and treatment plan as described except to the extent set forth below.
[2017-10-06] MEDS ORDERED: Potassium Chloride Elixir 20 MEQ/15 ML UDC PO ONE (15:16)
--- NOTE | 2017-10-06 16:34 | Neurology - Consult Note ---
Date of Encounter: 10/06/17 Time of Encounter: 16:30 Assessment and Plan (1) Altered mental status Current Visit: Yes Status: Acute Patient does have altered mental status which is most likely multifactorial. I suspect that sepsis, metabolic factors, as well as medication effects are likely playing a role. I am doubtful of a bacterial type of infection as I would expect him to be even more obtunded. He is awake and responsive and verbal. However he is a bit somnolent. Consider giving Romazicon and/or Narcan to see if some of the effects of medications will reverse. Otherwise I would continue to treat aggressively with antibiotics empirically. Lumbar puncture was attempted however was unsuccessful. Qualifiers: Altered mental status type: transient alteration of awareness Qualified Code(s): R40.4 - Transient alteration of awareness History of Present Illness HPI: Mr. 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 He was admitted to the hospital in late August secondary to GI bleed. Ultimately he went into septic shock. He is currently on multiple antibiotics recent blood, urine, and sputum cultures have been negative. CT of the chest is suggestive of perhaps aspiration pneumonia. He does have pancolitis however most recent abdominal study shows that this appears to be resolving. He has been encephalopathic and the question is whether or not he may have a central nervous system infectious process. He is a difficult historian because he is somnolent and he whispers when he talks. He is somewhat confused. He does not give a clear answer to whether not he has headache. A CT scan of the brain completed on October 02 was normal. Past Med Surg Social Fam HX - Past Medical History Medical history: cardiomyopathy, coronary artery disease, GERD, hyperlipidemia, hypertension, kidney stones, myocardial infarction, peripheral artery disease, renal disease, other (Neurogenic bladder secondary to quadriplegia, chronic SPT) Psychiatric history: depression, previous psychiatric hospitalization - Past Surgical History Surgical History: orthopedic, other, tracheostomy, other (Chronic SPT) - Social History Smoking Status: Former smoker Smokeless Tobacco Status: Yes (chew) Alcohol use: occasionally Drug use: marijuana - Family History Mother Living Status: Still Living Hx Family Respiratory Disorders: Yes Hx Family Cancer: Yes Hx Family Endocrine Disorder: Yes Medications and Allergies Promethazine [Phenergan] 25 mg PO 0000 03/23/15 [History] Ascorbic Acid [Vitamin C] 500 mg PO DAILY 05/23/15 [History] Bisacodyl [Dulcolax] 5 mg PO DAILY 05/23/15 [History] Lubiprostone [Amitiza] 24 mcg PO Q12HR 05/23/15 [History] Sennosides [Senna] 17.2 mg PO BID 05/23/15 [History] Acetaminophen [Tylenol] 650 mg PO Q6HR PRN 05/11/16 [History] Baclofen 60 mg PO BID 05/11/16 [History] GuaiFENesin ER [Mucinex] 600 mg PO DAILY 05/11/16 [History] Docusate [Colace] 100 mg PO BID 05/12/16 [History] Tizanidine HCl [Zanaflex] 12 mg PO BID 05/12/16 [History] Mirtazapine 7.5 mg PO DAILY 07/04/17 [History] 0.9 % Sodium Chloride [Normal Saline Flush] 10 ml IV DAILY 09/21/17 [History] Ferrous Gluconate 324 mg PO BID 09/21/17 [History] HYDROmorphone [Dilaudid] 2 mg PO 0000 09/21/17 [History] HYDROmorphone [Dilaudid] 2 mg PO Q4H PRN 09/21/17 [History] Omeprazole [PriLOSEC] 20 mg PO DAILY 09/21/17 [History] Promethazine [Phenergan] 25 mg PO Q6H PRN 09/21/17 [History] Vitamin B Complex/Minerals [Sm Stress Formula+Zinc Tablet] 1 each PO DAILY 09/21 [History] diazePAM [Valium] 5 mg PO 0000 09/21/17 [History] Fluconazole 400 MG/200 ML [Diflucan Premix 400 MG/200 ML] 400 mg IVPB DAILY 13 Days #13 bag 09/30/17 [Rx] 3 Allergy/AdvReac Type Severity Reaction Status Date / Time Amoxicillin [From Amoxil] Allergy See Verified 09/21/17 22:01 Comments cephalexin [From Keflex] Allergy Hives Verified 07/04/17 06:12 ciprofloxacin [From Cipro] Allergy Hives Verified 07/04/17 06:12 cranberry Allergy See Verified 07/04/17 06:12 Comments ketorolac Allergy Hives Verified 07/04/17 06:12 morphine Allergy Hives Verified 07/04/17 06:12 nitrofurantoin Allergy Hives Verified 07/04/17 06:12 [From Macrobid] Oxycodone Allergy Hives Verified 07/04/17 06:12 Penicillins Allergy Hives Verified 07/04/17 06:12 prochlorperazine Allergy Hives Verified 07/04/17 06:12 [From Compazine] Sulfa (Sulfonamide Allergy Hives Verified 07/04/17 06:12 Antibiotics) trimethoprim Allergy See Verified 07/04/17 06:12 Comments ROS unobtainable: due to mental status All Systems: The remainder of the systems were reviewed and are negative Physical Examination - Vital Signs Vital Signs: Initial Vital Signs Temp Pulse Resp BP Pulse Ox 98 F 102 22 97/52 93 09/21/17 19:31 09/21/17 19:31 09/21/17 19:31 09/21/17 19:31 09/21/17 19:31 - Exam Exam: Neurologic examination finds the following; Cerebral functions-he is awake but somewhat somnolent and confused. He follows some simple commands however is not able to give totally lucid responses to questions. Cranial nerves-pupils are equal and reactive to light there is no facial asymmetry, sensory to face is intact. His voice is hypophonic. Tongue protrudes midline. Motor exam-there is significant atrophy and spasticity of both upper extremities he is unable to use his arms functionally. Both his legs are amputated up to the hips. Results - Laboratory Findings CBC and BMP: 10/05/17 09:00 10/05/17 09:00 Abnormal lab findings: Abnormal lab results RBC 3.65 M/mcL (4.19-5.50) L 10/05/17 09:00 Hgb 10.1 g/dL (12.9-16.9) L 10/05/17 09:00 Hct 32.2 % (37.5-50.1) L 10/05/17 09:00 MCH 27.7 pg (28.0-33.3) L 10/05/17 09:00 MCHC 31.4 g/dL (31.6-35.5) L 10/05/17 09:00 RDW 15.9 % (11.5-14.5) H 10/05/17 09:00 MPV 8.7 fL (9.4-12.4) L 10/05/17 09:00 Nucleated RBCs/100 WBC 0.2 /100 WBC (0) H 09/29/17 06:32 ESR 59 mm/hr (0-10) H 10/05/17 14:13 ABG pO2 84 mmHg (85-104) L 10/02/17 15:01 Sodium 135 mEq/L (136-145) L 10/05/17 09:00 Potassium 3.3 mEq/L (3.5-5.1) L 10/05/17 09:00 Creatinine 0.58 mg/dL (0.70-1.30) L 10/05/17 09:00 POC Glucose 147 (58-89) H 09/22/17 19:26 Calculated Osmolality 278 (280-300) L 10/05/17 09:00 Total Bilirubin 0.2 mg/dL (0.3-1.0) L 10/05/17 09:00 C-Reactive Protein 22 mg/L (Less than 10) H 10/05/17 14:13 Globulin 3.6 g/dL (2.4-3.5) H 10/05/17 09:00 Albumin/Globulin Ratio 1.0 (1.1-2.2) L 10/05/17 09:00 Urine Clarity Cloudy (Clear) A 10/04/17 04:45 Urine Protein 100 mg/dL (Neg-Trace) H 10/04/17 04:45 Urine Ketones 40 mg/dL (Negative) H 10/04/17 04:45 Urine Blood Large (Negative) H 10/04/17 04:45 Ur Leukocyte Esterase Moderate (Negative) H 10/04/17 04:45 Urine Microscopic RBC 15-30 per hpf (0-3) H 10/04/17 04:45 Urine Microscopic WBC 15-30 per hpf (0-3) H 10/04/17 04:45 Ur Squamous Epith Cells Moderate per lpf (None-Few) H 10/04/17 04:45 Urine Bacteria Moderate per hpf (None-Few) H 10/04/17 04:45 Ur Culture Indicated? YES (NO) A 10/04/17 04:45 Consult Discharge Plan - Plan Referrals: Mauricio Melendrez MD [Primary Care Provider] - (PATIENT IS FROM [facility] NO PCP APPOINTMENT NEEDED) Evelina Maddox MD [Partnered Physician] - 11/05/17 3:10 pm () Prescriptions: Fluconazole 400 MG/200 ML [Diflucan Premix 400 MG/200 ML] 400 mg IVPB DAILY 13 Days #13 bag
--- NOTE | 2017-10-06 17:37 | Event Note ---
Date of Encounter: 10/06/17 (Lumbar puncture) Time of Encounter: 17:35 (Indication for procedure: Mental status changes sepsis , rule out central nervous system infection) Patient was placed in the right lateral decubitus position and prepped and draped in the normal sterile fashion. Landmarks were assessed and localized to the L3-L4 disc interspace. The L3-L4 disc interspace was anesthetized with 1% lidocaine and a spinal needle was introduced. After several unsuccessful passes at this level landmarks were reassessed and localized to the L2-L3 interspace. The L2-L3 interspace was again anesthetized with 1% lidocaine. And several attempts were made at this level without success. The spinal needle was removed, hemostasis was achieved. Patient tolerated procedure with minimal difficulty.
[2017-10-06] MEDS: diazePAM 5 MG TABLET PO PRN (21:57)
[2017-10-07] MEDS: 0.9 % Sodium Chloride 1,000 ML IVC SCH
[2017-10-07] MEDS: Baclofen 10 MG TABLET PO PRN (02:44)
[2017-10-07] MEDS: *HR* HYDROmorphone 2 MG TABLET PO PRN ×3 (02:44→22:57)
[2017-10-07] MEDS: Vancomycin 500 MG in 0.9 % Sodium Chloride Mini Bag 100 ML IVPB SCH (04:00)
[2017-10-07] MEDS: *HR* Heparin 5,000 UNIT/ML VIAL SQ SCH ×2 (05:52→17:30)
[2017-10-07 06:04] LABS: Basophils # 0.1 K/mcL (0.0-0.2); Basophils % 0.9 %; Eosinophils # 0.3 K/mcL (0.0-0.6); Eosinophils % 5.6 %; Hematocrit 28.9 % (37.5-50.1); Hemoglobin 9.2 g/dL (12.9-16.9); Immature Granulocytes % 0.3 % (0-4); Lymphocytes % 35.1 %; Mean Corpuscular HGB Conc 31.8 g/dL (31.6-35.5); Mean Corpuscular Volume 87.8 fL (83.0-100.0); Mean Platelet Volume 8.5 fL (9.4-12.4); Monocytes # 0.6 K/mcL (0.0-1.3); Monocytes % 9.9 %; Neutrophils # 2.8 K/mcL (1.6-8.9); Platelet Count 289 K/mcL (140-400); Red Blood Count 3.29 M/mcL (4.19-5.50); Red Cell Distribution Width 16.1 % (11.5-14.5); Segmented Neutrophils % 48.2 %
[2017-10-07 06:21] LABS: BUN/Creatinine Ratio 13 (6-26); Blood Urea Nitrogen 5 mg/dL (6-20); Calcium 8.5 mg/dL (8.6-10.3); Carbon Dioxide 29 mEq/L (23-29); Chloride 101 mEq/L (98-107); Glucose 65 mg/dL (70-105); Osmolality,Calculated 279 (280-300); Potassium 3.4 mEq/L (3.5-5.1); Sodium 137 mEq/L (136-145); eGFR For African Americans > 60 (> 60); eGFR For Non-African Americans > 60 (> 60)
[2017-10-07] MEDS: Meropenem 1,000 MG in 0.9 % Sodium Chloride Mini Bag 100 ML IVPB SCH ×3 (09:49→16:35)
[2017-10-07] MEDS: Fluconazole 400 MG/200 ML 400 MG/200 ML BAG IVPB SCH (09:50)
--- NOTE | 2017-10-07 09:50 | Event Note ---
Date of Encounter: 10/07/17 Time of Encounter: 09:35 Patient awake and alert. I visited along with Phillip CLAROS. Patient appeared to be hallucinating and telling us to "get the baby before it falls, the mommy left it here". "Sit it up so it can breathe" Asked to be repositioned in bed. Other speech unintelligible at times. He does not appear to have capacity at this time to make decision. Effort to contact family at this point have been unsuccessful. New numbers found at nursing facility in a book in pt room - but all of these were no longer valid, except one number a message was left, but no one has returned that call. Will continue to follow at a distance and efforts to reach family/
[2017-10-07] MEDS: tiZANidine 4 MG TABLET PO SCH (10:05)
[2017-10-07] MEDS: Multivit/Ca/Min/Fe/FA 1 TAB TABLET PO SCH (10:05)
[2017-10-07] MEDS: Sennosides 8.6 MG TABLET PO SCH ×2 (10:05→22:57)
[2017-10-07] MEDS: Mirtazapine 15 MG TABLET PO SCH (10:06)
--- NOTE | 2017-10-07 10:18 | Internal Med Progress Note ---
<Antonio Pruitt - Last Filed: 10/07/17 10:15> Date of Encounter: 10/07/17 Time of Encounter: 10:16 - Assessment and plan (1) Sepsis Current Visit: Yes Status: Acute Assessment and plan: afebirle overnight, still tachycardic leukocytosis resolved source: ESBL UTI, candedemia, however with new onset fever on another source likely but unknown at this point unable to successfully do lumbar puncture CT chest 10/05/2017 shows possible aspiration pna on RLL CT abdomen 10/05/2017 shows improved colonic wall thickening. RIP negative urine culture negative 10/05/17 peripheral and central blood cultures prelim negative 2/ On vanc and meropenam appreciate ID recommendations (2) Encephalopathy in sepsis Current Visit: Yes Status: Acute Assessment and plan: alert and oriented to self and place but having hallucinations as reported by palliative team CT head negative (3) Candidemia Current Visit: Yes Status: Acute Assessment and plan: CVC -blood cultures 09/22/17 1/2 + for candidia -09/28/2017 2/2 + for brittny -10/02/2017 2/2 prelim negative continue fluconazole. kidney function stable. appreciate ID recommendations. (4) UTI (urinary tract infection) Current Visit: Yes Status: Resolved Assessment and plan: 2nd to E.Coli ESBL s/p SPT which has been removed and now has urostomy bag which is outputting yellow clear urine repeat urine culture negative Qualifiers: Urinary tract infection type: catheter-associated UTI Indwelling urinary catheter type: indwelling urethral catheter Encounter type: initial encounter Qualified Code(s): T83.511A - Infection and inflammatory reaction due to indwelling urethral catheter, initial encounter; N39.0 - Urinary tract infection , site not specified; N39.0 - Urinary tract infection, site not specified (5) Aspiration pneumonitis Current Visit: Yes Status: Acute Assessment and plan: as noted above on CT chest. speech consult ordered and report no deficit on regular diet. On vanc and meropenam (6) Bacteremia Current Visit: Yes Status: Resolved Assessment and plan: 09/22/17 cvc clutlures 1/2 + for staph epi likely contaminant: repeat blood culture negative for staph epi (7) Decubitus ulcer of left ischium, stage 2 Current Visit: Yes Status: Acute Assessment and plan: stable continue wound care (8) Decubitus ulcer of right ischium, stage 2 Current Visit: Yes Status: Chronic Assessment and plan: stable continue wound care (9) Quadriplegia Current Visit: Yes Status: Chronic (10) Goals of care, counseling/discussion Current Visit: Yes Status: Acute Assessment and plan: Currently full code. not able to make his own decisions currently family unable to be reached. will continue working on reaching family. Qualifiers: Sepsis type: Brittny Qualified Code(s): B37.7 - Candidal sepsis - Subjective Interval history: Patient alert to self and place. Still is confused at times and his speech drifts into different topics. Palliative team assesed him today and they reported similar mental status and patient is not able to make decisions for himself and family is not able to be reached. - Constitutional Vitals: Temp Pulse Resp BP Pulse Ox 98.9 F 109 18 118/91 94 10/07/17 08:18 10/07/17 08:18 10/07/17 08:18 10/07/17 08:18 10/07/17 08:18 General appearance: Present: cooperative - Other Additional findings: Gen.: alert to self and place not to situation unchanged from yesterday Heart: Regular rate and rhythm with no murmur Lungs: Clear to auscultation bilaterally Abdomen: Soft nontender, nondistended positive bowel sounds, large abdominal scar from her surgery. Urostomy bag outputting clear yellow urine. Skin: warm and dry, multiple tattoos on chest, stage II decubitus ulcers b/l ischium stable Extremities: Bilateral [id number] amputations. Neuro: alert to self and place not to situation. mumbles words still Vascular: Pedal and radial pulses 2 out of 4 Internal Medicine: Result - Labs CBC & Chem 7: 10/07/17 05:15 10/07/17 05:15 Labs: Short CBC 10/07/17 Range/Units 05:15 WBC 5.7 (4.3-11.1) K/mcL Hgb 9.2 L (12.9-16.9) g/dL Hct 28.9 L (37.5-50.1) % Plt Count 289 (140-400) K/mcL Neutrophils # 2.8 (1.6-8.9) K/mcL BMP 10/07/17 05:15 Sodium 137 Potassium 3.4 L Chloride 101 Carbon Dioxide 29 BUN 5 L Creatinine 0.40 L Glucose 65 L Calcium 8.5 L - ABG Interpretation ABG results: ABG ABG pH 7.43 pH Units (7.32-7.45) 10/02/17 15:01 ABG pCO2 36 mmHg (35-45) 10/02/17 15:01 ABG pO2 84 mmHg (85-104) L 10/02/17 15:01 ABG O2 Saturation 97 % (95-98) 10/02/17 15:01 PT/INR, D-dimer PT 11.3 Seconds (9.4-12.1) 09/24/17 09:00 - VTE Reasons for not Prescribing Prophylaxis: Refused by parent Consult Discharge Plan - Plan Referrals: Mauricio Melendrez MD [Primary Care Provider] - (PATIENT IS FROM [facility] NO PCP APPOINTMENT NEEDED) Evelina Maddox MD [Partnered Physician] - 11/05/17 3:10 pm () Prescriptions: Fluconazole 400 MG/200 ML [Diflucan Premix 400 MG/200 ML] 400 mg IVPB DAILY 13 Days #13 bag <Mickey Crawley H - Last Filed: 10/07/17 15:37> Date of Encounter: 10/07/17 - Assessment and plan (1) Sepsis Current Visit: Yes Status: Acute Qualifiers: Sepsis type: Brittny Qualified Code(s): B37.7 - Candidal sepsis (2) Altered mental status Current Visit: Yes Status: Acute Qualifiers: Altered mental status type: transient alteration of awareness Qualified Code(s): R40.4 - Transient alteration of awareness (3) Aspiration pneumonitis Current Visit: Yes Status: Acute (4) Candidemia Current Visit: Yes Status: Acute (5) Bacteremia Current Visit: Yes Status: Resolved (6) Hydronephrosis Current Visit: Yes Status: Acute Qualifiers: Hydronephrosis type: with ureteral calculous obstruction Qualified Code(s) : N13.2 - Hydronephrosis with renal and ureteral calculous obstruction (7) Urolithiasis Current Visit: Yes Status: Acute Qualifiers: Urinary calculus location: kidney Qualified Code(s): N20.0 - Calculus of kidney (8) Pancolitis Current Visit: Yes Status: Resolved (9) GI bleed Current Visit: Yes Status: Resolved Qualifiers: GI bleed type/associated pathology: unspecified gastrointestinal hemorrhage type Qualified Code(s): K92.2 - Gastrointestinal hemorrhage, unspecified (10) Quadriplegia Current Visit: Yes Status: Chronic (11) Chronic pain Current Visit: No Status: Chronic Qualifiers: Chronic pain type: other chronic pain Qualified Code(s): G89.29 - Other chronic pain (12) Neurogenic bladder Current Visit: No Status: Chronic (13) Decubitus ulcer of right ischium, stage 2 Current Visit: Yes Status: Chronic (14) Decubitus ulcer of left ischium, stage 2 Current Visit: Yes Status: Acute - Constitutional Vitals: Temp Pulse Resp BP Pulse Ox 98.0 F 72 14 134/108 96 10/07/17 10:11 10/07/17 11:18 10/07/17 11:18 10/07/17 11:18 10/07/17 11:18 Internal Medicine: Result - Labs CBC & Chem 7: 10/07/17 05:15 10/07/17 05:15 Labs: Short CBC 10/07/17 Range/Units 05:15 WBC 5.7 (4.3-11.1) K/mcL Hgb 9.2 L (12.9-16.9) g/dL Hct 28.9 L (37.5-50.1) % Plt Count 289 (140-400) K/mcL Neutrophils # 2.8 (1.6-8.9) K/mcL BMP 10/07/17 05:15 Sodium 137 Potassium 3.4 L Chloride 101 Carbon Dioxide 29 BUN 5 L Creatinine 0.40 L Glucose 65 L Calcium 8.5 L - ABG Interpretation ABG results: ABG ABG pH 7.43 pH Units (7.32-7.45) 10/02/17 15:01 ABG pCO2 36 mmHg (35-45) 10/02/17 15:01 ABG pO2 84 mmHg (85-104) L 10/02/17 15:01 ABG O2 Saturation 97 % (95-98) 10/02/17 15:01 PT/INR, D-dimer PT 11.3 Seconds (9.4-12.1) 09/24/17 09:00 - Attending Attestation acute metabolic encephalopathy 2ry to sepsis from aspiration pneumonitis , UTI, Brittny bacteremia currently on Vancomycin ( Staph epidermidis + culture), meropenem for ESBL E coli, fluconazole ID recommendations appreciated LP unsuccefully attempted by Neurology, IR and anesthesiology would not do an LP on him I examined this patient and my medical decision-making was reviewed with the Resident Physician. I agree with the documented findings, disposition and treatment plan as described except to the extent set forth below.
[2017-10-07] MEDS ORDERED: MOM Conc 10 ML UD.LIQ PO ONE (10:28)
[2017-10-07] MEDS: Silver Sulfadiazine 50 GM TUBE TP SCH ×2 (12:52→12:53)
--- NOTE | 2017-10-07 13:48 | Infectious Disease Progress No ---
Date of Encounter: 10/07/17 Time of Encounter: 13:46 - Assessment and Plan (1) Sepsis Current Visit: Yes Status: Acute The patient had two SIRS criteria. He developed hypotension and required a short course of vaospressors, but his sepsis resolved. He then developed sepsis- like picture again on 10/02/17 with fevers, tachycardia, hypotension, and AMS. Original source likely candidemia, but concern for additional etiology given new onset fevers and AMS --> PNA vs. other. Blood cultures drawn 09/22/17 x 2 sets peripherally are negative. Blood cultures drawn 09/22/17 x 2 sets from the central line are positive 1/2 sets for Staph epi and 1/2 for C. parapsilosis. Repeat peripheral blood culture drawn 09/24/17 is negative 1/1 sets. Repeat CVC blood cultures drawn 09/24/17 are positive 1/1 set for C. parapsilosis. Additional peripheral blood cultures drawn 09/28/17 are negative 2/2 sets, but blood cultures drawn from the patient's CVC prior to its removal are positive 2/ 2 sets. Blood cultures ordered 10/02/17 2 sets from a peripheral stick and 2 sets from the CVC were ordered, but only one set from each were drawn due to the lab staff cancelling the orders without checking with the ID team prior to doing so. These are NGTD x 2 sets. Additional peripheral and CVC blood cultures drawn 10/05/17 are NGTD. Code status remains unclear. Family is unable to be reached and the patient's mental status precludes his ability to make any decisions. Check CBC, BMP. CT chest, abdomen and pelvis shows findings consistent with possible aspiration pneumonitis. RIP negative. LFTs and ammonia level normal. ESR and CRP are elevated. Continue Meropenem 1 gram IV Q8H. Continue Vancomycin IV. Pharmacy to dose. Goal trough ~15. Vanc trough 14. Duration of treatment depends on the clinical picture. Monitor renal function and for drug toxicity and dose-adjust antibiotics. Not sure if the CVC remains the source of the patient's sepsis, but may need to consider removing it all together and placing a peripheral IV. Qualifiers: Sepsis type: Jacquie Qualified Code(s): B37.7 - Candidal sepsis (2) Altered mental status Current Visit: Yes Status: Acute New-onset 10/02/17 with low-grade fevers and tachycardia. Etiology unclear: sepsis vs. other. No meningeal signs. Improved today, but not back to baseline. CT head negative. Neurology consulted. LP attempted and unsuccessful per neuro. Qualifiers: Altered mental status type: transient alteration of awareness Qualified Code(s): R40.4 - Transient alteration of awareness (3) Aspiration pneumonitis Current Visit: Yes Status: Acute CT of the chest shows eccentric filling defect in the posterior right aspect of the trachea, presumed related to insipissated mucous and streaky densities in the lung bases including more confluent opacity in the posterior right lower lobe which, given the findings in the trachea, are concerning for aspiration pneumonitis. Speech study negative for aspiration. Continue antibiotics as above. (4) Candidemia Current Visit: Yes Status: Acute Causative organism unclear. Blood culture from the the CVC is positive 1/2 sets for C. parapsilosis, but the PCR did not pick anything up. Repeat culture 1/1 set drawn 09/24/17 from the CVC is positive for C. parapsilosis. Blood culture drawn peripherally 1/1 set on 09/24/17 is NGTD. Additional sets of cultures were cancelled by the lab staff so only 1 set from the line and from the peripheral stick were drawn. Additional peripheral blood cultures drawn 09/28/17 are negative 2/2 sets, but blood cultures drawn from the patient's CVC prior to its removal are positive 2/ 2 sets. Repeat peripheral blood culture drawn 10/02/17 x 1 set is NGTD and x 1 set from the new CVC is NGTD. Given that the patient has had two sets of cultures come back positive from the CVC, this is likely a true infection. Status post guidewire exchange 09/29/17. Repeat blood cultures drawn 10/05/17 are NGTD. Continue fluconazole 400mg IV daily (day 9 since CVC exchange). Duration of treatment depends on the clinical picture, but likely 14 days from the line exchange. Opthalmology to evaluate. Will be done as an outpatient. Monitor renal and liver function studies and dose-adjust antibiotics. (5) Bacteremia Current Visit: Yes Status: Resolved True bacteremia vs. contaminant. Peripheral blood cultures drawn 09/22/17 are negative x 2 sets. CVC blood cultures drawn 09/22/17 are positive 1/2 sets for S. epi. Repeat cultures negative for S. epi. Given the clinical picture, not sure that this is a true infection. Likely a contaminant. Status post CVC exchange 09/29/17. No further antibiotics at this time. (6) Hydronephrosis Current Visit: Yes Status: Acute CT abdomen and pelvis shows mild left hydronephrosis. Likely secondary to 5mm stone. Urology consulted and following. Since the patient is making adequate urine, PNT placement on hold. Qualifiers: Hydronephrosis type: with ureteral calculous obstruction Qualified Code(s) : N13.2 - Hydronephrosis with renal and ureteral calculous obstruction (7) Urolithiasis Current Visit: Yes Status: Acute Qualifiers: Urinary calculus location: kidney Qualified Code(s): N20.0 - Calculus of kidney (8) Pancolitis Current Visit: Yes Status: Resolved CT abdomen and pelvis showed nonspecific pancolitis. Treated with 6 days of IV Ertapenem. Abdominal exam benign. No bowel movement documented since 09/28/17. Repeat abdominal x-ray shows moderate amount of stool but is otherwise negative. CT scan of the abdomen and pelvis shows resolution. (9) GI bleed Current Visit: Yes Status: Resolved Etiology unclear. Hemoglobin stable. GI consulted, but patient refused C-scope and EGD. Resolved. Management per the primary and GI teams. Qualifiers: GI bleed type/associated pathology: unspecified gastrointestinal hemorrhage type Qualified Code(s): K92.2 - Gastrointestinal hemorrhage, unspecified (10) Quadriplegia Current Visit: Yes Status: Chronic (11) Chronic pain Current Visit: No Status: Chronic Qualifiers: Chronic pain type: other chronic pain Qualified Code(s): G89.29 - Other chronic pain (12) Neurogenic bladder Current Visit: No Status: Chronic Chronic SPT removed due to leaking. (13) Decubitus ulcer of right ischium, stage 2 Current Visit: Yes Status: Chronic Stage II. No drainage, warmth, erythema, or fluctuance. Recommend aggressive offloading and wound care. Patient non-compliant with turning per nursing. Consult wound care team. (14) Decubitus ulcer of left ischium, stage 2 Current Visit: Yes Status: Acute Stage II. No drainage, warmth, erythema, or fluctuance. Recommend aggressive offloading and wound care. Patient non-compliant with turning per nursing. Consult wound care team. - Subjective Interval history: Patient seen and examined. No acute events noted overnight. Status post over- the-guidewire exchange of left upper chest CVC 09/29/17. Patient continues to have altered mental status and is unable to provide me with any information, but he is more alert this morning and was crying but doesn't want to tell me why because I can't fix it. His speech remains mumbled/garbled, but he does curse at me. He is resistant to the exam. Infect Dis PN-Objective Data - Labs CBC & Chem 7: 10/07/17 05:15 10/07/17 05:15 Labs: Laboratory Results - last 24 hr 10/07/17 10/07/17 05:15 05:15 WBC 5.7 RBC 3.29 L Hgb 9.2 L Hct 28.9 L MCV 87.8 MCH 28.0 MCHC 31.8 RDW 16.1 H Plt Count 289 MPV 8.5 L Immature Gran % 0.3 Seg Neutrophils % 48.2 Lymphocytes % 35.1 Monocytes % 9.9 Eosinophils % 5.6 Basophils % 0.9 Neutrophils # 2.8 Lymphocytes # 2.0 Monocytes # 0.6 Eosinophils # 0.3 Basophils # 0.1 Sodium 137 Potassium 3.4 L Chloride 101 Carbon Dioxide 29 BUN 5 L Creatinine 0.40 L Est GFR ( Amer) > 60 Est GFR (Non-Af Amer) > 60 BUN/Creatinine Ratio 13 Glucose 65 L Calculated Osmolality 279 L Calcium 8.5 L Cultures: Cultures 10/05/17 09:05 Blood Culture - Preliminary Central Venous Catheter No growth. 10/05/17 09:00 Blood Culture - Preliminary Central Venous Catheter No growth. 10/05/17 09:28 Blood Culture - Preliminary Peripheral Venipuncture No growth. 10/05/17 09:23 Blood Culture - Preliminary Peripheral Venipuncture No growth. 10/04/17 04:45 Urine Culture - Final Urine,Clean Catch No growth. 09/28/17 10:27 Blood Culture - Final Peripheral Venipuncture No growth. 09/28/17 10:27 Blood Culture - Final Peripheral Venipuncture No growth. 10/02/17 13:58 Blood Culture - Preliminary Central Venous Catheter No growth. 10/02/17 13:54 Blood Culture - Preliminary Peripheral Venipuncture No growth. 09/28/17 10:40 Blood Culture - Final Central Venous Catheter Jacquie parapsilosis 09/28/17 10:40 Blood Culture - Final Central Venous Catheter Jacquie parapsilosis 09/25/17 00:18 Blood Culture - Final Central Venous Catheter Jacquie parapsilosis 09/24/17 16:51 Blood Culture - Final Peripheral Venipuncture No growth. Serology 10/05/17 10/04/17 09/28/17 Range/Units 17:29 04:45 10:40 Urine Color Yellow (Yellow) Urine Clarity Cloudy A (Clear) Urine pH 6.5 (5.0-8.0) pH Units Ur Specific [place] 1.021 (1.010-1.025) Urine Protein 100 H (Neg-Trace) mg/dL Urine Glucose (UA) Normal (Normal) mg/dL Urine Clinitest (Negative) Urine Ketones 40 H (Negative) mg/dL Urine Blood Large H (Negative) Urine Nitrite Negative (Negative) Urine Bilirubin Negative (Negative) Urine Urobilinogen Normal (Normal) mg/dL Ur Leukocyte Esterase Moderate H (Negative) Urine Microscopic RBC 15-30 H (0-3) per hpf Urine Microscopic WBC 15-30 H (0-3) per hpf Ur Squamous Epith Cells Moderate H (None-Few) per lpf Ur Renal Epithelial Cell Few (None-Few) per hpf Urine Bacteria Moderate H (None-Few) per hpf Ur Culture Indicated? YES A (NO) A. baumannii (PCR) Not Detected (Not Detect) Chlamy pneumoniae PCR Not Detected (Not Detect) Adenovirus (PCR) Not Detected (Not Detect) B. pertussis DNA (PCR) Not Detected (Not Detect) B.parapertussis DNA PCR Not Detected (Not Detect) Jacquie albicans (PCR) Not Detected (Not Detect) C. glabrata (PCR) Not Detected (Not Detect) C. krusei (PCR) Not Detected (Not Detect) C. parapsilosis (PCR) Not Detected (Not Detect) C. tropicalis (PCR) Not Detected (Not Detect) Coronavirus OC43 (PCR) Not Detected (Not Detect) Coronavirus HKU1 (PCR) Not Detected (Not Detect) Coronavirus 229E (PCR) Not Detected (Not Detect) Coronavirus NL63 (PCR) Not Detected (Not Detect) Enterobacteriac sp PCR Not Detected (Not Detect) E. cloacae complex PCR Not Detected (Not Detect) Enterococcus sp PCR Not Detected (Not Detect) E. coli (PCR) Not Detected (Not Detect) H. influenzae (PCR) Not Detected (Not Detect) Human Metapneumovir PCR Not Detected (Not Detect) Influenza A (H1) PCR Not Detected (Not Detect) Influ A (H1N1/09) PCR Not Detected (Not Detect) Influenza A (H3) PCR Not Detected (Not Detect) Influenza A Untype (PCR) Not Detected (Not Detect) Influenza Type B (PCR) Not Detected (Not Detect) Klebsiella oxytoca PCR Not Detected (Not Detect) Klebsiella pneumoniae Not Detected (Not Detect) List. monocytogenes PCR Not Detected (Not Detect) M.pneumoniae DNA (PCR) Not Detected (Not Detect) N. meningitidis (PCR) Not Detected (Not Detect) Parainfluenza 1 (PCR) Not Detected (Not Detect) Parainfluenza 2 (PCR) Not Detected (Not Detect) Parainfluenza 3 (PCR) Not Detected (Not Detect) Parainfluenza 4 (PCR) Not Detected (Not Detect) Proteus species (PCR) Not Detected (Not Detect) RSV (PCR) Not Detected (Not Detect) Entero/Rhino (PCR) Not Detected (Not Detect) Serratia marcescens PCR Not Detected (Not Detect) Staphylococcus sp PCR Not Detected (Not Detect) Staph aureus (PCR) Not Detected (Not Detect) mecA-Methicil Res Gene Not Detected (Not Detect) Streptococcus sp PCR Not Detected (Not Detect) Group A Strep DNA Not Detected (Not Detect) Group B Strep (PCR) Not Detected (Not Detect) Strep pneumoniae (PCR) Not Detected (Not Detect) P. aeruginosa (PCR) Not Detected (Not Detect) Tan/B-Vanco Res Genes Not Detected (Not Detect) KPC (blaKPC) Detect PCR Not Detected (Not Detect) 09/28/17 09/25/17 Range/Units 10:40 00:18 Urine Color (Yellow) Urine Clarity (Clear) Urine pH (5.0-8.0) pH Units Ur Specific [place] (1.010-1.025) Urine Protein (Neg-Trace) mg/dL Urine Glucose (UA) (Normal) mg/dL Urine Clinitest (Negative) Urine Ketones (Negative) mg/dL Urine Blood (Negative) Urine Nitrite (Negative) Urine Bilirubin (Negative) Urine Urobilinogen (Normal) mg/dL Ur Leukocyte Esterase (Negative) Urine Microscopic RBC (0-3) per hpf Urine Microscopic WBC (0-3) per hpf Ur Squamous Epith Cells (None-Few) per lpf Ur Renal Epithelial Cell (None-Few) per hpf Urine Bacteria (None-Few) per hpf Ur Culture Indicated? (NO) A. baumannii (PCR) Not Detected Not Detected (Not Detect) Chlamy pneumoniae PCR (Not Detect) Adenovirus (PCR) (Not Detect) B. pertussis DNA (PCR) (Not Detect) B.parapertussis DNA PCR (Not Detect) Jacquie albicans (PCR) Not Detected Not Detected (Not Detect) C. glabrata (PCR) Not Detected Not Detected (Not Detect) C. krusei (PCR) Not Detected Not Detected (Not Detect) C. parapsilosis (PCR) Not Detected Not Detected (Not Detect) C. tropicalis (PCR) Not Detected Not Detected (Not Detect) Coronavirus OC43 (PCR) (Not Detect) Coronavirus HKU1 (PCR) (Not Detect) Coronavirus 229E (PCR) (Not Detect) Coronavirus NL63 (PCR) (Not Detect) Enterobacteriac sp PCR Not Detected Not Detected (Not Detect) E. cloacae complex PCR Not Detected Not Detected (Not Detect) Enterococcus sp PCR Not Detected Not Detected (Not Detect) E. coli (PCR) Not Detected Not Detected (Not Detect) H. influenzae (PCR) Not Detected Not Detected (Not Detect) Human Metapneumovir PCR (Not Detect) Influenza A (H1) PCR (Not Detect) Influ A (H1N1/09) PCR (Not Detect) Influenza A (H3) PCR (Not Detect) Influenza A Untype (PCR) (Not Detect) Influenza Type B (PCR) (Not Detect) Klebsiella oxytoca PCR Not Detected Not Detected (Not Detect) Klebsiella pneumoniae Not Detected Not Detected (Not Detect) List. monocytogenes PCR Not Detected Not Detected (Not Detect) M.pneumoniae DNA (PCR) (Not Detect) N. meningitidis (PCR) Not Detected Not Detected (Not Detect) Parainfluenza 1 (PCR) (Not Detect) Parainfluenza 2 (PCR) (Not Detect) Parainfluenza 3 (PCR) (Not Detect) Parainfluenza 4 (PCR) (Not Detect) Proteus species (PCR) Not Detected Not Detected (Not Detect) RSV (PCR) (Not Detect) Entero/Rhino (PCR) (Not Detect) Serratia marcescens PCR Not Detected Not Detected (Not Detect) Staphylococcus sp PCR Not Detected Not Detected (Not Detect) Staph aureus (PCR) Not Detected Not Detected (Not Detect) mecA-Methicil Res Gene Not Detected N/A (Not Detect) Streptococcus sp PCR Not Detected Not Detected (Not Detect) Group A Strep DNA Not Detected Not Detected (Not Detect) Group B Strep (PCR) Not Detected Not Detected (Not Detect) Strep pneumoniae (PCR) Not Detected Not Detected (Not Detect) P. aeruginosa (PCR) Not Detected Not Detected (Not Detect) Tan/B-Vanco Res Genes Not Detected N/A (Not Detect) KPC (blaKPC) Detect PCR Not Detected N/A (Not Detect) Exam - Constitutional Vitals: Temp Pulse Resp BP Pulse Ox 98.0 F 72 14 134/108 96 10/07/17 10:11 10/07/17 11:18 10/07/17 11:18 10/07/17 11:18 10/07/17 11:18 General appearance: average body habitus, no acute distress, no febrile - Head Head exam: Present: atraumatic, normal inspection, normocephalic - Eye Eye exam: Present: EOMI, normal appearance, PERRL Pupils: Present: normal accommodation - ENT ENT exam: Present: mucous membranes moist - Neck Neck exam: Present: normal inspection - Respiratory Respiratory exam: Present: CTAB. Absent: rales, respiratory distress, rhonchi, wheezes - Cardiovascular Cardiovascular exam: Present: +S1, +S2, tachycardia. Absent: irregular rhythm - GI/Abdominal GI/Abdominal exam: Present: normal bowel sounds, soft. Absent: distended, tenderness Additional comments: Suprapubic ostomy noted with collection appliance intact, but appears to be leaking. Clear yellow urine noted in the bag. - Extremities Exam Extremities exam: Absent: joint swelling, pedal edema, tenderness Additional comments: Bilateral AKA stumps without redness, warmth, or erythema. BUE muscle atrophy with contractures noted to the bilateral hands. - Neurological Exam Neurological exam: Present: alert, altered, speech deficit (Mumbled/garbled.). Absent: no focal deficits (Paralysis noted to the BUE and BLE.) - Skin Skin exam: Present: dry, intact, normal color, warm - Additional findings Additional findings: Tunneled CVC noted to the left upper chest with transparent dressing C/D/I. - VTE Reasons for not Prescribing Prophylaxis: Refused by parent Consult Discharge Plan - Plan Referrals: Mauricio Melendrez MD [Primary Care Provider] - (PATIENT IS FROM PENDING SALE TO [facility] NO PCP APPOINTMENT NEEDED) Evelina Maddox MD [Partnered Physician] - 11/05/17 3:10 pm () Prescriptions: Fluconazole 400 MG/200 ML [Diflucan Premix 400 MG/200 ML] 400 mg IVPB DAILY 13 Days #13 bag - Attending Attestation I examined this patient and my medical decision-making was reviewed with the Resident Physician. I agree with the documented findings, disposition and treatment plan as described except to the extent set forth below.
[2017-10-08] MEDS: tiZANidine 4 MG TABLET PO SCH ×2 (00:13→10:00)
[2017-10-08] MEDS: Meropenem 1,000 MG in 0.9 % Sodium Chloride Mini Bag 100 ML IVPB SCH ×4 (00:14→23:14)
[2017-10-08] MEDS: Baclofen 10 MG TABLET PO SCH ×2 (00:14→17:51)
[2017-10-08 04:51] LABS: Basophils # 0.1 K/mcL (0.0-0.2); Basophils % 0.9 %; Eosinophils # 0.3 K/mcL (0.0-0.6); Eosinophils % 5.1 %; Hematocrit 28.9 % (37.5-50.1); Hemoglobin 9.2 g/dL (12.9-16.9); Immature Granulocytes % 0.2 % (0-4); Lymphocytes # 1.9 K/mcL (0.6-4.6); Lymphocytes % 36.1 %; Mean Corpuscular HGB Conc 31.8 g/dL (31.6-35.5); Mean Corpuscular Volume 88.1 fL (83.0-100.0); Mean Platelet Volume 8.6 fL (9.4-12.4); Monocytes # 0.6 K/mcL (0.0-1.3); Monocytes % 10.3 %; Neutrophils # 2.5 K/mcL (1.6-8.9); Platelet Count 260 K/mcL (140-400); Red Blood Count 3.28 M/mcL (4.19-5.50); Red Cell Distribution Width 16.3 % (11.5-14.5); Segmented Neutrophils % 47.4 %
[2017-10-08 05:13] LABS: BUN/Creatinine Ratio 12 (6-26); Blood Urea Nitrogen 5 mg/dL (6-20); Calcium 8.4 mg/dL (8.6-10.3); Carbon Dioxide 30 mEq/L (23-29); Chloride 102 mEq/L (98-107); Glucose 90 mg/dL (70-105); Osmolality,Calculated 283 (280-300); Potassium 3.8 mEq/L (3.5-5.1); Sodium 138 mEq/L (136-145); eGFR For African Americans > 60 (> 60); eGFR For Non-African Americans > 60 (> 60)
[2017-10-08] MEDS: *HR* HYDROmorphone 2 MG TABLET PO PRN ×4 (05:27→23:39)
[2017-10-08] MEDS: *HR* Heparin 5,000 UNIT/ML VIAL SQ SCH ×2 (05:27→17:51)
[2017-10-08] MEDS: Sennosides 8.6 MG TABLET PO SCH ×2 (10:00→20:04)
[2017-10-08] MEDS: Multivit/Ca/Min/Fe/FA 1 TAB TABLET PO SCH (10:00)
[2017-10-08] MEDS: Fluconazole 400 MG/200 ML 400 MG/200 ML BAG IVPB SCH (10:01)
--- NOTE | 2017-10-08 10:56 | Event Note ---
Date of Encounter: 10/08/17 Time of Encounter: 09:30 Patient is awake and alert today - oriented x3. Phillip Velasquez and I met with patient for approximately 40 min. He is aware that he has been hallucinating, but states he is no longer having these. Able to articulate well his medical condition and multiple complications along with those conditions. Discussed code status at length - Francisco states that he wants to be a full code - despite the fact he understands he most likely wouldn't survive, and he knows that he is a difficult extubation. He states that he desires intubation, but wants it as a last resort. States he would be ok with a tracheostomy as well as a last resort, but states he would fight with everything he had to get this reversed, states "they said I wouldn't have it reversed before and I did". Francisco is well aware of the fact that an infection will likely be his cause of someday, however, desires to live as long as he possibly can. If he cannot be reversed from trach and loses his ability to speak, he states this may change his mind. Primary nurse Darius was also present to witness most of this conversation. Palliative currently not managing any symptoms. Discharge will be back to [facility].
--- NOTE | 2017-10-08 12:43 | Internal Med Progress Note ---
<Antonio Pruitt - Last Filed: 10/08/17 12:41> Date of Encounter: 10/08/17 Time of Encounter: 12:41 - Assessment and plan (1) Sepsis Current Visit: Yes Status: Acute Assessment and plan: afebirle overnight, tachycardia resolved. leukocytosis resolved source: ESBL UTI, candedemia, aspiration pna unable to successfully do lumbar puncture CT chest 10/05/2017 shows possible aspiration pna on RLL CT abdomen 10/05/2017 shows improved colonic wall thickening. RIP negative urine culture negative 10/05/17 peripheral and central blood cultures prelim negative 2/ On vanc and meropenam plan to remove cvc and replace with 2 peripheral IVs as it could be source of infection. depending on antibiotic regimen at discharge and duration of treatment will need midline. appreciate ID recommendations (2) Encephalopathy in sepsis Current Visit: Yes Status: Acute Assessment and plan: resolved alert and oriented x3 CT head negative (3) Candidemia Current Visit: Yes Status: Acute Assessment and plan: CVC -blood cultures 09/22/17 1/2 + for candidia -09/28/2017 2/2 + for brittny -10/02/2017 2/2 prelim negative -10/05/2017 culture negative continue fluconazole. kidney function stable. appreciate ID recommendations. has outpatient ophthalmology referral (4) UTI (urinary tract infection) Current Visit: Yes Status: Resolved Assessment and plan: 2nd to E.Coli ESBL s/p SPT which has been removed and now has urostomy bag which is outputting yellow clear urine repeat urine culture negative on 10/04/2017 Qualifiers: Urinary tract infection type: catheter-associated UTI Indwelling urinary catheter type: indwelling urethral catheter Encounter type: initial encounter Qualified Code(s): T83.511A - Infection and inflammatory reaction due to indwelling urethral catheter, initial encounter; N39.0 - Urinary tract infection , site not specified; N39.0 - Urinary tract infection, site not specified (5) Aspiration pneumonitis Current Visit: Yes Status: Acute Assessment and plan: as noted above on CT chest. speech consult ordered and report no deficit on regular diet. On vanc and meropenam (6) Bacteremia Current Visit: Yes Status: Resolved Assessment and plan: 09/22/17 cvc clutlures 1/2 + for staph epi likely contaminant: repeat blood culture negative for staph epi (7) Decubitus ulcer of left ischium, stage 2 Current Visit: Yes Status: Acute Assessment and plan: stable continue wound care (8) Decubitus ulcer of right ischium, stage 2 Current Visit: Yes Status: Chronic Assessment and plan: stable continue wound care (9) Quadriplegia Current Visit: Yes Status: Chronic (10) Goals of care, counseling/discussion Current Visit: Yes Status: Acute Assessment and plan: Currently full code. patient able to make his own decisions and confirmed this with palliative care. Qualifiers: Sepsis type: Brittny Qualified Code(s): B37.7 - Candidal sepsis - Subjective Interval history: Alert and oriented to time place situation, and self. Patient reports he wants to be full code. He reports having pain in his back and abdomen. He does not have any other complaints. No acute events overnight. - Constitutional Vitals: Temp Pulse Resp BP Pulse Ox 99.3 F 86 18 99/70 95 10/08/17 07:22 10/08/17 11:18 10/08/17 11:18 10/08/17 11:18 10/08/17 11:18 General appearance: Present: cooperative - Other Additional findings: Gen.: pleasant without distress Heart: Regular rate and rhythm with no murmur Lungs: Clear to auscultation bilaterally Abdomen: Soft nontender, nondistended positive bowel sounds, large abdominal scar from her surgery. Urostomy bag outputting clear yellow urine. Skin: warm and dry, multiple tattoos on chest, stage II decubitus ulcers b/l ischium stable Extremities: Bilateral [id number] amputations. Neuro: Alert and oriented x 3 Vascular: Pedal and radial pulses 2 out of 4 Internal Medicine: Result - Labs CBC & Chem 7: 10/08/17 04:30 10/08/17 04:30 Labs: Short CBC 10/08/17 Range/Units 04:30 WBC 5.3 (4.3-11.1) K/mcL Hgb 9.2 L (12.9-16.9) g/dL Hct 28.9 L (37.5-50.1) % Plt Count 260 (140-400) K/mcL Neutrophils # 2.5 (1.6-8.9) K/mcL BMP 10/08/17 04:30 Sodium 138 Potassium 3.8 Chloride 102 Carbon Dioxide 30 H BUN 5 L Creatinine 0.42 L Glucose 90 Calcium 8.4 L - ABG Interpretation ABG results: ABG ABG pH 7.43 pH Units (7.32-7.45) 10/02/17 15:01 ABG pCO2 36 mmHg (35-45) 10/02/17 15:01 ABG pO2 84 mmHg (85-104) L 10/02/17 15:01 ABG O2 Saturation 97 % (95-98) 10/02/17 15:01 PT/INR, D-dimer PT 11.3 Seconds (9.4-12.1) 09/24/17 09:00 - VTE Reasons for not Prescribing Prophylaxis: Refused by parent Consult Discharge Plan - Plan Referrals: Mauricio Melendrez MD [Primary Care Provider] - (PATIENT IS FROM [facility] NO PCP APPOINTMENT NEEDED) Evelina Maddox MD [Partnered Physician] - 11/05/17 3:10 pm () Prescriptions: Fluconazole 400 MG/200 ML [Diflucan Premix 400 MG/200 ML] 400 mg IVPB DAILY 13 Days #13 bag <Mickey Crawley - Last Filed: 10/08/17 15:03> Date of Encounter: 10/08/17 - Assessment and plan (1) Sepsis Current Visit: Yes Status: Acute Qualifiers: Sepsis type: Brittny Qualified Code(s): B37.7 - Candidal sepsis (2) Altered mental status Current Visit: Yes Status: Acute Qualifiers: Altered mental status type: transient alteration of awareness Qualified Code(s): R40.4 - Transient alteration of awareness (3) Aspiration pneumonitis Current Visit: Yes Status: Acute (4) Candidemia Current Visit: Yes Status: Acute (5) Bacteremia Current Visit: Yes Status: Resolved (6) Hydronephrosis Current Visit: Yes Status: Acute Qualifiers: Hydronephrosis type: with ureteral calculous obstruction Qualified Code(s) : N13.2 - Hydronephrosis with renal and ureteral calculous obstruction (7) Urolithiasis Current Visit: Yes Status: Acute Qualifiers: Urinary calculus location: kidney Qualified Code(s): N20.0 - Calculus of kidney (8) Pancolitis Current Visit: Yes Status: Resolved (9) GI bleed Current Visit: Yes Status: Resolved Qualifiers: GI bleed type/associated pathology: unspecified gastrointestinal hemorrhage type Qualified Code(s): K92.2 - Gastrointestinal hemorrhage, unspecified (10) Quadriplegia Current Visit: Yes Status: Chronic (11) Chronic pain Current Visit: No Status: Chronic Qualifiers: Chronic pain type: other chronic pain Qualified Code(s): G89.29 - Other chronic pain (12) Neurogenic bladder Current Visit: No Status: Chronic (13) Decubitus ulcer of right ischium, stage 2 Current Visit: Yes Status: Chronic (14) Decubitus ulcer of left ischium, stage 2 Current Visit: Yes Status: Acute - Constitutional Vitals: Temp Pulse Resp BP Pulse Ox 99.3 F 86 18 99/70 95 10/08/17 07:22 10/08/17 11:18 10/08/17 11:18 10/08/17 11:18 10/08/17 11:18 Internal Medicine: Result - Labs CBC & Chem 7: 10/08/17 04:30 10/08/17 04:30 Labs: Short CBC 10/08/17 Range/Units 04:30 WBC 5.3 (4.3-11.1) K/mcL Hgb 9.2 L (12.9-16.9) g/dL Hct 28.9 L (37.5-50.1) % Plt Count 260 (140-400) K/mcL Neutrophils # 2.5 (1.6-8.9) K/mcL BMP 10/08/17 04:30 Sodium 138 Potassium 3.8 Chloride 102 Carbon Dioxide 30 H BUN 5 L Creatinine 0.42 L Glucose 90 Calcium 8.4 L - ABG Interpretation ABG results: ABG ABG pH 7.43 pH Units (7.32-7.45) 10/02/17 15:01 ABG pCO2 36 mmHg (35-45) 10/02/17 15:01 ABG pO2 84 mmHg (85-104) L 10/02/17 15:01 ABG O2 Saturation 97 % (95-98) 10/02/17 15:01 PT/INR, D-dimer PT 11.3 Seconds (9.4-12.1) 09/24/17 09:00 - Attending Attestation acute metabolic encephalopathy 2ry to sepsis from aspiration pneumonitis , UTI, Brittny bacteremia currently on Vancomycin day 7 ( Staph epidermidis + culture), meropenem day 4 for ESBL E coli, fluconazole day 9 ID recommendations appreciated LP unsuccessfully attempted by Neurology, IR and anesthesiology would not do an LP on him I examined this patient and my medical decision-making was reviewed with the Resident Physician. I agree with the documented findings, disposition and treatment plan as described except to the extent set forth below.
--- NOTE | 2017-10-08 12:49 | Infectious Disease Progress No ---
Date of Encounter: 10/08/17 Time of Encounter: 12:47 - Assessment and Plan (1) Sepsis Current Visit: Yes Status: Acute The patient had two SIRS criteria. He developed hypotension and required a short course of vaospressors, but his sepsis resolved. He then developed sepsis- like picture again on 10/02/17 with fevers, tachycardia, hypotension, and AMS. Original source likely candidemia, but concern for additional etiology given new onset fevers and AMS --> PNA vs. other. Blood cultures drawn 09/22/17 x 2 sets peripherally are negative. Blood cultures drawn 09/22/17 x 2 sets from the central line are positive 1/2 sets for Staph epi (contaminant) and 1/2 for C. parapsilosis. Repeat peripheral blood culture drawn 09/24/17 is negative 1/1 sets. Repeat CVC blood cultures drawn 09/24/17 are positive 1/1 set for C. parapsilosis. Additional peripheral blood cultures drawn 09/28/17 are negative 2/2 sets, but blood cultures drawn from the patient's CVC prior to its removal are positive 2/ 2 sets. Blood cultures ordered 10/02/17 2 sets from a peripheral stick and 2 sets from the CVC were ordered, but only one set from each were drawn due to the lab staff cancelling the orders without checking with the ID team prior to doing so. These are negative x 2 sets. Additional peripheral and CVC blood cultures drawn 10/05/[address] chest, abdomen and pelvis shows findings consistent with possible aspiration pneumonitis. RIP negative. LFTs and ammonia level normal. ESR and CRP are mildly elevated, but not overtly convincing of an underlying osteomyelitis. Repeat urine culture negative. Continue Meropenem 1 gram IV Q8H (day 4). Continue Vancomycin IV (day 7). Pharmacy to dose. Goal trough ~15. Vanc trough 14. Continue fluconazole 400mg IV daily (day 04/09). Duration of treatment depends on the clinical picture. Monitor renal function and for drug toxicity and dose-adjust antibiotics. Not sure if the CVC remains the source of the patient's sepsis, but may need to consider removing it all together and placing a peripheral IV. Qualifiers: Sepsis type: Jacquie Qualified Code(s): B37.7 - Candidal sepsis (2) Altered mental status Current Visit: Yes Status: Acute New-onset 10/02/17 with low-grade fevers and tachycardia. Etiology unclear: sepsis vs. other. No meningeal signs. Improved, appears back to baseline. CT head negative. Neurology consulted. LP attempted and unsuccessful per neuro. Qualifiers: Altered mental status type: transient alteration of awareness Qualified Code(s): R40.4 - Transient alteration of awareness (3) Aspiration pneumonitis Current Visit: Yes Status: Acute CT of the chest shows eccentric filling defect in the posterior right aspect of the trachea, presumed related to insipissated mucous and streaky densities in the lung bases including more confluent opacity in the posterior right lower lobe which, given the findings in the trachea, are concerning for aspiration pneumonitis. Speech study negative for aspiration. Continue antibiotics as above. (4) Candidemia Current Visit: Yes Status: Acute Causative organism unclear. Blood culture from the the CVC is positive 1/2 sets for C. parapsilosis, but the PCR did not pick anything up. Repeat culture 1/1 set drawn 09/24/17 from the CVC is positive for C. parapsilosis. Blood culture drawn peripherally 1/1 set on 09/24/17 is NGTD. Additional sets of cultures were cancelled by the lab staff so only 1 set from the line and from the peripheral stick were drawn. Additional peripheral blood cultures drawn 09/28/17 are negative 2/2 sets, but blood cultures drawn from the patient's CVC prior to its removal are positive 2/ 2 sets. Repeat peripheral blood culture drawn 10/02/17 x 1 set is negative and x 1 set from the new CVC is negative. Given that the patient has had two sets of cultures come back positive from the CVC, this is likely a true infection. Status post guidewire exchange 09/29/17. Repeat blood cultures drawn 10/05/17 are NGTD. Continue fluconazole 400mg IV daily (day 9 of 14 since CVC exchange). Duration of treatment depends on the clinical picture, but likely 14 days from the line exchange. Opthalmology to evaluate. Will be done as an outpatient. Monitor renal and liver function studies and dose-adjust antibiotics. (5) Bacteremia Current Visit: Yes Status: Resolved True bacteremia vs. contaminant. Peripheral blood cultures drawn 09/22/17 are negative x 2 sets. CVC blood cultures drawn 09/22/17 are positive 1/2 sets for S. epi. Repeat cultures negative for S. epi. Given the clinical picture, not sure that this is a true infection. Likely a contaminant. Status post CVC exchange 09/29/17. No further antibiotics at this time. (6) Hydronephrosis Current Visit: Yes Status: Acute CT abdomen and pelvis shows mild left hydronephrosis. Likely secondary to 5mm stone. Urology consulted and following. Since the patient is making adequate urine, PNT placement on hold. Qualifiers: Hydronephrosis type: with ureteral calculous obstruction Qualified Code(s) : N13.2 - Hydronephrosis with renal and ureteral calculous obstruction (7) Urolithiasis Current Visit: Yes Status: Acute Qualifiers: Urinary calculus location: kidney Qualified Code(s): N20.0 - Calculus of kidney (8) Pancolitis Current Visit: Yes Status: Resolved CT abdomen and pelvis showed nonspecific pancolitis. Treated with 6 days of IV Ertapenem. Abdominal exam benign. No bowel movement documented since 09/28/17. Repeat abdominal x-ray shows moderate amount of stool but is otherwise negative. CT scan of the abdomen and pelvis shows resolution. (9) GI bleed Current Visit: Yes Status: Resolved Etiology unclear. Hemoglobin stable. GI consulted, but patient refused C-scope and EGD. Resolved. Management per the primary and GI teams. Qualifiers: GI bleed type/associated pathology: unspecified gastrointestinal hemorrhage type Qualified Code(s): K92.2 - Gastrointestinal hemorrhage, unspecified (10) Quadriplegia Current Visit: Yes Status: Chronic (11) Chronic pain Current Visit: No Status: Chronic Qualifiers: Chronic pain type: other chronic pain Qualified Code(s): G89.29 - Other chronic pain (12) Neurogenic bladder Current Visit: No Status: Chronic Chronic SPT removed due to leaking. (13) Decubitus ulcer of right ischium, stage 2 Current Visit: Yes Status: Chronic Stage II. No drainage, warmth, erythema, or fluctuance. Recommend aggressive offloading and wound care. Patient non-compliant with turning per nursing. Refused exam this morning. (14) Decubitus ulcer of left ischium, stage 2 Current Visit: Yes Status: Acute Stage II. No drainage, warmth, erythema, or fluctuance. Recommend aggressive offloading and wound care. Patient non-compliant with turning per nursing. Refused exam this morning. - Subjective Interval history: Patient seen and examined. No acute events noted overnight. Status post over- the-guidewire exchange of left upper chest CVC 09/29/17. Patient is actually awake , alert, and oriented this morning. Able to participate in the exam this morning. Complains of chronic back and bladder pain and is requesting his pain medication. Denies shortness of breath or cough. Reports his appetite is good. Afebrile overnight. Infect Dis PN-Objective Data - Labs CBC & Chem 7: 10/08/17 04:30 10/08/17 04:30 Labs: Laboratory Results - last 24 hr 10/05/17 10/07/17 10/07/17 14:13 13:54 14:48 WBC RBC Hgb Hct MCV MCH MCHC RDW Plt Count MPV Immature Gran % Seg Neutrophils % Lymphocytes % Monocytes % Eosinophils % Basophils % Neutrophils # Lymphocytes # Monocytes # Eosinophils # Basophils # Sodium Potassium Chloride Carbon Dioxide BUN Creatinine Est GFR ( Amer) Est GFR (Non-Af Amer) BUN/Creatinine Ratio Glucose POC Glucose 97 H Calculated Osmolality Calcium Procalcitonin 0.10 Vancomycin Trough 8.0 L 10/08/17 10/08/17 04:30 04:30 WBC 5.3 RBC 3.28 L Hgb 9.2 L Hct 28.9 L MCV 88.1 MCH 28.0 MCHC 31.8 RDW 16.3 H Plt Count 260 MPV 8.6 L Immature Gran % 0.2 Seg Neutrophils % 47.4 Lymphocytes % 36.1 Monocytes % 10.3 Eosinophils % 5.1 Basophils % 0.9 Neutrophils # 2.5 Lymphocytes # 1.9 Monocytes # 0.6 Eosinophils # 0.3 Basophils # 0.1 Sodium 138 Potassium 3.8 Chloride 102 Carbon Dioxide 30 H BUN 5 L Creatinine 0.42 L Est GFR ( Amer) > 60 Est GFR (Non-Af Amer) > 60 BUN/Creatinine Ratio 12 Glucose 90 POC Glucose Calculated Osmolality 283 Calcium 8.4 L Procalcitonin Vancomycin Trough Cultures: Cultures 10/02/17 13:58 Blood Culture - Final Central Venous Catheter No growth. 10/02/17 13:54 Blood Culture - Final Peripheral Venipuncture No growth. 10/05/17 09:05 Blood Culture - Preliminary Central Venous Catheter No growth. 10/05/17 09:00 Blood Culture - Preliminary Central Venous Catheter No growth. 10/05/17 09:28 Blood Culture - Preliminary Peripheral Venipuncture No growth. 10/05/17 09:23 Blood Culture - Preliminary Peripheral Venipuncture No growth. 10/04/17 04:45 Urine Culture - Final Urine,Clean Catch No growth. 09/28/17 10:27 Blood Culture - Final Peripheral Venipuncture No growth. 09/28/17 10:27 Blood Culture - Final Peripheral Venipuncture No growth. 09/28/17 10:40 Blood Culture - Final Central Venous Catheter Jacquie parapsilosis 09/28/17 10:40 Blood Culture - Final Central Venous Catheter Jacquie parapsilosis 09/25/17 00:18 Blood Culture - Final Central Venous Catheter Jacquie parapsilosis 09/24/17 16:51 Blood Culture - Final Peripheral Venipuncture No growth. Serology 10/05/17 10/04/17 09/28/17 Range/Units 17:29 04:45 10:40 Urine Color Yellow (Yellow) Urine Clarity Cloudy A (Clear) Urine pH 6.5 (5.0-8.0) pH Units Ur Specific [place] 1.021 (1.010-1.025) Urine Protein 100 H (Neg-Trace) mg/dL Urine Glucose (UA) Normal (Normal) mg/dL Urine Clinitest (Negative) Urine Ketones 40 H (Negative) mg/dL Urine Blood Large H (Negative) Urine Nitrite Negative (Negative) Urine Bilirubin Negative (Negative) Urine Urobilinogen Normal (Normal) mg/dL Ur Leukocyte Esterase Moderate H (Negative) Urine Microscopic RBC 15-30 H (0-3) per hpf Urine Microscopic WBC 15-30 H (0-3) per hpf Ur Squamous Epith Cells Moderate H (None-Few) per lpf Ur Renal Epithelial Cell Few (None-Few) per hpf Urine Bacteria Moderate H (None-Few) per hpf Ur Culture Indicated? YES A (NO) A. baumannii (PCR) Not Detected (Not Detect) Chlamy pneumoniae PCR Not Detected (Not Detect) Adenovirus (PCR) Not Detected (Not Detect) B. pertussis DNA (PCR) Not Detected (Not Detect) B.parapertussis DNA PCR Not Detected (Not Detect) Jacquie albicans (PCR) Not Detected (Not Detect) C. glabrata (PCR) Not Detected (Not Detect) C. krusei (PCR) Not Detected (Not Detect) C. parapsilosis (PCR) Not Detected (Not Detect) C. tropicalis (PCR) Not Detected (Not Detect) Coronavirus OC43 (PCR) Not Detected (Not Detect) Coronavirus HKU1 (PCR) Not Detected (Not Detect) Coronavirus 229E (PCR) Not Detected (Not Detect) Coronavirus NL63 (PCR) Not Detected (Not Detect) Enterobacteriac sp PCR Not Detected (Not Detect) E. cloacae complex PCR Not Detected (Not Detect) Enterococcus sp PCR Not Detected (Not Detect) E. coli (PCR) Not Detected (Not Detect) H. influenzae (PCR) Not Detected (Not Detect) Human Metapneumovir PCR Not Detected (Not Detect) Influenza A (H1) PCR Not Detected (Not Detect) Influ A (H1N1/09) PCR Not Detected (Not Detect) Influenza A (H3) PCR Not Detected (Not Detect) Influenza A Untype (PCR) Not Detected (Not Detect) Influenza Type B (PCR) Not Detected (Not Detect) Klebsiella oxytoca PCR Not Detected (Not Detect) Klebsiella pneumoniae Not Detected (Not Detect) List. monocytogenes PCR Not Detected (Not Detect) M.pneumoniae DNA (PCR) Not Detected (Not Detect) N. meningitidis (PCR) Not Detected (Not Detect) Parainfluenza 1 (PCR) Not Detected (Not Detect) Parainfluenza 2 (PCR) Not Detected (Not Detect) Parainfluenza 3 (PCR) Not Detected (Not Detect) Parainfluenza 4 (PCR) Not Detected (Not Detect) Proteus species (PCR) Not Detected (Not Detect) RSV (PCR) Not Detected (Not Detect) Entero/Rhino (PCR) Not Detected (Not Detect) Serratia marcescens PCR Not Detected (Not Detect) Staphylococcus sp PCR Not Detected (Not Detect) Staph aureus (PCR) Not Detected (Not Detect) mecA-Methicil Res Gene Not Detected (Not Detect) Streptococcus sp PCR Not Detected (Not Detect) Group A Strep DNA Not Detected (Not Detect) Group B Strep (PCR) Not Detected (Not Detect) Strep pneumoniae (PCR) Not Detected (Not Detect) P. aeruginosa (PCR) Not Detected (Not Detect) Tan/B-Vanco Res Genes Not Detected (Not Detect) KPC (blaKPC) Detect PCR Not Detected (Not Detect) 03/05/18 03/02/18 Range/Units 10:40 00:18 Urine Color (Yellow) Urine Clarity (Clear) Urine pH (5.0-8.0) pH Units Ur Specific [place] (1.010-1.025) Urine Protein (Neg-Trace) mg/dL Urine Glucose (UA) (Normal) mg/dL Urine Clinitest (Negative) Urine Ketones (Negative) mg/dL Urine Blood (Negative) Urine Nitrite (Negative) Urine Bilirubin (Negative) Urine Urobilinogen (Normal) mg/dL Ur Leukocyte Esterase (Negative) Urine Microscopic RBC (0-3) per hpf Urine Microscopic WBC (0-3) per hpf Ur Squamous Epith Cells (None-Few) per lpf Ur Renal Epithelial Cell (None-Few) per hpf Urine Bacteria (None-Few) per hpf Ur Culture Indicated? (NO) A. baumannii (PCR) Not Detected Not Detected (Not Detect) Chlamy pneumoniae PCR (Not Detect) Adenovirus (PCR) (Not Detect) B. pertussis DNA (PCR) (Not Detect) B.parapertussis DNA PCR (Not Detect) Jacquie albicans (PCR) Not Detected Not Detected (Not Detect) C. glabrata (PCR) Not Detected Not Detected (Not Detect) C. krusei (PCR) Not Detected Not Detected (Not Detect) C. parapsilosis (PCR) Not Detected Not Detected (Not Detect) C. tropicalis (PCR) Not Detected Not Detected (Not Detect) Coronavirus OC43 (PCR) (Not Detect) Coronavirus HKU1 (PCR) (Not Detect) Coronavirus 229E (PCR) (Not Detect) Coronavirus NL63 (PCR) (Not Detect) Enterobacteriac sp PCR Not Detected Not Detected (Not Detect) E. cloacae complex PCR Not Detected Not Detected (Not Detect) Enterococcus sp PCR Not Detected Not Detected (Not Detect) E. coli (PCR) Not Detected Not Detected (Not Detect) H. influenzae (PCR) Not Detected Not Detected (Not Detect) Human Metapneumovir PCR (Not Detect) Influenza A (H1) PCR (Not Detect) Influ A (H1N1/09) PCR (Not Detect) Influenza A (H3) PCR (Not Detect) Influenza A Untype (PCR) (Not Detect) Influenza Type B (PCR) (Not Detect) Klebsiella oxytoca PCR Not Detected Not Detected (Not Detect) Klebsiella pneumoniae Not Detected Not Detected (Not Detect) List. monocytogenes PCR Not Detected Not Detected (Not Detect) M.pneumoniae DNA (PCR) (Not Detect) N. meningitidis (PCR) Not Detected Not Detected (Not Detect) Parainfluenza 1 (PCR) (Not Detect) Parainfluenza 2 (PCR) (Not Detect) Parainfluenza 3 (PCR) (Not Detect) Parainfluenza 4 (PCR) (Not Detect) Proteus species (PCR) Not Detected Not Detected (Not Detect) RSV (PCR) (Not Detect) Entero/Rhino (PCR) (Not Detect) Serratia marcescens PCR Not Detected Not Detected (Not Detect) Staphylococcus sp PCR Not Detected Not Detected (Not Detect) Staph aureus (PCR) Not Detected Not Detected (Not Detect) mecA-Methicil Res Gene Not Detected N/A (Not Detect) Streptococcus sp PCR Not Detected Not Detected (Not Detect) Group A Strep DNA Not Detected Not Detected (Not Detect) Group B Strep (PCR) Not Detected Not Detected (Not Detect) Strep pneumoniae (PCR) Not Detected Not Detected (Not Detect) P. aeruginosa (PCR) Not Detected Not Detected (Not Detect) Tan/B-Vanco Res Genes Not Detected N/A (Not Detect) KPC (blaKPC) Detect PCR Not Detected N/A (Not Detect) Exam - Constitutional Vitals: Temp Pulse Resp BP Pulse Ox 99.3 F 86 18 99/70 95 10/08/17 07:22 10/08/17 11:18 10/08/17 11:18 10/08/17 11:18 10/08/17 11:18 General appearance: average body habitus, cooperative, no acute distress - Head Head exam: Present: atraumatic, normal inspection, normocephalic - Eye Eye exam: Present: EOMI, normal appearance, PERRL Pupils: Present: normal accommodation - ENT ENT exam: Present: mucous membranes moist - Neck Neck exam: Present: normal inspection - Respiratory Respiratory exam: Present: CTAB. Absent: rales, respiratory distress, rhonchi, wheezes - Cardiovascular Cardiovascular exam: Present: +S1, +S2, tachycardia. Absent: irregular rhythm - GI/Abdominal GI/Abdominal exam: Present: normal bowel sounds, soft. Absent: distended, tenderness Additional comments: Urostomy bag over SP stoma with clear yellow urine noted. - Extremities Exam Extremities exam: Absent: joint swelling, pedal edema, tenderness Additional comments: Bilateral AKA stumps without redness, warmth, or open sores. Bilateral UE with chronic muscle atrophy and contractures of the bilateral hands. - Neurological Exam Neurological exam: Present: alert, oriented X3. Absent: no focal deficits ( Paralysis noted to the BUE and BLE.) - Psychiatric Psychiatric exam: Present: normal affect, normal mood - Skin Skin exam: Present: dry, intact, normal color, warm - Additional findings Additional findings: Tunneled CVC noted to the left upper chest with transparent dressing C/D/I. - VTE Reasons for not Prescribing Prophylaxis: Refused by parent Consult Discharge Plan - Plan Referrals: Mauricio Melendrez MD [Primary Care Provider] - (PATIENT IS FROM [facility] NO PCP APPOINTMENT NEEDED) Evelina Maddox MD [Partnered Physician] - 11/05/17 3:10 pm () Prescriptions: Fluconazole 400 MG/200 ML [Diflucan Premix 400 MG/200 ML] 400 mg IVPB DAILY 13 Days #13 bag - Attending Attestation I examined this patient and my medical decision-making was reviewed with the Resident Physician. I agree with the documented findings, disposition and treatment plan as described except to the extent set forth below.
[2017-10-08] MEDS: Silver Sulfadiazine 50 GM TUBE TP SCH (18:02)
[2017-10-08] MEDS ORDERED: Mirtazapine 15 MG TABLET PO SCH (21:00)
[2017-10-08] MEDS: diazePAM 5 MG TABLET PO PRN (23:39)
[2017-10-09] MEDS ORDERED: Baclofen 10 MG TABLET PO SCH
[2017-10-09] MEDS ORDERED: 0.9 % Sodium Chloride 1,000 ML ONE (02:13)
[2017-10-09] MEDS ORDERED: Naloxone 0.4 MG/ML INJ ONE ×3 (02:19→02:31)
[2017-10-09] MEDS ORDERED: Naloxone 0.4 MG/ML INJ IVP PRN (02:30)
[2017-10-09] MEDS ORDERED: 0.9 % Sodium Chloride 1,000 ML IVC ONE (02:44)
--- NOTE | 2017-10-09 02:55 | Event Note ---
Date of Encounter: 10/09/17 Time of Encounter: 02:50 Called to bedside for low BP and decreased responsiveness. The patient's BP was 50/30's and would arouse to painful stimuli. He was able to awake and speak briefly. He was maintaining his airway and O2 sat was mid-upper 90's. He was receiving IV fluids wide open. The patient received Valium, Dilaudid, Baclofen, and Zanaflex all relatively close to one another. The patient was given Narcan 0.4mg a total of 3 times. His BP responded and was remaining in the 70/50's with MAP of 55-60's. Other vitals continued to remain stable and O2 sat remained mid-upper 90's. Will continue to monitor. Narcan added PRN. It looks like the patient was getting all these medications at home previously. Will need evaluation of timing of medications to prevent this from happening again.
[2017-10-09 04:22] LABS: Basophils # 0.1 K/mcL (0.0-0.2); Eosinophils # 0.4 K/mcL (0.0-0.6); Eosinophils % 7.3 %; Hematocrit 29.4 % (37.5-50.1); Hemoglobin 9.1 g/dL (12.9-16.9); Immature Granulocytes % 0.2 % (0-4); Lymphocytes # 1.6 K/mcL (0.6-4.6); Lymphocytes % 32.6 %; Mean Corpuscular Hemoglobin 27.7 pg (28.0-33.3); Mean Corpuscular Volume 89.4 fL (83.0-100.0); Mean Platelet Volume 8.7 fL (9.4-12.4); Monocytes # 0.6 K/mcL (0.0-1.3); Monocytes % 12.9 %; Neutrophils # 2.2 K/mcL (1.6-8.9); Platelet Count 251 K/mcL (140-400); Red Blood Count 3.29 M/mcL (4.19-5.50); Red Cell Distribution Width 16.5 % (11.5-14.5)
[2017-10-09 05:18] LABS: Vancomycin,Trough 18.5 mcg/mL (10-20)
[2017-10-09] MEDS: *HR* Heparin 5,000 UNIT/ML VIAL SQ SCH (05:36)
[2017-10-09 05:37] LABS: BUN/Creatinine Ratio 15 (6-26); Blood Urea Nitrogen 6 mg/dL (6-20); Calcium 7.6 mg/dL (8.6-10.3); Carbon Dioxide 28 mEq/L (23-29); Chloride 112 mEq/L (98-107); Glucose 123 mg/dL (70-105); Osmolality,Calculated 295 (280-300); Potassium 3.5 mEq/L (3.5-5.1); Sodium 143 mEq/L (136-145); eGFR For African Americans > 60 (> 60); eGFR For Non-African Americans > 60 (> 60)
[2017-10-09] MEDS ORDERED: Vancomycin 500 MG in 0.9 % Sodium Chloride Mini Bag 100 ML IVPB SCH (06:00)
[2017-10-09] MEDS ORDERED: tiZANidine 4 MG TABLET PO SCH ×2 (09:07)
[2017-10-09] MEDS: Fluconazole 400 MG/200 ML 400 MG/200 ML BAG IVPB SCH (09:08)
[2017-10-09] MEDS: Meropenem 1,000 MG in 0.9 % Sodium Chloride Mini Bag 100 ML IVPB SCH ×2 (09:09→15:27)
[2017-10-09] MEDS: Acetaminophen 325 MG TABLET PO PRN (09:09)
[2017-10-09] MEDS: Multivit/Ca/Min/Fe/FA 1 TAB TABLET PO SCH (09:09)
[2017-10-09] MEDS: Sennosides 8.6 MG TABLET PO SCH (09:10)
[2017-10-09] MEDS: Silver Sulfadiazine 50 GM TUBE TP SCH (09:11)
--- NOTE | 2017-10-09 10:42 | Infectious Disease Progress No ---
Date of Encounter: 10/09/17 Time of Encounter: 10:39 - Assessment and Plan (1) Sepsis Current Visit: Yes Status: Acute The patient had two SIRS criteria. He developed hypotension and required a short course of vaospressors, but his sepsis resolved. He then developed sepsis- like picture again on 10/02/17 with fevers, tachycardia, hypotension, and AMS. Original source likely candidemia, but concern for additional etiology given new onset fevers and AMS --> PNA vs. other. Blood cultures drawn 09/22/17 x 2 sets peripherally are negative. Blood cultures drawn 09/22/17 x 2 sets from the central line are positive 1/2 sets for Staph epi (contaminant) and 1/2 for C. parapsilosis. Repeat peripheral blood culture drawn 09/24/17 is negative 1/1 sets. Repeat CVC blood cultures drawn 09/24/17 are positive 1/1 set for C. parapsilosis. Additional peripheral blood cultures drawn 09/28/17 are negative 2/2 sets, but blood cultures drawn from the patient's CVC prior to its removal are positive 2/ 2 sets. Blood cultures ordered 10/02/17 x2 sets from a peripheral stick and x 2 sets from the CVC were ordered, but only one set from each were drawn due to the lab staff cancelling the orders without checking with the ID team prior to doing so. These are negative x 2 sets. Additional peripheral and CVC blood cultures drawn 10/05/[address] chest, abdomen and pelvis shows findings consistent with possible aspiration pneumonitis. RIP negative. LFTs and ammonia level normal. ESR and CRP are mildly elevated, but not overtly convincing of an underlying osteomyelitis. Repeat urine culture negative. Continue Meropenem 1 gram IV Q8H (day 5). Continue Vancomycin IV (day 8). Pharmacy to dose. Goal trough ~15. Vanc trough 14. Continue fluconazole 400mg IV daily (day 1014). Duration of treatment depends on the clinical picture, but would recommend a total of 10 days of Vanc and Vani and 14 days of fluconazole. Monitor renal function and for drug toxicity and dose-adjust antibiotics. Not sure if the CVC remains the source of the patient's sepsis, but may need to consider removing it all together. Qualifiers: Sepsis type: Jacquie Qualified Code(s): B37.7 - Candidal sepsis (2) Altered mental status Current Visit: Yes Status: Acute New-onset 10/02/17 with low-grade fevers and tachycardia. Etiology unclear: sepsis vs. other. No meningeal signs. Improved and back to baseline yesterday, but appears somewhat somnolent this morning --> ?Over medication? CT head negative. Neurology consulted. LP attempted and unsuccessful per neuro. Qualifiers: Altered mental status type: transient alteration of awareness Qualified Code(s): R40.4 - Transient alteration of awareness (3) Aspiration pneumonitis Current Visit: Yes Status: Acute CT of the chest shows eccentric filling defect in the posterior right aspect of the trachea, presumed related to insipissated mucous and streaky densities in the lung bases including more confluent opacity in the posterior right lower lobe which, given the findings in the trachea, are concerning for aspiration pneumonitis. Speech study negative for aspiration. Continue antibiotics as above. (4) Candidemia Current Visit: Yes Status: Acute Causative organism unclear. Blood culture from the the CVC is positive 1/2 sets for C. parapsilosis, but the PCR did not pick anything up. Repeat culture 1/1 set drawn 09/24/17 from the CVC is positive for C. parapsilosis. Blood culture drawn peripherally 1/1 set on 09/24/17 is NGTD. Additional sets of cultures were cancelled by the lab staff so only 1 set from the line and from the peripheral stick were drawn. Additional peripheral blood cultures drawn 09/28/17 are negative 2/2 sets, but blood cultures drawn from the patient's CVC prior to its removal are positive 2/ 2 sets. Repeat peripheral blood culture drawn 10/02/17 x 1 set is negative and x 1 set from the new CVC is negative. Given that the patient has had two sets of cultures come back positive from the CVC, this is likely a true infection. Status post guidewire exchange 09/29/17. Repeat blood cultures drawn 10/05/17 are NGTD. Continue fluconazole 400mg IV daily (day 10 of 14 since CVC exchange). Duration of treatment depends on the clinical picture, but likely 14 days from the line exchange. Opthalmology to evaluate. Will be done as an outpatient. Monitor renal and liver function studies and dose-adjust antibiotics. (5) Bacteremia Current Visit: Yes Status: Resolved True bacteremia vs. contaminant. Peripheral blood cultures drawn 09/22/17 are negative x 2 sets. CVC blood cultures drawn 09/22/17 are positive 1/2 sets for S. epi. Repeat cultures negative for S. epi. Given the clinical picture, not sure that this is a true infection. Likely a contaminant. Status post CVC exchange 09/29/17. No further antibiotics at this time. (6) Hydronephrosis Current Visit: Yes Status: Acute CT abdomen and pelvis shows mild left hydronephrosis. Likely secondary to 5mm stone. Urology consulted and following. Since the patient is making adequate urine, PNT placement on hold. Qualifiers: Hydronephrosis type: with ureteral calculous obstruction Qualified Code(s) : N13.2 - Hydronephrosis with renal and ureteral calculous obstruction (7) Urolithiasis Current Visit: Yes Status: Acute Qualifiers: Urinary calculus location: kidney Qualified Code(s): N20.0 - Calculus of kidney (8) Pancolitis Current Visit: Yes Status: Resolved CT abdomen and pelvis showed nonspecific pancolitis. Treated with 6 days of IV Ertapenem. Abdominal exam benign. No bowel movement documented since 09/28/17. Repeat abdominal x-ray shows moderate amount of stool but is otherwise negative. CT scan of the abdomen and pelvis shows resolution. (9) GI bleed Current Visit: Yes Status: Resolved Etiology unclear. Hemoglobin stable. GI consulted, but patient refused C-scope and EGD. Resolved. Management per the primary and GI teams. Qualifiers: GI bleed type/associated pathology: unspecified gastrointestinal hemorrhage type Qualified Code(s): K92.2 - Gastrointestinal hemorrhage, unspecified (10) Quadriplegia Current Visit: Yes Status: Chronic (11) Chronic pain Current Visit: No Status: Chronic Qualifiers: Chronic pain type: other chronic pain Qualified Code(s): G89.29 - Other chronic pain (12) Neurogenic bladder Current Visit: No Status: Chronic Chronic SPT removed due to leaking. (13) Decubitus ulcer of right ischium, stage 2 Current Visit: Yes Status: Chronic Stage II. No drainage, warmth, erythema, or fluctuance. Recommend aggressive offloading and wound care. Patient non-compliant with turning per nursing. Refused exam this morning. (14) Decubitus ulcer of left ischium, stage 2 Current Visit: Yes Status: Acute Stage II. No drainage, warmth, erythema, or fluctuance. Recommend aggressive offloading and wound care. Patient non-compliant with turning per nursing. Refused exam this morning. - Subjective Interval history: Patient seen and examined. Overnight events noted. Patient had episode of hypotension with decreased LOC likely secondary to over-medication. Responded to IVF bolus and narcan administration. Status post [id number] exchange of left upper chest CVC 09/29/17. Patient is somewhat somnolent this morning. Opens eyes to loud verbal and painful stimuli, but quickly falls back to sleep and does not participate in exam. Infect Dis PN-Objective Data - Labs CBC & Chem 7: 10/09/17 04:00 10/09/17 04:00 Labs: Laboratory Results - last 24 hr 10/09/17 10/09/17 04:00 04:00 WBC 4.8 RBC 3.29 L Hgb 9.1 L Hct 29.4 L MCV 89.4 MCH 27.7 L MCHC 31.0 L RDW 16.5 H Plt Count 251 MPV 8.7 L Immature Gran % 0.2 Seg Neutrophils % 46.0 Lymphocytes % 32.6 Monocytes % 12.9 Eosinophils % 7.3 Basophils % 1.0 Neutrophils # 2.2 Lymphocytes # 1.6 Monocytes # 0.6 Eosinophils # 0.4 Basophils # 0.1 Sodium 143 Potassium 3.5 Chloride 112 H Carbon Dioxide 28 BUN 6 Creatinine 0.40 L Est GFR ( Amer) > 60 Est GFR (Non-Af Amer) > 60 BUN/Creatinine Ratio 15 Glucose 123 H Calculated Osmolality 295 Calcium 7.6 L Vancomycin Trough 18.5 Cultures: Cultures 10/02/17 13:58 Blood Culture - Final Central Venous Catheter No growth. 10/02/17 13:54 Blood Culture - Final Peripheral Venipuncture No growth. 10/05/17 09:05 Blood Culture - Preliminary Central Venous Catheter No growth. 10/05/17 09:00 Blood Culture - Preliminary Central Venous Catheter No growth. 10/05/17 09:28 Blood Culture - Preliminary Peripheral Venipuncture No growth. 10/05/17 09:23 Blood Culture - Preliminary Peripheral Venipuncture No growth. 10/04/17 04:45 Urine Culture - Final Urine,Clean Catch No growth. 09/28/17 10:27 Blood Culture - Final Peripheral Venipuncture No growth. 09/28/17 10:27 Blood Culture - Final Peripheral Venipuncture No growth. 09/28/17 10:40 Blood Culture - Final Central Venous Catheter Jacquie parapsilosis 09/28/17 10:40 Blood Culture - Final Central Venous Catheter Jacquie parapsilosis 09/25/17 00:18 Blood Culture - Final Central Venous Catheter Jacquie parapsilosis 09/24/17 16:51 Blood Culture - Final Peripheral Venipuncture No growth. Serology 10/05/17 10/04/17 09/28/17 Range/Units 17:29 04:45 10:40 Urine Color Yellow (Yellow) Urine Clarity Cloudy A (Clear) Urine pH 6.5 (5.0-8.0) pH Units Ur Specific Cornish 1.021 (1.010-1.025) Urine Protein 100 H (Neg-Trace) mg/dL Urine Glucose (UA) Normal (Normal) mg/dL Urine Clinitest (Negative) Urine Ketones 40 H (Negative) mg/dL Urine Blood Large H (Negative) Urine Nitrite Negative (Negative) Urine Bilirubin Negative (Negative) Urine Urobilinogen Normal (Normal) mg/dL Ur Leukocyte Esterase Moderate H (Negative) Urine Microscopic RBC 15-30 H (0-3) per hpf Urine Microscopic WBC 15-30 H (0-3) per hpf Ur Squamous Epith Cells Moderate H (None-Few) per lpf Ur Renal Epithelial Cell Few (None-Few) per hpf Urine Bacteria Moderate H (None-Few) per hpf Ur Culture Indicated? YES A (NO) A. baumannii (PCR) Not Detected (Not Detect) Chlamy pneumoniae PCR Not Detected (Not Detect) Adenovirus (PCR) Not Detected (Not Detect) B. pertussis DNA (PCR) Not Detected (Not Detect) B.parapertussis DNA PCR Not Detected (Not Detect) Jacquie albicans (PCR) Not Detected (Not Detect) C. glabrata (PCR) Not Detected (Not Detect) C. krusei (PCR) Not Detected (Not Detect) C. parapsilosis (PCR) Not Detected (Not Detect) C. tropicalis (PCR) Not Detected (Not Detect) Coronavirus OC43 (PCR) Not Detected (Not Detect) Coronavirus HKU1 (PCR) Not Detected (Not Detect) Coronavirus 229E (PCR) Not Detected (Not Detect) Coronavirus NL63 (PCR) Not Detected (Not Detect) Enterobacteriac sp PCR Not Detected (Not Detect) E. cloacae complex PCR Not Detected (Not Detect) Enterococcus sp PCR Not Detected (Not Detect) E. coli (PCR) Not Detected (Not Detect) H. influenzae (PCR) Not Detected (Not Detect) Human Metapneumovir PCR Not Detected (Not Detect) Influenza A (H1) PCR Not Detected (Not Detect) Influ A (H1N1/09) PCR Not Detected (Not Detect) Influenza A (H3) PCR Not Detected (Not Detect) Influenza A Untype (PCR) Not Detected (Not Detect) Influenza Type B (PCR) Not Detected (Not Detect) Klebsiella oxytoca PCR Not Detected (Not Detect) Klebsiella pneumoniae Not Detected (Not Detect) List. monocytogenes PCR Not Detected (Not Detect) M.pneumoniae DNA (PCR) Not Detected (Not Detect) N. meningitidis (PCR) Not Detected (Not Detect) Parainfluenza 1 (PCR) Not Detected (Not Detect) Parainfluenza 2 (PCR) Not Detected (Not Detect) Parainfluenza 3 (PCR) Not Detected (Not Detect) Parainfluenza 4 (PCR) Not Detected (Not Detect) Proteus species (PCR) Not Detected (Not Detect) RSV (PCR) Not Detected (Not Detect) Entero/Rhino (PCR) Not Detected (Not Detect) Serratia marcescens PCR Not Detected (Not Detect) Staphylococcus sp PCR Not Detected (Not Detect) Staph aureus (PCR) Not Detected (Not Detect) mecA-Methicil Res Gene Not Detected (Not Detect) Streptococcus sp PCR Not Detected (Not Detect) Group A Strep DNA Not Detected (Not Detect) Group B Strep (PCR) Not Detected (Not Detect) Strep pneumoniae (PCR) Not Detected (Not Detect) P. aeruginosa (PCR) Not Detected (Not Detect) Tan/B-Vanco Res Genes Not Detected (Not Detect) KPC (blaKPC) Detect PCR Not Detected (Not Detect) 09/28/17 09/25/17 Range/Units 10:40 00:18 Urine Color (Yellow) Urine Clarity (Clear) Urine pH (5.0-8.0) pH Units Ur Specific Cornish (1.010-1.025) Urine Protein (Neg-Trace) mg/dL Urine Glucose (UA) (Normal) mg/dL Urine Clinitest (Negative) Urine Ketones (Negative) mg/dL Urine Blood (Negative) Urine Nitrite (Negative) Urine Bilirubin (Negative) Urine Urobilinogen (Normal) mg/dL Ur Leukocyte Esterase (Negative) Urine Microscopic RBC (0-3) per hpf Urine Microscopic WBC (0-3) per hpf Ur Squamous Epith Cells (None-Few) per lpf Ur Renal Epithelial Cell (None-Few) per hpf Urine Bacteria (None-Few) per hpf Ur Culture Indicated? (NO) A. baumannii (PCR) Not Detected Not Detected (Not Detect) Chlamy pneumoniae PCR (Not Detect) Adenovirus (PCR) (Not Detect) B. pertussis DNA (PCR) (Not Detect) B.parapertussis DNA PCR (Not Detect) Jacquie albicans (PCR) Not Detected Not Detected (Not Detect) C. glabrata (PCR) Not Detected Not Detected (Not Detect) C. krusei (PCR) Not Detected Not Detected (Not Detect) C. parapsilosis (PCR) Not Detected Not Detected (Not Detect) C. tropicalis (PCR) Not Detected Not Detected (Not Detect) Coronavirus OC43 (PCR) (Not Detect) Coronavirus HKU1 (PCR) (Not Detect) Coronavirus 229E (PCR) (Not Detect) Coronavirus NL63 (PCR) (Not Detect) Enterobacteriac sp PCR Not Detected Not Detected (Not Detect) E. cloacae complex PCR Not Detected Not Detected (Not Detect) Enterococcus sp PCR Not Detected Not Detected (Not Detect) E. coli (PCR) Not Detected Not Detected (Not Detect) H. influenzae (PCR) Not Detected Not Detected (Not Detect) Human Metapneumovir PCR (Not Detect) Influenza A (H1) PCR (Not Detect) Influ A (H1N1/09) PCR (Not Detect) Influenza A (H3) PCR (Not Detect) Influenza A Untype (PCR) (Not Detect) Influenza Type B (PCR) (Not Detect) Klebsiella oxytoca PCR Not Detected Not Detected (Not Detect) Klebsiella pneumoniae Not Detected Not Detected (Not Detect) List. monocytogenes PCR Not Detected Not Detected (Not Detect) M.pneumoniae DNA (PCR) (Not Detect) N. meningitidis (PCR) Not Detected Not Detected (Not Detect) Parainfluenza 1 (PCR) (Not Detect) Parainfluenza 2 (PCR) (Not Detect) Parainfluenza 3 (PCR) (Not Detect) Parainfluenza 4 (PCR) (Not Detect) Proteus species (PCR) Not Detected Not Detected (Not Detect) RSV (PCR) (Not Detect) Entero/Rhino (PCR) (Not Detect) Serratia marcescens PCR Not Detected Not Detected (Not Detect) Staphylococcus sp PCR Not Detected Not Detected (Not Detect) Staph aureus (PCR) Not Detected Not Detected (Not Detect) mecA-Methicil Res Gene Not Detected N/A (Not Detect) Streptococcus sp PCR Not Detected Not Detected (Not Detect) Group A Strep DNA Not Detected Not Detected (Not Detect) Group B Strep (PCR) Not Detected Not Detected (Not Detect) Strep pneumoniae (PCR) Not Detected Not Detected (Not Detect) P. aeruginosa (PCR) Not Detected Not Detected (Not Detect) Tan/B-Vanco Res Genes Not Detected N/A (Not Detect) KPC (blaKPC) Detect PCR Not Detected N/A (Not Detect) Exam - Constitutional Vitals: Temp Pulse Resp BP Pulse Ox 98.8 F 101 18 87/71 98 10/09/17 06:52 10/09/17 06:52 10/09/17 06:52 10/09/17 06:52 10/09/17 06:52 General appearance: average body habitus, no acute distress, no febrile - Head Head exam: Present: atraumatic, normal inspection, normocephalic - Eye Eye exam: Present: EOMI, normal appearance, PERRL Pupils: Present: normal accommodation - ENT ENT exam: Present: mucous membranes moist - Neck Neck exam: Present: normal inspection - Respiratory Respiratory exam: Present: CTAB. Absent: rales, respiratory distress, rhonchi, wheezes - Cardiovascular Cardiovascular exam: Present: RRR, +S1, +S2 - GI/Abdominal GI/Abdominal exam: Present: normal bowel sounds, soft. Absent: distended, tenderness Additional comments: Urostomy bag noted over the suprapubic catheter site with clear yellow urine. - Extremities Exam Extremities exam: Absent: joint swelling, pedal edema, tenderness Additional comments: Bilateral AKA stumps noted without redness, warmth, or edema. No open lesions noted. BUE with muscle atrophy and chronic bilateral hand contractures. - Neurological Exam Neurological exam: Present: altered (Opens eyes to loud verbal and painful stimuli, but does not participate in exam.) - Skin Skin exam: Present: dry, intact, normal color, warm - Additional findings Additional findings: Tunneled CVC noted to the left upper chest with transparent dressing C/D/I. EPIV noted to the LUE with transparent dressing C/D/I. - VTE Reasons for not Prescribing Prophylaxis: Refused by parent Consult Discharge Plan - Plan Referrals: Mauricio Melendrez MD [Primary Care Provider] - (PATIENT IS FROM [facility] NO PCP APPOINTMENT NEEDED) Evelina Maddox MD [Partnered Physician] - 11/05/17 3:10 pm () Prescriptions: Baclofen 40 mg PO BID #120 tablet diazePAM [Valium] 5 mg PO 0000 5 Days #5 tablet Fluconazole 400 MG/200 ML [Diflucan Premix 400 MG/200 ML] 400 mg IVPB DAILY #4 bag HYDROmorphone [Dilaudid] 2 mg PO Q4H PRN 7 Days #10 tablet PRN Reason: Pain HYDROmorphone [Dilaudid] 2 mg PO 0000 5 Days #5 tablet Meropenem-0.9% Sodium Chloride [Meropenem-0.9% NaCl 1 Gram/50] 1 gm IV Q8H #15 piggyback Tizanidine HCl [Zanaflex] 6 mg PO TID #90 cap Vancomycin/0.9 % Sod Chloride [Vanco 500 mg/100 ml-0.9% NaCl] 500 mg IV BID #4 [email or web address] - Attending Attestation I examined this patient and my medical decision-making was reviewed with the Resident Physician. I agree with the documented findings, disposition and treatment plan as described except to the extent set forth below.
[2017-10-09 11:25] VITALS: BP 91/64
--- NOTE | 2017-10-09 14:53 | Discharge Summary ---
<Antonio Pruitt - Last Filed: 10/09/17 15:05> Orders not resulted at time of discharge: Pending orders 10/05/17 09:05 Culture,Blood,Additional [BC] Routine 10/05/17 09:28 Culture,Blood,Additional [BC] Routine Date of Encounter: 10/09/17 Time of Encounter: 14:43 - Discharge Diagnosis (1) Sepsis Priority: Primary Status: Acute Qualifiers: Sepsis type: Jacquie Qualified Code(s): B37.7 - Candidal sepsis (2) Aspiration pneumonitis Priority: Secondary Status: Acute (3) Bacteremia Priority: Secondary Status: Resolved (4) Candidemia Priority: Secondary Status: Acute (5) Decubitus ulcer of left ischium, stage 2 Priority: Secondary Status: Acute (6) Decubitus ulcer of right ischium, stage 2 Priority: Secondary Status: Chronic (7) Encephalopathy in sepsis Priority: Secondary Status: Acute (8) Goals of care, counseling/discussion Priority: Secondary Status: Acute (9) Quadriplegia Priority: Secondary Status: Acute (10) UTI (urinary tract infection) Priority: Secondary Status: Resolved Qualifiers: Urinary tract infection type: catheter-associated UTI Indwelling urinary catheter type: indwelling urethral catheter Encounter type: initial encounter Qualified Code(s): T83.511A - Infection and inflammatory reaction due to indwelling urethral catheter, initial encounter; N39.0 - Urinary tract infection , site not specified; N39.0 - Urinary tract infection, site not specified Hospital course: Mr. Eid is a 42 year old male who presented with chief complaint of rectal bleeding on 09/21/17. Patient also had a large bowel movement before presenting to the ER and his suprapubic catheter became dislodged. Patient has a suprapubic catheter secondary to neurogenic bladder. GI and urology were consulted. Patient's hemoglobin on admission was 12.3. Patient refused colonoscopy and GI signed off. Urology placed a 22[place] SBT in the patient's bladder. After admission patient developed septic shock and was transferred to the ICU requiring vasopressor support. He was placed on IV antibiotics given IV fluids. And blood cultures, urine culture were collected. Infectious diseases consulted and patient recommended vancomycin and aztreonam. CT of the abdomen on 09/23/17 and pelvis showed mild left hydronephrosis, and pancolitis. Patient also started on Flagyl. Patient's urine culture grew ESBL Escherichia coli and was treated with ertapenem. Patient was also found to have 1 positive CVC culture of staph epidermidis which was determined to be contaminant as subsequent blood cultures are negative. Patient grew Jacquie and central venous catheter blood cultures. Peripheral blood cultures were negative. Patient started on fluconazole. Patient has CVC catheter changed on 09/29/17. And repeat blood cultures were negative thereafter for Jacquie or any other source of infection. Urology placed a ostomy appliance around the patient S/P tube to collect a urine that would be leaking out. Patient's hemoglobin went stable throughout his stay in the ICU and he did not require any blood transfusions. Patient was able to be weaned off vasopressors. Patient was transferred out of the ICU on 09/26/17. On 10/02/17 patient developed confusion, tachycardia, fever and was started on vancomycin and ertapenem. Repeated blood cultures, urine culture were sent. Patient had CT of the chest was negative on 10/02/17. Chest x-ray showed new patchy medial right basilar airspace opacity possible pneumonia. An abdominal x-ray on the same day showed nonobstructing bowel gas pattern. At this time palliative was consulted as patient could not make his own decisions and CODE STATUS questions came up. Patient had rescinded his DNR CC while in the emergency room on admission and currently was full code however no family could be contacted to make decisions for him. His antibiotics were continued and on 10/05/17 patient again became febrile, tachycardic, tachypneic. Repeat blood cultures, urine cultures were sent. He underwent CT abdomen pelvis and chest under contrast which showed signs of aspiration pneumonitis and resolution of pancolitis from the previous CT. Speech therapy report a patient's past swallow evaluation and there is no concern for aspiration. Repeat cultures were negative. ID recommended to continue vancomycin and start patient on meropenem. Neurology was consultative for lumbar puncture but was unsuccessful. In the next 4 days patient's mental status improved he became alert and oriented 3 and able to make his own decisions. Today patient is tolerating his diet, has adequate urine output. He has been afebrile since 10/05/2017. He was revaluated by palliative care and purported wanted to be full code. Patient will finish this dose of fluconazole (4 days left), vancomycin (2 days left) and meropenem (5 days left) at the nursing facility resides. Patient's doses of Zanaflex and baclofen abdomen decreased by half as current doses made him somnolent. - Time Spent with Patient Total time spent providing and/or coordinating discharge services: - Discharge Medications Prescriptions: Baclofen 40 mg PO BID #120 tablet diazePAM [Valium] 5 mg PO 0000 5 Days #5 tablet Fluconazole 400 MG/200 ML [Diflucan Premix 400 MG/200 ML] 400 mg IVPB DAILY #4 bag HYDROmorphone [Dilaudid] 2 mg PO Q4H PRN 7 Days #10 tablet PRN Reason: Pain HYDROmorphone [Dilaudid] 2 mg PO 0000 5 Days #5 tablet Meropenem-0.9% Sodium Chloride [Meropenem-0.9% NaCl 1 Gram/50] 1 gm IV Q8H #15 piggyback Tizanidine HCl [Zanaflex] 6 mg PO TID #90 cap Vancomycin/0.9 % Sod Chloride [Vanco 500 mg/100 ml-0.9% NaCl] 500 mg IV BID #4 froz.piggy Home Medications: Promethazine [Phenergan] 25 mg PO 0000 03/23/15 [History] Ascorbic Acid [Vitamin C] 500 mg PO DAILY 05/23/15 [History] Bisacodyl [Dulcolax] 5 mg PO DAILY 05/23/15 [History] Lubiprostone [Amitiza] 24 mcg PO Q12HR 05/23/15 [History] Sennosides [Senna] 17.2 mg PO BID 05/23/15 [History] Acetaminophen [Tylenol] 650 mg PO Q6HR PRN 05/11/16 [History] GuaiFENesin ER [Mucinex] 600 mg PO DAILY 05/11/16 [History] Docusate [Colace] 100 mg PO BID 05/12/16 [History] Mirtazapine 7.5 mg PO DAILY 07/04/17 [History] 0.9 % Sodium Chloride [Normal Saline Flush] 10 ml IV DAILY 09/21/17 [History] Ferrous Gluconate 324 mg PO BID 09/21/17 [History] Omeprazole [PriLOSEC] 20 mg PO DAILY 09/21/17 [History] Promethazine [Phenergan] 25 mg PO Q6H PRN 09/21/17 [History] Vitamin B Complex/Minerals [Sm Stress Formula+Zinc Tablet] 1 each PO DAILY 09/21 [History] Baclofen 40 mg PO BID #120 tablet 10/09/17 [Rx] Fluconazole 400 MG/200 ML [Diflucan Premix 400 MG/200 ML] 400 mg IVPB DAILY #4 bag 10/09/17 [Rx] HYDROmorphone [Dilaudid] 2 mg PO 0000 5 Days #5 tablet 10/09/17 [Rx] HYDROmorphone [Dilaudid] 2 mg PO Q4H PRN 7 Days #10 tablet 10/09/17 [Rx] Meropenem-0.9% Sodium Chloride [Meropenem-0.9% NaCl 1 Gram/50] 1 gm IV Q8H #15 piggyback 10/09/17 [Rx] Tizanidine HCl [Zanaflex] 6 mg PO TID #90 cap 10/09/17 [Rx] Vancomycin/0.9 % Sod Chloride [Vanco 500 mg/100 ml-0.9% NaCl] 500 mg IV BID #4 froz.piggy 10/09/17 [Rx] diazePAM [Valium] 5 mg PO 0000 5 Days #5 tablet 10/09/17 [Rx] Allergies/Adverse Reactions: 3 Allergy/AdvReac Type Severity Reaction Status Date / Time Amoxicillin [From Amoxil] Allergy See Verified 09/21/17 22:01 Comments cephalexin [From Keflex] Allergy Hives Verified 07/04/17 06:12 ciprofloxacin [From Cipro] Allergy Hives Verified 07/04/17 06:12 cranberry Allergy See Verified 07/04/17 06:12 Comments ketorolac Allergy Hives Verified 07/04/17 06:12 morphine Allergy Hives Verified 07/04/17 06:12 nitrofurantoin Allergy Hives Verified 07/04/17 06:12 [From Macrobid] Oxycodone Allergy Hives Verified 07/04/17 06:12 Penicillins Allergy Hives Verified 07/04/17 06:12 prochlorperazine Allergy Hives Verified 07/04/17 06:12 [From Compazine] Sulfa (Sulfonamide Allergy Hives Verified 07/04/17 06:12 Antibiotics) trimethoprim Allergy See Verified 07/04/17 06:12 Comments Date of admission: 09/24/17 13:56 Primary care physician: Mauricio Melendrez MD Consults: 09/28/17 15:57 Consult to Interventional Radiology [CONS] Routine Consulting Provider: Radiology [facility] Reason for Consult: remove left chest infected CVC, then place a new tunneled cvc for [facility] ATB Time Notified: 16:00 Call Completed: Yes 09/28/17 16:20 Consult to Gastroenterology [CONS] Routine Consulting Provider: Gastroenterology [place] Reason for Consult: black stool I spoke to Dr Maddox Time Notified: 09:00 Call Completed: Yes 10/02/17 14:44 Consult to Palliative Care [CONS] Routine Comment: Consulting Provider: Palliative Care [place] Reason for Consult: goals of care Time Notified: 14:44 Call Completed: Yes 10/06/17 09:52 Consult to Neurology [CONS] Routine Consulting Provider: Neurology [facility] Reason for Consult: lumbar puncture Call Completed: Yes 10/06/17 10:12 Consult to Speech Therapy [CONS] Routine Comment: Evaluate, develop and implement POC Reason for Consult: aspiration pneumonia Call Completed: Yes 10/08/17 14:09 Consult to Invasive Line Access Team [CONS] Routine Reason for Consult: Need to remove central line for potential sepsis Line Type: EPIV Discharging clinician: Antonio Pruitt Anticipated date of discharge: 10/09/17 - Constitutional Vitals: Temp Pulse Resp BP Pulse Ox 97.9 F 92 16 91/64 98 10/09/17 11:21 10/09/17 11:21 10/09/17 11:21 10/09/17 11:21 10/09/17 11:21 General appearance: Present: cooperative - Other Additional findings: Gen.: pleasant without distress Heart: Regular rate and rhythm with no murmur Lungs: Clear to auscultation bilaterally Abdomen: Soft nontender, nondistended positive bowel sounds, large abdominal scar from her surgery. Urostomy bag outputting clear yellow urine. Skin: warm and dry, multiple tattoos on chest, stage II decubitus ulcers b/l ischium stable Extremities: Bilateral [id number] amputations. Neuro: Alert and oriented x 3 Vascular: Pedal and radial pulses 2 out of 4 - Patient Status Disposition: Transfer SNF Condition: Good Functional capacity at discharge: bed bound Overall status at discharge: patient is progressing back to baseline - Discharge Instructions Instructions: Urinary Tract Infection in Men (DC) Follow Up With: Demond White MD [Partnered Physician] - 10/22/17 8:30 am Mauricio Melendrez MD [Primary Care Provider] - (PATIENT IS FROM [facility] NO PCP APPOINTMENT NEEDED) Evelina Maddox MD [Partnered Physician] - 11/05/17 3:10 pm () Forms: ED Satisfaction Letter, Work/School Release - Diet and Activity Activity: increase activity as tolerated Diet: regular diet - VTE Reasons for not Prescribing Prophylaxis: Refused by parent <Mickey Crawley - Last Filed: 10/09/17 16:58> Orders not resulted at time of discharge: Pending orders 10/05/17 09:05 Culture,Blood,Additional [BC] Routine 10/05/17 09:28 Culture,Blood,Additional [BC] Routine Date of Encounter: 10/09/17 - Discharge Diagnosis (1) Sepsis Status: Acute Qualifiers: Sepsis type: Jacquie Qualified Code(s): B37.7 - Candidal sepsis (2) Altered mental status Status: Acute Qualifiers: Altered mental status type: transient alteration of awareness Qualified Code(s): R40.4 - Transient alteration of awareness (3) Aspiration pneumonitis Status: Acute (4) Candidemia Status: Acute (5) Bacteremia Status: Resolved (6) Hydronephrosis Status: Acute Qualifiers: Hydronephrosis type: with ureteral calculous obstruction Qualified Code(s) : N13.2 - Hydronephrosis with renal and ureteral calculous obstruction (7) Urolithiasis Status: Acute Qualifiers: Urinary calculus location: kidney Qualified Code(s): N20.0 - Calculus of kidney (8) Pancolitis Status: Resolved (9) GI bleed Status: Resolved Qualifiers: GI bleed type/associated pathology: unspecified gastrointestinal hemorrhage type Qualified Code(s): K92.2 - Gastrointestinal hemorrhage, unspecified (10) Quadriplegia Status: Chronic (11) Chronic pain Status: Chronic Qualifiers: Chronic pain type: other chronic pain Qualified Code(s): G89.29 - Other chronic pain (12) Neurogenic bladder Status: Chronic (13) Decubitus ulcer of right ischium, stage 2 Status: Chronic (14) Decubitus ulcer of left ischium, stage 2 Status: Acute Hospital course: Mr. Eid is a 42 year old male - Time Spent with Patient Total time spent providing and/or coordinating discharge services: Date of admission: 09/24/17 13:56 Primary care physician: Mauricio Melendrez MD Consults: 09/28/17 15:57 Consult to Interventional Radiology [CONS] Routine Consulting Provider: Radiology [facility] Reason for Consult: remove left chest infected CVC, then place a new tunneled cvc for [facility] ATB Time Notified: 16:00 Call Completed: Yes 09/28/17 16:20 Consult to Gastroenterology [CONS] Routine Consulting Provider: Gastroenter[facility] Reason for Consult: black stool I spoke to Dr Maddox Time Notified: 09:00 Call Completed: Yes 10/02/17 14:44 Consult to Palliative Care [CONS] Routine Comment: Consulting Provider: Palliative Care [facility] Reason for Consult: goals of care Time Notified: 14:44 Call Completed: Yes 10/06/17 09:52 Consult to Neurology [CONS] Routine Consulting Provider: Neurology [facility] Reason for Consult: lumbar puncture Call Completed: Yes 10/06/17 10:12 Consult to Speech Therapy [CONS] Routine Comment: Evaluate, develop and implement POC Reason for Consult: aspiration pneumonia Call Completed: Yes 10/08/17 14:09 Consult to Invasive Line Access Team [CONS] Routine Reason for Consult: Need to remove central line for potential sepsis Line Type: EPIV - Constitutional Vitals: Temp Pulse Resp BP Pulse Ox 97.9 F 92 16 91/64 98 10/09/17 11:21 10/09/17 11:21 10/09/17 11:21 10/09/17 11:21 10/09/17 11:21 - Attending Attestation acute metabolic encephalopathy 2ry to sepsis from aspiration pneumonitis , UTI, Jacquie bacteremia currently on Vancomycin ( Staph epidermidis + culture), meropenem for ESBL E coli, and fluconazole time spent: 40 min I examined this patient and my medical decision-making was reviewed with the Resident Physician. I agree with the documented findings, disposition and treatment plan as described except to the extent set forth below.
--- NOTE | 2017-10-09 15:05 | Physician Discharge Referral ---
<Antonio Pruitt - Last Filed: 10/09/17 15:04> [facility] Referral Info Provider in Charge: Jose Armando Provider in Charge after Transfer: PCP Institutional Level of Care: Skilled - Diagnosis (1) Sepsis Priority: Primary Status: Acute (2) Aspiration pneumonitis Priority: Secondary Status: Acute (3) Bacteremia Priority: Secondary Status: Resolved (4) Candidemia Priority: Secondary Status: Acute (5) Decubitus ulcer of left ischium, stage 2 Priority: Secondary Status: Acute (6) Decubitus ulcer of right ischium, stage 2 Priority: Secondary Status: Chronic (7) Encephalopathy in sepsis Priority: Secondary Status: Acute (8) Goals of care, counseling/discussion Priority: Secondary Status: Acute (9) Quadriplegia Priority: Secondary Status: Acute (10) UTI (urinary tract infection) Priority: Secondary Status: Resolved Prognosis: Fair Aware of Diagnosis: Patient Aware of Prognosis: Patient - Transfer Medications Prescriptions: Baclofen 40 mg PO BID #120 tablet diazePAM [Valium] 5 mg PO 0000 5 Days #5 tablet Fluconazole 400 MG/200 ML [Diflucan Premix 400 MG/200 ML] 400 mg IVPB DAILY #4 bag HYDROmorphone [Dilaudid] 2 mg PO Q4H PRN 7 Days #10 tablet PRN Reason: Pain HYDROmorphone [Dilaudid] 2 mg PO 0000 5 Days #5 tablet Meropenem-0.9% Sodium Chloride [Meropenem-0.9% NaCl 1 Gram/50] 1 gm IV Q8H #15 piggyback Tizanidine HCl [Zanaflex] 6 mg PO TID #90 cap Vancomycin/0.9 % Sod Chloride [Vanco 500 mg/100 ml-0.9% NaCl] 500 mg IV BID #4 froz.piggy Home Medications: Promethazine [Phenergan] 25 mg PO 0000 03/23/15 [History] Ascorbic Acid [Vitamin C] 500 mg PO DAILY 05/23/15 [History] Bisacodyl [Dulcolax] 5 mg PO DAILY 05/23/15 [History] Lubiprostone [Amitiza] 24 mcg PO Q12HR 05/23/15 [History] Sennosides [Senna] 17.2 mg PO BID 05/23/15 [History] Acetaminophen [Tylenol] 650 mg PO Q6HR PRN 05/11/16 [History] GuaiFENesin ER [Mucinex] 600 mg PO DAILY 05/11/16 [History] Docusate [Colace] 100 mg PO BID 05/12/16 [History] Mirtazapine 7.5 mg PO DAILY 07/04/17 [History] 0.9 % Sodium Chloride [Normal Saline Flush] 10 ml IV DAILY 09/21/17 [History] Ferrous Gluconate 324 mg PO BID 09/21/17 [History] Omeprazole [PriLOSEC] 20 mg PO DAILY 09/21/17 [History] Promethazine [Phenergan] 25 mg PO Q6H PRN 09/21/17 [History] Vitamin B Complex/Minerals [Sm Stress Formula+Zinc Tablet] 1 each PO DAILY 09/21 [History] Baclofen 40 mg PO BID #120 tablet 10/09/17 [Rx] Fluconazole 400 MG/200 ML [Diflucan Premix 400 MG/200 ML] 400 mg IVPB DAILY #4 bag 10/09/17 [Rx] HYDROmorphone [Dilaudid] 2 mg PO 0000 5 Days #5 tablet 10/09/17 [Rx] HYDROmorphone [Dilaudid] 2 mg PO Q4H PRN 7 Days #10 tablet 10/09/17 [Rx] Meropenem-0.9% Sodium Chloride [Meropenem-0.9% NaCl 1 Gram/50] 1 gm IV Q8H #15 piggyback 10/09/17 [Rx] Tizanidine HCl [Zanaflex] 6 mg PO TID #90 cap 10/09/17 [Rx] Vancomycin/0.9 % Sod Chloride [Vanco 500 mg/100 ml-0.9% NaCl] 500 mg IV BID #4 froz.piggy 10/09/17 [Rx] diazePAM [Valium] 5 mg PO 0000 5 Days #5 tablet 10/09/17 [Rx] Allergies/Adverse Reactions: 3 Allergy/AdvReac Type Severity Reaction Status Date / Time Amoxicillin [From Amoxil] Allergy See Verified 09/21/17 22:01 Comments cephalexin [From Keflex] Allergy Hives Verified 07/04/17 06:12 ciprofloxacin [From Cipro] Allergy Hives Verified 07/04/17 06:12 cranberry Allergy See Verified 07/04/17 06:12 Comments ketorolac Allergy Hives Verified 07/04/17 06:12 morphine Allergy Hives Verified 07/04/17 06:12 nitrofurantoin Allergy Hives Verified 07/04/17 06:12 [From Macrobid] Oxycodone Allergy Hives Verified 07/04/17 06:12 Penicillins Allergy Hives Verified 07/04/17 06:12 prochlorperazine Allergy Hives Verified 07/04/17 06:12 [From Compazine] Sulfa (Sulfonamide Allergy Hives Verified 07/04/17 06:12 Antibiotics) trimethoprim Allergy See Verified 07/04/17 06:12 Comments - Respiratory Orders None Smoking Cessation: Smoking cessation has been advised. For more information, call the [employer] at [phone]-NOW. - Advance Directives Code Status: Full Code - Mobility Orders Bedrest - Rehabiliation Orders Rehab Potential: Poor Rehab Orders: Sternal Precautions - Treatments Skin tear care topically daily PRN per policy, May check for fecal impaction rectally daily PRN - Diet Orders Regular CERTIFICATION: I certify that the transfer of the above named patient to an Extended Care Facility is necessary for the continuing treatment of the diagnosis listed. The above information is true and accurate reflection of patient's current condition. Confidential - Redisclosure prohibited without a patient's written consent. <Mickey Crawley H - Last Filed: 10/09/17 16:59> - Diagnosis (1) Sepsis Status: Acute (2) Altered mental status Status: Acute (3) Aspiration pneumonitis Status: Acute (4) Candidemia Status: Acute (5) Bacteremia Status: Resolved (6) Hydronephrosis Status: Acute (7) Urolithiasis Status: Acute (8) Pancolitis Status: Resolved (9) GI bleed Status: Resolved (10) Quadriplegia Status: Chronic (11) Chronic pain Status: Chronic (12) Neurogenic bladder Status: Chronic (13) Decubitus ulcer of right ischium, stage 2 Status: Chronic (14) Decubitus ulcer of left ischium, stage 2 Status: Acute - Respiratory Orders Smoking Cessation: Smoking cessation has been advised. For more information, call the [employer] at 4-151-SKRT-NOW. CERTIFICATION: I certify that the transfer of the above named patient to an Extended Care Facility is necessary for the continuing treatment of the diagnosis listed. The above information is true and accurate reflection of patient's current condition. Confidential - Redisclosure prohibited without a patient's written consent.
[2017-10-09] MEDS ORDERED: Aminoglycoside Consult 1 EACH MC ONE (17:04)
== END 2017-10-09 17:05 | DRG 721 ==
LOC: 3ANU 19:26 → EMEROO 19:26 → 3ANU 23:14 → 2SOUTHHOLD 09-22 07:53 → ICNU 09-22 18:39 → SUATTDRO 09-24 13:56 → 3NENU 09-25 10:13 → 3BNU 09-28 15:03 → 2NNU 10-02 14:13
PROVIDERS: ADMIT Internal Medicine; ATTEND Hospitalist

== ENCOUNTER 2017-10-12 11:03 | Inpatient (IN) ==
[2017-10-12] MEDS ORDERED: Naloxone 0.4 MG/ML INJ IVP ONE (11:14)
[2017-10-12] MEDS ORDERED: 0.9 % Sodium Chloride 1,000 ML IVC ONE (11:20)
[2017-10-12 11:45] LABS: Bilirubin,Urine Negative (Negative); Blood,Urine Negative (Negative); Clarity,Urine Cloudy (Clear); Color,Urine Dark Yellow (Yellow); Glucose,Urine (UA) Normal (Normal); Ketones,Urine Trace mg/dL (Negative); Leukocyte Esterase,Urine Moderate (Negative); Nitrite,Urine Negative (Negative); Protein,Urine 30 mg/dL (Neg-Trace); Specific Gravity,Urine 1.022 (1.010-1.025); Urobilinogen,Urine Normal (Normal)
[2017-10-12 11:48] LABS: Hyaline Casts,Urine None Seen per lpf (None-Few); Squamous Epithelial Cell,Urine Moderate per lpf (None-Few); WBC,Urine TNTC per hpf (0-3)
[2017-10-12 11:59] LABS: Amorphous Sediment,Urine Few (Few); Bacteria,Urine Few per hpf (None-Few)
--- NOTE | 2017-10-12 12:11 | Emergency Department Note ---
Disposition Clinical Impression: History of sepsis, History of bacteremia Altered mental status Qualifiers: Altered mental status type: coma Coma depth: Manoj coma 9-12 Coma timing: at hospital admission Qualified Code(s): R40.2423 - Mchenry coma scale score 9-12, at hospital admission Disposition: Admitted As Inpatient Condition: Critical Time of Disposition: 13:07 General Adult HPI - General Chief complaint: ED General Medical Stated complaint: lethargic Time Seen by Provider: 10/12/17 11:14 Source: EMS, other Mode of arrival: EMS Limitations: altered mental status Nursing Notes Reviewed: Yes Vital Signs Reviewed: Yes - History of Present Illness HPI Narrative: Patient is a 42-year-old male with past medical history of C. difficile, narcolepsy, bilateral AKA, history of buttock pressure ulcers, opioid dependence , Hx of bacteremia secondary to UTI infection with E.coli, Pseudomonas,IV Drug use, and hepatitis C presenting by EMS for altered mental status and lethargy. According to EMS timing of onset is unknown. There is a little information provided by parul however he does have a history recent admission to the hospital with discharge on 10/09/17 in which he was sent home with IV antibiotics for ESBL UTI, candidemia and pneumonia. I spoke with the patient's mail censor at his residential facility on the phone she states that yesterday evening the patient was alert and oriented and very verbal and had no complaints at this time except for he was withholding from taking his medications which is not normal for him. She states this morning when she saw him he appeared lethargic and would not his head yes and no to questions but was not verbal she called the squad. Pain Scale: 0 - Related Data Home Medications Medication Instructions Recorded Confirmed Ascorbic Acid [Vitamin C] 500 mg PO DAILY 05/23/15 10/12/17 Bisacodyl [Dulcolax] 5 mg PO DAILY 05/23/15 10/12/17 Lubiprostone [Amitiza] 24 mcg PO Q12HR 05/23/15 10/12/17 Sennosides [Senna] 17.2 mg PO BID 05/23/15 10/12/17 Acetaminophen [Tylenol] 650 mg PO Q6HR PRN 05/11/16 10/12/17 GuaiFENesin ER [Mucinex] 600 mg PO DAILY 05/11/16 10/12/17 Docusate [Colace] 100 mg PO BID 05/12/16 10/12/17 Mirtazapine 7.5 mg PO DAILY 07/04/17 10/12/17 Ferrous Gluconate 324 mg PO BID 09/21/17 10/12/17 Omeprazole [PriLOSEC] 20 mg PO DAILY 09/21/17 10/12/17 Promethazine [Phenergan] 25 mg PO Q6H PRN 09/21/17 10/12/17 Vitamin B Complex/Minerals [Sm 1 each PO DAILY 09/21/17 10/12/17 Stress Formula+Zinc Tablet] Lactobacillus Acidophilus 1 cap PO BID 10/12/17 10/12/17 [Acidophilus] diazePAM [Valium] 5 mg PO Q6H PRN 10/12/17 10/12/17 Previous Rx's Medication Instructions Recorded Baclofen 40 mg PO BID #120 tablet 10/09/17 Fluconazole 400 MG/200 ML 400 mg IVPB DAILY #4 bag 10/09/17 [Diflucan Premix 400 MG/200 ML] HYDROmorphone [Dilaudid] 2 mg PO Q4H PRN 7 Days #10 tablet 10/09/17 Meropenem-0.9% Sodium Chloride 1 gm IV Q8H #15 piggyback 10/09/17 [Meropenem-0.9% NaCl 1 Gram/50] Tizanidine HCl [Zanaflex] 6 mg PO TID #90 cap 10/09/17 Vancomycin/0.9 % Sod Chloride 500 mg IV BID #4 froz.piggy 10/09/17 [Vanco 500 mg/100 ml-0.9% NaCl] Allergies Allergy/AdvReac Type Severity Reaction Status Date / Time Amoxicillin [From Amoxil] Allergy See Verified 10/12/17 11:25 Comments cephalexin [From Keflex] Allergy Hives Verified 10/12/17 11:25 ciprofloxacin [From Cipro] Allergy Hives Verified 10/12/17 11:25 cranberry Allergy See Verified 10/12/17 11:25 Comments ketorolac Allergy Hives Verified 10/12/17 11:25 morphine Allergy Hives Verified 10/12/17 11:25 nitrofurantoin Allergy Hives Verified 10/12/17 11:25 [From Macrobid] Oxycodone Allergy Hives Verified 10/12/17 11:25 Penicillins Allergy Hives Verified 10/12/17 11:25 prochlorperazine Allergy Hives Verified 10/12/17 11:25 [From Compazine] Sulfa (Sulfonamide Allergy Hives Verified 10/12/17 11:25 Antibiotics) trimethoprim Allergy Hives Verified 10/12/17 12:45 Limitations: ROS unobtainable due to patients medical condition Past Medical History - Past Medical History Medical history: Reports: cardiomyopathy, coronary artery disease, GERD, hyperlipidemia, hypertension, kidney stones, myocardial infarction, peripheral artery disease, renal disease, other Surgical history: Reports: orthopedic, other, tracheostomy, other (Chronic SPT) Psychiatric history: Reports: depression, previous psychiatric hospitalization - Social History Smoking Status: Former smoker Smokeless Tobacco Status: Yes (chew) Alcohol use: Reports: occasionally Drug use: Reports: marijuana Physical Exam Patient is lethargic. He appears older than stated age. He is minimally responsive to verbal. The skin overall appears glossy, he appears unkempt his fingernails are overgrown areas dry food/emesis particles around his lips and pupils appear pinpoint. - General Limitations: altered mental status General appearance: lethargic - Head Head exam: atraumatic, normocephalic - Eye Eye exam: Present: miosis - ENT ENT exam: mucous membranes dry - Neck Neck exam: Present: trachea midline. Absent: meningismus - Chest Chest inspection: Present: symmetric chest wall rise. Absent: tenderness, rash - Respiratory Respiratory exam: Present: normal lung sounds bilaterally, respiratory distress (mild paitien oxygen saturation was in mid 80% range on arrival. Patient is snoring. ) - Cardiovascular Cardiovascular exam: Present: tachycardia, +S1, +S2 - Abdominal Exam Abdominal exam: Present: soft, normal bowel sounds. Absent: guarding, rebound, rigidity - Male exam: Present: normal inspection, normal testicular lie, circumcised, other ( Patient has suprapubic catheter site with an ostomy bag overlying. Draining red/ yellow clear urine. ). Absent: penile swelling, induration, erythema, urethral discharge, scrotal swelling - Extremities Exam Extremities exam: Present: other (above the knee amputation bilaterally. ) - Back Exam Back exam: Present: normal inspection - Expanded Neurological Exam Coma Scale Eye Opening: To Voice Coma Scale Motor Response: Localizes to Pain Coma Scale Verbal Response: Incomprehensible Coma Scale Total: 10 - Skin Skin exam: Present: warm, dry, other (Patient has a bandage on his left buttock that was recently changed covering what appears to be a healing buttock ulcer that is 2x3cm in diameter. No surrounding erythema, induration or fluctuance. ) Course Course Narrative: Review of the patient's chart does appear that he was discharged with negative blood cultures and sent home on continued vancomycin, meropenem, and fluconazole. Cranial records patient is also on multiple benzos for muscle spasms as well as pain management with Dilaudid. He was given Narcan on initial arrival to the emergency department had a negative response. Glucose was reported in the 70s. Plan at this time is to obtain blood for cultures and lab work, urinalysis, chest x-ray and obtain IV access. Patient was also hypoxic will provide nasal cannula oxygen and his blood pressure was in the 70' s systolic, patient will receive 1 L normal saline bolus for pressure support. The patient is also a difficult IV stick, right femoral stick was obtained and is left lower extremity for labs. - Reevaluation(s) Reevaluation #1: Patient's blood pressure continues to be improved with his 1 L of normal saline bolus. Is currently in 130s/90s. Patient's case was discussed with the hospitalist on-call Dr. Sanchez he agrees to accept the patient to their services for continued treatment. Labwork remains pending at this time, however BNP, troponin and lactic acid were all were within normal limits. Suspect this patient's altered mental status is a continuation of his candidemia , pneumonia, and urinary tract infection she was recently discharged for. Time: 12:30 Vital Signs Pulse Rate 84 10/12/17 11:12 Respiratory Rate 16 10/12/17 11:12 Blood Pressure 56/42 10/12/17 11:12 O2 Sat by Pulse Oximetry 86 10/12/17 11:12 Temperature 97.8 F 10/14/17 19:29 Pulse Rate 85 10/14/17 20:30 Respiratory Rate 17 10/14/17 19:29 Blood Pressure 86/46 10/14/17 19:29 O2 Sat by Pulse Oximetry 99 10/14/17 20:30 Oxygen Delivery Oxygen Delivery Nasal Cannula Medical Decision Making - Medical Records Medical records reviewed: Yes I reviewed the patient's medical records. - Lab Data Lab results reviewed: Yes I reviewed the patient's lab results. Result diagrams: 10/14/17 06:04 10/14/17 06:04 Lab Results 10/12/17 10/12/17 10/12/17 Range/Units 11:12 11:15 11:20 Sodium 145 (136-145) mEq/L Potassium 4.6 (3.5-5.1) mEq/L Chloride 104 (98-107) mEq/L Carbon Dioxide 34 H (23-29) mEq/L BUN 12 (6-20) mg/dL Creatinine 0.46 L (0.70-1.30) mg/dL Est GFR ( Amer) > 60 (> 60) Est GFR (Non-Af Amer) > 60 (> 60) BUN/Creatinine Ratio 26 (6-26) Glucose 78 80 (70-105) mg/dL POC Glucose 71 (58-89) Calculated Osmolality 299 (280-300) Lactic Acid (0.5-2.2) mmol/L Calcium 8.8 (8.6-10.3) mg/dL Phosphorus 2.9 (2.7-4.5) mg/dL Magnesium 2.0 (1.6-2.6) mg/dL Total Bilirubin 0.3 (0.3-1.0) mg/dL Direct Bilirubin 0.1 (0.0-0.2) mg/dL Indirect Bilirubin 0.2 (0.0-1.2) mg/dL AST 46 H (13-39) Units/L ALT 28 (7-52) Units/L Alkaline Phosphatase 47 (34-104) Units/L Troponin I < 0.03 (< 0.04) ng/mL B-Natriuretic Peptide (Less than 100) pg/mL Serum Total Protein 6.6 (6.4-8.9) g/dL Albumin 3.2 L (3.5-5.7) g/dL Globulin 3.4 (2.4-3.5) g/dL Albumin/Globulin Ratio 0.9 L (1.1-2.2) Lipase 11 (11-82) Units/L Urine Color (Yellow) Urine Clarity (Clear) Urine pH (5.0-8.0) pH Units Ur Specific [place] (1.010-1.025) Urine Protein (Neg-Trace) mg/dL Urine Glucose (UA) (Normal) mg/dL Urine Ketones (Negative) mg/dL Urine Blood (Negative) Urine Nitrite (Negative) Urine Bilirubin (Negative) Urine Urobilinogen (Normal) mg/dL Ur Leukocyte Esterase (Negative) Urine Microscopic RBC (0-3) per hpf Urine Microscopic WBC (0-3) per hpf Ur Squamous Epith Cells (None-Few) per lpf Amorphous Sediment (Few) Urine Bacteria (None-Few) per hpf Hyaline Casts (None-Few) per lpf Ur Culture Indicated? (NO) Urine Opiates Screen (Dswfqh=640) ng/mL Ur Barbiturates Screen (Guymbn=693) ng/mL Ur Phencyclidine Scrn (Cutoff=25) ng/mL Ur Amphetamines Screen (Ybeugt=8664) ng/mL U Benzodiazepines Scrn (Flkbzr=576) ng/mL Urine Cocaine Screen (Cutoff= 300) ng/mL U Marijuana (THC) Screen (Cutoff = 50) ng/mL Specimen Rejected 10/12/17 10/12/17 10/12/17 Range/Units 11:20 11:30 11:30 Sodium (136-145) mEq/L Potassium (3.5-5.1) mEq/L Chloride (98-107) mEq/L Carbon Dioxide (23-29) mEq/L BUN (6-20) mg/dL Creatinine (0.70-1.30) mg/dL Est GFR ( Amer) (> 60) Est GFR (Non-Af Amer) (> 60) BUN/Creatinine Ratio (6-26) Glucose (70-105) mg/dL POC Glucose (58-89) Calculated Osmolality (280-300) Lactic Acid (0.5-2.2) mmol/L Calcium (8.6-10.3) mg/dL Phosphorus (2.7-4.5) mg/dL Magnesium (1.6-2.6) mg/dL Total Bilirubin (0.3-1.0) mg/dL Direct Bilirubin (0.0-0.2) mg/dL Indirect Bilirubin (0.0-1.2) mg/dL AST (13-39) Units/L ALT (7-52) Units/L Alkaline Phosphatase (34-104) Units/L Troponin I (< 0.04) ng/mL B-Natriuretic Peptide 21 (Less than 100) pg/mL Serum Total Protein (6.4-8.9) g/dL Albumin (3.5-5.7) g/dL Globulin (2.4-3.5) g/dL Albumin/Globulin Ratio (1.1-2.2) Lipase (11-82) Units/L Urine Color Dark Yellow (Yellow) Urine Clarity Cloudy A (Clear) Urine pH 7.0 (5.0-8.0) pH Units Ur Specific [place] 1.022 (1.010-1.025) Urine Protein 30 H (Neg-Trace) mg/dL Urine Glucose (UA) Normal (Normal) mg/dL Urine Ketones Trace H (Negative) mg/dL Urine Blood Negative (Negative) Urine Nitrite Negative (Negative) Urine Bilirubin Negative (Negative) Urine Urobilinogen Normal (Normal) mg/dL Ur Leukocyte Esterase Moderate H (Negative) Urine Microscopic RBC 5-15 H (0-3) per hpf Urine Microscopic WBC TNTC H (0-3) per hpf Ur Squamous Epith Cells Moderate H (None-Few) per lpf Amorphous Sediment Few (Few) Urine Bacteria Few (None-Few) per hpf Hyaline Casts None Seen (None-Few) per lpf Ur Culture Indicated? YES A (NO) Urine Opiates Screen Positive H (Jfivnk=798) ng/mL Ur Barbiturates Screen Negative (Lwpbna=926) ng/mL Ur Phencyclidine Scrn Negative (Cutoff=25) ng/mL Ur Amphetamines Screen Negative (Rclxvw=8585) ng/mL U Benzodiazepines Scrn Positive H (Drkkgu=198) ng/mL Urine Cocaine Screen Negative (Cutoff= 300) ng/mL U Marijuana (THC) Screen Negative (Cutoff = 50) ng/mL Specimen Rejected 10/12/17 10/12/17 Range/Units 12:04 12:04 Sodium (136-145) mEq/L Potassium (3.5-5.1) mEq/L Chloride (98-107) mEq/L Carbon Dioxide (23-29) mEq/L BUN (6-20) mg/dL Creatinine (0.70-1.30) mg/dL Est GFR ( Amer) (> 60) Est GFR (Non-Af Amer) (> 60) BUN/Creatinine Ratio (6-26) Glucose (70-105) mg/dL POC Glucose (58-89) Calculated Osmolality (280-300) Lactic Acid 0.5 (0.5-2.2) mmol/L Calcium (8.6-10.3) mg/dL Phosphorus (2.7-4.5) mg/dL Magnesium (1.6-2.6) mg/dL Total Bilirubin (0.3-1.0) mg/dL Direct Bilirubin (0.0-0.2) mg/dL Indirect Bilirubin (0.0-1.2) mg/dL AST (13-39) Units/L ALT (7-52) Units/L Alkaline Phosphatase (34-104) Units/L Troponin I (< 0.04) ng/mL B-Natriuretic Peptide (Less than 100) pg/mL Serum Total Protein (6.4-8.9) g/dL Albumin (3.5-5.7) g/dL Globulin (2.4-3.5) g/dL Albumin/Globulin Ratio (1.1-2.2) Lipase (11-82) Units/L Urine Color (Yellow) Urine Clarity (Clear) Urine pH (5.0-8.0) pH Units Ur Specific [place] (1.010-1.025) Urine Protein (Neg-Trace) mg/dL Urine Glucose (UA) (Normal) mg/dL Urine Ketones (Negative) mg/dL Urine Blood (Negative) Urine Nitrite (Negative) Urine Bilirubin (Negative) Urine Urobilinogen (Normal) mg/dL Ur Leukocyte Esterase (Negative) Urine Microscopic RBC (0-3) per hpf Urine Microscopic WBC (0-3) per hpf Ur Squamous Epith Cells (None-Few) per lpf Amorphous Sediment (Few) Urine Bacteria (None-Few) per hpf Hyaline Casts (None-Few) per lpf Ur Culture Indicated? (NO) Urine Opiates Screen (Fmjnfm=313) ng/mL Ur Barbiturates Screen (Aqqbju=280) ng/mL Ur Phencyclidine Scrn (Cutoff=25) ng/mL Ur Amphetamines Screen (Jtpoah=6600) ng/mL U Benzodiazepines Scrn (Xyluxe=764) ng/mL Urine Cocaine Screen (Cutoff= 300) ng/mL U Marijuana (THC) Screen (Cutoff = 50) ng/mL Specimen Rejected Clotted - Radiology Data Radiology results reviewed: Yes I reviewed the patient's radiology results. Chest X-Ray 10/12/17 11:20 IMPRESSION: 1. Bibasilar atelectasis and/or scarring. 2. Pulmonary vascular congestion. D/ / Jeffy Navarro MD / Jeffy Navarro MD Interpreting Provider: Jeffy Navarro MD - EKG Data EKG #1 EKG attestation: Yes I reviewed and interpreted this EKG. EKG results narrative: EKG shows sinus rhythm at a rate of 80 bpm. Normal axis. OH is 160, QRS is 107 , QT is 397 and QTc is 4 and 32 these are within normal limits. No signs of ST elevation, ST depression or Q waves present at this time no significant changes from EKG done on 10/02/2017.
[2017-10-12 13:00] LABS: Troponin I < 0.03 ng/mL (< 0.04)
[2017-10-12 13:11] LABS: Alanine Aminotransferase 28 Units/L (7-52); Albumin 3.2 g/dL (3.5-5.7); Albumin/Globulin Ratio 0.9 (1.1-2.2); Alkaline Phosphatase 47 Units/L (34-104); Aspartate Amino Transferase 46 Units/L (13-39); BUN/Creatinine Ratio 26 (6-26); Bilirubin,Direct 0.1 mg/dL (0.0-0.2); Bilirubin,Indirect 0.2 mg/dL (0.0-1.2); Bilirubin,Total 0.3 mg/dL (0.3-1.0); Blood Urea Nitrogen 12 mg/dL (6-20); Calcium 8.8 mg/dL (8.6-10.3); Carbon Dioxide 34 mEq/L (23-29); Chloride 104 mEq/L (98-107); Globulin 3.4 g/dL (2.4-3.5); Glucose 80 mg/dL (70-105); Lipase 11 Units/L (11-82); Osmolality,Calculated 299 (280-300); Phosphorous 2.9 mg/dL (2.7-4.5); Potassium 4.6 mEq/L (3.5-5.1); Sodium 145 mEq/L (136-145); Total Protein 6.6 g/dL (6.4-8.9); eGFR For African Americans > 60 (> 60); eGFR For Non-African Americans > 60 (> 60)
--- NOTE | 2017-10-12 13:14 | Emergency Department Note ---
START Narrative - START START: I examined this patient and my medical decision-making was reviewed with the EMERGENCY VEHICLE OPERATIONS INSTRUCTOR/PA/Advanced Practice Nurse/Resident Physician. I agree with the documented findings, disposition and treatment plan as described except to the extent set forth below. ED attending note: Patient seen with emergency medicine resident Dr. Scott Noble. We independently evaluated the patient. We independently had face-to- face contact with the patient. Please see a copy of his note for details of the history and physical, evaluation, management and disposition of this emergency Department patient. Briefly: This 42-year-old male history bilateral AKA from a group home facility by EMS for altered mental status. Of note patient was just discharged from [facility] 72 hours ago for bacteremia secondary to UTI. Dr. Toro contacted the nursing care the patient at the [facility] who stated she knew the patient well and that his normal activity is that he is little cantankerous and argumentative but otherwise awake alert and conversant. But we saw today with him being somnolent with distinct change in his mental status. Does have a history of prior narcotic dependence and possibly opiates IV drug abuse. Patient arrived with pinpoint pupils hypotensive and hypoxic. Supplemental oxygen was placed at 2 L bolus normal saline through his PICC line we did a femoral stick to obtain blood due to poor ability to get blood from the PICC line and we gave him 0.4 mg of Narcan intravenously with no effect. Patient also has an overlying history among other things of narcolepsy which may confound clinical picture. There does appear to be any new signs of trauma bleeding lacerations or cellulitis on the patient. Patient's Accu-Chek was 71 and this number is unlikely to represent a cause for his decreased mental status. Patient had blood cultures taken and is started on IV vancomycin. Case was presented to the hospitalist who admitted the patient. We provided 45 minutes of critical care service for this patient.
[2017-10-12 13:18] LABS: ABG Base Excess 8 mEq/L (-2 to 3); ABG HCO3 35 mEq/L (21-27); ABG Oxygen Saturation 97 % (95-98); ABG PCO2 60 mmHg (35-45); ABG PH 7.37 pH Units (7.32-7.45); ABG PO2 93 mmHg (85-104); ABG TCO2 37 mEq/L (20-26)
[2017-10-12 13:29] LABS: Amphetamine Screen,Urine Negative ng/mL (Cutoff=1000); Barbiturate Screen,Urine Negative ng/mL (Cutoff=200); Benzodiazepines Screen,Urine Positive ng/mL (Cutoff=200); Cannabinoid Screen,Urine Negative ng/mL (Cutoff = 50); Cocaine Screen,Urine Negative ng/mL (Cutoff= 300); Opiate Screen,Urine Positive ng/mL (Cutoff=300); Phencyclidine Screen,Urine Negative ng/mL (Cutoff=25)
[2017-10-12] MEDS ORDERED: 0.9 % Sodium Chloride 1,000 ML IVC SCH (14:15)
[2017-10-12 14:16] LABS: Basophils # 0.1 K/mcL (0.0-0.2); Basophils % 1.1 %; Eosinophils # 0.2 K/mcL (0.0-0.6); Eosinophils % 5.3 %; Hemoglobin 10.8 g/dL (12.9-16.9); Immature Granulocytes % 0.7 % (0-4); Lymphocytes # 1.3 K/mcL (0.6-4.6); Lymphocytes % 29.6 %; Mean Corpuscular HGB Conc 30.9 g/dL (31.6-35.5); Mean Corpuscular Hemoglobin 28.2 pg (28.0-33.3); Mean Corpuscular Volume 91.4 fL (83.0-100.0); Mean Platelet Volume 8.9 fL (9.4-12.4); Monocytes # 0.5 K/mcL (0.0-1.3); Monocytes % 11.1 %; Neutrophils # 2.4 K/mcL (1.6-8.9); Platelet Count 309 K/mcL (140-400); Red Blood Count 3.83 M/mcL (4.19-5.50); Red Cell Distribution Width 16.8 % (11.5-14.5); Segmented Neutrophils % 52.2 %
[2017-10-12] MEDS ORDERED: Acetaminophen 325 MG TABLET PO PRN (14:20)
[2017-10-12 14:24] LABS: INR 1.1; Prothrombin Time 11.7 Seconds (9.4-12.1)
[2017-10-12 14:26] LABS: Activated Partial Thrombo Time 39.5 Seconds (26.0-36.0)
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
[2017-10-12] MEDS ORDERED: Meropenem 1,000 MG in Water for inj. (sterile) 10 ML IVP SCH (15:00)
[2017-10-12] MEDS: Meropenem 1,000 MG in Water for inj. (sterile) 20 ML 10 ML IVP SCH (16:00)
[2017-10-12] MEDS: Vancomycin 500 MG in 0.9 % Sodium Chloride Mini Bag 100 ML IVPB SCH (16:05)
[2017-10-12] MEDS: *HR* Metoprolol 5 MG/5 ML VIAL IVP PRN (21:10)
[2017-10-12] MEDS: (Lubiprostone [Amitiza] 24 MCG) PO SCH (21:18)
[2017-10-12] MEDS: Lactobacillus 1 EACH CAP.SPRINK PO SCH (21:18)
[2017-10-12] MEDS: Sennosides 8.6 MG TABLET PO SCH (21:18)
[2017-10-13] MEDS: Meropenem 1,000 MG in Water for inj. (sterile) 20 ML 10 ML IVP SCH ×3 (00:09→16:55)
[2017-10-13] MEDS ORDERED: Levalbuterol Neb 0.63 MG/3 ML ONE (01:45)
--- NOTE | 2017-10-13 02:14 | Event Note ---
Date of Encounter: 10/13/17 Time of Encounter: 02:09 Called to patient bedside for increase work of breath and desaturation to 70%. Patient placed on 5L oxymask and return of saturation to mid 80s immediately. Per RN, patient has been around lower to mid 90s all night. Lung auscultation with clear left lung field and diminished right with rhonchi. Trial Xopenox breathing treatment given his tachycardia 120s. He remains awake and alert answering questions. BP is stable SBP 160s. Denies any chest pain or dyspnea. Displaying some belly breathing. He exhibits a weak cough which is his baseline. Review of EMR, admitted for history of sepsis with prior hospitalization for pneumonia and bacteremia with candidemia. Will escalate to high flow nasal cannula with Mucomyst. If not improved will obtain CXR and VBG/ ABG.
[2017-10-13] MEDS: Levalbuterol Neb 0.63 MG/3 ML IH PRN (02:53)
[2017-10-13] MEDS ORDERED: Acetylcysteine 10% 2 ML INHSOL IH SCH (04:00)
[2017-10-13] MEDS: Vancomycin 500 MG in 0.9 % Sodium Chloride Mini Bag 100 ML IVPB SCH ×2 (04:44→16:56)
[2017-10-13] MEDS ORDERED: Furosemide 20 MG/2 ML VIAL IVP ONE ×3 (04:45→08:46)
[2017-10-13] MEDS: (Lubiprostone [Amitiza] 24 MCG) PO SCH ×2 (04:45→16:56)
[2017-10-13 07:22] LABS: BUN/Creatinine Ratio 19 (6-26); Blood Urea Nitrogen 8 mg/dL (6-20); Carbon Dioxide 35 mEq/L (23-29); Chloride 103 mEq/L (98-107); Glucose 83 mg/dL (70-105); Osmolality,Calculated 299 (280-300); Potassium 3.5 mEq/L (3.5-5.1); Sodium 146 mEq/L (136-145); eGFR For African Americans > 60 (> 60); eGFR For Non-African Americans > 60 (> 60)
[2017-10-13 07:49] LABS: Basophils # 0.1 K/mcL (0.0-0.2); Basophils % 0.8 %; Eosinophils # 0.2 K/mcL (0.0-0.6); Eosinophils % 2.2 %; Hematocrit 39.3 % (37.5-50.1); Hemoglobin 12.2 g/dL (12.9-16.9); Immature Granulocytes % 0.5 % (0-4); Lymphocytes # 1.6 K/mcL (0.6-4.6); Lymphocytes % 15.7 %; Mean Corpuscular Hemoglobin 28.2 pg (28.0-33.3); Mean Corpuscular Volume 90.8 fL (83.0-100.0); Mean Platelet Volume 8.9 fL (9.4-12.4); Monocytes # 1.3 K/mcL (0.0-1.3); Monocytes % 12.1 %; Platelet Count 401 K/mcL (140-400); Red Blood Count 4.33 M/mcL (4.19-5.50); Red Cell Distribution Width 16.9 % (11.5-14.5); Segmented Neutrophils % 68.7 %
[2017-10-13 07:56] LABS: Neutrophils # 7.1 K/mcL (1.6-8.9)
[2017-10-13] MEDS: Ascorbic Acid 500 MG TABLET PO SCH (07:57)
[2017-10-13] MEDS: Fluconazole 400 MG/200 ML 400 MG/200 ML BAG IVPB SCH (07:57)
[2017-10-13] MEDS: Sennosides 8.6 MG TABLET PO SCH ×2 (07:57→21:38)
[2017-10-13] MEDS: Vitamin B Complex/Vit C/Vit E 1 EACH TABLET PO SCH (07:57)
[2017-10-13] MEDS: Lactobacillus 1 EACH CAP.SPRINK PO SCH ×2 (07:57→21:38)
--- NOTE | 2017-10-13 08:04 | Electrocardiograph Report ---
[facility] Test Date: 2017-10-12 Pat Name: Francisco Eid Department: 103 Room: 2N05 Gender: M Form Tamper: : 1975 Requested By: Scott Noble Order Number: [id number] Reading MD: Robert Belle MD Measurements Intervals [place] Rate: 80 P: 70 SD: 160 QRS: 80 QRSD: 107 T: 70 QT: 397 QTc: 432 Interpretive Statements SINUS RHYTHM Electronically Signed On 10-12-2017 18:55:00 EDT by Robert Belle MD
[2017-10-13] MEDS ORDERED: FLUCONAZOLE IVPB SCH (09:00)
[2017-10-13 19:03] LABS: BUN/Creatinine Ratio 21 (6-26); Blood Urea Nitrogen 9 mg/dL (6-20); Calcium 8.6 mg/dL (8.6-10.3); Carbon Dioxide 36 mEq/L (23-29); Chloride 94 mEq/L (98-107); Glucose 81 mg/dL (70-105); Osmolality,Calculated 292 (280-300); Potassium 3.1 mEq/L (3.5-5.1); Sodium 142 mEq/L (136-145); eGFR For African Americans > 60 (> 60); eGFR For Non-African Americans > 60 (> 60)
--- NOTE | 2017-10-13 21:20 | Internal Med Progress Note ---
Date of Encounter: 10/13/17 Time of Encounter: 09:03 - Assessment and plan (1) Altered mental status Current Visit: Yes Status: Acute Qualifiers: Altered mental status type: coma Coma depth: [place] coma 9-12 Coma timing: at hospital admission Qualified Code(s): R40.2423 - Manoj coma scale score 9-12, at hospital admission (2) Candidemia Current Visit: Yes Status: Acute (3) History of bacteremia Current Visit: Yes Status: Chronic (4) Decubitus ulcer of ischium Current Visit: No Status: Chronic Qualifiers: Pressure ulcer stage: stage 2 Laterality: unspecified laterality Qualified Code(s): L89.302 - Pressure ulcer of unspecified buttock, stage 2 (5) Urinary tract infection Current Visit: No Status: Chronic Qualifiers: Urinary tract infection type: catheter-associated UTI Indwelling urinary catheter type: indwelling urethral catheter Encounter type: subsequent encounter Qualified Code(s): T83.511D - Infection and inflammatory reaction due to indwelling urethral catheter, subsequent encounter; N39.0 - Urinary tract infection, site not specified (6) Quadriplegia Current Visit: No Status: Chronic Code(s): G82.50 - Quadriplegia, unspecified - Subjective Interval history: Interval history: -Overnight he became more sob and cxr showed pulm. vascular congestion -IVF were d/c'd and lasix given -Breathing improved this am -He is still requiring increased O2 demand -A&Ox3 this am -Diaphoretic and febrile this am Assessment and Plan (1) Altered mental status Improved after holding all sedating medications Suspect oversedation (Baclofen, Tizanidine, Valium) vs sepsis No obvious focal deficits Continue hold all sedating drugs Reoccurance of previous infection also likely Continue Vanc and Merrem while cultures pending last dose of scheduled Fluconazole (from previous admission per D/C summary) given. Consider reconsulting ID tomorrow (2) Candidemia last dose of scheduled Fluconazole given (3) History of bacteremia Continue Merrem. Per d/c summary he has 2 more days of treatment. (4) Decubitus ulcer of ischium Pressure ulcer of unspecified buttock, stage 2 Wound care consulted (5) Urinary tract infection History of suprapubic catheter infection and ESBL E.coli UTI. . Continue current antibiotics. contact precautions. (6) Quadriplegia PT ordered. frequent positions changes - Constitutional Vitals: Temp Pulse Resp BP Pulse Ox 98.6 F 129 20 107/51 92 10/13/17 16:12 10/13/17 16:12 10/13/17 16:12 10/13/17 16:12 10/13/17 16:12 General appearance: Present: disheveled, A&O X 3 - Head Head exam: Present: atraumatic, normocephalic - Eye Eye exam: Present: EOMI, PERRL, conjuntiva pink, sclera anicteric Pupils: Present: PERRL - Neck Neck exam general surgery: Present: supple, trachea midline. Absent: lymphadenopathy - Respiratory Respiratory exam: Present: CTAB. Absent: accessory muscle use, rales, rhonchi, wheezes - Cardiovascular Cardiovascular exam: Present: RRR, +S1, +S2. Absent: diastolic murmur, gallop, rubs, systolic murmur - GI/Abdominal GI/Abdominal exam: Present: normal bowel sounds, soft, no peritoneal signs. Absent: distended, tenderness - Extremities Exam Extremities exam: Present: warm. Absent: calf tenderness, cyanotic, pedal edema - Neurological Exam Neurological exam: Present: CN II-XII intact, oriented X3, no focal deficits. Absent: pronater drift, facial droop, speech deficit - Skin Skin exam: Present: diaphoretic, intact Internal Medicine: Result - Labs CBC & Chem 7: 10/13/17 06:47 10/13/17 18:04 Labs: Short CBC 10/13/17 Range/Units 06:47 WBC 10.4 D (4.3-11.1) K/mcL Hgb 12.2 L (12.9-16.9) g/dL Hct 39.3 (37.5-50.1) % Plt Count 401 H (140-400) K/mcL Neutrophils # 7.1 (1.6-8.9) K/mcL BMP 10/13/17 10/13/17 06:47 18:04 Sodium 146 H 142 Potassium 3.5 3.1 L Chloride 103 94 L Carbon Dioxide 35 H 36 H BUN 8 9 Creatinine 0.43 L 0.42 L Glucose 83 81 Calcium 9.0 8.6 - ABG Interpretation ABG results: ABG ABG pH 7.37 pH Units (7.32-7.45) 10/12/17 13:14 ABG pCO2 60 mmHg (35-45) H 10/12/17 13:14 ABG pO2 93 mmHg (85-104) 10/12/17 13:14 ABG O2 Saturation 97 % (95-98) 10/12/17 13:14 PT/INR, D-dimer PT 11.7 Seconds (9.4-12.1) 10/12/17 13:56 - Impressions Impressions Chest X-Ray 10/13/17 02:27 IMPRESSION: Worsening pulmonary edema. D/ / Matt Toledo MD / Matt Toledo MD Interpreting Provider: Matt Toledo MD Consult Discharge Plan - Plan Referrals: Mauricio Melendrez MD [Primary Care Provider] -
[2017-10-13] MEDS ORDERED: *HR* FentaNYL (PF) 100 MCG/2 ML VIAL IVP ONE (21:44)
[2017-10-14] MEDS: Meropenem 1,000 MG in Water for inj. (sterile) 20 ML 10 ML IVP SCH ×3 (00:21→16:44)
[2017-10-14] MEDS: Vancomycin 500 MG in 0.9 % Sodium Chloride Mini Bag 100 ML IVPB SCH ×2 (04:05→16:45)
[2017-10-14] MEDS: (Lubiprostone [Amitiza] 24 MCG) PO SCH ×2 (05:51→15:39)
[2017-10-14 06:15] LABS: Basophils # 0.1 K/mcL (0.0-0.2); Basophils % 0.4 %; Eosinophils # 0.3 K/mcL (0.0-0.6); Eosinophils % 1.6 %; Hematocrit 36.3 % (37.5-50.1); Hemoglobin 11.5 g/dL (12.9-16.9); Immature Granulocytes % 0.4 % (0-4); Lymphocytes # 2.5 K/mcL (0.6-4.6); Lymphocytes % 14.9 %; Mean Corpuscular HGB Conc 31.7 g/dL (31.6-35.5); Mean Corpuscular Hemoglobin 28.1 pg (28.0-33.3); Mean Corpuscular Volume 88.8 fL (83.0-100.0); Mean Platelet Volume 8.8 fL (9.4-12.4); Monocytes # 2.1 K/mcL (0.0-1.3); Monocytes % 12.6 %; Neutrophils # 11.9 K/mcL (1.6-8.9); Platelet Count 385 K/mcL (140-400); Red Blood Count 4.09 M/mcL (4.19-5.50); Red Cell Distribution Width 16.3 % (11.5-14.5); Segmented Neutrophils % 70.1 %
[2017-10-14 06:34] LABS: Alanine Aminotransferase 23 Units/L (7-52); Albumin 3.6 g/dL (3.5-5.7); Albumin/Globulin Ratio 0.9 (1.1-2.2); Alkaline Phosphatase 66 Units/L (34-104); Aspartate Amino Transferase 25 Units/L (13-39); BUN/Creatinine Ratio 21 (6-26); Bilirubin,Total 0.5 mg/dL (0.3-1.0); Blood Urea Nitrogen 13 mg/dL (6-20); Calcium 9.3 mg/dL (8.6-10.3); Carbon Dioxide 36 mEq/L (23-29); Chloride 93 mEq/L (98-107); Globulin 4.2 g/dL (2.4-3.5); Glucose 80 mg/dL (70-105); Osmolality,Calculated 285 (280-300); Potassium 3.8 mEq/L (3.5-5.1); Sodium 138 mEq/L (136-145); Total Protein 7.8 g/dL (6.4-8.9); eGFR For African Americans > 60 (> 60); eGFR For Non-African Americans > 60 (> 60)
[2017-10-14] MEDS: Fluconazole 400 MG/200 ML 400 MG/200 ML BAG IVPB SCH (08:24)
[2017-10-14] MEDS: Sennosides 8.6 MG TABLET PO SCH ×2 (08:25→20:37)
[2017-10-14] MEDS: Lactobacillus 1 EACH CAP.SPRINK PO SCH ×2 (08:25→20:37)
[2017-10-14] MEDS: Vitamin B Complex/Vit C/Vit E 1 EACH TABLET PO SCH (08:25)
[2017-10-14] MEDS: Ascorbic Acid 500 MG TABLET PO SCH (08:26)
[2017-10-14] MEDS: *HR* HYDROmorphone 2 MG TABLET PO PRN (11:23)
[2017-10-14] MEDS ORDERED: diazePAM 5 MG TABLET PO PRN (11:52)
--- NOTE | 2017-10-14 12:00 | Internal Med Progress Note ---
Date of Encounter: 10/14/17 Time of Encounter: 11:54 - Assessment and plan (1) Altered mental status Current Visit: Yes Status: Acute Qualifiers: Altered mental status type: coma Coma depth: [place] coma 9-12 Coma timing: at hospital admission Qualified Code(s): R40.2423 - Manoj coma scale score 9-12, at hospital admission (2) Candidemia Current Visit: Yes Status: Acute (3) History of bacteremia Current Visit: Yes Status: Chronic (4) Decubitus ulcer of ischium Current Visit: No Status: Chronic Qualifiers: Pressure ulcer stage: stage 2 Laterality: unspecified laterality Qualified Code(s): L89.302 - Pressure ulcer of unspecified buttock, stage 2 (5) Urinary tract infection Current Visit: No Status: Chronic Qualifiers: Urinary tract infection type: catheter-associated UTI Indwelling urinary catheter type: indwelling urethral catheter Encounter type: subsequent encounter Qualified Code(s): T83.511D - Infection and inflammatory reaction due to indwelling urethral catheter, subsequent encounter; N39.0 - Urinary tract infection, site not specified (6) Quadriplegia Current Visit: No Status: Chronic Code(s): G82.50 - Quadriplegia, unspecified - Subjective Interval history: Interval history: 10/13/17: -Overnight he became more sob and cxr showed pulm. vascular congestion -IVF were d/c'd and lasix given -Breathing improved this am -He is still requiring increased O2 demand -A&Ox3 this am -Diaphoretic and febrile this am 10/14/17: c/o stump spasm (Tizanidin, valium and Baclofen all held at adm due to AMS) Restarted Still on 10 L HF-NC Weaning down today A&Ox3 and appropriate BP very high Afebrile today WBC trending upward CXR shows possible rt. mainstem mucous plug and consolidation. Radiology recommending CT-Chest be done. Ordered stat and night team alerted. May need bronch Assessment and Plan (1) Altered mental status Improved after holding all sedating medications Suspect oversedation (Baclofen, Tizanidine, Valium) vs sepsis No obvious focal deficits Restart Baclofen, Tizanidine, Valium due to spasms Urine and blood cx NTD Continue Vanc and Merrem while cultures pending last dose of scheduled Fluconazole given. Now d/c'd (2) Pneumonia: Right-sided PNA and possible rt. 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 . U. cx negative Continue current antibiotics. contact precautions. (6) Quadriplegia PT ordered. frequent positions changes Restarted antispasmotics - Constitutional Vitals: Temp Pulse Resp BP Pulse Ox 98.3 F 102 18 144/119 97 10/14/17 11:25 10/14/17 11:25 10/14/17 11:25 10/14/17 11:25 10/14/17 11:25 General appearance: Present: disheveled, A&O X 3 - Head Head exam: Present: atraumatic, normocephalic - Eye Eye exam: Present: PERRL, conjuntiva pink, sclera anicteric Pupils: Present: PERRL - Neck Neck exam general surgery: Present: supple, trachea midline. Absent: lymphadenopathy - Respiratory Respiratory exam: Present: decreased breath sounds. Absent: accessory muscle use, rales, rhonchi, wheezes Additional comments: Decreased LS at right base - Cardiovascular Cardiovascular exam: Present: RRR, +S1, +S2. Absent: diastolic murmur, gallop, rubs, systolic murmur - GI/Abdominal GI/Abdominal exam: Present: normal bowel sounds, soft, no peritoneal signs. Absent: distended, tenderness - Extremities Exam Extremities exam: Present: warm, radial pulses palpable and symmetrical. Absent : calf tenderness, cyanotic, pedal edema - Neurological Exam Neurological exam: Present: CN II-XII intact, oriented X3, no focal deficits. Absent: pronater drift, facial droop, speech deficit - Psychiatric Psychiatric exam: Present: normal affect, normal mood - Skin Skin exam: Present: dry, intact Internal Medicine: Result - Labs CBC & Chem 7: 10/14/17 06:04 10/14/17 06:04 Labs: Short CBC 10/14/17 Range/Units 06:04 WBC 17.0 H D (4.3-11.1) K/mcL Hgb 11.5 L (12.9-16.9) g/dL Hct 36.3 L (37.5-50.1) % Plt Count 385 (140-400) K/mcL Neutrophils # 11.9 H (1.6-8.9) K/mcL BMP 10/13/17 10/14/17 18:04 06:04 Sodium 142 138 Potassium 3.1 L 3.8 Chloride 94 L 93 L Carbon Dioxide 36 H 36 H BUN 9 13 Creatinine 0.42 L 0.62 L Glucose 81 80 Calcium 8.6 9.3 Liver Function 10/14/17 Range/Units 06:04 Total Bilirubin 0.5 (0.3-1.0) mg/dL AST 25 (13-39) Units/L ALT 23 (7-52) Units/L Alkaline Phosphatase 66 (34-104) Units/L Albumin 3.6 (3.5-5.7) g/dL - ABG Interpretation ABG results: ABG ABG pH 7.37 pH Units (7.32-7.45) 10/12/17 13:14 ABG pCO2 60 mmHg (35-45) H 10/12/17 13:14 ABG pO2 93 mmHg (85-104) 10/12/17 13:14 ABG O2 Saturation 97 % (95-98) 10/12/17 13:14 PT/INR, D-dimer PT 11.7 Seconds (9.4-12.1) 10/12/17 13:56 Consult Discharge Plan - Plan Referrals: Mauricio Melendrez MD [Primary Care Provider] -
[2017-10-14] MEDS: Levalbuterol Neb 0.63 MG/3 ML IH PRN ×2 (15:02→23:02)
[2017-10-14] MEDS: tiZANidine 4 MG TABLET PO SCH ×2 (16:45→22:53)
[2017-10-14] MEDS: Baclofen 10 MG TABLET PO SCH (22:53)
[2017-10-15] MEDS: Meropenem 1,000 MG in Water for inj. (sterile) 20 ML 10 ML IVP SCH ×3 (00:58→15:10)
[2017-10-15] MEDS: *HR* HYDROmorphone 2 MG TABLET PO PRN (01:07)
[2017-10-15] MEDS: Vancomycin 500 MG in 0.9 % Sodium Chloride Mini Bag 100 ML IVPB SCH ×2 (03:41→15:10)
[2017-10-15 04:23] LABS: Hematocrit 31.9 % (37.5-50.1); Hemoglobin 10.3 g/dL (12.9-16.9); Immature Granulocytes % 0.3 % (0-4); Lymphocytes % 16.7 %; Mean Corpuscular HGB Conc 32.3 g/dL (31.6-35.5); Mean Corpuscular Hemoglobin 28.1 pg (28.0-33.3); Mean Corpuscular Volume 87.2 fL (83.0-100.0); Mean Platelet Volume 8.6 fL (9.4-12.4); Monocytes % 14.3 %; Platelet Count 302 K/mcL (140-400); Red Blood Count 3.66 M/mcL (4.19-5.50); Red Cell Distribution Width 15.9 % (11.5-14.5); Segmented Neutrophils % 66.3 %
[2017-10-15 04:24] LABS: Basophils # 0.1 K/mcL (0.0-0.2); Basophils % 0.5 %; Eosinophils # 0.2 K/mcL (0.0-0.6); Eosinophils % 1.9 %; Lymphocytes # 1.7 K/mcL (0.6-4.6); Monocytes # 1.5 K/mcL (0.0-1.3); Neutrophils # 6.9 K/mcL (1.6-8.9)
[2017-10-15 04:41] LABS: BUN/Creatinine Ratio 22 (6-26); Blood Urea Nitrogen 11 mg/dL (6-20); Carbon Dioxide 36 mEq/L (23-29); Chloride 92 mEq/L (98-107); Glucose 89 mg/dL (70-105); Osmolality,Calculated 281 (280-300); Potassium 3.7 mEq/L (3.5-5.1); Sodium 136 mEq/L (136-145); eGFR For African Americans > 60 (> 60); eGFR For Non-African Americans > 60 (> 60)
[2017-10-15] MEDS: (Lubiprostone [Amitiza] 24 MCG) PO SCH ×2 (06:05→17:58)
--- NOTE | 2017-10-15 06:41 | Pulmonology Consult Note ---
Date of Encounter: 10/15/17 Time of Encounter: 06:40 Assessment and Plan (1) Pneumonia Current Visit: No Status: Ruled-out Agree with continuation of broad-spectrum antimicrobials with de-escalation planned upon microbial sensitivities please send sputum from suctioning if not every done so. Further antimicrobial recommendations based upon culture sensitivities from sputum and likely BAL Qualifiers: Pneumonia type: due to unspecified organism Laterality: left Lung location: upper lobe of lung Qualified Code(s): J18.1 - Lobar pneumonia, unspecified organism (2) Mucus plugging of bronchi Current Visit: Yes Status: Acute I personally reviewed the images of his CT scan notable for significant mucus impaction in the right mainstem bronchus with distal atelectasis/collapse . This is complicated by underlying neurological impairment with weak cough and suspected diaphragm impairment. A bronchoscopy is recommended. The procedure , risks, benefits, complications, and expected outcomes have been reviewed. Benefits of diagnosis, as well as risks to include bleeding, infection, pneumothorax which may require surgical intervention, and in a small population. The patient is aware that sometimes test is nondiagnostic. Discussed with patient and agrees to proceed. Please keep nothing by mouth at midnight for planned procedure tomorrow this is deemed nonemergent he would benefit from continued bronchopulmonary toilet including deep suctioning chest percussive therapy and bronchodilators which have discussed personally with the respiratory therapist History of Present Illness Consult date: 10/15/17 Requesting physician: Michael Leung Reason for consult: pneumonia, abnormal CXR/CT Chief complaint: Shortness of breath History of present illness: This is a 42-year-old gentleman with past medical history of quadriplegia (C3-4- 5 cervical injury) with recurrent UTIs and multidrug resistant infections. He was admitted with pneumonia chest x-ray performed yesterday for worsening hypoxemia was notable for mucus plugging followed by CT scan which confirmed near-total obstruction from mucus plugging on the right mainstem bronchus with persistent hypoxemia. Subsequent to this the patient says that he has had ability to cough up some mucus and has also been able to have suctioning that also removed some of the mucus. No history of significant recurrent pneumonia he says it happens "every once in a while" currently being treated with broad- spectrum antimicrobials with rosa oxygen saturation on 4-5 L in the mid to high 90s. When I spoke with the patient he was not in any distress and able to speak in full sentences Past Med Surg Social Fam HX - Past Medical History Medical history: cardiomyopathy, coronary artery disease, GERD, hyperlipidemia, hypertension, kidney stones, myocardial infarction, peripheral artery disease, renal disease, other Psychiatric history: depression, previous psychiatric hospitalization - Past Surgical History Surgical History: orthopedic, other, tracheostomy, other (Chronic SPT) - Social History Smoking Status: Former smoker Smokeless Tobacco Status: Yes (chew) Alcohol use: occasionally Drug use: marijuana - Family History Mother Living Status: Still Living Hx Family Respiratory Disorders: Yes Hx Family Cancer: Yes Hx Family Endocrine Disorder: Yes Medications and Allergies Ascorbic Acid [Vitamin C] 500 mg PO DAILY 05/23/15 [History] Bisacodyl [Dulcolax] 5 mg PO DAILY 05/23/15 [History] Lubiprostone [Amitiza] 24 mcg PO Q12HR 05/23/15 [History] Sennosides [Senna] 17.2 mg PO BID 05/23/15 [History] Acetaminophen [Tylenol] 650 mg PO Q6HR PRN 05/11/16 [History] GuaiFENesin ER [Mucinex] 600 mg PO DAILY 05/11/16 [History] Docusate [Colace] 100 mg PO BID 05/12/16 [History] Mirtazapine 7.5 mg PO DAILY 07/04/17 [History] Ferrous Gluconate 324 mg PO BID 09/21/17 [History] Omeprazole [PriLOSEC] 20 mg PO DAILY 09/21/17 [History] Promethazine [Phenergan] 25 mg PO Q6H PRN 09/21/17 [History] Vitamin B Complex/Minerals [Sm Stress Formula+Zinc Tablet] 1 each PO DAILY 09/21 [History] Baclofen 40 mg PO BID #120 tablet 10/09/17 [Rx] Fluconazole 400 MG/200 ML [Diflucan Premix 400 MG/200 ML] 400 mg IVPB DAILY #4 bag 10/09/17 [Rx] HYDROmorphone [Dilaudid] 2 mg PO Q4H PRN 7 Days #10 tablet 10/09/17 [Rx] Meropenem-0.9% Sodium Chloride [Meropenem-0.9% NaCl 1 Gram/50] 1 gm IV Q8H #15 piggyback 10/09/17 [Rx] Tizanidine HCl [Zanaflex] 6 mg PO TID #90 cap 10/09/17 [Rx] Vancomycin/0.9 % Sod Chloride [Vanco 500 mg/100 ml-0.9% NaCl] 500 mg IV BID #4 froz.piggy 10/09/17 [Rx] Lactobacillus Acidophilus [Acidophilus] 1 cap PO BID 10/12/17 [History] diazePAM [Valium] 5 mg PO Q6H PRN 10/12/17 [History] 3 Allergy/AdvReac Type Severity Reaction Status Date / Time Amoxicillin [From Amoxil] Allergy See Verified 10/12/17 11:25 Comments cephalexin [From Keflex] Allergy Hives Verified 10/12/17 11:25 ciprofloxacin [From Cipro] Allergy Hives Verified 10/12/17 11:25 cranberry Allergy See Verified 10/12/17 11:25 Comments ketorolac Allergy Hives Verified 10/12/17 11:25 morphine Allergy Hives Verified 10/12/17 11:25 nitrofurantoin Allergy Hives Verified 10/12/17 11:25 [From Macrobid] Oxycodone Allergy Hives Verified 10/12/17 11:25 Penicillins Allergy Hives Verified 10/12/17 11:25 prochlorperazine Allergy Hives Verified 10/12/17 11:25 [From Compazine] Sulfa (Sulfonamide Allergy Hives Verified 10/12/17 11:25 Antibiotics) trimethoprim Allergy Hives Verified 10/12/17 12:45 All Systems: The remainder of the systems were reviewed and are negative Physical Examination Vital Signs: Vital Signs, Last 4 Hours Temp Pulse Resp BP Pulse Ox 10/15/17 04:08 100 F H 116 16 94/65 97 General appearance: no acute distress Eyes: nonicteric ENT: oropharynx dry Neck: supple Effort: normal Auscultation: bilateral: diminished breath sounds, rhonchi Cardiovascular: regular rate and rhythm Gastrointestinal: normoactive bowel sounds Integumentary: other (He has multiple evidence of prior surgical scars and past scars of prior injuries crust the torso) Extremities: other (Bilateral AKA noted) normal mental status, non-focal exam, other (So evidence of stereotyped chewing behavior 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) Results - Laboratory Findings CBC and BMP: 10/15/17 04:11 10/15/17 04:11 ABG ABG pH 7.37 pH Units (7.32-7.45) 10/12/17 13:14 ABG pCO2 60 mmHg (35-45) H 10/12/17 13:14 ABG pO2 93 mmHg (85-104) 10/12/17 13:14 ABG O2 Saturation 97 % (95-98) 10/12/17 13:14 PT/INR, D-dimer PT 11.7 Seconds (9.4-12.1) 10/12/17 13:56 Abnormal lab findings: Abnormal lab results RBC 3.66 M/mcL (4.19-5.50) L 10/15/17 04:11 Hgb 10.3 g/dL (12.9-16.9) L 10/15/17 04:11 Hct 31.9 % (37.5-50.1) L 10/15/17 04:11 RDW 15.9 % (11.5-14.5) H 10/15/17 04:11 MPV 8.6 fL (9.4-12.4) L 10/15/17 04:11 Monocytes # 1.5 K/mcL (0.0-1.3) H 10/15/17 04:11 APTT 39.5 Seconds (26.0-36.0) H 10/12/17 13:56 ABG pCO2 60 mmHg (35-45) H 10/12/17 13:14 ABG HCO3 35 mEq/L (21-27) H 10/12/17 13:14 ABG Total CO2 37 mEq/L (20-26) H 10/12/17 13:14 ABG Base Excess 8 mEq/L (-2 to 3) H 10/12/17 13:14 Chloride 92 mEq/L (98-107) L 10/15/17 04:11 Carbon Dioxide 36 mEq/L (23-29) H 10/15/17 04:11 Creatinine 0.49 mg/dL (0.70-1.30) L 10/15/17 04:11 Globulin 4.2 g/dL (2.4-3.5) H 10/14/17 06:04 Albumin/Globulin Ratio 0.9 (1.1-2.2) L 10/14/17 06:04 Urine Clarity Cloudy (Clear) A 10/12/17 11:30 Urine Protein 30 mg/dL (Neg-Trace) H 10/12/17 11:30 Urine Ketones Trace mg/dL (Negative) H 10/12/17 11:30 Ur Leukocyte Esterase Moderate (Negative) H 10/12/17 11:30 Urine Microscopic RBC 5-15 per hpf (0-3) H 10/12/17 11:30 Urine Microscopic WBC TNTC per hpf (0-3) H 10/12/17 11:30 Ur Squamous Epith Cells Moderate per lpf (None-Few) H 10/12/17 11:30 Ur Culture Indicated? YES (NO) A 10/12/17 11:30 Urine Opiates Screen Positive ng/mL (Ypdzkk=921) H 10/12/17 11:30 U Benzodiazepines Scrn Positive ng/mL (Qlptcx=363) H 10/12/17 11:30 - Microbiology Findings Microbiology Findings: Microbiology, Last 48 Hours 10/12/17 13:56 Blood Culture - Preliminary Peripheral Venipuncture No growth. - Diagnostic Findings Chest x-ray: report reviewed, image reviewed CT scan - chest: report reviewed, image reviewed - Clinical Findings Intake & Output: Intake & Output 10/14/17 10/14/17 10/15/17 15:59 23:59 07:59 Intake Total 730 / 730 110 / 110 Output Total 250 / 250 250 / 250 150 / 150 Balance 480 / 480 -140 / -140 -150 / -150 Weight 44.1 kg Consult Discharge Plan - Plan Referrals: Mauricio Melendrez MD [Primary Care Provider] -
--- NOTE | 2017-10-15 08:02 | Internal Med Progress Note ---
Date of Encounter: 10/15/17 Time of Encounter: 07:57 - Assessment and plan (1) Altered mental status Current Visit: Yes Status: Acute Qualifiers: Altered mental status type: coma Coma depth: [place] coma 9-12 Coma timing: at hospital admission Qualified Code(s): R40.2423 - Manoj coma scale score 9-12, at hospital admission (2) Candidemia Current Visit: Yes Status: Acute (3) History of bacteremia Current Visit: Yes Status: Chronic (4) Decubitus ulcer of ischium Current Visit: No Status: Chronic Qualifiers: Pressure ulcer stage: stage 2 Laterality: unspecified laterality Qualified Code(s): L89.302 - Pressure ulcer of unspecified buttock, stage 2 (5) Urinary tract infection Current Visit: No Status: Chronic Qualifiers: Urinary tract infection type: catheter-associated UTI Indwelling urinary catheter type: indwelling urethral catheter Encounter type: subsequent encounter Qualified Code(s): T83.511D - Infection and inflammatory reaction due to indwelling urethral catheter, subsequent encounter; N39.0 - Urinary tract infection, site not specified (6) Quadriplegia Current Visit: No Status: Chronic Code(s): G82.50 - Quadriplegia, unspecified - Subjective Interval history: Interval history: 10/13/17: -Overnight he became more sob and cxr showed pulm. vascular congestion -IVF were d/c'd and lasix given -Breathing improved this am -He is still requiring increased O2 demand -A&Ox3 this am -Diaphoretic and febrile this am 10/14/17: c/o stump spasm (Tizanidine, valium and Baclofen all held at adm due to AMS) Restarted Still on 10 L HF-NC Weaning down today A&Ox3 and appropriate BP very high Afebrile today WBC trending upward CXR shows possible rt. mainstem mucous plug and consolidation. Radiology recommending CT-Chest be done. Ordered stat and night team alerted. May need bronch 10/15/2017: Supplemental O2 demand improved (4L NC) Febrile and diaphoretic Urine Cx Neg and Blood Cx NTD Stump spasms improved but not resolved following reintroduction of muscle relaxants. Assessment and Plan (1) Altered mental status Improved after holding all sedating medications Suspect oversedation (Baclofen, Tizanidine, Valium) vs sepsis No obvious focal deficits Restart Baclofen, Tizanidine, Valium due to spasms Urine and blood cx NTD Continue Vanc and Merrem while cultures pending last dose of scheduled Fluconazole given. Now d/c'd (2) Pneumonia: Right-sided PNA and possible rt. mainstem mucous plug ncreased O2 demand over past 24 hours On [address] Vanc [address]-Chest being done tonight Pulmonary Medicine consulted May need Bronched Breathing better with decreased supplemental O2 demand this am following deep suctining by RTR (3) History of bacteremia and Candidemia Camilo dose of scheduled Fluconazole given Blood cx NTDl Continue Vanc and Merrem (4) Decubitus ulcer of ischium Pressure ulcer of unspecified buttock, stage 2 Wound care consulted (5) Urinary tract infection History of suprapubic catheter infection and ESBL E.coli UTI. . U. cx negative Continue current antibiotics. contact precautions. (6) Quadriplegia PT ordered. frequent positions changes Restarted antispasmotics - Constitutional Vitals: Temp Pulse Resp BP Pulse Ox 100 F H 116 16 94/65 97 10/15/17 04:08 10/15/17 04:08 10/15/17 04:08 10/15/17 04:08 10/15/17 04:08 General appearance: Present: A&O X 3, pleasant, underweight, answers questions appropriately - Head Head exam: Present: atraumatic, normocephalic - Eye Eye exam: Present: EOMI, PERRL, conjuntiva pink, sclera anicteric Pupils: Present: PERRL - Neck Neck exam general surgery: Present: supple, trachea midline. Absent: lymphadenopathy, thyromegaly - Respiratory Respiratory exam: Present: decreased breath sounds. Absent: accessory muscle use, rales, rhonchi, wheezes Additional comments: Lung sounds decreased at right base - Cardiovascular Cardiovascular exam: Present: +S1, +S2, tachycardia. Absent: diastolic murmur, gallop, rubs, systolic murmur - GI/Abdominal GI/Abdominal exam: Present: normal bowel sounds, soft, no peritoneal signs. Absent: distended, tenderness - Extremities Exam Extremities exam: Present: warm, radial pulses palpable and symmetrical. Absent : cyanotic, pedal edema - Neurological Exam Neurological exam: Present: CN II-XII intact, oriented X3, no focal deficits. Absent: pronater drift, facial droop, speech deficit - Skin Skin exam: Present: diaphoretic, intact, rash, warm Internal Medicine: Result - Labs CBC & Chem 7: 10/15/17 04:11 10/15/17 04:11 Labs: Short CBC 10/15/17 Range/Units 04:11 WBC 10.3 (4.3-11.1) K/mcL Hgb 10.3 L (12.9-16.9) g/dL Hct 31.9 L (37.5-50.1) % Plt Count 302 (140-400) K/mcL Neutrophils # 6.9 (1.6-8.9) K/mcL BMP 10/15/17 04:11 Sodium 136 Potassium 3.7 Chloride 92 L Carbon Dioxide 36 H BUN 11 Creatinine 0.49 L Glucose 89 Calcium 9.0 - ABG Interpretation ABG results: ABG ABG pH 7.37 pH Units (7.32-7.45) 10/12/17 13:14 ABG pCO2 60 mmHg (35-45) H 10/12/17 13:14 ABG pO2 93 mmHg (85-104) 10/12/17 13:14 ABG O2 Saturation 97 % (95-98) 10/12/17 13:14 PT/INR, D-dimer PT 11.7 Seconds (9.4-12.1) 10/12/17 13:56 - Impressions Impressions Chest X-Ray 10/14/17 11:33 IMPRESSION: Truncation of the right mainstem bronchus may be secondary to mucus plugging with right-sided effusion and consolidation within the right lower lobe. Recommend CT scan to better evaluate. D/ / 10/14/2017 11:55:06 Mega Meyer MD / Pooja Owen Interpreting Provider: Mega Meyer MD Chest CT 10/14/17 21:06 IMPRESSION: 1. CT confirms presence of a large mucous plug within the right mainstem bronchus, extending into the bronchus intermedius. 2. Associated collapse and consolidation is present within the right lower lung. 3. Fullness of the left renal collecting system, better described on the previous CT from 10/05/2017. D/ / Kei Monk MD / Kei Monk MD Interpreting Provider: Kei Monk MD Consult Discharge Plan - Plan Referrals: Mauricio Melendrez MD [Primary Care Provider] -
[2017-10-15] MEDS: Fluconazole 400 MG/200 ML 400 MG/200 ML BAG IVPB SCH (08:14)
[2017-10-15] MEDS: Mirtazapine 15 MG TABLET PO SCH (08:15)
[2017-10-15] MEDS: Ascorbic Acid 500 MG TABLET PO SCH (08:15)
[2017-10-15] MEDS: Vitamin B Complex/Vit C/Vit E 1 EACH TABLET PO SCH (08:15)
[2017-10-15] MEDS: Lactobacillus 1 EACH CAP.SPRINK PO SCH ×2 (08:15→20:37)
[2017-10-15] MEDS: tiZANidine 4 MG TABLET PO SCH (08:15)
[2017-10-15] MEDS: Baclofen 10 MG TABLET PO SCH (08:16)
[2017-10-15] MEDS: Sennosides 8.6 MG TABLET PO SCH ×2 (08:16→20:37)
[2017-10-15] MEDS: Levalbuterol Neb 0.63 MG/3 ML IH PRN (09:45)
[2017-10-15] MEDS ORDERED: 0.9 % Sodium Chloride 250 ML ONE (11:08)
[2017-10-15] MEDS: Ipratropium/Albuterol Neb 3 ML IH SCH ×5 (12:04→23:28)
[2017-10-16] MEDS: Meropenem 1,000 MG in Water for inj. (sterile) 20 ML 10 ML IVP SCH ×3 (00:19→16:29)
[2017-10-16] MEDS: Vancomycin 500 MG in 0.9 % Sodium Chloride Mini Bag 100 ML IVPB SCH ×2 (03:51→16:30)
[2017-10-16] MEDS: Ipratropium/Albuterol Neb 3 ML IH SCH ×6 (04:07→23:33)
[2017-10-16 04:11] LABS: Basophils % 0.4 %; Eosinophils # 0.2 K/mcL (0.0-0.6); Eosinophils % 2.1 %; Hematocrit 34.5 % (37.5-50.1); Hemoglobin 10.6 g/dL (12.9-16.9); Immature Granulocytes % 0.3 % (0-4); Lymphocytes # 1.3 K/mcL (0.6-4.6); Lymphocytes % 13.8 %; Mean Corpuscular HGB Conc 30.7 g/dL (31.6-35.5); Mean Corpuscular Hemoglobin 27.5 pg (28.0-33.3); Mean Corpuscular Volume 89.4 fL (83.0-100.0); Mean Platelet Volume 8.8 fL (9.4-12.4); Monocytes # 1.5 K/mcL (0.0-1.3); Monocytes % 15.4 %; Neutrophils # 6.5 K/mcL (1.6-8.9); Platelet Count 317 K/mcL (140-400); Red Blood Count 3.86 M/mcL (4.19-5.50); Red Cell Distribution Width 15.3 % (11.5-14.5)
[2017-10-16 04:28] LABS: BUN/Creatinine Ratio 22 (6-26); Blood Urea Nitrogen 9 mg/dL (6-20); Calcium 9.1 mg/dL (8.6-10.3); Carbon Dioxide 36 mEq/L (23-29); Chloride 96 mEq/L (98-107); Glucose 91 mg/dL (70-105); Osmolality,Calculated 284 (280-300); Potassium 3.8 mEq/L (3.5-5.1); Sodium 138 mEq/L (136-145); eGFR For African Americans > 60 (> 60); eGFR For Non-African Americans > 60 (> 60)
[2017-10-16] MEDS: (Lubiprostone [Amitiza] 24 MCG) PO SCH ×2 (07:23→19:28)
[2017-10-16] MEDS: Lactobacillus 1 EACH CAP.SPRINK PO SCH ×2 (07:38→21:24)
[2017-10-16] MEDS: Sennosides 8.6 MG TABLET PO SCH ×2 (07:39→21:24)
[2017-10-16] MEDS: Ascorbic Acid 500 MG TABLET PO SCH (07:39)
[2017-10-16] MEDS: Vitamin B Complex/Vit C/Vit E 1 EACH TABLET PO SCH (07:39)
[2017-10-16] MEDS: Mirtazapine 15 MG TABLET PO SCH (07:39)
[2017-10-16] MEDS: *HR* Metoprolol 5 MG/5 ML VIAL IVP PRN (07:47)
--- NOTE | 2017-10-16 09:47 | Pre-Sedation Evaluation ---
Pre-sedation evaluation - Pre-sedation checklist Date of procedure: 10/16/17 Procedure: Bronchoscopy Recent Vitals: Last Vital Signs Temp 100.1 F H 10/16/17 07:23 Pulse 127 10/16/17 08:00 Resp 20 10/16/17 07:23 BP 164/114 10/16/17 07:23 Pulse Ox 96 10/16/17 08:00 H&P (including ROS) documented in medical record: Yes Previous reaction to sedatives/anesthetics: No Dietary Status: No solid food in preceding 4 hrs and no liquid in preceding 2 hrs Dentition: full dentition Possible difficult airway: No ASA Classification *see protocol: CLASS IV-Severe systemic disease/constant threat to pt's life Plan of Care: Pt appropriate candidate for procedure/moderate/conscious sedation , Risks/benefits of procedure/sedation discussed w/ patient/family
[2017-10-16] MEDS ORDERED: Tetracaine/Benzocaine/Butamben 200MG/SPRAY (100SPY/BOT) MM ONE (09:48)
[2017-10-16] MEDS ORDERED: *HR* EPINEPHrine 1 MG/10 ML SYRINGE INTRATRACH PRN (09:48)
[2017-10-16] MEDS ORDERED: Acetylcysteine 10% 2 ML INHSOL IH ONE (09:48)
[2017-10-16] MEDS ORDERED: *HR* Midazolam HCl 2 MG/2 ML VIAL IVP ONE (09:48)
--- NOTE | 2017-10-16 09:48 | History & Physical Report ---
Date of Encounter: 10/16/17 Time of Encounter: 09:48 24 Hour HP Update - Instructions Instructions: If the History and Physical is less than 30 days old and was completed prior to A.M. admission and or procedure and has NOT been updated on calendar day of procedure please complete this update prior to performing procedure. - Update Patient reports changes in Medical Condition: No Changes in examination, assessment, or condition: No Changes in Medication: No Preop tests/diagnostics Reviewed: Yes Surgery Remains Indicated: Yes - Pre-Operative Checklist Preoperative Checklist Indicated: No
--- NOTE | 2017-10-16 10:31 | Internal Med Progress Note ---
Date of Encounter: 10/16/17 Time of Encounter: 10:12 - Assessment and plan (1) Altered mental status Current Visit: Yes Status: Acute Qualifiers: Altered mental status type: coma Coma depth: [place] coma 9-12 Coma timing: at hospital admission Qualified Code(s): R40.2423 - Manoj coma scale score 9-12, at hospital admission (2) Candidemia Current Visit: No Status: Resolved Code(s): B37.7 - Candidal sepsis (3) History of bacteremia Current Visit: No Status: Chronic Code(s): Z87.898 - Personal history of other specified conditions (4) Decubitus ulcer of ischium Current Visit: No Status: Chronic Qualifiers: Pressure ulcer stage: stage 2 Laterality: unspecified laterality Qualified Code(s): L89.302 - Pressure ulcer of unspecified buttock, stage 2 (5) Urinary tract infection Current Visit: No Status: Chronic Qualifiers: Urinary tract infection type: catheter-associated UTI Indwelling urinary catheter type: indwelling urethral catheter Encounter type: subsequent encounter Qualified Code(s): T83.511D - Infection and inflammatory reaction due to indwelling urethral catheter, subsequent encounter; N39.0 - Urinary tract infection, site not specified (6) Quadriplegia Current Visit: No Status: Chronic Code(s): G82.50 - Quadriplegia, unspecified - Subjective Interval history: Interval history: 10/13/17: -Overnight he became more sob and cxr showed pulm. vascular congestion -IVF were d/c'd and lasix given -Breathing improved this am -He is still requiring increased O2 demand -A&Ox3 this am -Diaphoretic and febrile this am 10/14/17: c/o stump spasm (Tizanidine, valium and Baclofen all held at adm due to AMS) Restarted Still on 10 L HF-NC Weaning down today A&Ox3 and appropriate BP very high Afebrile today WBC trending upward CXR shows possible rt. mainstem mucous plug and consolidation. Radiology recommending CT-Chest be done. Ordered stat and night team alerted. May need bronch 10/15/2017: Supplemental O2 demand improved (4L NC) Febrile and diaphoretic Urine Cx Neg and Blood Cx NTD Stump spasms improved but not resolved following reintroduction of muscle relaxants. 10/16/2017: Fever overnight Tachycardic overnight Tizanidine, valium and Baclofen held again yesterday due to hypotension Now having stump spasms (restart Baclofen after Bronch. NPO now and he will likely get Versed prior to procedure) Bronch at 11 am Assessment and Plan (1) Altered mental status Improved after holding all sedating medications Suspect oversedation (Baclofen, Tizanidine, Valium) vs sepsis No obvious focal deficits Restart Baclofen, Tizanidine, Valium due to spasms Urine and blood cx NTD Continue Vanc and Merrem while cultures pending last dose of scheduled Fluconazole given. Now d/c'd Resolved now. (2) Pneumonia: (HCAP): Right-sided PNA and possible rt. mainstem mucous plug ncreased O2 demand over past 24 hours [address] [place]-Chest being done tonight Collapse and consolidation noted at rt. lower lobe Pulmonary Medicine consulted May need Bronched Breathing better with decreased supplemental O2 demand this am following deep suctioning by RTR Continue Vanc and Merrem (3) History of bacteremia and Candidemia Camilo dose of scheduled Fluconazole given Blood cx NTDl Continue Vanc and Merrem (4) Decubitus ulcer of ischium Pressure ulcer of unspecified buttock, stage 2 Wound care consulted (5) Urinary tract infection History of suprapubic catheter infection and ESBL E.coli UTI. . U. cx negative Continue current antibiotics. contact precautions. (6) Quadriplegia PT ordered. frequent positions changes Restarted antispasmotics when no longer NPO - Constitutional Vitals: Temp Pulse Resp BP Pulse Ox 100.1 F H 127 20 164/114 96 10/16/17 07:23 10/16/17 08:00 10/16/17 07:23 10/16/17 07:23 10/16/17 08:00 General appearance: Present: A&O X 3, pleasant, underweight, answers questions appropriately - Head Head exam: Present: atraumatic, normocephalic - Eye Eye exam: Present: PERRL, conjuntiva pink, sclera anicteric Pupils: Present: PERRL - Neck Neck exam general surgery: Present: supple, trachea midline. Absent: lymphadenopathy - Respiratory Respiratory exam: Present: CTAB. Absent: accessory muscle use, rales, rhonchi, wheezes - Cardiovascular Cardiovascular exam: Present: RRR, +S1, +S2. Absent: diastolic murmur, gallop, rubs, systolic murmur - GI/Abdominal GI/Abdominal exam: Present: normal bowel sounds, soft, no peritoneal signs. Absent: distended, tenderness - Extremities Exam Extremities exam: Present: warm, radial pulses palpable and symmetrical. Absent : calf tenderness, cyanotic, pedal edema - Neurological Exam Neurological exam: Present: CN II-XII intact, oriented X3, no focal deficits. Absent: pronater drift, facial droop, speech deficit Additional comments: Stump spasms again since antispasmotics held - Skin Skin exam: Present: dry, intact Internal Medicine: Result - Labs CBC & Chem 7: 10/16/17 03:39 10/16/17 03:39 Labs: Short CBC 10/16/17 Range/Units 03:39 WBC 9.6 (4.3-11.1) K/mcL Hgb 10.6 L (12.9-16.9) g/dL Hct 34.5 L (37.5-50.1) % Plt Count 317 (140-400) K/mcL Neutrophils # 6.5 (1.6-8.9) K/mcL BMP 10/16/17 03:39 Sodium 138 Potassium 3.8 Chloride 96 L Carbon Dioxide 36 H BUN 9 Creatinine 0.41 L Glucose 91 Calcium 9.1 - ABG Interpretation ABG results: ABG ABG pH 7.37 pH Units (7.32-7.45) 10/12/17 13:14 ABG pCO2 60 mmHg (35-45) H 10/12/17 13:14 ABG pO2 93 mmHg (85-104) 10/12/17 13:14 ABG O2 Saturation 97 % (95-98) 10/12/17 13:14 PT/INR, D-dimer PT 11.7 Seconds (9.4-12.1) 10/12/17 13:56 - Impressions Impressions Chest X-Ray 10/16/17 06:42 IMPRESSION: Mucous plugging seen involving the right mainstem bronchus with complete collapse of the right lower lobe and right middle lobe more pronounced than on the prior exam D/ / Mega Meyer MD / Mega Meyer MD Interpreting Provider: Mega Meyer MD Consult Discharge Plan - Plan Referrals: Mauricio Melendrez MD [Primary Care Provider] -
[2017-10-16] MEDS ORDERED: *HR* Midazolam HCl 5 MG/5 ML VIAL IVP ONE ×3 (11:33→14:15)
[2017-10-16] MEDS ORDERED: *HR* FentaNYL (PF) 100 MCG/2 ML VIAL ONE ×2 (11:34→14:11)
[2017-10-16] MEDS ORDERED: Lidocaine Viscous Oral Soln 15 ML SOLUTION ONE (11:34)
[2017-10-16] MEDS: *HR* FentaNYL (PF) 100 MCG/2 ML VIAL IVP ONE ×2 (12:00→12:57)
[2017-10-16] MEDS: 0.9 % Sodium Chloride 500 ML IVC SCH ×2 (12:42→21:25)
[2017-10-16] MEDS: Ringers Solution, Lactated 1,000 ML IVC SCH (12:53)
[2017-10-16] MEDS: Phenylephrine 10 MG in D5% in Water 250 ML IVC SCH (12:54)
--- NOTE | 2017-10-16 14:05 | Pulmonology Progress Note ---
Date of Encounter: 10/16/17 Time of Encounter: 14:01 Assessment and Plan (1) Mucus plugging of bronchi Current Visit: Yes Status: Acute Plan to repeat bronchoscopy at this time given significant difficulty with expectorating mucus and noted hypoxia. Endoscopy team notified (2) Pneumonia Current Visit: Yes Status: Acute Continue broad-spectrum antimicrobials and plan a de-escalate based upon culture and sensitivity Qualifiers: Laterality: right Lung location: unspecified part of lung Qualified Code( s): J18.9 - Pneumonia, unspecified organism (3) Cardiac arrest Current Visit: Yes Status: Acute This is likely secondary to acute mucous plug and hypoxemia which quickly resolved I do not think this is cardiac etiology chest x-ray EKG CBC CMP and troponin along with lactate were all ordered patient is back to near baseline prior to the event (4) Hypotension Current Visit: Yes Status: Acute Briefly hypotensive during bronchoscopy which was sedation related for next bronchoscopy phenylephrine will be available if needed for any episodic hypotension Qualifiers: Hypotension type: unspecified hypotension type Qualified Code(s): I95.9 - Hypotension, unspecified Subjective Principal diagnosis: Pneumonia Interval history: In the late afternoon patient underwent bronchoscopy which was notable for significant mucus impaction in the right mainstem bronchus down into the right lower lobe partial clearing of's this obstruction was achieved through suctioning however patient did become hypotensive during the procedure which resulted in termination. Fluid resuscitation was started however the patient had to be transferred to the ICU because the IV palms were not working correctly to control he infusion rate of crystalloid patient was transferred to ICU and briefly started on phenylephrine and of fluid bolus and was quickly weaned off phenylephrine and then blood pressure is stabilized and patient was saturating well on nasal cannula O2 support. I was called to the room because the patient had started to have difficulty in breathing and had noted hypoxia when I enter the room the patient was unresponsive and cyanotic and pulse could not be detected and CPR was started with with essentially three chest compressions given and return of spontaneous circulation and appears the patient had a mucous plug and hypoxia had induced the brief cardiac arrest. Patient quickly became and was fully awake and alert after this as we were preparing to perform intubation and he clearly expressed to all in the room that he did not want intubation performed although this was not currently his CODE STATUS this is the understanding of many of the staff in the room from prior admissions and reiterated by the patient himself verbally. Again it was was clear by this point he was following all commands and fully alert and able to make decisions. Objective PUL Vital signs: Last Vital Signs Temp 98.2 F 10/16/17 12:25 Pulse 115 10/16/17 13:45 Resp 16 10/16/17 13:45 BP 150/112 10/16/17 13:45 Pulse Ox 92 10/16/17 13:45 General appearance: other (Patient has had difficulty trying to expectorate phlegm/cough and is uncomfortable from the standpoint) ENT: oropharynx dry Auscultation: left: rhonchi, right: diminished breath sounds Cardiovascular: regular rate and rhythm Gastrointestinal: hypoactive bowel sounds other (Patient is quadriplegic at baseline) Results - Laboratory Findings CBC and BMP: 10/16/17 03:39 10/16/17 03:39 ABG ABG pH 7.37 pH Units (7.32-7.45) 10/12/17 13:14 ABG pCO2 60 mmHg (35-45) H 10/12/17 13:14 ABG pO2 93 mmHg (85-104) 10/12/17 13:14 ABG O2 Saturation 97 % (95-98) 10/12/17 13:14 PT/INR, D-dimer PT 11.7 Seconds (9.4-12.1) 10/12/17 13:56 Abnormal lab findings: Abnormal lab results RBC 3.86 M/mcL (4.19-5.50) L 10/16/17 03:39 Hgb 10.6 g/dL (12.9-16.9) L 10/16/17 03:39 Hct 34.5 % (37.5-50.1) L 10/16/17 03:39 MCH 27.5 pg (28.0-33.3) L 10/16/17 03:39 MCHC 30.7 g/dL (31.6-35.5) L 10/16/17 03:39 RDW 15.3 % (11.5-14.5) H 10/16/17 03:39 MPV 8.8 fL (9.4-12.4) L 10/16/17 03:39 Monocytes # 1.5 K/mcL (0.0-1.3) H 10/16/17 03:39 APTT 39.5 Seconds (26.0-36.0) H 10/12/17 13:56 ABG pCO2 60 mmHg (35-45) H 10/12/17 13:14 ABG HCO3 35 mEq/L (21-27) H 10/12/17 13:14 ABG Total CO2 37 mEq/L (20-26) H 10/12/17 13:14 ABG Base Excess 8 mEq/L (-2 to 3) H 10/12/17 13:14 Chloride 96 mEq/L (98-107) L 10/16/17 03:39 Carbon Dioxide 36 mEq/L (23-29) H 10/16/17 03:39 Creatinine 0.41 mg/dL (0.70-1.30) L 10/16/17 03:39 Globulin 4.2 g/dL (2.4-3.5) H 10/14/17 06:04 Albumin/Globulin Ratio 0.9 (1.1-2.2) L 10/14/17 06:04 Urine Clarity Cloudy (Clear) A 10/12/17 11:30 Urine Protein 30 mg/dL (Neg-Trace) H 10/12/17 11:30 Urine Ketones Trace mg/dL (Negative) H 10/12/17 11:30 Ur Leukocyte Esterase Moderate (Negative) H 10/12/17 11:30 Urine Microscopic RBC 5-15 per hpf (0-3) H 10/12/17 11:30 Urine Microscopic WBC TNTC per hpf (0-3) H 10/12/17 11:30 Ur Squamous Epith Cells Moderate per lpf (None-Few) H 10/12/17 11:30 Ur Culture Indicated? YES (NO) A 10/12/17 11:30 Urine Opiates Screen Positive ng/mL (Uzcnts=526) H 10/12/17 11:30 U Benzodiazepines Scrn Positive ng/mL (Gqyoln=085) H 10/12/17 11:30 - Clinical Findings Intake & Output: Intake & Output 10/15/17 10/16/17 10/16/17 23:59 07:59 15:59 Intake Total 100 / 100 10 / 10 200 / 200 Output Total 550 / 550 1100 / 1100 Balance -450 / -450 -1090 / -1090 200 / 200 Weight 43.9 kg Consult Discharge Plan - Plan Referrals: Mauricio Melendrez MD [Primary Care Provider] -
[2017-10-16] MEDS ORDERED: *HR* FentaNYL (PF) 100 MCG/2 ML VIAL IVP ONE (14:15)
[2017-10-16] MEDS ORDERED: Lidocaine -MPF 2% 5 ML VIAL ONE ×2 (14:16)
[2017-10-16 15:26] LABS: Basophils # 0.1 K/mcL (0.0-0.2); Basophils % 0.4 %; Eosinophils # 0.2 K/mcL (0.0-0.6); Eosinophils % 1.5 %; Hematocrit 33.9 % (37.5-50.1); Hemoglobin 10.4 g/dL (12.9-16.9); Immature Granulocytes % 0.4 % (0-4); Lymphocytes # 1.7 K/mcL (0.6-4.6); Lymphocytes % 13.7 %; Mean Corpuscular HGB Conc 30.7 g/dL (31.6-35.5); Mean Corpuscular Volume 91.4 fL (83.0-100.0); Mean Platelet Volume 8.7 fL (9.4-12.4); Monocytes # 1.5 K/mcL (0.0-1.3); Monocytes % 12.2 %; Neutrophils # 8.8 K/mcL (1.6-8.9); Platelet Count 277 K/mcL (140-400); Red Blood Count 3.71 M/mcL (4.19-5.50); Red Cell Distribution Width 15.1 % (11.5-14.5); Segmented Neutrophils % 71.8 %
[2017-10-16 15:46] LABS: Alanine Aminotransferase 38 Units/L (7-52); Albumin 3.2 g/dL (3.5-5.7); Albumin/Globulin Ratio 0.9 (1.1-2.2); Alkaline Phosphatase 66 Units/L (34-104); Aspartate Amino Transferase 71 Units/L (13-39); BUN/Creatinine Ratio 24 (6-26); Bilirubin,Total 0.3 mg/dL (0.3-1.0); Blood Urea Nitrogen 8 mg/dL (6-20); Calcium 8.1 mg/dL (8.6-10.3); Carbon Dioxide 35 mEq/L (23-29); Chloride 97 mEq/L (98-107); Globulin 3.7 g/dL (2.4-3.5); Glucose 100 mg/dL (70-105); Osmolality,Calculated 284 (280-300); Potassium 3.6 mEq/L (3.5-5.1); Sodium 138 mEq/L (136-145); Total Protein 6.9 g/dL (6.4-8.9); eGFR For African Americans > 60 (> 60); eGFR For Non-African Americans > 60 (> 60)
[2017-10-16 15:48] LABS: Troponin I 0.04 ng/mL (< 0.04)
[2017-10-16] MEDS ORDERED: methylPREDNISolone 125 MG/2 ML VIAL IVP ONE (17:18)
[2017-10-16 20:14] LABS: Alanine Aminotransferase 33 Units/L (7-52); Albumin 3.2 g/dL (3.5-5.7); Albumin/Globulin Ratio 0.9 (1.1-2.2); Alkaline Phosphatase 59 Units/L (34-104); Aspartate Amino Transferase 48 Units/L (13-39); BUN/Creatinine Ratio 22 (6-26); Bilirubin,Total 0.4 mg/dL (0.3-1.0); Blood Urea Nitrogen 8 mg/dL (6-20); Calcium 8.4 mg/dL (8.6-10.3); Carbon Dioxide 38 mEq/L (23-29); Chloride 93 mEq/L (98-107); Globulin 3.6 g/dL (2.4-3.5); Glucose 83 mg/dL (70-105); Osmolality,Calculated 281 (280-300); Potassium 3.8 mEq/L (3.5-5.1); Sodium 137 mEq/L (136-145); Total Protein 6.8 g/dL (6.4-8.9); eGFR For African Americans > 60 (> 60); eGFR For Non-African Americans > 60 (> 60)
[2017-10-17] MEDS: Meropenem 1,000 MG in Water for inj. (sterile) 20 ML 10 ML IVP SCH ×4 (00:15→23:59)
[2017-10-17] MEDS: Ipratropium/Albuterol Neb 3 ML IH SCH ×5 (04:26→20:08)
[2017-10-17] MEDS: Vancomycin 500 MG in 0.9 % Sodium Chloride Mini Bag 100 ML IVPB SCH ×2 (05:06→16:50)
[2017-10-17 05:39] LABS: Basophils % 0.1 %; Hematocrit 31.3 % (37.5-50.1); Hemoglobin 9.7 g/dL (12.9-16.9); Immature Granulocytes % 0.6 % (0-4); Lymphocytes # 0.7 K/mcL (0.6-4.6); Lymphocytes % 9.3 %; Mean Corpuscular Hemoglobin 28.1 pg (28.0-33.3); Mean Corpuscular Volume 90.7 fL (83.0-100.0); Mean Platelet Volume 9.1 fL (9.4-12.4); Monocytes # 0.2 K/mcL (0.0-1.3); Monocytes % 2.2 %; Neutrophils # 6.3 K/mcL (1.6-8.9); Platelet Count 287 K/mcL (140-400); Red Blood Count 3.45 M/mcL (4.19-5.50); Red Cell Distribution Width 14.7 % (11.5-14.5); Segmented Neutrophils % 87.8 %
[2017-10-17 05:57] LABS: Alanine Aminotransferase 29 Units/L (7-52); Albumin 3.2 g/dL (3.5-5.7); Albumin/Globulin Ratio 0.8 (1.1-2.2); Alkaline Phosphatase 60 Units/L (34-104); Aspartate Amino Transferase 33 Units/L (13-39); BUN/Creatinine Ratio 19 (6-26); Bilirubin,Total 0.3 mg/dL (0.3-1.0); Blood Urea Nitrogen 7 mg/dL (6-20); Calcium 8.8 mg/dL (8.6-10.3); Carbon Dioxide 33 mEq/L (23-29); Chloride 94 mEq/L (98-107); Globulin 3.9 g/dL (2.4-3.5); Glucose 86 mg/dL (70-105); Osmolality,Calculated 279 (280-300); Potassium 3.9 mEq/L (3.5-5.1); Sodium 136 mEq/L (136-145); Total Protein 7.1 g/dL (6.4-8.9); eGFR For African Americans > 60 (> 60); eGFR For Non-African Americans > 60 (> 60)
[2017-10-17 06:05] LABS: Troponin I < 0.03 ng/mL (< 0.04)
[2017-10-17] MEDS: Ringers Solution, Lactated 1,000 ML IVC SCH ×2 (06:32→16:28)
[2017-10-17] MEDS: (Lubiprostone [Amitiza] 24 MCG) PO SCH (06:32)
--- NOTE | 2017-10-17 08:35 | Pulmonology Progress Note ---
Date of Encounter: 10/17/17 Time of Encounter: 08:35 Assessment and Plan (1) Mucus plugging of bronchi Current Visit: Yes Status: Acute Patient underwent extensive suctioning of right tracheobronchial tree with almost complete improvement subsequent to bronchoscopy. Unfortunately given complications of underlying quadriplegia poor cough and acute pneumonia. This is further complicated by patient's refusal of bronchopulmonary toileting including nebulizer treatments and percussive therapy. Steroids have helped improve oxygenation and air entry post bronchoscopy which we will continue in IV formulation (2) Pneumonia Current Visit: Yes Status: Acute Continue broad-spectrum antimicrobials and plan a de-escalate based upon culture and sensitivity. Results of bronchial washing pending at this time Qualifiers: Laterality: right Lung location: unspecified part of lung Qualified Code( s): J18.9 - Pneumonia, unspecified organism (3) Cardiac arrest Current Visit: Yes Status: Acute This was extremely transient event and related to acute hypoxia leading to asystole does not appear to be any sequelae at this juncture. Troponin was very modestly elevated has normalized today; lactate normal (4) Hypotension Current Visit: Yes Status: Acute Briefly hypotensive during bronchoscopy which was sedation phenylephrine will be available if needed for any episodic hypotension Stable for transfer back to stepdown unit for ongoing care I discussed the case with Dr. Leung and the admitting hospitalist Dr. Tan Qualifiers: Hypotension type: unspecified hypotension type Qualified Code(s): I95.9 - Hypotension, unspecified Subjective Principal diagnosis: Pneumonia Interval history: Overnight overall clinical course has stabilized. His oxygen saturation is been stable on oxygen mask in the low 90s. Repeat chest x-ray notable for continued atelectasis on right side. Blood pressure has normalized. He denies complaints today Objective PUL Vital signs: Last Vital Signs Temp 98.2 F 10/17/17 07:00 Pulse 117 10/17/17 06:00 Resp 24 10/17/17 06:00 BP 110/85 10/17/17 06:00 Pulse Ox 95 10/17/17 06:00 General appearance: no acute distress ENT: oropharynx dry Effort: mildly labored Auscultation: left: rhonchi, right: diminished breath sounds Cardiovascular: regular rate and rhythm Extremities: anasarca other (chronic quadraplegia) Results - Laboratory Findings CBC and BMP: 10/17/17 04:00 10/17/17 04:00 ABG ABG pH 7.37 pH Units (7.32-7.45) 10/12/17 13:14 ABG pCO2 60 mmHg (35-45) H 10/12/17 13:14 ABG pO2 93 mmHg (85-104) 10/12/17 13:14 ABG O2 Saturation 97 % (95-98) 10/12/17 13:14 PT/INR, D-dimer PT 11.7 Seconds (9.4-12.1) 10/12/17 13:56 Abnormal lab findings: Abnormal lab results RBC 3.45 M/mcL (4.19-5.50) L 10/17/17 04:00 Hgb 9.7 g/dL (12.9-16.9) L 10/17/17 04:00 Hct 31.3 % (37.5-50.1) L 10/17/17 04:00 MCHC 31.0 g/dL (31.6-35.5) L 10/17/17 04:00 RDW 14.7 % (11.5-14.5) H 10/17/17 04:00 MPV 9.1 fL (9.4-12.4) L 10/17/17 04:00 APTT 39.5 Seconds (26.0-36.0) H 10/12/17 13:56 ABG pCO2 60 mmHg (35-45) H 10/12/17 13:14 ABG HCO3 35 mEq/L (21-27) H 10/12/17 13:14 ABG Total CO2 37 mEq/L (20-26) H 10/12/17 13:14 ABG Base Excess 8 mEq/L (-2 to 3) H 10/12/17 13:14 Chloride 94 mEq/L (98-107) L 10/17/17 04:00 Carbon Dioxide 33 mEq/L (23-29) H 10/17/17 04:00 Creatinine 0.36 mg/dL (0.70-1.30) L 10/17/17 04:00 Calculated Osmolality 279 (280-300) L 10/17/17 04:00 Albumin 3.2 g/dL (3.5-5.7) L 10/17/17 04:00 Globulin 3.9 g/dL (2.4-3.5) H 10/17/17 04:00 Albumin/Globulin Ratio 0.8 (1.1-2.2) L 10/17/17 04:00 Urine Clarity Cloudy (Clear) A 10/12/17 11:30 Urine Protein 30 mg/dL (Neg-Trace) H 10/12/17 11:30 Urine Ketones Trace mg/dL (Negative) H 10/12/17 11:30 Ur Leukocyte Esterase Moderate (Negative) H 10/12/17 11:30 Urine Microscopic RBC 5-15 per hpf (0-3) H 10/12/17 11:30 Urine Microscopic WBC TNTC per hpf (0-3) H 10/12/17 11:30 Ur Squamous Epith Cells Moderate per lpf (None-Few) H 10/12/17 11:30 Ur Culture Indicated? YES (NO) A 10/12/17 11:30 Urine Opiates Screen Positive ng/mL (Ezqsve=928) H 10/12/17 11:30 U Benzodiazepines Scrn Positive ng/mL (Fupbik=894) H 10/12/17 11:30 - Diagnostic Findings Chest x-ray: report reviewed, image reviewed - Clinical Findings Intake & Output: Intake & Output 10/16/17 10/17/17 10/17/17 23:59 07:59 15:59 Intake Total 110 / 110 110 / 110 Output Total 475 / 475 625 / 625 Balance -365 / -365 -515 / -515 Weight 43 kg Consult Discharge Plan - Plan Referrals: Mauricio Melendrez MD [Primary Care Provider] -
[2017-10-17] MEDS: Ascorbic Acid 500 MG TABLET PO SCH (08:45)
[2017-10-17] MEDS: Vitamin B Complex/Vit C/Vit E 1 EACH TABLET PO SCH (08:46)
[2017-10-17] MEDS: Lactobacillus 1 EACH CAP.SPRINK PO SCH ×2 (08:46→20:06)
[2017-10-17] MEDS: Sennosides 8.6 MG TABLET PO SCH ×2 (08:46→20:05)
[2017-10-17] MEDS: Mirtazapine 15 MG TABLET PO SCH (08:46)
[2017-10-17] MEDS: Phenylephrine 10 MG in D5% in Water 250 ML IVC SCH ×2 (08:54→16:28)
[2017-10-17] MEDS: 0.9 % Sodium Chloride 500 ML IVC SCH (08:54)
[2017-10-17] MEDS ORDERED: 0.9 % Sodium Chloride 500 ML IVC SCH (10:56)
[2017-10-17] MEDS ORDERED: *HR* Metoprolol 5 MG/5 ML VIAL IVP PRN (10:56)
[2017-10-17] MEDS ORDERED: diazePAM 5 MG TABLET PO PRN (10:56)
[2017-10-17] MEDS ORDERED: *HR* EPINEPHrine 1 MG/10 ML SYRINGE INTRATRACH PRN (10:56)
[2017-10-17] MEDS ORDERED: Levalbuterol Neb 0.63 MG/3 ML IH PRN (10:56)
[2017-10-17] MEDS ORDERED: Acetaminophen 325 MG TABLET PO PRN (10:56)
[2017-10-17] MEDS ORDERED: methylPREDNISolone 125 MG/2 ML VIAL IVP SCH (16:00)
[2017-10-17] MEDS: methylPREDNISolone 125 MG/2 ML VIAL IVP SCH ×2 (16:49→23:59)
[2017-10-17] MEDS: tiZANidine 4 MG TABLET PO SCH ×2 (16:49→20:05)
[2017-10-17] MEDS: Lubiprostone [Amitiza] 24 MCG PO SCH (18:35)
[2017-10-17] MEDS: Baclofen 10 MG TABLET PO SCH (20:05)
[2017-10-17] MEDS: *HR* HYDROmorphone 2 MG TABLET PO PRN (23:59)
[2017-10-18] MEDS: Ipratropium/Albuterol Neb 3 ML IH SCH ×6 (00:01→19:39)
[2017-10-18] MEDS: Lubiprostone [Amitiza] 24 MCG PO SCH ×2 (03:42→14:11)
[2017-10-18] MEDS: Vancomycin 500 MG in 0.9 % Sodium Chloride Mini Bag 100 ML IVPB SCH ×2 (05:59→15:40)
[2017-10-18] MEDS: methylPREDNISolone 125 MG/2 ML VIAL IVP SCH ×3 (09:09→23:47)
[2017-10-18] MEDS: Meropenem 1,000 MG in Water for inj. (sterile) 20 ML 10 ML IVP SCH ×3 (09:09→23:47)
[2017-10-18] MEDS: Sennosides 8.6 MG TABLET PO SCH ×2 (09:10→20:08)
[2017-10-18] MEDS: Ascorbic Acid 500 MG TABLET PO SCH (09:10)
[2017-10-18] MEDS: Mirtazapine 15 MG TABLET PO SCH (09:11)
[2017-10-18] MEDS: Vitamin B Complex/Vit C/Vit E 1 EACH TABLET PO SCH (09:11)
[2017-10-18] MEDS: Baclofen 10 MG TABLET PO SCH ×2 (09:11→20:07)
[2017-10-18] MEDS: Lactobacillus 1 EACH CAP.SPRINK PO SCH ×2 (09:11→20:08)
[2017-10-18] MEDS: tiZANidine 4 MG TABLET PO SCH ×3 (09:12→20:06)
--- NOTE | 2017-10-18 09:41 | Internal Med Progress Note ---
Date of Encounter: 10/18/17 Time of Encounter: 09:25 - Assessment and plan (1) Altered mental status Current Visit: Yes Status: Acute Qualifiers: Altered mental status type: coma Coma depth: [place] coma 9-12 Coma timing: at hospital admission Qualified Code(s): R40.2423 - Manoj coma scale score 9-12, at hospital admission (2) History of bacteremia Current Visit: No Status: Chronic Code(s): Z87.898 - Personal history of other specified conditions (3) Decubitus ulcer of ischium Current Visit: No Status: Chronic Qualifiers: Pressure ulcer stage: stage 2 Laterality: unspecified laterality Qualified Code(s): L89.302 - Pressure ulcer of unspecified buttock, stage 2 (4) Urinary tract infection Current Visit: No Status: Chronic Qualifiers: Urinary tract infection type: catheter-associated UTI Indwelling urinary catheter type: indwelling urethral catheter Encounter type: subsequent encounter Qualified Code(s): T83.511D - Infection and inflammatory reaction due to indwelling urethral catheter, subsequent encounter; N39.0 - Urinary tract infection, site not specified (5) Quadriplegia Current Visit: No Status: Chronic Code(s): G82.50 - Quadriplegia, unspecified - Subjective Interval history: Interval history: 10/13/17: -Overnight he became more sob and cxr showed pulm. vascular congestion -IVF were d/c'd and lasix given -Breathing improved this am -He is still requiring increased O2 demand -A&Ox3 this am -Diaphoretic and febrile this am 10/14/17: c/o stump spasm (Tizanidine, valium and Baclofen all held at adm due to AMS) Restarted Still on 10 L HF-NC Weaning down today A&Ox3 and appropriate BP very high Afebrile today WBC trending upward CXR shows possible rt. mainstem mucous plug and consolidation. Radiology recommending CT-Chest be done. Ordered stat and night team alerted. May need bronch 10/15/2017: Supplemental O2 demand improved (4L NC) Febrile and diaphoretic Urine Cx Neg and Blood Cx NTD Stump spasms improved but not resolved following reintroduction of muscle relaxants. 10/16/2017: Fever overnight Tachycardic overnight Tizanidine, valium and Baclofen held again yesterday due to hypotension Now having stump spasms (restart Baclofen after Bronch. NPO now and he will likely get Versed prior to procedure) Bronch at 11 am Pt had transient asytole arrest during/following procedure Returned to ICU under Pulm. Med care 10/17/2017: See Pulm. Med. progress note 10/18/2017: Care returned to Hospitalist Service Still requiring 8 L/NC Assessment and Plan (1) Altered mental status Noted on readmission Improved after holding all sedating medications Suspect oversedation (Baclofen, Tizanidine, Valium) vs possible sepsis No obvious focal deficits Baclofen, Tizanidine, Valium were restarted due to stump spasms AMS resolved (2) Pneumonia: (HCAP): Right-sided PNA CT-Chest showed collapse and consolidation noted at rt. lower lobe with extensive mucous plugging including rt. mainstem Continue Vanc and Merrem S/p bronchoscopy with deep suctioning 10/16/2016 Results of bronchial washing pending at this time Patient's refusal of bronchopulmonary toileting including nebulizer treatments and percussive therapy complicate recovery Urine and blood cx NTD Pulmonary medicine assistance appreciated (3) Cardiac arrest Transient event and related to acute hypoxia leading to asystole. Troponin were very modestly elevated and normalized the following day Lactate normal (4) Hypotension Current Visit: Yes Status: Acute Briefly hypotensive during bronchoscopy Thought to be related to sedation. LA was normal Resolved (5) History of bacteremia and Candidemia Last dose of scheduled Fluconazole given ( ) Blood cx NTDl (6) Decubitus ulcer of ischium Pressure ulcer of unspecified buttock, stage 2 Wound care consulted (7) Urinary tract infection History of suprapubic catheter infection and ESBL E.coli UTI. . U. cx negative Continue contact precautions (8) Quadriplegia PT ordered. Frequent positions changes Restarted antispasmotics (9) Bilateral LE amputations: (10) VTE prophylaxis: SQ Heparin - Constitutional Vitals: Temp Pulse Resp BP Pulse Ox 98.0 F 115 18 134/104 98 10/18/17 07:33 10/18/17 09:21 10/18/17 07:50 10/18/17 09:21 10/18/17 07:50 General appearance: Present: A&O X 3, underweight - Head Head exam: Present: atraumatic, normocephalic - Eye Eye exam: Present: PERRL, conjuntiva pink, sclera anicteric Pupils: Present: PERRL - Neck Neck exam general surgery: Present: supple, trachea midline. Absent: lymphadenopathy - Respiratory Respiratory exam: Present: decreased breath sounds. Absent: accessory muscle use, rales, rhonchi, wheezes - Cardiovascular Cardiovascular exam: Present: RRR, +S1, +S2. Absent: diastolic murmur, gallop, rubs, systolic murmur - GI/Abdominal GI/Abdominal exam: Present: normal bowel sounds, soft, no peritoneal signs. Absent: distended, tenderness - Extremities Exam Extremities exam: Present: warm. Absent: calf tenderness, cyanotic, pedal edema - Neurological Exam Neurological exam: Present: CN II-XII intact, oriented X3, no focal deficits. Absent: pronater drift, facial droop, speech deficit - Skin Skin exam: Present: dry, intact Internal Medicine: Result - Labs CBC & Chem 7: 10/18/17 09:44 10/18/17 09:44 - ABG Interpretation ABG results: ABG ABG pH 7.37 pH Units (7.32-7.45) 10/12/17 13:14 ABG pCO2 60 mmHg (35-45) H 10/12/17 13:14 ABG pO2 93 mmHg (85-104) 10/12/17 13:14 ABG O2 Saturation 97 % (95-98) 10/12/17 13:14 PT/INR, D-dimer PT 11.7 Seconds (9.4-12.1) 10/12/17 13:56 Consult Discharge Plan - Plan Referrals: Mauricio Melendrez MD [Primary Care Provider] -
[2017-10-18] MEDS: Ringers Solution, Lactated 1,000 ML IVC SCH (09:43)
[2017-10-18] MEDS: Phenylephrine 10 MG in D5% in Water 250 ML IVC SCH (09:43)
[2017-10-18 10:58] LABS: Hematocrit 28.5 % (37.5-50.1); Hemoglobin 8.8 g/dL (12.9-16.9); Immature Granulocytes % 1.7 % (0-4); Lymphocytes # 0.4 K/mcL (0.6-4.6); Lymphocytes % 9.6 %; Mean Corpuscular HGB Conc 30.9 g/dL (31.6-35.5); Mean Corpuscular Volume 90.8 fL (83.0-100.0); Mean Platelet Volume 9.2 fL (9.4-12.4); Monocytes # 0.2 K/mcL (0.0-1.3); Monocytes % 4.9 %; Neutrophils # 3.4 K/mcL (1.6-8.9); Platelet Count 258 K/mcL (140-400); Red Blood Count 3.14 M/mcL (4.19-5.50); Red Cell Distribution Width 14.7 % (11.5-14.5); Segmented Neutrophils % 83.8 %
[2017-10-18 11:04] LABS: BUN/Creatinine Ratio 21 (6-26); Blood Urea Nitrogen 13 mg/dL (6-20); Calcium 8.4 mg/dL (8.6-10.3); Carbon Dioxide 38 mEq/L (23-29); Chloride 96 mEq/L (98-107); Glucose 296 mg/dL (70-105); Osmolality,Calculated 293 (280-300); Potassium 3.2 mEq/L (3.5-5.1); Sodium 136 mEq/L (136-145); eGFR For African Americans > 60 (> 60); eGFR For Non-African Americans > 60 (> 60)
[2017-10-18] MEDS ORDERED: Potassium Chloride Elixir 20 MEQ/15 ML UDC PO ONE (14:21)
[2017-10-18] MEDS: *HR* HYDROmorphone 2 MG TABLET PO PRN (23:50)
[2017-10-19] MEDS: Ipratropium/Albuterol Neb 3 ML IH SCH ×8 (00:44→23:54)
[2017-10-19 04:13] LABS: Influenza A PCR Body Fluid NOT DETECTED; Influenza B PCR Body Fluid NOT DETECTED; RVP Body Fluid Source BAL RLL
[2017-10-19 04:28] LABS: Basophils % 0.1 %; Hematocrit 31.5 % (37.5-50.1); Hemoglobin 9.5 g/dL (12.9-16.9); Immature Granulocytes % 0.5 % (0-4); Lymphocytes # 0.6 K/mcL (0.6-4.6); Lymphocytes % 3.6 %; Mean Corpuscular HGB Conc 30.2 g/dL (31.6-35.5); Mean Corpuscular Volume 92.9 fL (83.0-100.0); Mean Platelet Volume 9.1 fL (9.4-12.4); Monocytes # 0.7 K/mcL (0.0-1.3); Monocytes % 4.6 %; Platelet Count 255 K/mcL (140-400); Red Blood Count 3.39 M/mcL (4.19-5.50); Red Cell Distribution Width 14.9 % (11.5-14.5); Segmented Neutrophils % 91.2 %
[2017-10-19 04:48] LABS: BUN/Creatinine Ratio 23 (6-26); Blood Urea Nitrogen 14 mg/dL (6-20); Calcium 8.6 mg/dL (8.6-10.3); Carbon Dioxide 39 mEq/L (23-29); Chloride 100 mEq/L (98-107); Glucose 206 mg/dL (70-105); Osmolality,Calculated 300 (280-300); Potassium 3.8 mEq/L (3.5-5.1); Sodium 142 mEq/L (136-145); eGFR For African Americans > 60 (> 60); eGFR For Non-African Americans > 60 (> 60)
[2017-10-19] MEDS: Vancomycin 500 MG in 0.9 % Sodium Chloride Mini Bag 100 ML IVPB SCH ×2 (04:54→17:55)
[2017-10-19] MEDS: Lubiprostone [Amitiza] 24 MCG PO SCH ×2 (05:02→17:49)
[2017-10-19] MEDS ORDERED: Aminoglycoside Consult 1 EACH MC ONE (07:32)
[2017-10-19 08:35] LABS: RSV PCR Body Fluid NOT DETECTED
[2017-10-19] MEDS: Baclofen 10 MG TABLET PO SCH ×2 (08:51→22:27)
[2017-10-19] MEDS: Ascorbic Acid 500 MG TABLET PO SCH (08:51)
[2017-10-19] MEDS: Sennosides 8.6 MG TABLET PO SCH ×2 (08:51→22:27)
[2017-10-19] MEDS: Mirtazapine 15 MG TABLET PO SCH (08:51)
[2017-10-19] MEDS: Lactobacillus 1 EACH CAP.SPRINK PO SCH ×2 (08:51→22:28)
[2017-10-19] MEDS: tiZANidine 4 MG TABLET PO SCH ×3 (08:52→22:28)
[2017-10-19] MEDS: Meropenem 1,000 MG in Water for inj. (sterile) 20 ML 10 ML IVP SCH ×2 (08:52→17:55)
[2017-10-19] MEDS: Vitamin B Complex/Vit C/Vit E 1 EACH TABLET PO SCH (08:52)
[2017-10-19] MEDS: methylPREDNISolone 125 MG/2 ML VIAL IVP SCH ×2 (08:52→17:55)
--- NOTE | 2017-10-19 12:16 | Internal Med Progress Note ---
Date of Encounter: 10/19/17 Time of Encounter: 12:15 - Assessment and plan (1) Altered mental status Current Visit: Yes Status: Acute Qualifiers: Altered mental status type: coma Coma depth: [place] coma 9-12 Coma timing: at hospital admission Qualified Code(s): R40.2423 - Manoj coma scale score 9-12, at hospital admission (2) History of bacteremia Current Visit: No Status: Chronic Code(s): Z87.898 - Personal history of other specified conditions (3) Decubitus ulcer of ischium Current Visit: No Status: Chronic Qualifiers: Pressure ulcer stage: stage 2 Laterality: unspecified laterality Qualified Code(s): L89.302 - Pressure ulcer of unspecified buttock, stage 2 (4) Urinary tract infection Current Visit: No Status: Chronic Qualifiers: Urinary tract infection type: catheter-associated UTI Indwelling urinary catheter type: indwelling urethral catheter Encounter type: subsequent encounter Qualified Code(s): T83.511D - Infection and inflammatory reaction due to indwelling urethral catheter, subsequent encounter; N39.0 - Urinary tract infection, site not specified (5) Quadriplegia Current Visit: No Status: Chronic Code(s): G82.50 - Quadriplegia, unspecified - Subjective Interval history: Interval history: 10/13/17: -Overnight he became more sob and cxr showed pulm. vascular congestion -IVF were d/c'd and lasix given -Breathing improved this am -He is still requiring increased O2 demand -A&Ox3 this am -Diaphoretic and febrile this am 10/14/17: c/o stump spasm (Tizanidine, valium and Baclofen all held at adm due to AMS) Restarted Still on 10 L HF-NC Weaning down today A&Ox3 and appropriate BP very high Afebrile today WBC trending upward CXR shows possible rt. mainstem mucous plug and consolidation. Radiology recommending CT-Chest be done. Ordered stat and night team alerted. May need bronch 10/15/2017: Supplemental O2 demand improved (4L NC) Febrile and diaphoretic Urine Cx Neg and Blood Cx NTD Stump spasms improved but not resolved following reintroduction of muscle relaxants. 10/16/2017: Fever overnight Tachycardic overnight Tizanidine, valium and Baclofen held again yesterday due to hypotension Now having stump spasms (restart Baclofen after Bronch. NPO now and he will likely get Versed prior to procedure) Bronch at 11 am Pt had transient asytole arrest during/following procedure Returned to ICU under Pulm. Med care 10/17/2017: See Pulm. Med. progress note 10/18/2017: Care returned to Hospitalist Service Still requiring 8 L/NC 10/19/2017: Back to baseline O2 level (4-5 L/M NC Able to move out of 2N step-down to [facility] Assessment and Plan (1) Altered mental status Noted on readmission Improved after holding all sedating medications Suspect oversedation (Baclofen, Tizanidine, Valium) vs possible sepsis No obvious focal deficits Baclofen, Tizanidine, Valium were restarted due to stump spasms AMS resolved (2) Pneumonia: (HCAP): Right-sided PNA CT-Chest showed collapse and consolidation noted at rt. lower lobe with extensive mucous plugging including rt. mainstem Continue Vanc and Merrem S/p bronchoscopy with deep suctioning 10/16/2016 Results of bronchial washing pending at this time Patient's refusal of bronchopulmonary toileting including nebulizer treatments and percussive therapy complicate recovery Urine and blood cx NTD Pulmonary medicine assistance appreciated (3) Cardiac arrest Transient event and related to acute hypoxia leading to asystole. Troponin were very modestly elevated and normalized the following day Lactate normal (4) Hypotension Current Visit: Yes Status: Acute Briefly hypotensive during bronchoscopy Thought to be related to sedation. LA was normal Resolved (5) History of bacteremia and Candidemia Last dose of scheduled Fluconazole given ( ) Blood cx NTDl (6) Decubitus ulcer of ischium Pressure ulcer of unspecified buttock, stage 2 Wound care consulted (7) Urinary tract infection History of suprapubic catheter infection and ESBL E.coli UTI. . U. cx negative Continue contact precautions (8) Quadriplegia PT ordered. Frequent positions changes Restarted antispasmotics (9) Bilateral LE amputations: (10) VTE prophylaxis: SQ Heparin - Constitutional Vitals: Temp Pulse Resp BP Pulse Ox 98.8 F 101 16 104/85 92 10/19/17 10:58 10/19/17 10:58 10/19/17 11:23 10/19/17 10:58 10/19/17 11:23 General appearance: Present: A&O X 3, underweight - Head Head exam: Present: atraumatic, normocephalic - Eye Eye exam: Present: PERRL, conjuntiva pink, sclera anicteric Pupils: Present: PERRL - Neck Neck exam general surgery: Present: supple, trachea midline. Absent: lymphadenopathy - Respiratory Respiratory exam: Present: CTAB. Absent: accessory muscle use, rales, rhonchi, wheezes - Cardiovascular Cardiovascular exam: Present: RRR, +S1, +S2. Absent: diastolic murmur, gallop, rubs, systolic murmur - GI/Abdominal GI/Abdominal exam: Present: normal bowel sounds, soft, no peritoneal signs. Absent: distended, tenderness - Extremities Exam Extremities exam: Present: warm, radial pulses palpable and symmetrical. Absent : calf tenderness, cyanotic, pedal edema - Neurological Exam Neurological exam: Present: CN II-XII intact, oriented X3, no focal deficits. Absent: pronater drift, facial droop, speech deficit - Skin Skin exam: Present: dry, intact Internal Medicine: Result - Labs CBC & Chem 7: 10/19/17 04:09 10/19/17 04:09 Labs: Short CBC 10/19/17 Range/Units 04:09 WBC 15.3 H D (4.3-11.1) K/mcL Hgb 9.5 L (12.9-16.9) g/dL Hct 31.5 L (37.5-50.1) % Plt Count 255 (140-400) K/mcL Neutrophils # 14.0 H (1.6-8.9) K/mcL BMP 10/19/17 04:09 Sodium 142 Potassium 3.8 Chloride 100 Carbon Dioxide 39 H BUN 14 Creatinine 0.60 L Glucose 206 H Calcium 8.6 - ABG Interpretation ABG results: ABG ABG pH 7.37 pH Units (7.32-7.45) 10/12/17 13:14 ABG pCO2 60 mmHg (35-45) H 10/12/17 13:14 ABG pO2 93 mmHg (85-104) 10/12/17 13:14 ABG O2 Saturation 97 % (95-98) 10/12/17 13:14 PT/INR, D-dimer PT 11.7 Seconds (9.4-12.1) 10/12/17 13:56 - Impressions Impressions Chest X-Ray 10/19/17 03:20 IMPRESSION: No significant change in right-sided effusion and associated consolidation which could represent atelectasis or pneumonia. Right main bronchus is again not well visualized. D/ / Didier Martin MD / Didier Martin MD Interpreting Provider: Didier Martin MD Consult Discharge Plan - Plan Referrals: Mauricio Melendrez MD [Primary Care Provider] -
[2017-10-19] MEDS: Phenylephrine 10 MG in D5% in Water 250 ML IVC SCH (20:49)
[2017-10-19] MEDS: Ringers Solution, Lactated 1,000 ML IVC SCH (20:49)
[2017-10-20] MEDS: methylPREDNISolone 125 MG/2 ML VIAL IVP SCH ×2 (00:15→10:17)
[2017-10-20] MEDS: *HR* HYDROmorphone 2 MG TABLET PO PRN (00:15)
[2017-10-20] MEDS: Meropenem 1,000 MG in Water for inj. (sterile) 20 ML 10 ML IVP SCH ×2 (00:16→10:17)
[2017-10-20] MEDS: Ipratropium/Albuterol Neb 3 ML IH SCH ×6 (03:42→23:33)
[2017-10-20] MEDS: Vancomycin 500 MG in 0.9 % Sodium Chloride Mini Bag 100 ML IVPB SCH (05:02)
[2017-10-20] MEDS: Lubiprostone [Amitiza] 24 MCG PO SCH (06:09)
--- NOTE | 2017-10-20 06:31 | Electrocardiograph Report ---
[address] [address] Test Date: 2017-10-16 Pat Name: Francisco Eid Department: 109 Room: 3A43 Gender: M [employer]: : [id number] Requested By: Darius Adams Order Number: [id number] Reading MD: Robe Goff MD Measurements Intervals [place] Rate: 115 P: 61 MD: 128 QRS: 76 QRSD: 114 T: 59 QT: 343 QTc: 411 Interpretive Statements SINUS TACHYCARDIA BASELINE ARTIFACT Electronically Signed On 10-20-2017 6:29:43 EDT by Robe Goff MD
[2017-10-20 07:23] LABS: Hematocrit 31.3 % (37.5-50.1); Hemoglobin 9.6 g/dL (12.9-16.9); Mean Corpuscular HGB Conc 30.7 g/dL (31.6-35.5); Mean Corpuscular Volume 91.3 fL (83.0-100.0); Mean Platelet Volume 9.3 fL (9.4-12.4); Nucleated Red Blood Cells 0.4 /100 WBC (0); Platelet Count 316 K/mcL (140-400); Red Blood Count 3.43 M/mcL (4.19-5.50); Red Cell Distribution Width 15.1 % (11.5-14.5)
[2017-10-20 08:09] LABS: Lymphocytes # 1.3 K/mcL (0.6-4.6); Monocytes # 0.8 K/mcL (0.0-1.3); Neutrophils # 10.9 K/mcL (1.6-8.9); Platelet Estimate Normal (Normal)
[2017-10-20] MEDS: Sennosides 8.6 MG TABLET PO SCH ×2 (10:14→20:12)
[2017-10-20] MEDS: Ascorbic Acid 500 MG TABLET PO SCH (10:14)
[2017-10-20] MEDS: Vitamin B Complex/Vit C/Vit E 1 EACH TABLET PO SCH (10:15)
[2017-10-20] MEDS: Baclofen 10 MG TABLET PO SCH ×2 (10:15→20:12)
[2017-10-20] MEDS: tiZANidine 4 MG TABLET PO SCH ×3 (10:16→20:12)
[2017-10-20] MEDS: Mirtazapine 15 MG TABLET PO SCH (10:16)
[2017-10-20] MEDS: Lactobacillus 1 EACH CAP.SPRINK PO SCH ×2 (10:17→20:12)
[2017-10-20] MEDS ORDERED: Acetaminophen 325 MG TABLET PO PRN (15:52)
[2017-10-20] MEDS: MethylPREDNISolone 40 MG/ML VIAL IVP SCH ×2 (17:10→22:58)
--- NOTE | 2017-10-20 17:13 | Internal Med Progress Note ---
Date of Encounter: 10/20/17 Time of Encounter: 17:11 - Assessment and plan (1) Altered mental status Current Visit: Yes Status: Acute Assessment and plan: Noted on readmission Improved after holding all sedating medications Suspect oversedation (Baclofen, Tizanidine, Valium) vs possible sepsis No obvious focal deficits Baclofen, Tizanidine, Valium were restarted due to stump spasms AMS resolved Qualifiers: Altered mental status type: coma Coma depth: [place] coma 9-12 Coma timing: at hospital admission Qualified Code(s): R40.2423 - [place] coma scale score 9-12, at hospital admission (2) Pneumonia Current Visit: Yes Status: Acute Assessment and plan: CT-Chest showed collapse and consolidation noted at rt. lower lobe with extensive mucous plugging including rt. mainstem He has completed total of 9 days of Vanc and Merrem S/p bronchoscopy with deep suctioning 10/16/2016 Patient's refusal of bronchopulmonary toileting including nebulizer treatments and percussive therapy complicate recovery Urine and blood cx NTGD - DC Vancomycin and meropenem - Resp cultures Steno sensitive to Levaquin and Bactrim. He has listed allergies to Bactrim (hives) and Cipro (hives). Will need to discuss with patient if he is willing to take Levaquin. In his case, since he has significant pneumonia manifestations (hypoxia, mucus plugging), benefits may outweigh risks to start Levaquin. Qualifiers: Pneumonia type: due to unspecified organism Laterality: right Lung location: unspecified part of lung Qualified Code(s): J18.9 - Pneumonia, unspecified organism (3) Amputation of both lower extremities Current Visit: Yes Status: Acute Qualifiers: Encounter type: sequela Qualified Code(s): S88.911S - Complete traumatic amputation of right lower leg, level unspecified, sequela; S88.912S - Complete traumatic amputation of left lower leg, level unspecified, sequela; S88.912S - Complete traumatic amputation of left lower leg, level unspecified, sequela; S88.912S - Complete traumatic amputation of left lower leg, level unspecified, sequela (4) Cardiac arrest Current Visit: Yes Status: Acute Assessment and plan: Transient event and related to acute hypoxia leading to asystole. Troponin were very modestly elevated and normalized the following day Lactate normal (5) Hypotension Current Visit: Yes Status: Acute Assessment and plan: Briefly hypotensive during bronchoscopy Thought to be related to sedation. LA was normal Resolved Qualifiers: Hypotension type: unspecified hypotension type Qualified Code(s): I95.9 - Hypotension, unspecified (6) Decubitus ulcer of ischium Current Visit: No Status: Chronic Assessment and plan: Pressure ulcer of unspecified buttock, stage 2 Wound care consulted Qualifiers: Pressure ulcer stage: stage 2 Laterality: unspecified laterality Qualified Code(s): L89.302 - Pressure ulcer of unspecified buttock, stage 2 (7) History of bacteremia Current Visit: No Status: Chronic Assessment and plan: and Candidemia Last dose of scheduled Fluconazole given ( ) Blood cx NTDl (8) Quadriplegia Current Visit: No Status: Chronic Assessment and plan: PT ordered. Frequent positions changes Restarted antispasmotics (9) Urinary tract infection Current Visit: No Status: Chronic Assessment and plan: History of suprapubic catheter infection and ESBL E.coli UTI. . U. cx negative Continue contact precautions Qualifiers: Urinary tract infection type: catheter-associated UTI Indwelling urinary catheter type: indwelling urethral catheter Encounter type: subsequent encounter Qualified Code(s): T83.511D - Infection and inflammatory reaction due to indwelling urethral catheter, subsequent encounter; N39.0 - Urinary tract infection, site not specified - Subjective Interval history: Interval history: 10/13/17: -Overnight he became more sob and cxr showed pulm. vascular congestion -IVF were d/c'd and lasix given -Breathing improved this am -He is still requiring increased O2 demand -A&Ox3 this am -Diaphoretic and febrile this am 10/14/17: c/o stump spasm (Tizanidine, valium and Baclofen all held at adm due to AMS) Restarted Still on 10 L HF-NC Weaning down today A&Ox3 and appropriate BP very high Afebrile today WBC trending upward CXR shows possible rt. mainstem mucous plug and consolidation. Radiology recommending CT-Chest be done. Ordered stat and night team alerted. May need bronch 10/15/2017: Supplemental O2 demand improved (4L NC) Febrile and diaphoretic Urine Cx Neg and Blood Cx NTD Stump spasms improved but not resolved following reintroduction of muscle relaxants. 10/16/2017: Fever overnight Tachycardic overnight Tizanidine, valium and Baclofen held again yesterday due to hypotension Now having stump spasms (restart Baclofen after Bronch. NPO now and he will likely get Versed prior to procedure) Bronch at 11 am Pt had transient asytole arrest during/following procedure Returned to ICU under Pulm. Med care 10/17/2017: See Pulm. Med. progress note 10/18/2017: Care returned to Hospitalist Service Still requiring 8 L/NC 10/19/2017: Back to baseline O2 level (4-5 L/M NC Able to move out of 2N step-down to GMB 10/20/2017: No acute events. Bronchial washing resp culture has returned positive for Stenotrophomonas sensitive to Levaquin/Bactrim. - Constitutional Vitals: Temp Pulse Resp BP Pulse Ox 98.5 F 86 17 161/121 99 10/20/17 10:00 10/20/17 10:00 10/20/17 11:09 10/20/17 10:00 10/20/17 11:09 General appearance: Present: A&O X 3, underweight Exam: - Head Head exam: Present: atraumatic, normocephalic - Eye Eye exam: Present: PERRL, conjuntiva pink, sclera anicteric Pupils: Present: PERRL - Neck Neck exam general surgery: Present: supple, trachea midline. Absent: lymphadenopathy - Respiratory Respiratory exam: Present: CTAB. Absent: accessory muscle use, rales, rhonchi, wheezes - Cardiovascular Cardiovascular exam: Present: RRR, +S1, +S2. Absent: diastolic murmur, gallop, rubs, systolic murmur - GI/Abdominal GI/Abdominal exam: Present: normal bowel sounds, soft, no peritoneal signs. Absent: distended, tenderness - Extremities Exam Extremities exam: Present: warm, radial pulses palpable and symmetrical. Absent : calf tenderness, cyanotic, pedal edema - Neurological Exam Neurological exam: Present: CN II-XII intact, oriented X3, no focal deficits. Absent: pronater drift, facial droop, speech deficit - Skin Skin exam: Present: dry, intact Internal Medicine: Result - Labs CBC & Chem 7: 10/20/17 06:16 10/19/17 04:09 Labs: Short CBC 10/20/17 Range/Units 06:16 WBC 13.0 H (4.3-11.1) K/mcL Hgb 9.6 L (12.9-16.9) g/dL Hct 31.3 L (37.5-50.1) % Plt Count 316 (140-400) K/mcL Neutrophils # 10.9 H (1.6-8.9) K/mcL - ABG Interpretation ABG results: ABG ABG pH 7.37 pH Units (7.32-7.45) 10/12/17 13:14 ABG pCO2 60 mmHg (35-45) H 10/12/17 13:14 ABG pO2 93 mmHg (85-104) 10/12/17 13:14 ABG O2 Saturation 97 % (95-98) 10/12/17 13:14 PT/INR, D-dimer PT 11.7 Seconds (9.4-12.1) 10/12/17 13:56 Consult Discharge Plan - Plan Referrals: Mauricio Melendrez MD [Primary Care Provider] -
[2017-10-21 00:48] LABS: Immature Platelets 4.5 % (1.1-6.1)
[2017-10-21 00:51] LABS: Hematocrit 30.7 % (37.5-50.1); Hemoglobin 9.4 g/dL (12.9-16.9); Mean Corpuscular HGB Conc 30.6 g/dL (31.6-35.5); Mean Corpuscular Hemoglobin 28.3 pg (28.0-33.3); Mean Corpuscular Volume 92.5 fL (83.0-100.0); Nucleated Red Blood Cells 0.9 /100 WBC (0); Platelet Count 236 K/mcL (140-400); Red Blood Count 3.32 M/mcL (4.19-5.50); Red Cell Distribution Width 15.3 % (11.5-14.5)
[2017-10-21 00:57] LABS: BUN/Creatinine Ratio 31 (6-26); Blood Urea Nitrogen 16 mg/dL (6-20); Calcium 8.4 mg/dL (8.6-10.3); Carbon Dioxide 36 mEq/L (23-29); Chloride 99 mEq/L (98-107); Glucose 126 mg/dL (70-105); Osmolality,Calculated 289 (280-300); Potassium 4.4 mEq/L (3.5-5.1); Sodium 138 mEq/L (136-145); eGFR For African Americans > 60 (> 60); eGFR For Non-African Americans > 60 (> 60)
[2017-10-21] MEDS ORDERED: Levofloxacin 750 MG/150 ML 750 MG/150 ML BAG IVPB SCH (01:00)
[2017-10-21 01:49] LABS: Lymphocytes # 0.7 K/mcL (0.6-4.6); Monocytes # 0.5 K/mcL (0.0-1.3); Neutrophils # 7.3 K/mcL (1.6-8.9)
[2017-10-21 01:50] LABS: Platelet Estimate Normal (Normal)
[2017-10-21] MEDS: Ipratropium/Albuterol Neb 3 ML IH SCH ×5 (04:15→20:04)
[2017-10-21] MEDS: MethylPREDNISolone 40 MG/ML VIAL IVP SCH ×2 (08:54→22:41)
[2017-10-21] MEDS: Baclofen 10 MG TABLET PO SCH ×3 (08:55→22:43)
[2017-10-21] MEDS: Mirtazapine 15 MG TABLET PO SCH (08:55)
[2017-10-21] MEDS: Sennosides 8.6 MG TABLET PO SCH ×2 (08:55→22:43)
[2017-10-21] MEDS: Ascorbic Acid 500 MG TABLET PO SCH (08:55)
[2017-10-21] MEDS: tiZANidine 4 MG TABLET PO SCH ×2 (08:56→16:14)
[2017-10-21] MEDS: Lactobacillus 1 EACH CAP.SPRINK PO SCH ×2 (08:56→22:45)
[2017-10-21] MEDS: Vitamin B Complex/Vit C/Vit E 1 EACH TABLET PO SCH (08:56)
[2017-10-21] MEDS ORDERED: tiZANidine 4 MG TABLET PO SCH (11:00)
[2017-10-21] MEDS ORDERED: 0.9 % Sodium Chloride 1,000 ML IVC ONE (11:02)
[2017-10-21] MEDS: Doxycycline 100 MG in 0.9 % Sodium Chloride Mini Bag 100 ML IVPB SCH ×2 (11:22→22:41)
--- NOTE | 2017-10-21 15:46 | Internal Med Progress Note ---
Date of Encounter: 10/21/17 Time of Encounter: 15:44 - Assessment and plan (1) Altered mental status Current Visit: Yes Status: Acute Assessment and plan: Noted on readmission Improved after holding all sedating medications Suspect oversedation (Baclofen, Tizanidine, Valium) vs possible sepsis No obvious focal deficits - Lower doses of Baclofen and Tizanidine, Valium still on hold. - AMS resolved Qualifiers: Altered mental status type: coma Coma depth: [place] coma 9-12 Coma timing: at hospital admission Qualified Code(s): R40.2423 - [place] coma scale score 9-12, at hospital admission (2) Pneumonia Current Visit: Yes Status: Acute Assessment and plan: CT-Chest showed collapse and consolidation noted at rt. lower lobe with extensive mucous plugging including rt. mainstem He has completed total of 9 days of Vanc and Merrem S/p bronchoscopy with deep suctioning 10/16/2016 Patient's refusal of bronchopulmonary toileting including nebulizer treatments and percussive therapy complicate recovery Urine and blood cx NTGD - DC Vancomycin and meropenem after completed 9 days therapy - Resp cultures Steno sensitive to Levaquin and Bactrim. Has allergies to Bactrim. He had developed rash yesterday from Levaquin, which he has taken before. - Will start on Doxycycline today. Qualifiers: Pneumonia type: due to unspecified organism Laterality: right Lung location: unspecified part of lung Qualified Code(s): J18.9 - Pneumonia, unspecified organism (3) Onychomycosis Current Visit: Yes Status: Acute Assessment and plan: Patient has fingernails with findings c/w onychomycosis - He was recently treated with fluconazole for candidemia but that was only indicated for 14 days of therapy - Will arrange for clipping of nails since patient is unable to do it himself. - Will give one dose of fluconazole now, and on discharge he may follow-up with primary care physician weather to continue treatment (4) Amputation of both lower extremities Current Visit: Yes Status: Acute Qualifiers: Encounter type: sequela Qualified Code(s): S88.911S - Complete traumatic amputation of right lower leg, level unspecified, sequela; S88.912S - Complete traumatic amputation of left lower leg, level unspecified, sequela; S88.912S - Complete traumatic amputation of left lower leg, level unspecified, sequela; S88.912S - Complete traumatic amputation of left lower leg, level unspecified, sequela (5) Cardiac arrest Current Visit: Yes Status: Acute Assessment and plan: Transient event and related to acute hypoxia leading to asystole. Troponin were very modestly elevated and normalized the following day Lactate normal (6) Hypotension Current Visit: Yes Status: Acute Assessment and plan: Briefly hypotensive during bronchoscopy Thought to be related to sedation. LA was normal. This initially resolved with IVF. 10/21: had BP documented in 220s/80s: however this is thought to be error after hydralazine given once 10 mg IV as SBP immediately went to 90s. Patient was asymptomatic. Currently BP running 87-147/43-89 and it seems that he normally run in this range. (HR ranging 90-107 bpm but patient has just woken up and taken himself of O2) - will continue to closely monitor. Qualifiers: Hypotension type: unspecified hypotension type Qualified Code(s): I95.9 - Hypotension, unspecified (7) Decubitus ulcer of ischium Current Visit: No Status: Chronic Assessment and plan: Pressure ulcer of unspecified buttock, stage 2 Wound care consulted Qualifiers: Pressure ulcer stage: stage 2 Laterality: unspecified laterality Qualified Code(s): L89.302 - Pressure ulcer of unspecified buttock, stage 2 (8) History of bacteremia Current Visit: No Status: Chronic Assessment and plan: and Candidemia Last dose of scheduled Fluconazole given ( ) Blood cx NTDl (9) Quadriplegia Current Visit: No Status: Chronic Assessment and plan: PT ordered. Frequent positions changes Restarted antispasmotics (10) Urinary tract infection Current Visit: No Status: Chronic Assessment and plan: History of suprapubic catheter infection and ESBL E.coli UTI. . U. cx negative Continue contact precautions Qualifiers: Urinary tract infection type: catheter-associated UTI Indwelling urinary catheter type: indwelling urethral catheter Encounter type: subsequent encounter Qualified Code(s): T83.511D - Infection and inflammatory reaction due to indwelling urethral catheter, subsequent encounter; N39.0 - Urinary tract infection, site not specified - Subjective Interval history: Interval history: 10/13/17: -Overnight he became more sob and cxr showed pulm. vascular congestion -IVF were d/c'd and lasix given -Breathing improved this am -He is still requiring increased O2 demand -A&Ox3 this am -Diaphoretic and febrile this am 10/14/17: c/o stump spasm (Tizanidine, valium and Baclofen all held at adm due to AMS) Restarted Still on 10 L HF-NC Weaning down today A&Ox3 and appropriate BP very high Afebrile today WBC trending upward CXR shows possible rt. mainstem mucous plug and consolidation. Radiology recommending CT-Chest be done. Ordered stat and night team alerted. May need bronch 10/15/2017: Supplemental O2 demand improved (4L NC) Febrile and diaphoretic Urine Cx Neg and Blood Cx NTD Stump spasms improved but not resolved following reintroduction of muscle relaxants. 10/16/2017: Fever overnight Tachycardic overnight Tizanidine, valium and Baclofen held again yesterday due to hypotension Now having stump spasms (restart Baclofen after Bronch. NPO now and he will likely get Versed prior to procedure) Bronch at 11 am Pt had transient asytole arrest during/following procedure Returned to ICU under Pulm. Med care 10/17/2017: See Pulm. Med. progress note 10/18/2017: Care returned to Hospitalist Service Still requiring 8 L/NC 10/19/2017: Back to baseline O2 level (4-5 L/M NC Able to move out of 2N step-down to GMB 10/20/2017: Bronchial washing resp culture has returned positive for Stenotrophomonas sensitive to Levaquin/Bactrim. He was tried on Levaquin because he has taken it in the past. He developed erythema and hives. He was given Benadryl. Levaquin discontinued 10/21/2017: No complaints, patient is taken off O2 and seeing how is doing. He complains of thick fingernails from fungal infection. He denies fevers/chills, n/v. States breathing is better. - Constitutional Vitals: Temp Pulse Resp BP Pulse Ox 98.9 F 107 16 147/89 93 10/21/17 15:26 10/21/17 15:26 10/21/17 15:26 10/21/17 15:26 10/21/17 15:26 General appearance: Present: A&O X 3, underweight Exam: - Head Head exam: Present: atraumatic, normocephalic - Eye Eye exam: Present: PERRL, conjuntiva pink, sclera anicteric Pupils: Present: PERRL - Neck Neck exam general surgery: Present: supple, trachea midline. Absent: lymphadenopathy - Respiratory Respiratory exam: Present: CTAB. Absent: accessory muscle use, rales, rhonchi, wheezes - Cardiovascular Cardiovascular exam: Present: RRR, +S1, +S2. Absent: diastolic murmur, gallop, rubs, systolic murmur - GI/Abdominal GI/Abdominal exam: Present: normal bowel sounds, soft, no peritoneal signs. Absent: distended, tenderness - Extremities Exam Extremities exam: Present: warm, radial pulses palpable and symmetrical. Absent : calf tenderness, cyanotic, pedal edema - Neurological Exam Neurological exam: Present: CN II-XII intact, oriented X3, no focal deficits. Absent: pronater drift, facial droop, speech deficit - Skin Skin exam: Present: dry, intact Internal Medicine: Result - Labs CBC & Chem 7: 10/21/17 00:20 10/21/17 00:20 Labs: Short CBC 10/21/17 Range/Units 00:20 WBC 8.5 (4.3-11.1) K/mcL Hgb 9.4 L (12.9-16.9) g/dL Hct 30.7 L (37.5-50.1) % Plt Count 236 (140-400) K/mcL Neutrophils # 7.3 (1.6-8.9) K/mcL BMP 10/21/17 00:20 Sodium 138 Potassium 4.4 Chloride 99 Carbon Dioxide 36 H BUN 16 Creatinine 0.51 L Glucose 126 H Calcium 8.4 L - ABG Interpretation ABG results: ABG ABG pH 7.37 pH Units (7.32-7.45) 10/12/17 13:14 ABG pCO2 60 mmHg (35-45) H 10/12/17 13:14 ABG pO2 93 mmHg (85-104) 10/12/17 13:14 ABG O2 Saturation 97 % (95-98) 10/12/17 13:14 PT/INR, D-dimer PT 11.7 Seconds (9.4-12.1) 10/12/17 13:56 Consult Discharge Plan - Plan Referrals: Mauricio Melendrez MD [Primary Care Provider] -
[2017-10-21] MEDS ORDERED: Fluconazole 100 MG TABLET PO ONE (16:00)
[2017-10-21] MEDS: *HR* Heparin 5,000 UNIT/ML VIAL SQ SCH (18:24)
[2017-10-22] MEDS: tiZANidine 4 MG TABLET PO SCH ×4 (00:01→21:50)
[2017-10-22] MEDS: Ipratropium/Albuterol Neb 3 ML IH SCH ×7 (00:17→23:27)
[2017-10-22 06:08] LABS: Hematocrit 31.7 % (37.5-50.1); Hemoglobin 10.1 g/dL (12.9-16.9); Mean Corpuscular HGB Conc 31.9 g/dL (31.6-35.5); Mean Corpuscular Hemoglobin 28.5 pg (28.0-33.3); Mean Corpuscular Volume 89.5 fL (83.0-100.0); Mean Platelet Volume 9.1 fL (9.4-12.4); Nucleated Red Blood Cells 0.7 /100 WBC (0); Platelet Count 351 K/mcL (140-400); Red Blood Count 3.54 M/mcL (4.19-5.50); Red Cell Distribution Width 15.9 % (11.5-14.5)
[2017-10-22] MEDS: *HR* Heparin 5,000 UNIT/ML VIAL SQ SCH ×2 (06:20→17:17)
[2017-10-22 06:27] LABS: BUN/Creatinine Ratio 47 (6-26); Blood Urea Nitrogen 32 mg/dL (6-20); Calcium 8.2 mg/dL (8.6-10.3); Carbon Dioxide 29 mEq/L (23-29); Chloride 99 mEq/L (98-107); Glucose 114 mg/dL (70-105); Osmolality,Calculated 286 (280-300); Potassium 4.9 mEq/L (3.5-5.1); Sodium 134 mEq/L (136-145); eGFR For African Americans > 60 (> 60); eGFR For Non-African Americans > 60 (> 60)
[2017-10-22 06:31] LABS: Lymphocytes # 1.1 K/mcL (0.6-4.6); Neutrophils # 8.9 K/mcL (1.6-8.9); Platelet Estimate Normal (Normal)
[2017-10-22 06:32] LABS: Anisocytosis 1+ (Not Present); Macrocytosis Present (Not Present); Polychromasia 1+ (Not Present)
[2017-10-22] MEDS: Lactobacillus 1 EACH CAP.SPRINK PO SCH ×2 (08:04→21:50)
[2017-10-22] MEDS: Mirtazapine 15 MG TABLET PO SCH (08:04)
[2017-10-22] MEDS: MethylPREDNISolone 40 MG/ML VIAL IVP SCH (08:04)
[2017-10-22] MEDS: Sennosides 8.6 MG TABLET PO SCH ×2 (08:05→21:50)
[2017-10-22] MEDS: Vitamin B Complex/Vit C/Vit E 1 EACH TABLET PO SCH (08:05)
[2017-10-22] MEDS: Ascorbic Acid 500 MG TABLET PO SCH (08:05)
[2017-10-22] MEDS: Baclofen 10 MG TABLET PO SCH ×3 (08:08→21:50)
[2017-10-22] MEDS: Doxycycline 100 MG in 0.9 % Sodium Chloride Mini Bag 100 ML IVPB SCH (12:30)
[2017-10-22] MEDS: *HR* HYDROmorphone 2 MG TABLET PO PRN ×2 (12:52→19:34)
--- NOTE | 2017-10-22 19:02 | Internal Med Progress Note ---
Date of Encounter: 10/22/17 Time of Encounter: 18:59 - Assessment and plan (1) Altered mental status Current Visit: Yes Status: Acute Assessment and plan: Noted on readmission Improved after holding all sedating medications Suspect oversedation (Baclofen, Tizanidine, Valium) vs possible sepsis No obvious focal deficits - Lower doses of Baclofen and Tizanidine, Valium still on hold. - AMS resolved Continue to use lowest effective dose of medications Qualifiers: Altered mental status type: coma Coma depth: [place] coma 9-12 Coma timing: at hospital admission Qualified Code(s): R40.2423 - [place] coma scale score 9-12, at hospital admission (2) Pneumonia Current Visit: Yes Status: Acute Assessment and plan: CT-Chest showed collapse and consolidation noted at rt. lower lobe with extensive mucous plugging including rt. mainstem He has completed total of 9 days of Vanc and Merrem S/p bronchoscopy with deep suctioning 10/16/2016 Patient's refusal of bronchopulmonary toileting including nebulizer treatments and percussive therapy complicate recovery Urine and blood cx NTGD - DC Vancomycin and meropenem after completed 9 days therapy - Resp cultures Steno sensitive to Levaquin and Bactrim. Has allergies to Bactrim. He had developed rash yesterday from Levaquin, which he has taken before. - Continue to monitor on Doxy, Started on 10/21 Qualifiers: Pneumonia type: due to unspecified organism Laterality: right Lung location: unspecified part of lung Qualified Code(s): J18.9 - Pneumonia, unspecified organism (3) Onychomycosis Current Visit: Yes Status: Acute Assessment and plan: Patient has fingernails with findings c/w onychomycosis - He was recently treated with fluconazole for candidemia but that was only indicated for 14 days of therapy - Will arrange for clipping of nails since patient is unable to do it himself. - Will give one dose of fluconazole now, and on discharge he may follow-up with primary care physician weather to continue treatment (4) Amputation of both lower extremities Current Visit: Yes Status: Acute Qualifiers: Encounter type: sequela Qualified Code(s): S88.911S - Complete traumatic amputation of right lower leg, level unspecified, sequela; S88.912S - Complete traumatic amputation of left lower leg, level unspecified, sequela; S88.912S - Complete traumatic amputation of left lower leg, level unspecified, sequela; S88.912S - Complete traumatic amputation of left lower leg, level unspecified, sequela (5) Cardiac arrest Current Visit: Yes Status: Acute Assessment and plan: Transient event and related to acute hypoxia leading to asystole. Troponin were very modestly elevated and normalized the following day Lactate normal (6) Hypotension Current Visit: Yes Status: Acute Assessment and plan: Briefly hypotensive during bronchoscopy Thought to be related to sedation. LA was normal. This initially resolved with IVF. 10/21: had BP documented in 220s/80s: however this is thought to be error after hydralazine given once 10 mg IV as SBP immediately went to 90s. Patient was asymptomatic. Currently BP running 87-147/43-89 and it seems that he normally run in this range. (HR ranging 90-107 bpm but patient has just woken up and taken himself of O2) - will continue to closely monitor. Qualifiers: Hypotension type: unspecified hypotension type Qualified Code(s): I95.9 - Hypotension, unspecified (7) Decubitus ulcer of ischium Current Visit: No Status: Chronic Assessment and plan: Pressure ulcer of unspecified buttock, stage 2 Wound care consulted Qualifiers: Pressure ulcer stage: stage 2 Laterality: unspecified laterality Qualified Code(s): L89.302 - Pressure ulcer of unspecified buttock, stage 2 (8) History of bacteremia Current Visit: No Status: Chronic Assessment and plan: and Candidemia Last dose of scheduled Fluconazole given ( ) Blood cx NGTD (9) Quadriplegia Current Visit: No Status: Chronic Assessment and plan: PT ordered. Frequent positions changes Restarted antispasmotics (10) Urinary tract infection Current Visit: No Status: Chronic Assessment and plan: History of suprapubic catheter infection and ESBL E.coli UTI. . U. cx negative Continue contact precautions Qualifiers: Urinary tract infection type: catheter-associated UTI Indwelling urinary catheter type: indwelling urethral catheter Encounter type: subsequent encounter Qualified Code(s): T83.511D - Infection and inflammatory reaction due to indwelling urethral catheter, subsequent encounter; N39.0 - Urinary tract infection, site not specified - Subjective Interval history: Interval history: 10/13/17: -Overnight he became more sob and cxr showed pulm. vascular congestion -IVF were d/c'd and lasix given -Breathing improved this am -He is still requiring increased O2 demand -A&Ox3 this am -Diaphoretic and febrile this am 10/14/17: c/o stump spasm (Tizanidine, valium and Baclofen all held at adm due to AMS) Restarted Still on 10 L HF-NC Weaning down today A&Ox3 and appropriate BP very high Afebrile today WBC trending upward CXR shows possible rt. mainstem mucous plug and consolidation. Radiology recommending CT-Chest be done. Ordered stat and night team alerted. May need bronch 10/15/2017: Supplemental O2 demand improved (4L NC) Febrile and diaphoretic Urine Cx Neg and Blood Cx NTD Stump spasms improved but not resolved following reintroduction of muscle relaxants. 10/16/2017: Fever overnight Tachycardic overnight Tizanidine, valium and Baclofen held again yesterday due to hypotension Now having stump spasms (restart Baclofen after Bronch. NPO now and he will likely get Versed prior to procedure) Bronch at 11 am Pt had transient asytole arrest during/following procedure Returned to ICU under Pulm. Med care 10/17/2017: See Pulm. Med. progress note 10/18/2017: Care returned to Hospitalist Service Still requiring 8 L/NC 10/19/2017: Back to baseline O2 level (4-5 L/M NC Able to move out of 2N step-down to GMB 10/20/2017: Bronchial washing resp culture has returned positive for Stenotrophomonas sensitive to Levaquin/Bactrim. He was tried on Levaquin because he has taken it in the past. He developed erythema and hives. He was given Benadryl. Levaquin discontinued 10/21/2017: No complaints, patient is taken off O2 and seeing how is doing. He complains of thick fingernails from fungal infection. He denies fevers/chills, n/v. States breathing is better. 10/22/2017: Feeling slight dyspnea with sputum production but stable. - Constitutional Vitals: Temp Pulse Resp BP Pulse Ox 98.8 F 100 20 146/95 99 10/22/17 10:41 10/22/17 10:41 10/22/17 16:30 10/22/17 10:41 10/22/17 16:30 General appearance: Present: A&O X 3, underweight Exam: - Head Head exam: Present: atraumatic, normocephalic - Eye Eye exam: Present: PERRL, conjuntiva pink, sclera anicteric Pupils: Present: PERRL - Neck Neck exam general surgery: Present: supple, trachea midline. Absent: lymphadenopathy - Respiratory Respiratory exam: Present: CTAB. Absent: accessory muscle use, rales, rhonchi, wheezes - Cardiovascular Cardiovascular exam: Present: RRR, +S1, +S2. Absent: diastolic murmur, gallop, rubs, systolic murmur - GI/Abdominal GI/Abdominal exam: Present: normal bowel sounds, soft, no peritoneal signs. Absent: distended, tenderness - Extremities Exam Extremities exam: Present: warm, radial pulses palpable and symmetrical. Absent : calf tenderness, cyanotic, pedal edema - Neurological Exam Neurological exam: Present: CN II-XII intact, oriented X3, no focal deficits. Absent: pronater drift, facial droop, speech deficit - Skin Skin exam: Present: dry, intact Internal Medicine: Result - Labs CBC & Chem 7: 10/22/17 05:53 10/22/17 05:53 Labs: Short CBC 10/22/17 Range/Units 05:53 WBC 10.6 (4.3-11.1) K/mcL Hgb 10.1 L (12.9-16.9) g/dL Hct 31.7 L (37.5-50.1) % Plt Count 351 (140-400) K/mcL Neutrophils # 8.9 (1.6-8.9) K/mcL BMP 10/22/17 05:53 Sodium 134 L Potassium 4.9 Chloride 99 Carbon Dioxide 29 BUN 32 H Creatinine 0.68 L Glucose 114 H Calcium 8.2 L - ABG Interpretation ABG results: ABG ABG pH 7.37 pH Units (7.32-7.45) 10/12/17 13:14 ABG pCO2 60 mmHg (35-45) H 10/12/17 13:14 ABG pO2 93 mmHg (85-104) 10/12/17 13:14 ABG O2 Saturation 97 % (95-98) 10/12/17 13:14 PT/INR, D-dimer PT 11.7 Seconds (9.4-12.1) 10/12/17 13:56 Consult Discharge Plan - Plan Referrals: Mauricio Melendrez MD [Primary Care Provider] -
[2017-10-23] MEDS: Doxycycline 100 MG in 0.9 % Sodium Chloride Mini Bag 100 ML IVPB SCH ×2 (00:21→13:50)
[2017-10-23] MEDS: Ipratropium/Albuterol Neb 3 ML IH SCH ×4 (04:13→16:07)
[2017-10-23] MEDS: *HR* Heparin 5,000 UNIT/ML VIAL SQ SCH (06:20)
[2017-10-23 07:05] LABS: BUN/Creatinine Ratio 75 (6-26); Blood Urea Nitrogen 39 mg/dL (6-20); Calcium 9.7 mg/dL (8.6-10.3); Carbon Dioxide 28 mEq/L (23-29); Chloride 100 mEq/L (98-107); Glucose 73 mg/dL (70-105); Osmolality,Calculated 290 (280-300); Potassium 5.7 mEq/L (3.5-5.1); Sodium 136 mEq/L (136-145); eGFR For African Americans > 60 (> 60); eGFR For Non-African Americans > 60 (> 60)
[2017-10-23 07:08] LABS: Basophils % 0.2 %; Eosinophils # 0.2 K/mcL (0.0-0.6); Eosinophils % 1.2 %; Hematocrit 38.8 % (37.5-50.1); Immature Granulocytes % 12.1 % (0-4); Lymphocytes # 4.9 K/mcL (0.6-4.6); Mean Corpuscular HGB Conc 31.4 g/dL (31.6-35.5); Mean Corpuscular Hemoglobin 28.2 pg (28.0-33.3); Mean Corpuscular Volume 89.6 fL (83.0-100.0); Mean Platelet Volume 8.9 fL (9.4-12.4); Monocytes % 7.1 %; Nucleated Red Blood Cells 0.3 /100 WBC (0); Platelet Count 372 K/mcL (140-400); Red Blood Count 4.33 M/mcL (4.19-5.50); Red Cell Distribution Width 17.6 % (11.5-14.5); Segmented Neutrophils % 45.4 %
[2017-10-23 07:09] LABS: Hemoglobin 12.2 g/dL (12.9-16.9); Neutrophils # 6.6 K/mcL (1.6-8.9)
[2017-10-23 08:07] LABS: Platelet Estimate Normal (Normal); Reactive Lymphocytes Present (Not Present)
[2017-10-23] MEDS: Mirtazapine 15 MG TABLET PO SCH (08:53)
[2017-10-23] MEDS: Lactobacillus 1 EACH CAP.SPRINK PO SCH (08:54)
[2017-10-23] MEDS: Ascorbic Acid 500 MG TABLET PO SCH (08:54)
[2017-10-23] MEDS: Sennosides 8.6 MG TABLET PO SCH (08:54)
[2017-10-23] MEDS: Vitamin B Complex/Vit C/Vit E 1 EACH TABLET PO SCH (08:55)
[2017-10-23] MEDS ORDERED: predniSONE 20 MG TABLET PO SCH (09:00)
[2017-10-23] MEDS: Baclofen 10 MG TABLET PO SCH ×2 (09:08→15:41)
[2017-10-23 09:51] LABS: Eosinophils # 0.3 K/mcL (0.0-0.6); Hematocrit 37.3 % (37.5-50.1); Hemoglobin 12.1 g/dL (12.9-16.9); Mean Corpuscular HGB Conc 32.4 g/dL (31.6-35.5); Mean Corpuscular Hemoglobin 28.9 pg (28.0-33.3); Mean Corpuscular Volume 89.2 fL (83.0-100.0); Mean Platelet Volume 8.9 fL (9.4-12.4); Nucleated Red Blood Cells 0.5 /100 WBC (0); Platelet Count 403 K/mcL (140-400); Red Blood Count 4.18 M/mcL (4.19-5.50); Red Cell Distribution Width 17.4 % (11.5-14.5)
[2017-10-23 10:12] LABS: Lymphocytes # 4.9 K/mcL (0.6-4.6); Monocytes # 1.8 K/mcL (0.0-1.3); Neutrophils # 7.6 K/mcL (1.6-8.9)
[2017-10-23 10:13] LABS: Anisocytosis 1+ (Not Present); Platelet Estimate Increased (Normal); Polychromasia 1+ (Not Present)
[2017-10-23 10:15] LABS: C-Reactive Protein < 5 mg/L (Less than 10); Potassium 5.1 mEq/L (3.5-5.1)
[2017-10-23] MEDS ORDERED: cefTRIAXone 2,000 MG in Water for inj. (sterile) 20 ML 20 ML IVP SCH (11:00)
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
[2017-10-23] MEDS: tiZANidine 4 MG TABLET PO SCH (13:49)
--- NOTE | 2017-10-23 14:08 | Physician Discharge Referral ---
ExtendedCare Referral Info Institutional Level of Care: Skilled - Diagnosis (1) Altered mental status Priority: Primary Status: Resolved (2) Pneumonia Priority: Secondary Status: Acute (3) Onychomycosis Priority: Secondary Status: Acute (4) Amputation of both lower extremities Priority: Secondary Status: Acute (5) Cardiac arrest Priority: Secondary Status: Acute (6) Hypotension Priority: Secondary Status: Acute (7) Decubitus ulcer of ischium Priority: Secondary Status: Chronic (8) History of bacteremia Priority: Secondary Status: Chronic (9) Quadriplegia Priority: Secondary Status: Chronic (10) Urinary tract infection Priority: Secondary Status: Chronic - Transfer Medications Prescriptions: Baclofen [Lioresal] 20 mg PO 0900,1500,2100 #9 tablet diazePAM [Valium] 5 mg PO Q8H PRN 3 Days #9 tablet PRN Reason: MUSCLE SPASMS HYDROmorphone [Dilaudid] 2 mg PO Q8H PRN 7 Days #9 tablet PRN Reason: Pain Home Medications: Ascorbic Acid [Vitamin C] 500 mg PO DAILY 05/23/15 [History] Bisacodyl [Dulcolax] 5 mg PO DAILY 05/23/15 [History] Lubiprostone [Amitiza] 24 mcg PO Q12HR 05/23/15 [History] Sennosides [Senna] 17.2 mg PO BID 05/23/15 [History] Acetaminophen [Tylenol] 650 mg PO Q6HR PRN 05/11/16 [History] GuaiFENesin ER [Mucinex] 600 mg PO DAILY 05/11/16 [History] Docusate [Colace] 100 mg PO BID 05/12/16 [History] Mirtazapine 7.5 mg PO DAILY 07/04/17 [History] Ferrous Gluconate 324 mg PO BID 09/21/17 [History] Omeprazole [PriLOSEC] 20 mg PO DAILY 09/21/17 [History] Promethazine [Phenergan] 25 mg PO Q6H PRN 09/21/17 [History] Vitamin B Complex/Minerals [Sm Stress Formula+Zinc Tablet] 1 each PO DAILY 09/21 [History] Lactobacillus Acidophilus [Acidophilus] 1 cap PO BID 10/12/17 [History] Baclofen [Lioresal] 20 mg PO 0900,1500,2100 #9 tablet 10/23/17 [Rx] Docusate [Colace] 100 mg PO BID capsule 10/23/17 [Rx] HYDROmorphone [Dilaudid] 2 mg PO Q8H PRN 7 Days #9 tablet 10/23/17 [Rx] Levalbuterol Neb [Xopenex Neb] 0.63 mg IH [id number] PRN vial.neb 10/23/17 [Rx] Tizanidine HCl [Zanaflex] 4 mg PO TID #90 cap 10/23/17 [Rx] diazePAM [Valium] 5 mg PO Q8H PRN 3 Days #9 tablet 10/23/17 [Rx] predniSONE [PredniSONE] See Taper PO DAILY tablet 10/23/17 [Rx] Allergies/Adverse Reactions: 3 Allergy/AdvReac Type Severity Reaction Status Date / Time Amoxicillin [From Amoxil] Allergy See Verified 10/12/17 11:25 Comments cephalexin [From Keflex] Allergy Hives Verified 10/12/17 11:25 ciprofloxacin [From Cipro] Allergy Hives Verified 10/12/17 11:25 cranberry Allergy See Verified 10/12/17 11:25 Comments ketorolac Allergy Hives Verified 10/12/17 11:25 morphine Allergy Hives Verified 10/12/17 11:25 nitrofurantoin Allergy Hives Verified 10/12/17 11:25 [From Macrobid] Oxycodone Allergy Hives Verified 10/12/17 11:25 Penicillins Allergy Hives Verified 10/12/17 11:25 prochlorperazine Allergy Hives Verified 10/12/17 11:25 [From Compazine] Sulfa (Sulfonamide Allergy Hives Verified 10/12/17 11:25 Antibiotics) trimethoprim Allergy Hives Verified 10/12/17 12:45 levofloxacin [From Levaquin] AdvReac Redness of Verified 10/21/17 17:02 Skin - Respiratory Orders Smoking Cessation: Smoking cessation has been advised. For more information, call the [place] Tobacco Quit Line at 7-691-PYJJ-NOW. - Rehabiliation Orders Rehab Orders: Evaluation for Physical Therapy, Evaluation for Occupational Therapy - Treatments Skin tear care topically daily PRN per policy, May check for fecal impaction rectally daily PRN - Diet Orders No Added Salt (ESTEBAN), Cardiac CERTIFICATION: I certify that the transfer of the above named patient to an Extended Care Facility is necessary for the continuing treatment of the diagnosis listed. The above information is true and accurate reflection of patient's current condition. Confidential - Redisclosure prohibited without a patient's written consent.
[2017-10-23] MEDS ORDERED: DIAZEPAM 5 MG/ML PO STA (14:19)
[2017-10-23] MEDS ORDERED: diazePAM 5 MG TABLET PO STA (14:36)
[2017-10-23 15:35] VITALS: BP 100/65
== END 2017-10-23 19:10 | DRG 52 ==
LOC: EMEROO 11:03 → 2NNU 12:58 → SUATTDRO 12:58 → 2NNU 13:23 → ICNU 10-16 12:24 → 2NNU 10-17 17:43 → 3ANU 10-19 20:31
PROVIDERS: ADMIT Student in an Organized Health Care Education/Training Program; ATTEND Internal Medicine